=== PATIENT | male | born 1985 | race Caucasian/White ===

== ENCOUNTER 2020-05-21 13:10 | Outpatient (REF) | payer OTHER, SELFPAY ==
[2020-05-21 14:09] LABS: MANUAL DIFF FLAG NO
[2020-05-21 14:16] LABS: Basophils Absolute Auto 0.1 X10*3/uL (0.0-0.2); Eosinophils Absolute Auto 0.5 X10*3/uL (0.0-0.4); Eosinophils Percent Auto 7.3 % (0-4); Hematocrit 41.7 % (42-52); Hemoglobin 14.1 g/dl (14.0-18.0); Imm Gran Abs Auto 0.02 X10*3/uL (0.00-0.03); Imm Gran Pct Auto 0.3 % (0.0-0.4); Lymphocytes Absolute Auto 2.1 X10*3/uL (1.2-4.9); Lymphocytes Percent Auto 30.7 % (20-40); Mean Corpuscular HGB Conc 33.8 g/dl (31.0-36.0); Mean Corpuscular Hemoglobin 31.1 pg (27.0-33.0); Mean Corpuscular Volume 92.1 fL (80-98); Mean Platelet Volume 9.7 fL (9.4-12.4); Monocytes Absolute Auto 0.5 X10*3/uL (0.1-1.2); Monocytes Percent Auto 6.8 % (2-11); Neutrophils Absolute Auto 3.6 X10*3/uL (2.0-8.3); Neutrophils Percent Auto 53.9 % (45-73); Platelet Count 251 X10*3/uL (160-400); Red Blood Count 4.53 X10*6/uL (4.60-5.80); White Blood Count 6.7 X10*3/uL (4.8-10.8)
[2020-05-21 14:41] LABS: Alanine Aminotransferase 22 U/L (0-40); Albumin Level 4.5 g/dL (3.5-5.0); Alkaline Phosphatase 57 U/L (39-117); Anion Gap 13 (12-20); Aspartate Amino Transferase 19 U/L (5-37); Bilirubin Total < 0.2 mg/dL (0.0-1.0); Blood Urea Nitrogen 10 mg/dL (9-16); Calcium 9.5 mg/dL (8.4-10.2); Carbon Dioxide 29 mmol/L (22-29); Chloride 105 mmol/L (96-108); Cholesterol 180 mg/dL; Estimated Glomerular Filt Rate > 60; Glucose Random 87 mg/dL (60-115); HDL Cholesterol 53 mg/dL; LDL Cholesterol Calculated 106 mg/dl; Potassium 4.8 mmol/L (3.3-5.1); Sodium 142 mmol/L (135-145); Total Protein 7.5 g/dL (6.5-8.0); Triglycerides 108 mg/dL
[2020-05-21 15:02] LABS: Free T4 (Free Thyroxine) 0.64 ng/dL (0.71-1.85); Thyroid Stimulating Hormone 1.62 uIU/mL (0.32-4.0)
[2020-05-21 15:09] LABS: Folate 5.9 ng/mL (> or = 4.0); Vitamin B12 591 pg/mL (200-900)
== END 2020-05-21 13:11 | disposition home or self-care (01) ==
LOC: HO.LAB 13:10
PROVIDERS: PCP Internal Medicine; Visit Provider Internal Medicine
DX: E78.00 Pure hypercholesterolemia, unspecified (principal); R56.9 Unspecified convulsions
CPT/HCPCS: 36415; 80053; 80061; 82607; 82746; 84439; 84443; 85025

== ENCOUNTER 2020-06-07 13:36 | Outpatient (REF) | payer OTHER, SELFPAY ==
[2020-06-07 14:22] LABS: MANUAL DIFF FLAG NO
[2020-06-07 14:25] LABS: Basophils Absolute Auto 0.1 X10*3/uL (0.0-0.2); Basophils Percent Auto 1.4 % (0-2); Eosinophils Absolute Auto 0.7 X10*3/uL (0.0-0.4); Eosinophils Percent Auto 10.8 % (0-4); Hemoglobin 14.6 g/dl (14.0-18.0); Imm Gran Abs Auto 0.02 X10*3/uL (0.00-0.03); Imm Gran Pct Auto 0.3 % (0.0-0.4); Lymphocytes Absolute Auto 2.3 X10*3/uL (1.2-4.9); Lymphocytes Percent Auto 36.6 % (20-40); Mean Corpuscular Hemoglobin 31.1 pg (27.0-33.0); Mean Corpuscular Volume 91.5 fL (80-98); Mean Platelet Volume 9.3 fL (9.4-12.4); Monocytes Absolute Auto 0.5 X10*3/uL (0.1-1.2); Monocytes Percent Auto 7.1 % (2-11); Neutrophils Absolute Auto 2.8 X10*3/uL (2.0-8.3); Neutrophils Percent Auto 43.8 % (45-73); Platelet Count 270 X10*3/uL (160-400); Red Cell Distribution Width 11.9 % (11.0-16.0); White Blood Count 6.3 X10*3/uL (4.8-10.8)
[2020-06-07 14:51] LABS: Alanine Aminotransferase 17 U/L (0-40); Albumin Level 4.7 g/dL (3.5-5.0); Alkaline Phosphatase 54 U/L (39-117); Anion Gap 13 (12-20); Aspartate Amino Transferase 17 U/L (5-37); Bilirubin Total 0.6 mg/dL (0.0-1.0); Blood Urea Nitrogen 13 mg/dL (9-16); Calcium 9.6 mg/dL (8.4-10.2); Carbon Dioxide 27 mmol/L (22-29); Chloride 106 mmol/L (96-108); Cholesterol 191 mg/dL; Estimated Glomerular Filt Rate > 60; Glucose Fasting 92 mg/dL (60-99); HDL Cholesterol 52 mg/dL; LDL Cholesterol Calculated 122 mg/dl; Potassium 4.4 mmol/L (3.3-5.1); Sodium 142 mmol/L (135-145); Total Protein 7.6 g/dL (6.5-8.0); Triglycerides 88 mg/dL
[2020-06-07 15:02] LABS: Thyroid Stimulating Hormone 0.92 uIU/mL (0.32-4.0)
[2020-06-14 13:41] LABS: Haloperidol 4 ng/mL (5-15)
== END 2020-06-07 13:37 | disposition home or self-care (01) ==
LOC: HO.LAB 13:36
PROVIDERS: PCP Internal Medicine; Visit Provider Psychiatry & Neurology Psychiatry
DX: Z79.899 Other long term (current) drug therapy (principal)
CPT/HCPCS: 36415; 80053; 80061; 80173; 80299; 84443; 85025

== ENCOUNTER → 2020-06-08 14:33 | Outpatient (REF) | payer OTHER, SELFPAY ==
--- NOTE | 2020-06-08 14:40 | ECG_ITS ---
Test Reason : QTC PROLONGNATION Blood Pressure : / mmHG Vent. Rate : 094 BPM Atrial Rate : 094 BPM P-R Int : 128 ms QRS Dur : 094 ms QT Int : 348 ms P-R-T Axes : 051 023 035 degrees QTc Int : 435 ms Normal sinus rhythm Normal ECG When compared with ECG of 25-OCT-2018 14:42, No significant change was found Referred By: Georgia Anaya Electronically Signed By:Cheng Urrutia
== END ==
LOC: HO.CARD 14:33
PROVIDERS: PCP Internal Medicine; Visit Provider Psychiatry & Neurology Psychiatry
DX: Z79.899 Other long term (current) drug therapy (principal)
CPT/HCPCS: 93005

== ENCOUNTER 2020-06-28 10:57 | Outpatient (REF) | payer OTHER, SELFPAY ==
[2020-06-28 12:10] LABS: INTERNATIONAL NORM RATIO 1.1 (0.9-1.1)
[2020-06-28 12:22] LABS: Prothrombin Time 12.7 SEC (10.8-13.0)
[2020-06-28 12:28] LABS: Partial Thromboplastin Time 43.1 SEC (24.1-38.0)
== END 2020-06-28 10:58 | disposition home or self-care (01) ==
LOC: HO.LAB 10:57
PROVIDERS: PCP Internal Medicine; Visit Provider Internal Medicine
DX: Z01.810 Encounter for preprocedural cardiovascular examination (principal)
CPT/HCPCS: 36415; 85610; 85730

== ENCOUNTER 2020-10-08 11:48 | Outpatient (REF) | payer OTHER, SELFPAY ==
--- NOTE | 2020-10-08 11:57 | ECG_ITS ---
Test Reason : R00.0 Blood Pressure : / mmHG Vent. Rate : 105 BPM Atrial Rate : 105 BPM P-R Int : 134 ms QRS Dur : 092 ms QT Int : 346 ms P-R-T Axes : 063 053 047 degrees QTc Int : 457 ms Sinus tachycardia Otherwise normal ECG When compared with ECG of 08-JUN-2020 14:45, Heart rate has increased Referred By: Mable Conley Electronically Signed By:ANTHONY CAR
[2020-10-08 12:27] LABS: MANUAL DIFF FLAG NO
[2020-10-08 12:32] LABS: Basophils Percent Auto 0.7 % (0-2); Eosinophils Absolute Auto 0.3 X10*3/uL (0.0-0.4); Eosinophils Percent Auto 5.6 % (0-4); Hematocrit 43.3 % (42-52); Hemoglobin 14.8 g/dl (14.0-18.0); Imm Gran Abs Auto 0.01 X10*3/uL (0.00-0.03); Imm Gran Pct Auto 0.2 % (0.0-0.4); Lymphocytes Percent Auto 35.5 % (20-40); Mean Corpuscular HGB Conc 34.2 g/dl (31.0-36.0); Mean Corpuscular Volume 90.6 fL (80-98); Mean Platelet Volume 9.4 fL (9.4-12.4); Monocytes Absolute Auto 0.7 X10*3/uL (0.1-1.2); Neutrophils Absolute Auto 2.6 X10*3/uL (2.0-8.3); Platelet Count 265 X10*3/uL (160-400); Red Blood Count 4.78 X10*6/uL (4.60-5.80); Red Cell Distribution Width 11.9 % (11.0-16.0); White Blood Count 5.6 X10*3/uL (4.8-10.8)
[2020-10-08 12:48] LABS: Alanine Aminotransferase 18 U/L (0-40); Albumin Level 4.4 g/dL (3.5-5.0); Alkaline Phosphatase 73 U/L (39-117); Anion Gap 12 (12-20); Aspartate Amino Transferase 16 U/L (5-37); Bilirubin Total 0.2 mg/dL (0.0-1.0); Blood Urea Nitrogen 10 mg/dL (9-16); Carbon Dioxide 26 mmol/L (22-29); Chloride 107 mmol/L (96-108); Estimated Glomerular Filt Rate > 60; Glucose Random 97 mg/dL (60-115); Potassium 4.4 mmol/L (3.3-5.1); Sodium 141 mmol/L (135-145); Total Protein 7.6 g/dL (6.5-8.0)
[2020-10-08 13:11] LABS: Free T4 (Free Thyroxine) 0.75 ng/dL (0.71-1.85); Thyroid Stimulating Hormone 1.47 uIU/mL (0.32-4.0)
[2020-10-08 13:24] LABS: Folate 11.3 ng/mL (> or = 4.0); Vitamin B12 684 pg/mL (200-900)
== END 2020-10-08 11:49 | disposition home or self-care (01) ==
LOC: HO.LAB 11:48
PROVIDERS: PCP Internal Medicine; Visit Provider Internal Medicine
DX: R00.0 Tachycardia, unspecified (principal); E78.00 Pure hypercholesterolemia, unspecified
CPT/HCPCS: 36415; 80053; 82607; 82746; 84439; 84443; 85025; 93005

== ENCOUNTER 2021-01-12 15:32 | Emergency (ER) | payer OTHER, SELFPAY ==
--- NOTE | ~2021-01-12 | CT_ITS ---
EXAMINATION: CT ABDOMEN AND PELVIS WITHOUT CONTRAST CLINICAL INFORMATION: Urinary retention. Unable to pass Sanches. COMPARISON: CT abdomen/pelvis dated from 05/17/2016. TECHNIQUE: Multidetector volumetric imaging was performed from the superior aspect of the liver through the pubic symphysis. Sagittal and coronal reformatted images were obtained on the technologist's workstation. This CT examination was performed using dose optimization techniques as appropriate, variously including the following: *Automated exposure control *Adjustment of mA and/or kV according to patient size (this includes techniques or standardized protocols for targeted exams where dose is matched to indication/reason for exam; i.e. extremities or head) *Use of iterative reconstruction technique DLP: 769 mGy-cm FINDINGS: LUNG BASES: Small calcified granuloma in the right lung base (4:13). Mild subsegmental atelectasis. No focal consolidation or pleural effusion. LIVER, GALLBLADDER, AND BILIARY TREE: The liver is normal in size, shape and attenuation. A too small to characterize hypodensity in the left hepatic lobe (3:12) is unchanged since 2017. There is focal fatty infiltration adjacent to the falciform ligament. No new focal lesions. The gallbladder is unremarkable with no evidence of radiopaque gallstones, gallbladder wall thickening, or obvious pericholecystic inflammatory changes. PANCREAS: Unremarkable. SPLEEN: Unremarkable. ADRENAL GLANDS: Unremarkable. KIDNEYS AND URETERS: There is a 0.7 x 0.4 cm calculus in the right ureter at the level of L2-L3 leading to moderate right hydroureteronephrosis. There is periureteral fat stranding around the level of the stone. There is an additional 0.4 cm calculus in the lower pole of the right kidney at 6.8 cm from the skin of the posterior axillary line. No additional calculi. No left-sided hydronephrosis. No focal parenchymal abnormalities accounting for limitations in the absence of intravenous contrast. No significant perinephric fat stranding. BLADDER: The urinary bladder is significantly distended without wall thickening or surrounding fat stranding. There is a calcification layering posteriorly in the bladder measuring 0.4 cm on image 75 of series 3. There are 2 closely apposed calcifications more inferiorly within the posterior bladder on image 81 of series 3 measuring up to 0.5 cm. GASTROINTESTINAL TRACT: The stomach and the small bowel are nondilated. Normal appendix. No inflammatory bowel changes. No bowel obstruction. Moderate stool burden throughout the colon. ABDOMINAL WALL: No significant hernia is appreciated. LYMPH NODES: No lymphadenopathy by size criteria. VASCULAR: Unremarkable. PELVIC VISCERA: The prostate gland measures 3.7 x 2.8 cm in maximum AP and TV dimensions. OSSEOUS STRUCTURES: Sclerotic appearance of the femoral heads likely related with avascular necrosis. No compression deformities. CT/CT abdomen pelvis wo con IMPRESSION: There is a 0.7 cm obstructive calculus in the proximal right ureter causing moderate right hydroureteronephrosis. There is periureteral fat stranding which could be reactive. Correlate clinically for superimposed infection. There is an additional 0.4 cm calculus in the lower pole of the right kidney. Distended urinary bladder without wall thickening or surrounding inflammatory changes. There are dependent calculi in the urinary bladder that could be related with prior passed stones or urinary stasis. No definitely obstructive abnormalities are identified to explain symptoms of bladder outlet obstruction. The prostate gland is of normal size. Moderate stool burden suggesting constipation. Avascular necrosis of the femoral heads.
[2021-01-12 16:10] VITALS: BP 130/93; PULSE 107; RESP 18; TEMP 36.1; O2SAT 100; BMI 23.0
--- NOTE | 2021-01-12 18:07 | ED_ITS ---
HPI - Male Genitourinary General Chief complaint: Urogenital-Male Stated complaint: Urinary retention Time Seen by Provider: 01/12/21 17:11 Source: patient and family Mode of arrival: ambulatory Limitations: no limitations History of Present Illness HPI Narrative: 35 y/o male with history of glioma s/p resection 7 years ago and then again in May for recurrence with presenting urinary retention for the last 4 days. Patient is a poor historian and presents with his father and aunt. They report on Sunday he was found standing up in the bathroom with very dark brown urine down his legs. He was confused. They report he has not urinated since then. Patient reports increased lower abdominal pain. He also has been constipated with no bowel movement in a couple days either. He has urge to urinate but is not able to void. He has not had any fever or chills. No nausea or vomiting. He had his 2nd brain surgery back in May the father reports he was discharged with Sanches catheter for about a month. They report he sees Dr. Benavides here but has not seen him since 2019. Complaint: other (Urinary retention) Onset (ago): day(s) (4) Duration: constant Location: abdomen Severity: moderate Quality: aching Relieving factors: none Exacerbating factors: palpation Associated symptoms: Reports urinary retention Related Data Sexually active: No Home Medications Medication Instructions Recorded Confirmed quetiapine 400 mg tablet (Seroquel) 800 mg PO BEDTIME tab 04/05/20 01/12/21 gabapentin 100 mg capsule 100 mg PO DAILY 09/06/20 01/12/21 gabapentin 300 mg capsule 600 mg PO BEDTIME cap 09/06/20 01/12/21 haloperidol 20 mg tablet 20 mg PO BEDTIME 09/06/20 01/12/21 levetiracetam 1,000 mg tablet 1,000 mg PO BID tab 09/06/20 01/12/21 lorazepam 1 mg tablet (Ativan) 1 mg PO BID PRN tab 09/06/20 01/12/21 oxcarbazepine 300 mg tablet 1 tab PO BID 01/12/21 01/12/21 riboflavin (vitamin B2) 100 mg 100 mg PO DAILY 01/12/21 01/12/21 tablet (Vitamin B-2) sertraline 100 mg tablet 200 mg PO DAILY 01/12/21 01/12/21 sumatriptan succinate 50 mg tablet 50 mg PO Q2-4H PRN 01/12/21 01/12/21 Previous Rx's Medication Instructions Recorded pantoprazole 40 mg tablet,delayed 40 mg PO DAILY 90 Days #90 tab 08/02/20 release meloxicam 15 mg tablet 15 mg PO DAILY #90 tab 10/07/20 mupirocin 2 % topical ointment 1 appl TOPICAL TID #22 g 01/12/21 Allergies Allergy/AdvReac Type Severity Reaction Status Date / Time No Known Allergies Allergy Verified 11/15/20 10:31 [No Known Allergies*] Review of Systems Review of Systems: Constitutional: No Fever, No Chills ENT/Mouth: No sore throat, No Rhinorrhea, No Swallowing Difficulty Eyes: No Eye Pain, No Swelling, No Redness Cardiovascular: No Chest Pain, No SOB Respiratory: No Cough, No Sputum Gastrointestinal: No Nausea, No Vomiting, No Diarrhea, No abdominal Pain, No Hematochezia, No Melena, +Constipation Genitourinary: No Dysuria, No Urinary Frequency, No Hematuria, +Urinary retention Musculoskeletal: No joint pain, No Myalgias Skin: No Skin Lesions, No rash Neuro: + Weakness, No Numbness, No Dizziness, No Headache Psych: No Anxiety/Panic, No Depression Heme/Lymph: No Bruising, No Lymphadenopathy Endocrine: No Polyuria, No Polydipsia PMFSH Past Medical History Medical History (Updated 01/12/21 @ 23:03 by FARZAD Wisdom) GERD (gastroesophageal reflux disease) Hypercholesterolemia Insomnia Migraine Polysubstance abuse Psychotic disorder Seizures Thyroid nodule Vitamin D deficiency Surgical History (Updated 07/26/20 @ 18:51 by Mable Conley MD) Glioma History of surgery of head Family History Family History Father Bipolar 1 disorder Mother Bipolar 1 disorder Paternal Grandmother No problems noted. Paternal Grandfather Myocardial infarction Brother Substance abuse Social History Social History Housing: Apartment Alcohol intake: current Patient Tobacco Use Status: Former Tobacco user Tobacco use type: Cigarette Years Smoked: stopped 19 years old e-Cigarette/Vaping Use: Never Used Second Hand Smoke Exposure: No Advance Directives: No Advance Directives Information Provided: No service: No Current occupational status: disabled Physical Exam Vital Signs: Vital Signs: Last Vital Signs Temp 97.6 F 01/12/21 21:18 Pulse 84 01/12/21 21:18 Resp 16 01/12/21 21:18 BP 120/79 01/12/21 21:18 Pulse Ox 99 01/12/21 21:18 Body Mass Index 23.0 Appearance: Alert. Oriented X3. No acute distress. Slow to respond Eyes: Pupils equal, round and reactive to light. ENT: Pharynx normal. Neck: Normal inspection. Neck supple. CVS: Normal heart rate and rhythm. Pulses normal. Respiratory: No respiratory distress. Breath sounds normal. Abdomen: Soft with palpable bladder, tender. no rebound or guarding. decreased but presents +BS x4 TK: normal sphinter tone, no stool in rectal vault, firm prostate palpable, no bogginess. Normal external inspection with no tenderness, no urethral discharge. Skin: Skin warm and dry. Normal skin color. Normal skin turgor. No rashes. Extremities: No lower extremity edema. bilateral feel with foot drop. Neuro: Cognitive delay w slow speech. Oriented X 3. No motor deficit. No sensory deficit. Course Course Course Narrative: 35-year-old male with history of glioma resection x2, last in May 2020, course complicated by urinary retention requiring Sanches catheter for over 1 month now presents back to the ER with recurrent urinary retention. His family helps provide history. They state he had very dark urine on Sunday with some confusion and weakness. They report he has been unable to urinate since then. Also reports constipation. No fever or chills. No nausea or vomiting. Bladder scan showing almost 700 cc of urine. Will attempt Sanches catheter placement. Will check lab workup and urinalysis Reevaluation(s) Reevaluation #1: Sanches catheter placement unsuccessful by tech, nurse, colleague PA. Dr. Benavides the urologist was contacted and will plan to come in for evaluation and placement of a Sanches catheter. Lab workup is reassuring and not showing any significant acute kidney injury. Will obtain CT scan for further evaluation of obstruction. Reevaluation #2: CT scan is showing a 0.7 cm proximal right ureteral stone with obstruction and moderate hydroureteronephrosis. No bladder outlet obstruction is seen. Patient has no pain at this time. Reevaluation #3: Dr. Benavides came evaluated the patient the bedside. He successfully placed a Sanches catheter with very minimal bleeding afterward. 800 cc drained, urine is dark with some sediment. is not consistent with infection. Per Dr. Benavides patient is okay for discharge home with plan for urologic intervention on Sunday. OR staff will contact the family Sunday morning as he will be a add on case for the day. Patient to be discharged home with Sanches catheter in place. Family and patient agreeable with plan. Consultations Consultation #1: Urology Dr. Benavides MDM - Male Genitourinary Lab Data Result diagrams: 01/12/21 19:07 01/12/21 19:07 Labs: Lab Results 01/12/21 01/12/21 01/12/21 Range/Units 19:07 19:07 19:07 WBC 6.9 (4.8-10.8) X10*3/uL RBC 4.64 (4.60-5.80) X10*6/uL Hgb 14.1 (14.0-18.0) g/dl Hct 42.9 (42.0-52.0) % MCV 92.5 (80.0-98.0) fL MCH 30.4 (27.0-33.0) pg MCHC 32.9 (31.0-36.0) g/dl RDW 12.8 (11.0-16.0) % Plt Count 243 (160-400) X10*3/uL MPV 9.8 (9.4-12.4) fL Immature Gran % (Auto) 0.1 (0.0-0.4) % Neut % (Auto) 59.0 (45-73) % Lymph % (Auto) 23.1 (20-40) % [place] % (Auto) 10.5 (2-11) % Eos % (Auto) 6.3 H (0-4) % Baso % (Auto) 1.0 (0-2) % Lymph # (Auto) 1.6 (1.2-4.9) X10*3/uL [place] # (Auto) 0.7 (0.1-1.2) X10*3/uL Eos # (Auto) 0.4 (0.0-0.4) X10*3/uL Baso # (Auto) 0.1 (0.0-0.2) X10*3/uL Abs Immat Gran (auto) 0.01 (0.00-0.03) X10*3/uL Absolute Neuts (auto) 4.1 (2.0-8.3) x10*3/uL Absolute Nucleated RBC 0.000 (0.0-0.012) X10*3/uL Nucleated RBC % (auto) 0.0 (0.0-0.2) /100WBC Sodium 143 (135-145) mmol/L Potassium 4.5 (3.3-5.1) mmol/L Chloride 106 (96-108) mmol/L Carbon Dioxide 28 (22-29) mmol/L Anion Gap 14 (12-20) BUN 21 H D (9-16) mg/dL Creatinine 1.25 (0.5-1.4) mg/dL Estim Creat Clear Calc 88.1 Estimated GFR > 60 Random Glucose 90 (60-115) mg/dL Lactic Acid 1.1 (0.5-2.0) mmol/L Calcium 9.7 (8.4-10.2) mg/dL Magnesium 2.2 (1.6-2.6) mg/dL Total Bilirubin 0.4 (0.0-1.0) mg/dL Direct Bilirubin 0.2 (0.0-0.5) mg/dL AST 38 H D (5-37) U/L ALT 22 (0-40) U/L Alkaline Phosphatase 58 D (39-117) U/L Total Protein 7.5 (6.5-8.0) g/dL Albumin 4.3 (3.5-5.0) g/dL Urine Color Urine Appearance Urine pH (5.0-8.0) Ur Specific [place] (1.005-1.025) Urine Protein (NEG-TRACE) MG/DL Urine Glucose (UA) (NEG) MG/DL Urine Ketones (NEG) MG/DL Urine Blood (NEG) Urine Nitrite (NEG) Ur Leukocyte Esterase (NEG) Urine RBC (0) /HPF Urine WBC (0-4) /HPF Ur Squamous Epith Cells /LPF Amorphous Sediment /LPF Urine Bacteria /LPF Urine Mucus /LPF Urine Opiates Screen (Not Detect) Urine Fentanyl Screen (Not Detect) Ur Barbiturates Screen (Not Detect) Ur Phencyclidine Scrn (Not Detect) Ur Amphetamines Screen (Not Detect) U Benzodiazepines Scrn (Not Detect) Urine Cocaine Screen (Not Detect) U Marijuana (THC) Screen (Not Detect) Ethyl Alcohol mg/dL COVID-19 ([facility]) (Negative) COVID-19 Clin Com 01/12/21 01/12/21 01/12/21 Range/Units 19:07 19:07 22:45 WBC (4.8-10.8) X10*3/uL RBC (4.60-5.80) X10*6/uL Hgb (14.0-18.0) g/dl Hct (42.0-52.0) % MCV (80.0-98.0) fL MCH (27.0-33.0) pg MCHC (31.0-36.0) g/dl RDW (11.0-16.0) % Plt Count (160-400) X10*3/uL MPV (9.4-12.4) fL Immature Gran % (Auto) (0.0-0.4) % Neut % (Auto) (45-73) % Lymph % (Auto) (20-40) % [place] % (Auto) (2-11) % Eos % (Auto) (0-4) % Baso % (Auto) (0-2) % Lymph # (Auto) (1.2-4.9) X10*3/uL [place] # (Auto) (0.1-1.2) X10*3/uL Eos # (Auto) (0.0-0.4) X10*3/uL Baso # (Auto) (0.0-0.2) X10*3/uL Abs Immat Gran (auto) (0.00-0.03) X10*3/uL Absolute Neuts (auto) (2.0-8.3) x10*3/uL Absolute Nucleated RBC (0.0-0.012) X10*3/uL Nucleated RBC % (auto) (0.0-0.2) /100WBC Sodium (135-145) mmol/L Potassium (3.3-5.1) mmol/L Chloride (96-108) mmol/L Carbon Dioxide (22-29) mmol/L Anion Gap (12-20) BUN (9-16) mg/dL Creatinine (0.5-1.4) mg/dL Estim Creat Clear Calc Estimated GFR Random Glucose (60-115) mg/dL Lactic Acid (0.5-2.0) mmol/L Calcium (8.4-10.2) mg/dL Magnesium (1.6-2.6) mg/dL Total Bilirubin (0.0-1.0) mg/dL Direct Bilirubin (0.0-0.5) mg/dL AST (5-37) U/L ALT (0-40) U/L Alkaline Phosphatase (39-117) U/L Total Protein (6.5-8.0) g/dL Albumin (3.5-5.0) g/dL Urine Color DK YELLOW Urine Appearance CLEAR Urine pH 5.5 (5.0-8.0) Ur Specific [place] >= 1.030 H (1.005-1.025) Urine Protein 1+ H (NEG-TRACE) MG/DL Urine Glucose (UA) NEG (NEG) MG/DL Urine Ketones NEG (NEG) MG/DL Urine Blood 3+ H (NEG) Urine Nitrite NEG (NEG) Ur Leukocyte Esterase NEG (NEG) Urine RBC 15-29 H (0) /HPF Urine WBC 0 (0-4) /HPF Ur Squamous Epith Cells TRACE /LPF Amorphous Sediment 3+ /LPF Urine Bacteria NONE /LPF Urine Mucus 1+ /LPF Urine Opiates Screen (Not Detect) Urine Fentanyl Screen (Not Detect) Ur Barbiturates Screen (Not Detect) Ur Phencyclidine Scrn (Not Detect) Ur Amphetamines Screen (Not Detect) U Benzodiazepines Scrn (Not Detect) Urine Cocaine Screen (Not Detect) U Marijuana (THC) Screen (Not Detect) Ethyl Alcohol < 10 mg/dL COVID-19 ([facility]) Negative (Negative) COVID-19 Clin Com See Note 01/12/21 Range/Units 22:46 WBC (4.8-10.8) X10*3/uL RBC (4.60-5.80) X10*6/uL Hgb (14.0-18.0) g/dl Hct (42.0-52.0) % MCV (80.0-98.0) fL MCH (27.0-33.0) pg MCHC (31.0-36.0) g/dl RDW (11.0-16.0) % Plt Count (160-400) X10*3/uL MPV (9.4-12.4) fL Immature Gran % (Auto) (0.0-0.4) % Neut % (Auto) (45-73) % Lymph % (Auto) (20-40) % [place] % (Auto) (2-11) % Eos % (Auto) (0-4) % Baso % (Auto) (0-2) % Lymph # (Auto) (1.2-4.9) X10*3/uL [place] # (Auto) (0.1-1.2) X10*3/uL Eos # (Auto) (0.0-0.4) X10*3/uL Baso # (Auto) (0.0-0.2) X10*3/uL Abs Immat Gran (auto) (0.00-0.03) X10*3/uL Absolute Neuts (auto) (2.0-8.3) x10*3/uL Absolute Nucleated RBC (0.0-0.012) X10*3/uL Nucleated RBC % (auto) (0.0-0.2) /100WBC Sodium (135-145) mmol/L Potassium (3.3-5.1) mmol/L Chloride (96-108) mmol/L Carbon Dioxide (22-29) mmol/L Anion Gap (12-20) BUN (9-16) mg/dL Creatinine (0.5-1.4) mg/dL Estim Creat Clear Calc Estimated GFR Random Glucose (60-115) mg/dL Lactic Acid (0.5-2.0) mmol/L Calcium (8.4-10.2) mg/dL Magnesium (1.6-2.6) mg/dL Total Bilirubin (0.0-1.0) mg/dL Direct Bilirubin (0.0-0.5) mg/dL AST (5-37) U/L ALT (0-40) U/L Alkaline Phosphatase (39-117) U/L Total Protein (6.5-8.0) g/dL Albumin (3.5-5.0) g/dL Urine Color Urine Appearance Urine pH (5.0-8.0) Ur Specific [place] (1.005-1.025) Urine Protein (NEG-TRACE) MG/DL Urine Glucose (UA) (NEG) MG/DL Urine Ketones (NEG) MG/DL Urine Blood (NEG) Urine Nitrite (NEG) Ur Leukocyte Esterase (NEG) Urine RBC (0) /HPF Urine WBC (0-4) /HPF Ur Squamous Epith Cells /LPF Amorphous Sediment /LPF Urine Bacteria /LPF Urine Mucus /LPF Urine Opiates Screen Not Detected (Not Detect) Urine Fentanyl Screen Not Detected (Not Detect) Ur Barbiturates Screen Not Detected (Not Detect) Ur Phencyclidine Scrn Not Detected (Not Detect) Ur Amphetamines Screen Not Detected (Not Detect) U Benzodiazepines Scrn Not Detected (Not Detect) Urine Cocaine Screen Not Detected (Not Detect) U Marijuana (THC) Screen Not Detected (Not Detect) Ethyl Alcohol mg/dL COVID-19 ([facility]) (Negative) COVID-19 Clin Com Critical Care Time Critical Care Time Critical Care Time: No Discharge Plan Discharge Clinical Impression: Hydronephrosis with urinary obstruction due to renal calculus, Impetigo, Acute urinary retention Patient Disposition: Home, Self-Care Instructions: Urinary Retention in Men (ED), Impetigo (ED), Sanches Catheter Placement and Care (ED), Ureteral Stones (ED) Additional Instructions: CT scan today showed an obstructing kidney stone on the right side. This will need urologic intervention. Dr. Benavides recommends nothing by mouth past midnight on SundayJanuary 16. The operating room staff will be in contact with you on Sunday morning to add on your case for Sunday. Keep the Sanches in place until you are re-evaluated Drink plenty of fluids. If you have severe pain or any other concerning symptom come back to the ER for further evaluation. Prescriptions: New mupirocin 2 % ointment 1 appl topical TID Qty: 22 RF: 0 No Action pantoprazole 40 mg tablet,delayed release (DR/EC) 40 mg PO DAILY 90 Days Qty: 90 RF: 2 meloxicam 15 mg tablet 15 mg PO DAILY Qty: 90 RF: 0 sertraline 100 mg tablet 200 mg PO DAILY RF: 0 sumatriptan succinate 50 mg tablet 50 mg PO Q2-4H PRN (Reason: Headache) RF: 0 oxcarbazepine 300 mg tablet 1 tab PO BID RF: 0 riboflavin (vitamin B2) [Vitamin B-2] 100 mg tablet 100 mg PO DAILY RF: 0 quetiapine [Seroquel] 400 mg tablet 800 mg PO BEDTIME RF: 0 lorazepam [Ativan] 1 mg tablet 1 mg PO BID PRN (Reason: Anxiety) RF: 0 haloperidol 20 mg tablet 20 mg PO BEDTIME RF: 0 gabapentin 300 mg capsule 600 mg PO BEDTIME RF: 0 gabapentin 100 mg capsule 100 mg PO DAILY RF: 0 levetiracetam 1,000 mg tablet 1,000 mg PO BID RF: 0 Referrals: Travis Benavides MD [Physician] - 01/17/21 (Obstructing kidney stone on the right side with moderate hydronephrosis plan for intervention on Sunday)
--- NOTE | 2021-01-12 18:31 | PC.NURSE ---
straight cath, rodriges cath, and coude placement failed. provider aware
[2021-01-12 19:18] LABS: MANUAL DIFF FLAG NO
[2021-01-12 19:21] LABS: Basophils Absolute Auto 0.1 X10*3/uL (0.0-0.2); Eosinophils Absolute Auto 0.4 X10*3/uL (0.0-0.4); Eosinophils Percent Auto 6.3 % (0-4); Hematocrit 42.9 % (42.0-52.0); Hemoglobin 14.1 g/dl (14.0-18.0); Imm Gran Abs Auto 0.01 X10*3/uL (0.00-0.03); Imm Gran Pct Auto 0.1 % (0.0-0.4); Lymphocytes Absolute Auto 1.6 X10*3/uL (1.2-4.9); Lymphocytes Percent Auto 23.1 % (20-40); Mean Corpuscular HGB Conc 32.9 g/dl (31.0-36.0); Mean Corpuscular Hemoglobin 30.4 pg (27.0-33.0); Mean Corpuscular Volume 92.5 fL (80.0-98.0); Mean Platelet Volume 9.8 fL (9.4-12.4); Monocytes Absolute Auto 0.7 X10*3/uL (0.1-1.2); Monocytes Percent Auto 10.5 % (2-11); Neutrophils Absolute Auto 4.1 x10*3/uL (2.0-8.3); Platelet Count 243 X10*3/uL (160-400); Red Blood Count 4.64 X10*6/uL (4.60-5.80); Red Cell Distribution Width 12.8 % (11.0-16.0); White Blood Count 6.9 X10*3/uL (4.8-10.8)
[2021-01-12] MEDS: Lidocaine HCl 2 % Urojet 10 ML JEL.PF.APP TOPICAL ×2 (19:22)
[2021-01-12 19:29] LABS: Lactic Acid 1.1 mmol/L (0.5-2.0)
[2021-01-12 19:31] LABS: Ethanol < 10 mg/dL
[2021-01-12 19:35] LABS: COVID-19 Test Negative (Negative); IDNOW Serial# 9DD0AD1C
[2021-01-12 19:36] LABS: Alanine Aminotransferase 22 U/L (0-40); Albumin Level 4.3 g/dL (3.5-5.0); Alkaline Phosphatase 58 U/L (39-117); Anion Gap 14 (12-20); Aspartate Amino Transferase 38 U/L (5-37); Bilirubin Direct 0.2 mg/dL (0.0-0.5); Bilirubin Total 0.4 mg/dL (0.0-1.0); Blood Urea Nitrogen 21 mg/dL (9-16); Calcium 9.7 mg/dL (8.4-10.2); Carbon Dioxide 28 mmol/L (22-29); Chloride 106 mmol/L (96-108); Creatinine Clr Calc Pharmacy 88.1; Estimated Glomerular Filt Rate > 60; Glucose Random 90 mg/dL (60-115); Magnesium 2.2 mg/dL (1.6-2.6); Potassium 4.5 mmol/L (3.3-5.1); Sodium 143 mmol/L (135-145); Total Protein 7.5 g/dL (6.5-8.0)
[2021-01-12 21:18] VITALS: BP 120/79; PULSE 84; RESP 16; TEMP 36.4; O2SAT 99
--- NOTE | 2021-01-12 21:19 | PHA.MEDREC ---
Pharmacy Consult ? Medication Reconciliation Pharmacy has completed the medication reconciliation.
[2021-01-12] MEDS: levETIRAcetam in NaCl (iso-os) 1,000 MG/100 ML PIGGYBACK 400 MG IV (22:16)
[2021-01-12 22:58] LABS: Appearance Urine CLEAR; Color Urine DK YELLOW; Glucose Urine UA NEG (NEG); Leukocyte Esterase Urine NEG (NEG); Nitrite Urine NEG (NEG); PH 5.5 (5.0-8.0); Specific Gravity - Urine >= 1.030 (1.005-1.025); UACC Culture Trigger NO; Urine Blood 3+ (NEG); Urine Ketones NEG (NEG); Urine Protein 1+ MG/DL (NEG-TRACE)
[2021-01-12 23:12] LABS: Amphetamine Screen Urine Not Detected (Not Detect); Barbiturates, Urine Not Detected (Not Detect); Benzodiazepines Screen Urine Not Detected (Not Detect); Cannabinoid Screen Urine Not Detected (Not Detect); Cocaine Screen Urine Not Detected (Not Detect); Fentanyl, urine Not Detected (Not Detect); Opiate Screen Urine Not Detected (Not Detect); Phencyclidine Screen Urine Not Detected (Not Detect)
[2021-01-12 23:23] LABS: Amorphous Sediment Urine 3+ /LPF; Mucus Urine 1+ /LPF; Squamous Epithelial Cell Urine TRACE /LPF; WBC Urine 0 /HPF (0-4)
--- NOTE | 2021-01-17 16:58 | P.CNUR_ITS ---
History of Present Illness Consult details Consult date: 01/12/21 Narrative: consult for urinary retention 35-year-old male significant past history for neurosurgical intervention Presents to emergency room with 3 to four-day history of minimal voiding and dark urine Attempts to place Sanches catheter have been made in emergency room Eighteen Malay coude placed see procedure note On imaging found to have 7 mm proximal right ureteric stone with mild hydroureteronephrosis. Stable creatinine and WBC at time of presentation Discussed with patient's father and agreed to see next Sunday for stone intervention. Remaining in hospital might not be the best overall treatment plan for him at this time. They know to call should there be any change in overall status. Review of Systems Constitutional: Constitutional: Denies chills and Denies fever(s) Cardiovascular: Cardiovascular: Reports no additional cardiovascular co mplaints and Denies syncope Respiratory: Respiratory: Denies cough Gastrointestinal: Gastrointestinal: Denies abdominal pain and Denies heartburn Genitourinary: Genitourinary: Reports as per HPI and Denies change in libido Neurologic: Denies syncope Psychiatric: Psychiatric: Denies change in libido Endocrine: Endocrine: Denies change in libido [facility] Past Medical History Medical History (Updated 01/17/21 @ 17:01 by Travis Benavides MD) GERD (gastroesophageal reflux disease) Hypercholesterolemia Insomnia Migraine Polysubstance abuse Psychotic disorder Seizures Thyroid nodule Vitamin D deficiency Family History Family History Father Bipolar 1 disorder Mother Bipolar 1 disorder Paternal Grandmother No problems noted. Paternal Grandfather Myocardial infarction Brother Substance abuse Surgical History Surgical History Glioma History of surgery of head Social History Social History Housing: Apartment Alcohol intake: current Patient Tobacco Use Status: Former Tobacco user Quit Date: >10 yrs ago Tobacco use type: Cigarette Years Smoked: stopped 19 years old e-Cigarette/Vaping Use: Never Used Second Hand Smoke Exposure: No Use of substances other than those prescribed or required for medical reasons: Yes Substance Use Frequency: Occasionally Are you DNR?: No Advance Directives: No Advance Directives Information Provided: Yes service: No Current occupational status: disabled Meds Allergies Allergy/AdvReac Type Severity Reaction Status Date / Time No Known Allergies Allergy Verified 01/17/21 15:17 [No Known Allergies*] Home Medications Medication Instructions Recorded Confirmed Last Taken Type quetiapine 400 mg tablet (Seroquel) 800 mg PO BEDTIME tab 04/05/20 01/12/21 01/11/21 History gabapentin 100 mg capsule 100 mg PO DAILY 09/06/20 01/12/21 01/12/21 History gabapentin 300 mg capsule 600 mg PO BEDTIME cap 09/06/20 01/12/21 01/11/21 History haloperidol 20 mg tablet 20 mg PO BEDTIME 09/06/20 01/12/21 01/11/21 History lorazepam 1 mg tablet (Ativan) 1 mg PO BID PRN tab 09/06/20 01/12/21 Unknown History oxcarbazepine 300 mg tablet 1 tab PO BID 01/12/21 01/12/21 01/12/21 History riboflavin (vitamin B2) 100 mg 100 mg PO DAILY 01/12/21 01/12/21 Unknown History tablet (Vitamin B-2) sertraline 100 mg tablet 200 mg PO DAILY 01/12/21 01/12/21 01/12/21 History sumatriptan succinate 50 mg tablet 50 mg PO Q2-4H PRN 01/12/21 01/12/21 Unknown History Physical Exam Vital Signs: Vital Signs: Last Vital Signs Temp 97.6 F 01/12/21 21:18 Pulse 84 01/12/21 21:18 Resp 16 01/12/21 21:18 BP 120/79 01/12/21 21:18 Pulse Ox 99 01/12/21 21:18 Body Mass Index 23.0 Const: General: cooperative, healthy appearing, comfortable and no acute distress Orientation/consciousness: patient oriented x3 HENMT: Face and sinus: Yes normal facial exam Mouth: moist mucous membranes Neck: Neck: Yes normal visual inspection, Yes full ROM and Yes trachea midline Chest: Chest palpation & inspection: normal inspection of the chest Resp: Effort & Inspection: normal respiratory effort, able to speak in complete sentences and no respiratory distress GI: Inspection: Yes normal to inspection Back/Spine/Pelvis: Cervical Spine: normal cervical lordosis Thoracic/Lumbar Spine: thoracic and lumbar spine normal to inspection Skin: General skin exam: no rashes or lesions noted Neuro: General: patient oriented x3, gait normal, tone normal and moves all extremities Extrem: General: Yes normal to inspection and Yes capillary refill normal Results Labs Result diagrams: 01/12/21 19:07 01/12/21 19:07 Labs: Urine 01/12/21 Range/Units 22:45 Urine Color DK YELLOW Urine Appearance CLEAR Urine pH 5.5 (5.0-8.0) Ur Specific [place] >= 1.030 H (1.005-1.025) Urine Protein 1+ H (NEG-TRACE) MG/DL Urine Glucose (UA) NEG (NEG) MG/DL All other labs normal. Assessment and Plan (1) Urinary retention with incomplete bladder emptying: Status: Acute (2) Renal calculus, right: Status: Acute plan for kidney stone intervention next Sunday. Ureteroscopy We discussed the nature of the decision and reasonable alternatives for performing the above surgery. Interventions include chemical dissolution, ESWL, ureteroscopy with laser lithotripsy and stent placement, PCNL. Options such as medical therapy were discussed. The relative uncertainties and benefits related to each alternate procedure were adequately discussed. General surgical risks including, but not limited to, pain, bleeding, infection, myocardial infarction, pulmonary embolus, deep vein thrombosis and cerebrovascular accident which may result in further hos pitalization were discussed. Full disclosure of the procedure as well as all major risks, benefits and complications were discussed including but not limited to damage to the urethra, bladder and kidney infection, damage to the ureter, stent migration or malposition, scarring to the renal pelvis, remnant stone fragments, subsequent stone passage with need for secondary procedures. The overall secondary procedure rate is approximately 10-15%. The success rate of the procedure was discussed. Success of the procedure in the short-term does not necessarily guarantee that long-term success will be maintained. Suitable follow up will need to be maintained. The patient showed understanding of discussion and wishes to proceed with - cystoscopy, retrograde, ureteroscopy, possible lithotripsy/stone basketing and stent on the right side Procedures Date of Service Date of Service: 01/12/21 Catheter Insertion (Urinary) Date of insertion: 01/12/21 Replacement of catheter present on admission: No Reason for placing: Acute urinary retention Topical anesthesia used: No Catheter type/location: 2-way Urethral Size (Malay): 18 Catheter balloon amount: 10 Results: successfully catheterized-immediate flow
== END 2021-01-12 23:42 | disposition home or self-care (01) ==
PROVIDERS: Physician Assistant; Emergency Provider Emergency Medicine; PCP Internal Medicine
DX: N13.2 Hydronephrosis with renal and ureteral calculous obstruction (principal); R33.9 Retention of urine, unspecified; Z20.822 Contact with and (suspected) exposure to COVID-19
CPT/HCPCS: 36415; 51702; 51798; 74176; 80048; 80076; 80307; 81001; 82077; 83605; 83735; 85025; 87040; 87635; 96374; 99284; J1953

== ENCOUNTER 2021-01-17 14:52 | Day surgery (SDC) | payer OTHER, SELFPAY ==
[2021-01-17 15:20] VITALS: BP 143/95; PULSE 103; RESP 16; TEMP 36.5; O2SAT 98; BMI 23.6
--- NOTE | 2021-01-17 16:10 | HO.ANESPROP2 ---
Documented by User: Oleg Magallanes 01/17/21 16:23 HPI - Anesthesia Eval Consult details Narrative: 35 M for cystoscopy . last seizure years ago as per patient . resection of intracranial tumor few months ago at [facility] Active Problems Active Problems: All Active Problems (Updated 01/13/21 @ 00:01 by Background Daemon) Generalized anxiety disorder (Acute) Tachycardia (Acute) Neck pain on left side (Acute) Gait instability (Acute) Glioma (Acute) Impacted cerumen of right ear (Acute) Seizures (Acute) Hypercholesterolemia (Acute) GERD (gastroesophageal reflux disease) (Acute) Past Medical History Medical History (Updated 01/17/21 @ 17:01 by Travis Benavides MD) GERD (gastroesophageal reflux disease) Hypercholesterolemia Insomnia Migraine Polysubstance abuse Psychotic disorder Seizures Thyroid nodule Vitamin D deficiency Family History Family History Father Bipolar 1 disorder Mother Bipolar 1 disorder Paternal Grandmother No problems noted. Paternal Grandfather Myocardial infarction Brother Substance abuse Family history of problems with anesthesia: No Surgical History Surgical History Glioma History of surgery of head History of Problems with Anesthesia: No Social History Social History Housing: Apartment Alcohol intake: current Patient Tobacco Use Status: Former Tobacco user Quit Date: >10 yrs ago Tobacco use type: Cigarette Years Smoked: stopped 19 years old e-Cigarette/Vaping Use: Never Used Second Hand Smoke Exposure: No Use of substances other than those prescribed or required for medical reasons: Yes Substance Use Frequency: Occasionally Are you DNR?: No Advance Directives: No Advance Directives Information Provided: Yes service: No Current occupational status: disabled Meds Allergies Allergy/AdvReac Type Severity Reaction Status Date / Time No Known Allergies Allergy Verified 01/17/21 15:17 [No Known Allergies*] Active Medications: Current Medications Levofloxacin (Levaquin) 500 mg in 100 mls @ 100 mls/hr IV PREOP ONE Stop: 01/17/21 16:11 Home Medications Medication Instructions Recorded Confirmed Last Taken Type quetiapine 400 mg tablet (Seroquel) 800 mg PO BEDTIME tab 04/05/20 01/12/2121 History gabapentin 100 mg capsule 100 mg PO DAILY 09/06/20 01/12/21 01/12/21 History gabapentin 300 mg capsule 600 mg PO BEDTIME cap 09/06/20 01/12/21 01/11/21 History haloperidol 20 mg tablet 20 mg PO BEDTIME 09/06/20 01/12/21 01/11/21 History lorazepam 1 mg tablet (Ativan) 1 mg PO BID PRN tab 09/06/20 01/12/21 Unknown History oxcarbazepine 300 mg tablet 1 tab PO BID 01/12/21 01/12/21 01/12/21 History riboflavin (vitamin B2) 100 mg 100 mg PO DAILY 01/12/21 01/12/21 Unknown History tablet (Vitamin B-2) sertraline 100 mg tablet 200 mg PO DAILY 01/12/21 01/12/21 01/12/21 History sumatriptan succinate 50 mg tablet 50 mg PO Q2-4H PRN 01/12/21 01/12/21 Unknown History Exam Exam Date and Time: January 17, 2021 1610 Height,Weight and Vital Signs: Height 5 ft 10 in Weight 74.843 kg Last Vital Signs Temp 97.7 F 01/17/21 15:20 Pulse 103 H 01/17/21 15:20 Resp 16 01/17/21 15:20 BP 143/95 H 01/17/21 15:20 Pulse Ox 98 01/17/21 15:20 Airway Mallampati Class: II TM Dist: >3cm Neck ROM: Full Loose/Missing/Broken Teeth: No Heart: rrr Lungs: bl breath sounds Assessment and Plan Final Anesthetic Review Family History of Problems with Anesthesia: No History of Problems with Anesthesia: No NPO: Yes ASA Class: III Documented by User: Lesly Moya MD 01/17/21 18:03 [facility] Past Medical History Medical History (Updated 01/17/21 @ 17:01 by Travis Benavides MD) GERD (gastroesophageal reflux disease) Hypercholesterolemia Insomnia Migraine Polysubstance abuse Psychotic disorder Seizures Thyroid nodule Vitamin D deficiency Functional capacity: independent ambulation Family History Family History Father Bipolar 1 disorder Mother Bipolar 1 disorder Paternal Grandmother No problems noted. Paternal Grandfather Myocardial infarction Brother Substance abuse Surgical History Surgical History Glioma History of surgery of head Social History Social History Housing: Apartment Alcohol intake: current Patient Tobacco Use Status: Former Tobacco user Quit Date: >10 yrs ago Tobacco use type: Cigarette Years Smoked: stopped 19 years old e-Cigarette/Vaping Use: Never Used Second Hand Smoke Exposure: No Use of substances other than those prescribed or required for medical reasons: Yes Substance Use Frequency: Occasionally Are you DNR?: No Advance Directives: No Advance Directives Information Provided: Yes service: No Current occupational status: disabled Meds Allergies Allergy/AdvReac Type Severity Reaction Status Date / Time No Known Allergies Allergy Verified 01/17/21 15:17 [No Known Allergies*] Home Medications Medication Instructions Recorded Confirmed Last Taken Type quetiapine 400 mg tablet (Seroquel) 800 mg PO BEDTIME tab 04/05/20 01/12/21 01/11/21 History gabapentin 100 mg capsule 100 mg PO DAILY 09/06/20 01/12/21 01/12/21 History gabapentin 300 mg capsule 600 mg PO BEDTIME cap 09/06/20 01/12/21 01/11/21 History haloperidol 20 mg tablet 20 mg PO BEDTIME 09/06/20 01/12/21 01/11/21 History lorazepam 1 mg tablet (Ativan) 1 mg PO BID PRN tab 09/06/20 01/12/21 Unknown History oxcarbazepine 300 mg tablet 1 tab PO BID 01/12/21 01/12/21 01/12/21 History riboflavin (vitamin B2) 100 mg 100 mg PO DAILY 01/12/21 01/12/21 Unknown History tablet (Vitamin B-2) sertraline 100 mg tablet 200 mg PO DAILY 01/12/21 01/12/21 01/12/21 History sumatriptan succinate 50 mg tablet 50 mg PO Q2-4H PRN 01/12/21 01/12/21 Unknown History Assessment and Plan Final Anesthetic Review Patient Risk: Intermediate Procedure Risk: Low Anesthetic Plan Anesthetic Plan: GA Disposition: Standard PACU
[2021-01-17] MEDS: Lactated Ringers 1,000 ML 80 ML IVCONT (16:29)
--- NOTE | 2021-01-17 16:57 | P.HPSUR_ITS ---
Pre-Procedural Eval Section A Date of Service: 01/17/21 The patient is an INPATIENT: No Changes since office visit: No Cold of Flu in the past 2 weeks, No New Medical Problems, No Changes in Medication and No Patient answered all questions The History & Physical has been completed within 30 days and I have reviewed it.: No Section B Chief Complaint: calculus of kidney Details of Present Illness: seen in emergency room for Sanches catheter placement last Sunday. Found to have right sided renal stone. Organized for Procedure today. Relevant Family History (Specify if Yes): No Present Medications: see Short Stay Collaborative assessment Medical History: Significant History ( Multiple prior pineal gland resections) History of Previous Operations: No relevant previous surgery Allergies: Allergies Allergy/AdvReac Type Severity Reaction Status Date / Time No Known Allergies Allergy Verified 01/17/21 15:17 [No Known Allergies*] Review of Systems Sugical H&P ROS: Negative: Constitution, Cardiovascular, Respiratory, Neurological, Psychiatric, Hem-Onc, Allergic/Immunologic, Gastrointestinal, Genitourinary, Musculoskeletal, Integumentary, Endocrine and Eyes/Ears/Nose/T hroat Exam Surgical H&P Exam: Normal: HEENT, Normal: Heart, Normal: Lungs, Normal: Extremities, Normal: Abdomen, Normal: Skin and Normal: Neurological Plan Diagnosis/Plan: Unchanged ( cystoscopy, right retrograde, right ureteroscopy, laser lithotripsy, stent placement) I have reviewed the history and physical and performed a pertinent physical examination on my patient. No changes have occurred unless specified.
--- NOTE | 2021-01-17 18:19 | W.PM.OPN ---
Operative Note Operative Note Date of Service: 01/17/21 Narrative: PreOperative Diagnosis: right proximal ureteric stone Post Operative Diagnosis: bladder stones, right renal stone Procedure: - cystoscopy, right retrograde - right dilatation of ureteric orifice under fluoroscopy - right ureteroscopy, laser lithotripsy, stone basketing - right stent placement Surgeon: Dr Travis Benavides Anesthesia: General Indications for procedure: this is a 35-year-old male. Seen in the emergency room 5 days ago with urinary retention hematuria. Sanches catheter placed. Imaging showed proximal right 7 mm stone with associated mild hydro nephrosis. Recommendation for stone intervention with ureteroscopy, laser lithotripsy and stent placement. Procedure: After informed consent was verified patient was brought to the operating placed in supine position. Anesthesia was administered per protocol. Patient was placed in modified dorsal lithotomy position and prepped and draped in a sterile fashion. Safety pause time-out and side of surgery confirmed. Antibiotics confirmed. Twenty-two Egyptian cystoscope inserted per urethra. No abnormality noted the anterior posterior urethra. Small stone fragments were seen within the bladder. These may have been kidney stones that had passed or were bladder stones. These were removed and sent for analysis separately. A retrograde examination performed on the right-hand side. It appeared that the filling defect at the proximal portion of the UPJ moved back into the bladder during this maneuver. A Sensor guidewire was placed which kept the stone pushed back up into the kidney. The inner cannula of ureteric access sheath was used to dilate the ureteric orifice under fluoroscopy. The ureteric access sheath was placed. A flexible ureteral scope was then placed up the renal pelvis. The stone was encountered. Using a 272 micron holmium fiber the stone was broken into small pieces. The small pieces were then removed from the renal pelvis using a 0 tip basket. The stone pieces will be sent for pathology. Once the renal pelvis had been fully examined no more stones were seen decision was made for stent placement. Of note there were a pellet that appeared more the in and were consistent with the location of the stone. Sensor guidewire was placed. The ureteric access sheath was removed. A 6 Egyptian by 24 cm double-J stent was placed after the wire had been backloaded through the cystoscope. The cystoscope was introduced into the bladder. The stent was placed with good position seen within the renal pelvis and in the bladder. The bladder was emptied. He tolerated the procedure well. He was extubated in the operating room. He was transferred in stable condition to the recovery area. Pathology: Stones Drains: 6 Egyptian by 26 cm double-J stent
[2021-01-17 18:38] VITALS: BP 115/77; PULSE 97; RESP 16; TEMP 36.2; O2SAT 97
[2021-01-17 18:43] VITALS: BP 119/80; PULSE 96; RESP 14; O2SAT 96
[2021-01-17 18:48] VITALS: BP 117/81; PULSE 93; RESP 14; O2SAT 96
[2021-01-17 18:53] VITALS: BP 130/82; PULSE 91; RESP 16; O2SAT 96
[2021-01-17 19:08] VITALS: BP 123/78; PULSE 94; RESP 16; TEMP 36.5; O2SAT 98
[2021-01-20 22:55] LABS: Stone Source BLADDER STONES
== END 2021-01-17 19:22 | disposition home or self-care (01) ==
PROVIDERS: PCP Internal Medicine; Visit Provider Urology
PROC: (CPT 52356; principal; 2021-01-17 13:50)
DX: N20.0 Calculus of kidney (principal); N21.0 Calculus in bladder; R33.9 Retention of urine, unspecified; K21.9 Gastro-esophageal reflux disease without esophagitis; E55.9 Vitamin D deficiency, unspecified; R56.9 Unspecified convulsions; Z85.841 Personal history of malignant neoplasm of brain; F31.9 Bipolar disorder, unspecified; Z79.899 Other long term (current) drug therapy; Z87.891 Personal history of nicotine dependence
CPT/HCPCS: 52356; 52352; 82365; 88300; C1769; C2617; J1100; J1885; J1956; J2250; J3010; Q9967

== ENCOUNTER 2021-01-29 20:00 | Inpatient (IN) | payer OTHER, SELFPAY ==
--- NOTE | ~2021-01-29 | CT_ITS ---
EXAMINATION: CT ABDOMEN AND PELVIS WITHOUT CONTRAST CLINICAL INFORMATION: Right flank pain status post stent COMPARISON: 01/12/2021 TECHNIQUE: Multidetector volumetric imaging was performed from the superior aspect of the liver through the pubic symphysis. Sagittal and coronal reformatted images were obtained on the technologist's workstation. This CT examination was performed using dose optimization techniques as appropriate, variously including the following: *Automated exposure control *Adjustment of mA and/or kV according to patient size (this includes techniques or standardized protocols for targeted exams where dose is matched to indication/reason for exam; i.e. extremities or head) *Use of iterative reconstruction technique DLP: 485 mGy-cm FINDINGS: LUNG BASES: Trace pleural effusions. LIVER, GALLBLADDER, AND BILIARY TREE: The liver is normal in size, shape, and attenuation. No focal hepatic lesion or biliary ductal dilatation is present. The gallbladder is unremarkable. PANCREAS: Unremarkable. SPLEEN: Unremarkable. ADRENAL GLANDS: Unremarkable. KIDNEYS AND URETERS: A right-sided ureteral stent is present, with the upper end in the renal pelvis and the lower end in the bladder. No significant hydronephrosis. Periureteral stranding is present along much of the ureter. No appreciable calculi. Left kidney appears unremarkable without hydronephrosis. BLADDER: Partially distended. Small focus of gas is noted in the anterior bladder. GASTROINTESTINAL TRACT: No evidence of bowel obstruction or wall thickening. Large volume of stool is noted in the colon. Appendix appears nondilated. No free air is seen. ABDOMINAL WALL: No significant hernia is appreciated. LYMPH NODES: No lymphadenopathy is seen, though assessment is limited in the absence of intravenous contrast. VASCULAR: Unremarkable. PELVIC VISCERA: Unremarkable. Small amount of pelvic free fluid. OSSEOUS STRUCTURES: Heterogeneous sclerosis in the femoral heads is suspicious for sequelae of avascular necrosis. CT/CT abdomen pelvis wo con IMPRESSION: 1. Right ureteral stent in place without significant hydroureteronephrosis. Right periureteral stranding is noted. 2. Small focus of gas in the urinary bladder, which could be due to recent catheterization or potentially cystitis in the proper clinical setting. 3. Large volume of stool. 4. Small amount of nonspecific pelvic free fluid. Trace pleural effusions. Fleischner guidelines were followed.
--- NOTE | ~2021-01-29 | CT_ITS ---
EXAMINATION: CT HEAD WITHOUT CONTRAST CLINICAL INFORMATION: Difficulity walking -hx of brain sx and shunt -look at shunt. Reoperation at [facility] approximately 6 months ago. COMPARISON: CT had noncontrast 05/02/2017 TECHNIQUE: Contiguous axial imaging was performed from the skull base to vertex without intravenous administration of contrast. Additional 2-D coronal and sagittal reformatted images are generated on the CT workstation and uploaded to PACS. This CT examination was performed using dose optimization techniques as appropriate, variously including the following: *Automated exposure control *Adjustment of mA and/or kV according to patient size (this includes techniques or standardized protocols for targeted exams where dose is matched to indication/reason for exam; i.e. extremities or head) *Use of iterative reconstruction technique DLP: 791 mGy-cm FINDINGS: There are postsurgical changes with left frontal craniotomy. There is increased encephalomalacia left frontal lobe now in communication with incidental compensatory enlargement frontal horn left lateral ventricle. Small coarse calcification left parasagittal just deep to the craniotomy is stable. There is no shunt catheter tubing demonstrated on current study nor on prior CT 2018. No hydrocephalus. There is no mass effect or midline shift. The spangler-white matter differentiation is otherwise symmetric and well preserved. No acute territorial infarct or mass lesion. There is no intracranial hemorrhage or hematoma. No subarachnoid or intraventricular hemorrhage. There is no pneumocephalus. No air-fluid levels in sinuses or middle ears or mastoids. Results discussed with Dr. Shelton Christensen at [address]/CT head/brain wo con IMPRESSION: 1. Postsurgical changes. No acute intracranial abnormality. 2. No shunt catheter tubing demonstrated.
--- NOTE | ~2021-01-29 | MR_ITS ---
EXAMINATION: MR LUMBAR SPINE WITHOUT CONTRAST CLINICAL INFORMATION: Bowel and bladder incontinence. Bacteremia. COMPARISON: CT abdomen and pelvis from 01/30/2021. TECHNIQUE: MRI of the lumbar spine was obtained using routine sequences without and following the administration of 7 mL of Gadavist intravenous contrast. FINDINGS: Normal anatomic alignment. Normal, homogeneous marrow signal throughout. The vertebral body heights are maintained. Moderate degenerative disc disease at L5-S1. Otherwise, the intervertebral discs are of normal height and signal. The conus medullaris terminates at the level of L1. The distal spinal cord is normal in appearance. No abnormal contrast enhancement. Moderate subcutaneous edema from T12-L4. No additional significant abnormalities of the paraspinal musculature. Redemonstrated and partially visualized free fluid within the pelvis. Otherwise, limited evaluation of the intra-abdominal structures without significant abnormalities. The abdominal aorta is of normal contour and caliber. AXIAL SPINAL LEVELS: L1-L2: Normal annular contour. There is mild bilateral facet joint arthropathy. There is no neural foraminal stenosis. There is no spinal canal stenosis. L2-L3: Shallow diffuse disc bulge. There is mild bilateral facet joint arthropathy. There is no neural foraminal stenosis. There is no spinal canal stenosis. L3-L4: Normal annular contour. There is mild bilateral facet joint arthropathy. There is mild bilateral neural foraminal stenosis. There is narrowing of the subarticular zones with no overt spinal canal stenosis centrally. L4-L5: Normal annular contour. There is mild bilateral facet joint arthropathy. There is mild bilateral neural foraminal stenosis. There is no spinal canal stenosis. L5-S1: Mild diffuse disc bulge with superimposed small central disc protrusion. There is moderate right and mild left facet joint arthropathy. There is moderate bilateral neural foraminal stenosis. There is narrowing of the subarticular zones with no overt spinal canal stenosis centrally. MR/MR lumbar spine wo/w con IMPRESSION: Mild multilevel degenerative spondyloarthropathy of the lumbar spine as described in detail above. Most notably, there are moderate neural foraminal stenoses at L5-S1. Mild neural foraminal narrowings at L3-L4 and L4-L5. Narrowing of the subarticular zones at L3-L4 and L5-S1. No overt spinal canal stenosis centrally. Redemonstrated nonspecific free fluid within the pelvis.
[2021-01-29 20:39] VITALS: BP 110/71; PULSE 128; RESP 18; TEMP 39.3; O2SAT 98; BMI 21.5
[2021-01-29] MEDS: Acetaminophen 325 MG TABLET 650 MG PO (20:54)
[2021-01-29 21:09] LABS: MANUAL DIFF FLAG NO
[2021-01-29 21:10] LABS: Basophils Percent Auto 0.4 % (0-2); Hematocrit 26.4 % (42.0-52.0); Imm Gran Abs Auto 0.03 X10*3/uL (0.00-0.03); Imm Gran Pct Auto 0.4 % (0.0-0.4); Lymphocytes Absolute Auto 0.6 X10*3/uL (1.2-4.9); Mean Corpuscular HGB Conc 34.1 g/dl (31.0-36.0); Mean Corpuscular Hemoglobin 30.9 pg (27.0-33.0); Mean Corpuscular Volume 90.7 fL (80.0-98.0); Mean Platelet Volume 9.8 fL (9.4-12.4); Monocytes Absolute Auto 0.7 X10*3/uL (0.1-1.2); Monocytes Percent Auto 8.7 % (2-11); Neutrophils Absolute Auto 6.7 x10*3/uL (2.0-8.3); Neutrophils Percent Auto 83.5 % (45-73); Platelet Count 167 X10*3/uL (160-400); Red Blood Count 2.91 X10*6/uL (4.60-5.80); Red Cell Distribution Width 14.1 % (11.0-16.0)
--- NOTE | 2021-01-29 21:16 | ED.FEVER ---
HPI - Fever General Chief Complaint: Fever Stated Complaint: vomiting, not eating Time Seen by Provider: 01/29/21 21:16 Source: patient Mode of arrival: ambulatory Limitations: no limitations History of Present Illness HPI Narrative: Patient with history of kidney stone had a ureteric stent placed on 01/17 for a right obstructive uropathy with 7 mm stone patient been having hematuria since then not feeling good feeling weak and more pale. For last 2 days patient has been having high-grade fever with chills with nausea and vomiting on arrival patient's temperature was 102.8 degrees. . Pain in the right flank area is getting better does not feel much pain at this time. Patient denies any cough or shortness of breath Related Data Home Medications Medication Instructions Recorded Confirmed quetiapine 400 mg tablet (Seroquel) 800 mg PO BEDTIME tab 04/05/20 01/12/21 gabapentin 100 mg capsule 100 mg PO DAILY 09/06/20 01/12/21 gabapentin 300 mg capsule 600 mg PO BEDTIME cap 09/06/20 01/12/21 haloperidol 20 mg tablet 20 mg PO BEDTIME 09/06/20 01/12/21 lorazepam 1 mg tablet (Ativan) 1 mg PO BID PRN tab 09/06/20 01/12/21 oxcarbazepine 300 mg tablet 1 tab PO BID 01/12/21 01/12/21 riboflavin (vitamin B2) 100 mg 100 mg PO DAILY 01/12/21 01/12/21 tablet (Vitamin B-2) sertraline 100 mg tablet 200 mg PO DAILY 01/12/21 01/12/21 Previous Rx's Medication Instructions Recorded pantoprazole 40 mg tablet,delayed 40 mg PO DAILY 90 Days #90 tab 08/02/20 release mupirocin 2 % topical ointment 1 appl TOPICAL TID #22 g 01/12/21 levetiracetam 1,000 mg tablet 1,000 mg PO BID 90 Days #180 tab 01/16/21 meloxicam 15 mg tablet 15 mg PO DAILY #90 tab 01/16/21 phenazopyridine 100 mg tablet 100 mg PO TID PRN 4 Days #12 tab 01/17/21 (Pyridium) tamsulosin 0.4 mg capsule 0.4 mg PO BEDTIME 14 Days #14 cap 01/17/21 tramadol 50 mg tablet 50 mg PO Q6H PRN #14 tab 01/17/21 Portable wheelchair #1 ea 01/20/21 Shower chair #1 ea 01/20/21 sumatriptan succinate 50 mg tablet 50 mg PO Q2-4H PRN #10 tab 01/24/21 naproxen 500 mg tablet 500 mg PO BID PRN 4 Days #14 tab 01/28/21 Allergies Allergy/AdvReac Type Severity Reaction Status Date / Time No Known Allergies Allergy Verified 01/29/21 20:38 [No Known Allergies*] Review of Systems Review of Systems: Yes all other systems are reviewed and are negative [facility] Past Medical History Medical History GERD (gastroesophageal reflux disease) Hypercholesterolemia Insomnia Migraine Polysubstance abuse Psychotic disorder Seizures Thyroid nodule Vitamin D deficiency Surgical History Glioma History of surgery of head Family History Family History Father Bipolar 1 disorder Mother Bipolar 1 disorder Paternal Grandmother No problems noted. Paternal Grandfather Myocardial infarction Brother Substance abuse Social History Social History Housing: Apartment Alcohol intake: never Patient Tobacco Use Status: Former Tobacco user Quit Date: >10 yrs ago Tobacco use type: Cigarette Years Smoked: stopped 19 years old e-Cigarette/Vaping Use: Never Used Second Hand Smoke Exposure: No Use of substances other than those prescribed or required for medical reasons: No Advance Directives: No Advance Directives Information Provided: Yes service: No Current occupational status: disabled Physical Exam Vital Signs: Vital Signs: Last Vital Signs Temp 100.8 F H 01/29/21 22:11 Pulse 87 01/30/21 00:20 Resp 16 01/30/21 00:20 BP 93/55 L 01/30/21 00:20 Pulse Ox 97 01/30/21 00:20 BMI result Body Mass Index 21.5 Appearance: Alert. Oriented X3. No acute distress. Pale looking slow to respond Eyes: Pallor++ ENT: Pharynx normal. Oral Mucosa moist Neck: Normal inspection. Neck supple. CVS: Normal heart rate and rhythm. Pulses normal. Respiratory: No respiratory distress. Equal air entry bilateral, no wheezing/rales/rhonchi Abdomen: Soft and nontender. Bowel sounds are present, no mass palpable, no CVA tenderness Rectal: Brown stools guaiac negative Skin: Skin warm and dry. Normal skin color. Normal skin turgor. Extremities: No lower extremity edema. No calf tenderness Neuro: Oriented X 3. No motor deficit. MDM - Fever MDM Narrative Medical decision making narrative: Patient's significant anemia with drop of hemoglobin from 14.1 to 9 in last 14 days after lithotripsy with likely from the hematuria came with high fever with nausea vomiting clinically patient is septic likely the urine is the source with the stent in place. CT scan is negative for any obstructive uropathy but has slight amount of gas in the bladder will give IV Zosyn patient received IV fluid more than 30 cc/kilogram is still unable to urinate case discussed with Dr. Benavides will evaluate the patient morning Lab Data Attestation: I reviewed the patient's lab results. Result diagrams: 01/29/21 20:53 01/29/21 20:53 Labs: Lab Results 01/29/21 01/29/21 01/29/21 Range/Units 20:53 20:53 20:53 WBC 8.0 (4.8-10.8) X10*3/uL RBC 2.91 L D (4.60-5.80) X10*6/uL Hgb 9.0 L D (14.0-18.0) g/dl Hct 26.4 L D (42.0-52.0) % MCV 90.7 (80.0-98.0) fL MCH 30.9 (27.0-33.0) pg MCHC 34.1 (31.0-36.0) g/dl RDW 14.1 (11.0-16.0) % Plt Count 167 D (160-400) X10*3/uL MPV 9.8 (9.4-12.4) fL Immature Gran % (Auto) 0.4 (0.0-0.4) % Neut % (Auto) 83.5 H (45-73) % Lymph % (Auto) 7.0 L (20-40) % Beckham % (Auto) 8.7 (2-11) % Eos % (Auto) 0.0 (0-4) % Baso % (Auto) 0.4 (0-2) % Lymph # (Auto) 0.6 L (1.2-4.9) X10*3/uL Beckham # (Auto) 0.7 (0.1-1.2) X10*3/uL Eos # (Auto) 0.0 (0.0-0.4) X10*3/uL Baso # (Auto) 0.0 (0.0-0.2) X10*3/uL Abs Immat Gran (auto) 0.03 (0.00-0.03) X10*3/uL Absolute Neuts (auto) 6.7 (2.0-8.3) x10*3/uL Absolute Nucleated RBC 0.000 (0.0-0.012) X10*3/uL Nucleated RBC % (auto) 0.0 (0.0-0.2) /100WBC Sodium 136 (135-145) mmol/L Potassium 3.9 (3.3-5.1) mmol/L Chloride 99 (96-108) mmol/L Carbon Dioxide 27 (22-29) mmol/L Anion Gap 14 (12-20) BUN 20 H (9-16) mg/dL Creatinine 1.43 H (0.5-1.4) mg/dL Estim Creat Clear Calc 70.0 Estimated GFR 57 Random Glucose 117 H (60-115) mg/dL Lactic Acid (0.5-2.0) mmol/L Calcium 8.8 D (8.4-10.2) mg/dL Influenza Type A (PCR) NEGATIVE (Negative) Influenza Type B (PCR) NEGATIVE (Negative) RSV RNA Qual (PCR) NEGATIVE (Negative) SARS-CoV-2 RNA (RT-PCR) NEGATIVE (Negative) 01/29/21 Range/Units 21:49 WBC (4.8-10.8) X10*3/uL RBC (4.60-5.80) X10*6/uL Hgb (14.0-18.0) g/dl Hct (42.0-52.0) % MCV (80.0-98.0) fL MCH (27.0-33.0) pg MCHC (31.0-36.0) g/dl RDW (11.0-16.0) % Plt Count (160-400) X10*3/uL MPV (9.4-12.4) fL Immature Gran % (Auto) (0.0-0.4) % Neut % (Auto) (45-73) % Lymph % (Auto) (20-40) % Beckham % (Auto) (2-11) % Eos % (Auto) (0-4) % Baso % (Auto) (0-2) % Lymph # (Auto) (1.2-4.9) X10*3/uL Beckham # (Auto) (0.1-1.2) X10*3/uL Eos # (Auto) (0.0-0.4) X10*3/uL Baso # (Auto) (0.0-0.2) X10*3/uL Abs Immat Gran (auto) (0.00-0.03) X10*3/uL Absolute Neuts (auto) (2.0-8.3) x10*3/uL Absolute Nucleated RBC (0.0-0.012) X10*3/uL Nucleated RBC % (auto) (0.0-0.2) /100WBC Sodium (135-145) mmol/L Potassium (3.3-5.1) mmol/L Chloride (96-108) mmol/L Carbon Dioxide (22-29) mmol/L Anion Gap (12-20) BUN (9-16) mg/dL Creatinine (0.5-1.4) mg/dL Estim Creat Clear Calc Estimated GFR Random Glucose (60-115) mg/dL Lactic Acid 1.7 (0.5-2.0) mmol/L Calcium (8.4-10.2) mg/dL Influenza Type A (PCR) (Negative) Influenza Type B (PCR) (Negative) RSV RNA Qual (PCR) (Negative) SARS-CoV-2 RNA (RT-PCR) (Negative) Critical Care Time Critical Care Time Critical Care Time: Yes Total Critical Care Time: 65 Attestation: I spent 65 minutes of critical care, with interventions, assessments, speaking to patient, consultants, and family. Discharge Plan Discharge Clinical Impression: Sepsis Qualifiers: Sepsis type: sepsis due to unspecified organism Sepsis acute organ dysfunction status: without acute organ dysfunction Qualified Code(s): A41.9 - Sepsis, unspecified organism Anemia Qualifiers: Anemia type: other cause Other causes of anemia: other cause, not classified Qualified Code(s): D64.89 - Other specified anemias Patient Disposition: Admitted As Inpatient
[2021-01-29 21:28] LABS: Anion Gap 14 (12-20); Blood Urea Nitrogen 20 mg/dL (9-16); Calcium 8.8 mg/dL (8.4-10.2); Carbon Dioxide 27 mmol/L (22-29); Chloride 99 mmol/L (96-108); Estimated Glomerular Filt Rate 57; Glucose Random 117 mg/dL (60-115); Potassium 3.9 mmol/L (3.3-5.1); Sodium 136 mmol/L (135-145)
[2021-01-29 21:46] LABS: Influenza A PCR NEGATIVE (Negative); Influenza B PCR NEGATIVE (Negative); Resp Syncy Virus RNA Qual PCR NEGATIVE (Negative); SARS COV2 PCR INHOUSE NEGATIVE (Negative)
[2021-01-29 22:05] LABS: Lactic Acid 1.7 mmol/L (0.5-2.0)
[2021-01-29 22:11] VITALS: BP 94/49; PULSE 108; RESP 17; TEMP 38.2; O2SAT 95
[2021-01-29] MEDS: Piperacillin Sodium/Tazobactam 3.375 GM in 0.9 % Sodium Chloride 50 ML IV (22:26)
[2021-01-29] MEDS: 0.9 % Sodium Chloride 3,000 ML 3000 ML IV (22:27)
--- NOTE | 2021-01-29 23:31 | PC.NURSE ---
call out to dr deshpande and hiren text @ [phone]
--- NOTE | 2021-01-29 23:40 | PC.NURSE ---
I assumed care of this patient upon his arrival to bed 12. The pt presents for evaluation of decreased PO intake, vomiting, general malaise and fever. Zack is alert and oriented x 3, makes eye contact with RN and is calm and cooperative.Respirations are spontaneous and non-labored, RR 16, no cyanosis, room air O2 sat's are WNL. I repeated a temp (pt was administered PO Tylenol prior to me assuming care of him) and his repeat PO temp is 99. Skin is pale, warm and dry. IVF's infusing per MD order. Family at the bedside. Will continue to monitor.
[2021-01-30] VITALS (7 sets, daily range): BP systolic 93–130; BP diastolic 54–82; PULSE 87–131; RESP 16–28; TEMP 37.4–39.4; O2SAT 96–100
[2021-01-30] MEDS: 0.9 % Sodium Chloride 1,000 ML 999 ML IVCONT (02:10)
[2021-01-30 02:23] LABS: OBS Int Ctl Valid YES; OBS1 NEGATIVE (NEGATIVE)
--- NOTE | 2021-01-30 03:45 | PC.NURSE ---
Type and screen was refused for sikhism reasons. Pt is [employer] and he said that they do not get blood transfused.
[2021-01-30] MEDS: Acetaminophen 325 MG TABLET 650 MG PO ×3 (04:25→22:46)
--- NOTE | 2021-01-30 04:47 | PC.NURSE ---
The pt has remained alert and oriented x 3 throughout the night with his father at the bedside. There has been no resp. distress, no chest pain, mild nausea without vomiting. The pt has received, at this time, a total of 4L of NS per request ER MD Dillon. Per request MD Clay I attempted to straight cath the pt at this time (the pt has attempted to void multiple times unsuccessfully, and a bladder scan revealed approximately 150cc urine). i was unable to perform straight cath due to a large amount of resistance Hospitalist aware and requests pt be placed on maintenance IVF's At this time T is 99.7 and pt exhibiting rigors and is warm to touch. Tylenol 650mg PO given. Will continue to monitor.
--- NOTE | 2021-01-30 05:21 | P.HPHOSP_ITS ---
History of Present Illness Date of Service: 01/30/21 Chief Complaint: nausea/vomiting /abdominal pain 35-year-old male with a past medical history of hyperlipidemia, GERD, migraines, polysubstance abuse, psychotic disorder, seizure disorder, thyroid nodule, vitamin-D deficiency, history of glioma status post surgery; recent history of right kidney stones status post lithotripsy/stent placement by Dr. Benavides presented to the hospital today with a chief complaint of nausea vomiting and poor oral intake as well as abdominal discomfort. Most of the history provided by the patient and patient's father at bedside. Reportedly had a stent placed patient had at least 4-5 days of gross hematuria which gradually resolved and currently being clear urine. Over the past 3 days patient has been complaining of nausea vomiting and has decreased oral intake. Also complains of intermittent abdominal discomfort. Denies any fevers and chills. Denies any chest pain palpitations lightheadedness or dizziness. Denies any cough or sputum production. Review of all other systems is negative except mentioned above ER course: Per ER team patient CT scan showed right ureteral stent in place; no hydronephrosis; there is a right periureteral stranding. Patient unable to give the urine sample; patient are soft blood pressure which improved with IV fluids. [facility] Medical History GERD (gastroesophageal reflux disease) Hypercholesterolemia Insomnia Migraine Polysubstance abuse Psychotic disorder Seizures Thyroid nodule Vitamin D deficiency Family History Father Bipolar 1 disorder Mother Bipolar 1 disorder Paternal Grandmother No problems noted. Paternal Grandfather Myocardial infarction Brother Substance abuse Pertinent family history: as above Surgical History Glioma History of surgery of head Social History Housing: Apartment Alcohol intake: never Patient Tobacco Use Status: Former Tobacco user Quit Date: >10 yrs ago Tobacco use type: Cigarette Years Smoked: stopped 19 years old e-Cigarette/Vaping Use: Never Used Second Hand Smoke Exposure: No Use of substances other than those prescribed or required for medical reasons: No Advance Directives: No Advance Directives Information Provided: Yes service: No Current occupational status: disabled Meds Allergies Allergy/AdvReac Type Severity Reaction Status Date / Time No Known Allergies Allergy Verified 01/29/21 20:38 [No Known Allergies*] Active Medications: Current Medications Acetaminophen (Acetaminophen 325 Mg Tablet) 650 mg PO Q6H PRN PRN Reason: Pain, Mild (Pain Scale 1-3) Sodium Chloride (Ns) 1,000 mls @ 100 mls/hr IVCONT .Q10H EVITA Piperacillin Sod/Tazobactam (Sod 3.375 gm/ Sodium Chloride) 50 mls @ 100 mls/hr IV Q6H EVITA Melatonin (Melatonin 3 Mg Tablet) 6 mg PO BEDTIME PRN PRN Reason: Insomnia Senna (Sennosides 8.6 Mg Tablet) 17.2 mg PO BEDTIME PRN PRN Reason: Constipation Sodium Chloride (0.9 % Sodium Chloride Flush 3 Ml Syringe) 3 ml IVFLUSH QSHIFT PENDING SALE TO [facility] Home Medications Medication Instructions Recorded Confirmed Last Taken Type quetiapine 400 mg tablet (Seroquel) 800 mg PO BEDTIME tab 04/05/20 01/12/21 01/11/21 History gabapentin 100 mg capsule 100 mg PO DAILY 09/06/20 01/12/21 01/12/21 History gabapentin 300 mg capsule 600 mg PO BEDTIME cap 09/06/20 01/12/21 01/11/21 History haloperidol 20 mg tablet 20 mg PO BEDTIME 09/06/20 01/12/21 01/11/21 History lorazepam 1 mg tablet (Ativan) 1 mg PO BID PRN tab 09/06/20 01/12/21 Unknown History oxcarbazepine 300 mg tablet 1 tab PO BID 01/12/21 01/12/21 01/12/21 History riboflavin (vitamin B2) 100 mg 100 mg PO DAILY 01/12/21 01/12/21 Unknown History tablet (Vitamin B-2) sertraline 100 mg tablet 200 mg PO DAILY 01/12/21 01/12/21 01/12/21 History Physical Exam Vital Signs and Narrative: Vital Signs: Last Vital Signs Temp 100.8 F H 01/29/21 22:11 Pulse 98 01/30/21 02:21 Resp 18 01/30/21 02:21 BP 95/54 L 01/30/21 02:21 Pulse Ox 100 01/30/21 02:21 BMI result Body Mass Index 21.5 Gen: Appears be in no acute distress. Noted to have chills HEENT: NCAT, Moist mucosa. Pulmonary: Vesicular breath sounds, fair air entry CVS: Normal S1-S2 Abdomen: BS+, Soft, Nontender. No CVA tenderness Extremities: Warm well perfused Neuro: Alert and awake. Results Labs CBC and Chem 7: 01/29/21 20:53 01/29/21 20:53 Labs: Laboratory Results - last 24 hr 01/29/21 01/29/21 01/29/21 20:53 20:53 20:53 MCV 90.7 MCH 30.9 MCHC 34.1 RDW 14.1 Plt Count 167 D MPV 9.8 Immature Gran % (Auto) 0.4 Neut % (Auto) 83.5 H Lymph % (Auto) 7.0 L [place] % (Auto) 8.7 Eos % (Auto) 0.0 Baso % (Auto) 0.4 Lymph # (Auto) 0.6 L [place] # (Auto) 0.7 Eos # (Auto) 0.0 Baso # (Auto) 0.0 Abs Immat Gran (auto) 0.03 Absolute Neuts (auto) 6.7 Absolute Nucleated RBC 0.000 Nucleated RBC % (auto) 0.0 Anion Gap 14 Estim Creat Clear Calc 70.0 Estimated GFR 57 Random Glucose 117 H Lactic Acid Calcium 8.8 D Stool Occult Blood Influenza Type A (PCR) NEGATIVE Influenza Type B (PCR) NEGATIVE RSV RNA Qual (PCR) NEGATIVE SARS-CoV-2 RNA (RT-PCR) NEGATIVE 01/29/21 01/30/21 21:49 Unknown MCV MCH MCHC RDW Plt Count MPV Immature Gran % (Auto) Neut % (Auto) Lymph % (Auto) [place] % (Auto) Eos % (Auto) Baso % (Auto) Lymph # (Auto) [place] # (Auto) Eos # (Auto) Baso # (Auto) Abs Immat Gran (auto) Absolute Neuts (auto) Absolute Nucleated RBC Nucleated RBC % (auto) Anion Gap Estim Creat Clear Calc Estimated GFR Random Glucose Lactic Acid 1.7 Calcium Stool Occult Blood NEGATIVE Influenza Type A (PCR) Influenza Type B (PCR) RSV RNA Qual (PCR) SARS-CoV-2 RNA (RT-PCR) Imaging Radiologist's Impressions: Impressions Abdomen/Pelvis CT 01/30/21 00:18 IMPRESSION: 1. Right ureteral stent in place without significant hydroureteronephrosis. Right periureteral stranding is noted. 2. Small focus of gas in the urinary bladder, which could be due to recent catheterization or potentially cystitis in the proper clinical setting. 3. Large volume of stool. 4. Small amount of nonspecific pelvic free fluid. Trace pleural effusions. Fleischner guidelines were followed. Assessment and Plan (1) Sepsis: Qualifiers: Sepsis acute organ dysfunction status: without acute organ dysfunction Sepsis type: sepsis due to unspecified organism Qualified Code(s): A41.9 - S epsis, unspecified organism Status: Acute (2) Renal calculus, right: Status: Acute (3) Blood transfusion declined because patient is Zoroastrian: Status: Acute 35-year-old male with a past medical history of hyperlipidemia, GERD, migraines, polysubstance abuse, psychotic disorder, seizure disorder, thyroid nodule, vitamin-D deficiency, history of glioma status post surgery; recent history of right kidney stones status post lithotripsy/stent placement by Dr. Benavides presented to the hospital today with a chief complaint of nausea vomiting and poor oral intake as well as abdominal discomfort. Sepsis: Likely secondary to UTI. Urinalysis pending as patient unable to give a sample yet->Refuses Straight Cath. CT scan showed right ureteral stent in place- no hydronephrosis; also noted small amount of gas secondary to recent catheterization likely. And constipation. Continue Zosyn. Id consult Dr. Benavides from Urology aware of the patient, pending further inputs. Follow-up cultures anemia: Patient's hemoglobin dropped from 14-9. Stool guaiac was negative in the ER. Patient reportedly had at least 4-5 days of gross hematuria Post stent placement about 2 weeks ago; Patient is Jehovah Witness. Denied blood transfusions. monitor CBC for all other chronic conditions, home medications will be continued once med rec is done. DVT prophylaxis: SCD boots Code status: Full code Quality Stroke Does the patient have a stroke diagnosis?: No VTE Prior VTE?: No VTE Risk Level:: Medical - moderate - high VTE Device Contraindication: N/A - Device Ordered VTE Drug Contraindication: Treatment Not Indicated
[2021-01-30] MEDS: 0.9 % Sodium Chloride 1,000 ML 100 ML IVCONT ×2 (06:28→15:33)
[2021-01-30] MEDS: Piperacillin Sodium/Tazobactam 3.375 GM in 0.9 % Sodium Chloride 50 ML IV ×3 (06:29→20:47)
--- NOTE | 2021-01-30 09:46 | PHA.MEDREC ---
Pharmacy Consult ? Medication Reconciliation Pharmacy has completed the medication reconciliation. Spoke with patients aunt, Kerline, who was visiting in the ED. Kerline helps with medications for Zack. Went over the list with Kerline and she confirmed all medications. Kerline states patient is only getting Gabapentin 100 mg daily in the morning and does NOT take 600 mg at bedtime which is what has been filled monthly at the pharmacy in addition to 100 mg capsules.
[2021-01-30 10:38] LABS: Appearance Urine HAZY; Color Urine YELLOW; Glucose Urine UA NEG (NEG); Leukocyte Esterase Urine 2+ (NEG); Nitrite Urine POS (NEG); Specific Gravity - Urine 1.025 (1.005-1.025); UACC Culture Trigger YES; Urine Blood 2+ (NEG); Urine Ketones NEG (NEG); Urine Protein 2+ MG/DL (NEG-TRACE)
[2021-01-30 10:48] LABS: Bacteria Urine 2+ /LPF; RBC Urine 30-49 /HPF (0); Squamous Epithelial Cell Urine 1+ /LPF; WBC Urine 50-75 /HPF (0-4)
[2021-01-30 10:49] LABS: Mucus Urine 1+ /LPF
--- NOTE | 2021-01-30 11:36 | PM.EVENT ---
Event Note Date of Service: 01/30/21 Event Note: i saw and examined this patient admitted just hours earlier. He had a kidney stone back last month and had cystoscopy, and right stent placement by Dr. Benavides and presented with abdominal pain, n/v, hematuria and noted to be septic likely of urinary source and now has gram negative shon bacteremia..Hematuria has resolved. He is on Zosyn, hemodynamically stent, urlogy will see him and ultimately may need stent removal. Will get ID consult for bacterema. There is no indication for transfusion and besides he is Jehovah witness and will not take bllod.
[2021-01-31] MEDS: Piperacillin Sodium/Tazobactam 3.375 GM in 0.9 % Sodium Chloride 50 ML IV ×4 (01:53→18:45)
[2021-01-31] MEDS: 0.9 % Sodium Chloride 1,000 ML 100 ML IVCONT ×2 (01:54→11:58)
[2021-01-31 03:24] VITALS: BP 111/74; PULSE 85; RESP 16; TEMP 37; O2SAT 100
[2021-01-31 06:51] LABS: MANUAL DIFF FLAG NO
[2021-01-31 06:55] LABS: Basophils Percent Auto 0.2 % (0-2); Hematocrit 23.5 % (42.0-52.0); Hemoglobin 8.1 g/dl (14.0-18.0); Imm Gran Abs Auto 0.04 X10*3/uL (0.00-0.03); Imm Gran Pct Auto 0.5 % (0.0-0.4); Lymphocytes Absolute Auto 0.8 X10*3/uL (1.2-4.9); Lymphocytes Percent Auto 9.9 % (20-40); Mean Corpuscular HGB Conc 34.5 g/dl (31.0-36.0); Mean Platelet Volume 10.5 fL (9.4-12.4); Monocytes Percent Auto 11.3 % (2-11); Neutrophils Absolute Auto 6.6 x10*3/uL (2.0-8.3); Neutrophils Percent Auto 78.1 % (45-73); Platelet Count 159 X10*3/uL (160-400); Red Blood Count 2.61 X10*6/uL (4.60-5.80); Red Cell Distribution Width 14.4 % (11.0-16.0); White Blood Count 8.4 X10*3/uL (4.8-10.8)
[2021-01-31 07:28] LABS: Anion Gap 10 (12-20); Blood Urea Nitrogen 8 mg/dL (9-16); Calcium 8.1 mg/dL (8.4-10.2); Carbon Dioxide 24 mmol/L (22-29); Chloride 107 mmol/L (96-108); Creatinine Clr Calc Pharmacy 135.3; Estimated Glomerular Filt Rate > 60; Glucose Random 103 mg/dL (60-115); Potassium 3.5 mmol/L (3.3-5.1); Sodium 137 mmol/L (135-145)
--- NOTE | 2021-01-31 08:43 | PC.NURSE ---
PT INCONTINENT OF URINE. HE REMAINS PALE AND TREMOROUS
--- NOTE | 2021-01-31 08:53 | HO.PM.IMPN ---
Subjective Subjective Date of Service: 01/31/21 Interval History: seen in follow-up for Gram-negative shon sepsis bacteremia and possible infected indwelling stent. He persistently does not feel well. Some abdominal discom Review of Systems No fever, does not feel well, some abdominal discomfort. Physical Exam Vital Signs: Vital Signs: Last Vital Signs Temp 98.6 F 01/31/21 03:24 Pulse 85 01/31/21 03:24 Resp 16 01/31/21 03:24 BP 111/74 01/31/21 03:24 Pulse Ox 100 01/31/21 03:24 BMI result Body Mass Index 21.5 Const: Other: General: AO X 3, no acute distress Resp: CTA bilateral CVS: S1,S2,RRR GI: +BS, NT, no distention : no flank tenderness Skin: No rash Neuro: motor grossly intact Psych: appropriate affect Objective Data Active Medications Acetaminophen (Acetaminophen 325 Mg Tablet) 650 mg PO Q6H PRN PRN Reason: Pain, Mild (Pain Scale 1-3) Last Admin: 01/30/21 22:46 Dose: 650 mg Documented by: ELIZA Sodium Chloride (Ns) 1,000 mls @ 100 mls/hr IVCONT .Q10H [facility] Last Admin: 01/31/21 01:54 Dose: 100 mls/hr Documented by: LISA Piperacillin Sod/Tazobactam (Sod 3.375 gm/ Sodium Chloride) 50 mls @ 100 mls/hr IV Q6H [facility] Last Admin: 01/31/21 07:14 Dose: 100 mls/hr Documented by: ROMÁN Melatonin (Melatonin 3 Mg Tablet) 6 mg PO BEDTIME PRN PRN Reason: Insomnia Pharmacy Consult (Consult Rx Perform Med Rec) 1 each MISCELLANE ONCE PRN PRN Reason: Consult order Senna (Sennosides 8.6 Mg Tablet) 17.2 mg PO BEDTIME PRN PRN Reason: Constipation Sodium Chloride (0.9 % Sodium Chloride Flush 3 Ml Syringe) 3 ml IVFLUSH QSHIFT [facility] Last Admin: 01/31/21 01:29 Dose: Not Given Documented by: LISA Non-Admin Reason: Med Not Available Labs CBC & Chem 7: 01/31/21 06:28 01/31/21 06:28 Labs: Laboratory Results - last 24 hr 01/30/21 01/31/21 01/31/21 10:30 06:28 06:28 MCV 90.0 MCH 31.0 MCHC 34.5 RDW 14.4 Plt Count 159 L MPV 10.5 Immature Gran % (Auto) 0.5 H Neut % (Auto) 78.1 H Lymph % (Auto) 9.9 L [place] % (Auto) 11.3 H Eos % (Auto) 0.0 Baso % (Auto) 0.2 Lymph # (Auto) 0.8 L [place] # (Auto) 1.0 Eos # (Auto) 0.0 Baso # (Auto) 0.0 Abs Immat Gran (auto) 0.04 H Absolute Neuts (auto) 6.6 Absolute Nucleated RBC 0.000 Nucleated RBC % (auto) 0.0 Anion Gap 10 L Estim Creat Clear Calc 135.3 Estimated GFR > 60 Random Glucose 103 Calcium 8.1 L D Urine Color YELLOW Urine Appearance HAZY Urine pH 6.0 Ur Specific [place] 1.025 Urine Protein 2+ H Urine Glucose (UA) NEG Urine Ketones NEG Urine Blood 2+ H Urine Nitrite POS H Ur Leukocyte Esterase 2+ H Urine RBC 30-49 H Urine WBC 50-75 H Ur Squamous Epith Cells 1+ Urine Bacteria 2+ Urine Mucus 1+ Microbiology Microbiology Results: Microbiology 01/29/21 22:15 Blood Culture - Preliminary Blood - Venous Gram negative shon 01/29/21 21:49 Blood Culture - Preliminary Blood - Venous Gram negative shon Assessment and Plan (1) Sepsis: Status: Acute Assessment and Plan: ?[age]-year-old male with a past medical history of hyperlipidemia, GERD, migraines, polysubstance abuse, psychotic disorder, seizure disorder, thyroid nodule, vitamin-D deficiency, history of glioma status post surgery; recent history of right kidney stones status post lithotripsy with right stent placement by Dr. Benavides presented to the hospital today nausea vomiting and poor oral intake as well as abdominal discomfort and hematuria and found to be septic with gram negative shon bacteremia and signficant anemia. ? Sepsis, gram negative shon bacteremia with indwelling renal stent, no fever, sepsis clinically better -Continue Zosyn D2 -follow up on culture sensitivity -ID consult -Dr. Benavides will remove stent Aute blood loss anemia, from hematuria, H/H has signficatly dropped from Hgb of 14 to now 8, no acitive bleed, no indication for transfusion at this time and patient would not want transfusion d/t faith belief, he's Jehovah Witness.? Monitor blood count Quality Stroke Does the patient have a stroke diagnosis?: No VTE Prior VTE?: No VTE Risk Level:: Medical - moderate - high VTE Device Contraindication: N/A - Device Ordered VTE Drug Contraindication: Treatment Not Indicated
--- NOTE | 2021-01-31 12:02 | MHC.CM.PN ---
Attempted to meet with patient in regards to discharge planning. Patient needs to use the restroom. Will attempt to meet again. Continue to monitor for d/c needs.
--- NOTE | 2021-01-31 12:33 | MHC.CM.PN ---
Met with patient in regards to discharge planning. Patient lives with his father and aunt, ambulates with a walker and has services through [facility]. PCP verified. Copy of HCP requested. Patient received J&J vaccine in August. IMM explained and signed. Patient has been to [facility] rehab in the past. Patient does not feel he can safely return home at this time. Patient requesting referral to [facility]. Referral made via [employer]. Patient will need physical therapy and occupational therapy evals when medically stable. Continue to monitor for d/c needs.
--- NOTE | 2021-01-31 16:17 | P.CNUR_ITS ---
History of Present Illness Consult details Consult date: 01/31/21 Narrative: Zack underwent a stone procedure last week Return to hospital today with inflammatory response an elevated temperature. White count 8.4 Stent is in good position on left side Plan for removal at bedside Review of Systems Constitutional: Constitutional: Reports as per HPI and Reports no additional constitutional complaints Cardiovascular: Cardiovascular: Reports as per HPI and Reports no additional cardiovascular complaints Respiratory: Respiratory: Reports as per HPI and Reports no additional respiratory complaints Gastrointestinal: Gastrointestinal: Reports as per HPI and Reports no additional gastrointestinal complaints Genitourinary: Genitourinary: Reports as per HPI Musculoskeletal: Musculoskeletal: Reports no additional musculoskeletal complaints and Reports as per HPI Neurologic: Reports system reviewed and no additional complaints, except as documented and Reports as per HPI PMF Past Medical History Medical History GERD (gastroesophageal reflux disease) Hypercholesterolemia Insomnia Migraine Polysubstance abuse Psychotic disorder Seizures Thyroid nodule Vitamin D deficiency Family History Family History Father Bipolar 1 disorder Mother Bipolar 1 disorder Paternal Grandmother No problems noted. Paternal Grandfather Myocardial infarction Brother Substance abuse Surgical History Surgical History Glioma History of surgery of head Social History Social History Housing: Apartment Alcohol intake: never Patient Tobacco Use Status: Former Tobacco user Quit Date: >10 yrs ago Tobacco use type: Cigarette Years Smoked: stopped 19 years old e-Cigarette/Vaping Use: Never Used Second Hand Smoke Exposure: No Use of substances other than those prescribed or required for medical reasons: No Advance Directives: Yes Advance Directives on File: Yes Advance Directives Date on File: 01/31/21 service: No Current occupational status: disabled Meds Allergies Allergy/AdvReac Type Severity Reaction Status Date / Time No Known Allergies Allergy Verified 01/29/21 20:38 [No Known Allergies*] Active Medications: Current Medications Acetaminophen (Acetaminophen 325 Mg Tablet) 650 mg PO Q6H PRN PRN Reason: Pain, Mild (Pain Scale 1-3) Last Admin: 01/30/21 22:46 Dose: 650 mg Documented by: Sodium Chloride (Ns) 1,000 mls @ 100 mls/hr IVCONT .Q10H [facility] Last Admin: 01/31/21 11:58 Dose: 100 mls/hr Documented by: Piperacillin Sod/Tazobactam (Sod 3.375 gm/ Sodium Chloride) 50 mls @ 100 mls/hr IV Q6H [facility] Last Admin: 01/31/21 12:05 Dose: 100 mls/hr Documented by: Melatonin (Melatonin 3 Mg Tablet) 6 mg PO BEDTIME PRN PRN Reason: Insomnia Pharmacy Consult (Consult Rx Perform Med Rec) 1 each MISCELLANE ONCE PRN PRN Reason: Consult order Senna (Sennosides 8.6 Mg Tablet) 17.2 mg PO BEDTIME PRN PRN Reason: Constipation Sodium Chloride (0.9 % Sodium Chloride Flush 3 Ml Syringe) 3 ml IVFLUSH QSHIFT [facility] Last Admin: 01/31/21 11:56 Dose: Not Given Documented by: Home Medications Medication Instructions Recorded Confirmed Last Taken Type quetiapine 400 mg tablet (Seroquel) 800 mg PO BEDTIME tab 04/05/20 01/30/21 01/29/21 History gabapentin 100 mg capsule 100 mg PO DAILY 09/06/20 01/30/21 01/29/21 History gabapentin 300 mg capsule 600 mg PO BEDTIME cap 09/06/20 01/30/21 01/11/21 History haloperidol 20 mg tablet 20 mg PO BEDTIME 09/06/20 01/30/21 01/29/21 History lorazepam 1 mg tablet (Ativan) 1 mg PO BID PRN tab 09/06/20 01/30/21 Unknown History oxcarbazepine 300 mg tablet 1 tab PO BID 01/12/21 01/30/21 01/29/21 History riboflavin (vitamin B2) 100 mg 100 mg PO DAILY 01/12/21 01/30/21 01/29/21 H istory tablet (Vitamin B-2) sertraline 100 mg tablet 200 mg PO DAILY 01/12/21 01/30/21 01/29/21 History Physical Exam Vital Signs: Vital Signs: Last Vital Signs Temp 98.6 F 01/31/21 03:24 Pulse 85 01/31/21 03:24 Resp 16 01/31/21 03:24 BP 111/74 01/31/21 03:24 Pulse Ox 100 01/31/21 03:24 BMI result Body Mass Index 21.5 Const: General: cooperative, healthy appearing, comfortable and no acute distress Orientation/consciousness: patient oriented x3 HENMT: Face and sinus: Yes normal facial exam Mouth: moist mucous membranes Neck: Neck: Yes normal visual inspection, Yes full ROM and Yes trachea midline Chest: Chest palpation & inspection: normal inspection of the chest Resp: Effort & Inspection: normal respiratory effort, able to speak in complete sentences and no respiratory distress GI: Inspection: Yes normal to inspection Back/Spine/Pelvis: Cervical Spine: normal cervical lordosis Thoracic/Lumbar Spine: thoracic and lumbar spine normal to inspection Skin: General skin exam: no rashes or lesions noted Neuro: General: patient oriented x3, tone normal and moves all extremities Extrem: General: Yes normal to inspection and Yes capillary refill normal Results Labs Result diagrams: 01/31/21 06:28 01/31/21 06:28 Labs: Abnormal lab results 01/31/21 01/31/21 Range/Units 06:28 06:28 RBC 2.61 L (4.60-5.80) X10*6/uL Hgb 8.1 L (14.0-18.0) g/dl Hct 23.5 L (42.0-52.0) % Plt Count 159 L (160-400) X10*3/uL Immature Gran % (Auto) 0.5 H (0.0-0.4) % Neut % (Auto) 78.1 H (45-73) % Lymph % (Auto) 9.9 L (20-40) % [place] % (Auto) 11.3 H (2-11) % Lymph # (Auto) 0.8 L (1.2-4.9) X10*3/uL Abs Immat Gran (auto) 0.04 H (0.00-0.03) X10*3/uL Anion Gap 10 L (12-20) BUN 8 L D (9-16) mg/dL Calcium 8.1 L D (8.4-10.2) mg/dL Short CBC 01/31/21 Range/Units 06:28 WBC 8.4 (4.8-10.8) X10*3/uL Hgb 8.1 L (14.0-18.0) g/dl Hct 23.5 L (42.0-52.0) % Plt Count 159 L (160-400) X10*3/uL BMP 01/31/21 06:28 Sodium 137 Potassium 3.5 Chloride 107 Carbon Dioxide 24 BUN 8 L D Creatinine 0.74 Calcium 8.1 L D Urine 01/30/21 Range/Units 10:30 Urine Color YELLOW Urine Appearance HAZY Urine pH 6.0 (5.0-8.0) Ur Specific [place] 1.025 (1.005-1.025) Urine Protein 2+ H (NEG-TRACE) MG/DL Urine Glucose (UA) NEG (NEG) MG/DL All other labs normal. Assessment and Plan (1) Sepsis: Qualifiers: Sepsis acute organ dysfunction status: without acute organ dysfunction Sepsis type: sepsis due to unspecified organism Qualified Code(s): A41.9 - Sepsis, unspecified organism Status: Acute stent removed bedside Procedures Date of Service Date of Service: 01/31/21 Procedure Note Procedure Note: Cystoscopy with stent removal performed Any septic applied to penile head Betadine Lubricated flexible cystoscope inserted per urethra Stent seen emanating from left ureteric orifice Stent removed with 4 prong grasper and disposed of No abnormalities noted
[2021-01-31 16:28] VITALS: BP 135/88; PULSE 85; RESP 20; TEMP 37.1; O2SAT 100
[2021-01-31 19:05] VITALS: BP 131/72; PULSE 92; RESP 18; TEMP 37; O2SAT 100
[2021-01-31 20:00] VITALS: BP 131/72; PULSE 92; RESP 18; TEMP 37; O2SAT 100
[2021-02-01] VITALS (8 sets, daily range): BP systolic 97–140; BP diastolic 56–84; PULSE 75–111; RESP 17–19; TEMP 36.3–37; O2SAT 95–100
[2021-02-01] MEDS: Piperacillin Sodium/Tazobactam 3.375 GM in 0.9 % Sodium Chloride 50 ML IV ×3 (00:56→12:05)
[2021-02-01] MEDS: 0.9 % Sodium Chloride 1,000 ML 100 ML IVCONT (00:56)
[2021-02-01 10:44] LABS: Hematocrit 27.7 % (42.0-52.0); Hemoglobin 9.7 g/dl (14.0-18.0)
--- NOTE | 2021-02-01 12:06 | P.PNIM_ITS ---
Subjective Subjective Date of Service: 02/02/21 Interval History: stand infection, bacteremia Review of Systems denies any chest pain or he isshortness of breath or abdominal pain. No fever Physical Exam Vital Signs: Vital Signs: Last Vital Signs Temp 98.0 F 02/01/21 08:00 Pulse 81 02/01/21 08:00 Resp 17 02/01/21 08:00 BP 140/84 H 02/01/21 08:00 Pulse Ox 97 02/01/21 08:00 BMI result Body Mass Index 21.5 General: AO X 3, no acute distress Resp:? CTA bilateral CVS: S1,S2,RRR GI: +BS, NT, no distention : no flank tenderness Skin: No rash Neuro:? motor grossly intact Psych: appropriate affect Objective Data Active Medications Acetaminophen (Acetaminophen 325 Mg Tablet) 650 mg PO Q6H PRN PRN Reason: Pain, Mild (Pain Scale 1-3) Last Admin: 01/30/21 22:46 Dose: 650 mg Documented by: ELIZA Piperacillin Sod/Tazobactam (Sod 3.375 gm/ Sodium Chloride) 50 mls @ 100 mls/hr IV Q6H [facility] Last Admin: 02/01/21 12:05 Dose: 100 mls/hr Documented by: KYLE Melatonin (Melatonin 3 Mg Tablet) 6 mg PO BEDTIME PRN PRN Reason: Insomnia Pharmacy Consult (Consult Rx Perform Med Rec) 1 each MISCELLANE ONCE PRN PRN Reason: Consult order Senna (Sennosides 8.6 Mg Tablet) 17.2 mg PO BEDTIME PRN PRN Reason: Constipation Sodium Chloride (0.9 % Sodium Chloride Flush 3 Ml Syringe) 3 ml IVFLUSH QSHIFT [facility] Last Admin: 02/01/21 10:22 Dose: Not Given Documented by: KYLE Non-Admin Reason: IV Running Labs CBC & Chem 7: 02/01/21 10:35 01/31/21 06:28 Microbiology Microbiology Results: Microbiology 01/29/21 22:15 Blood Culture - Final Blood - Venous Klebsiella pneumoniae 01/29/21 21:49 Blood Culture - Final Blood - Venous Klebsiella pneumoniae 01/30/21 Unknown Urine Culture - Final Urine clean catch - Urine spangler top Assessment and Plan (1) Sepsis: Status: Acute (2) Anemia: Status: Acute Assessment and Plan: 35-year-old male with a past medical history of hyperlipidemia, GERD, migraines, polysubstance abuse, psychotic disorder, seizure disorder, thyroid nodule, vitamin-D deficiency, history of glioma status post surgery; recent history of right kidney stones status post lithotripsy with right stent placement by Dr. Benavides presented to the hospital today? nausea vomiting and poor oral intake as well as abdominal discomfort and hematuria and found to be septic with gram negative shon bacteremia and signficant anemia.? ? 1.Sepsis, gram negative shon bacteremia with indwelling renal stent, no fever, sepsis clinically better -Continue Zosyn D3 -follow up on culture sensitivity -ID consult -Dr. Benavides will remove stent 2.Acute blood loss anemia, from hematuria, H/H has signficatly dropped from Hgb of 14 to now 8, no acitive bleed, improved h/h :9.7/27.7,no indication for transfusion at this time and patient would not want transfusion d/t voodoo belief, he's? Jehovah Witness.? 3. urinary incontinence : on/off for at least few weeks as per his father : MrI L spine added as well as psych eval Quality Stroke Does the patient have a stroke diagnosis?: No VTE Prior VTE?: No VTE Risk Level:: Medical - moderate - high VTE Device Contraindication: N/A - Device Ordered VTE Drug Contraindication: Treatment Not Indicated
--- NOTE | 2021-02-01 12:13 | MHC.CM.PN ---
CM CONTACTED PT'S HCP MISSY AT 12:02PM AT NUMBER ON FILE, HCP IS A MEMBER OF PT'S EPISCOPALIAN AND WAS ABLE TO GIVE CM PT'S FATHERS NAME AND NUMBER WHICH WAS NOT LISTED IN CHART, CM CONTACTED PT'S FATHER MIRIAN AT 12:08PM [phone] AND REPORTS PT HAS BEEN HAVING DIFFICULTY WALKING AND COULD USE A VNA AND HOME PT, CM HAD MET W/PT IN ROOM THIS MORING AND PT REPORTED HE HAD A VNA HOWEVER PT LIVES W/FATHER MIRIAN WHO VERIFIED PT IS NOT ACTIVE W/A VNA AT THIS TIME. PT EVAL REQUESTED TO DETERMINE HOME SERVICES VS STR.
--- NOTE | 2021-02-01 13:07 | W.PM.IDCN ---
History of Present Illness Data of Consult Service Date: 01/31/21 Requesting physician: Magdaleno Corral Primary Care Provider: MD DARREL Krishnan Reason for consult: E coli bacteremia He presents with weakness and chills. He has some dysuria He had stent put in on 01/17 E coli sensitive to Ceftriaxone Review of Systems Review of Systems: Yes all other systems are reviewed and are negative [facility] Past Medical History Medical History GERD (gastroesophageal reflux disease) Hypercholesterolemia Insomnia Migraine Polysubstance abuse Psychotic disorder Seizures Thyroid nodule Vitamin D deficiency Family History Family History Father Bipolar 1 disorder Mother Bipolar 1 disorder Paternal Grandmother No problems noted. Paternal Grandfather Myocardial infarction Brother Substance abuse Family history: reviewed and not pertinent Surgical History Surgical History Glioma History of surgery of head Social History Social History Household Members: Family Housing: Apartment Alcohol intake: never Patient Tobacco Use Status: Former Tobacco user Quit Date: >10 yrs ago Tobacco use type: Cigarette Years Smoked: stopped 19 years old e-Cigarette/Vaping Use: Never Used Second Hand Smoke Exposure: No Advance Directives Date on File: 01/31/21 service: No Current occupational status: disabled Meds Allergies Allergy/AdvReac Type Severity Reaction Status Date / Time No Known Allergies Allergy Verified 01/29/21 20:38 [No Known Allergies*] Active Medications: Current Medications Acetaminophen (Acetaminophen 325 Mg Tablet) 650 mg PO Q6H PRN PRN Reason: Pain, Mild (Pain Scale 1-3) Last Admin: 01/30/21 22:46 Dose: 650 mg Documented by: Ceftriaxone Sodium 2 gm/ (Sodium Chloride) 50 mls @ 100 mls/hr IV Q24H [facility] Melatonin (Melatonin 3 Mg Tablet) 6 mg PO BEDTIME PRN PRN Reason: Insomnia Pharmacy Consult (Consult Rx Perform Med Rec) 1 each MISCELLANE ONCE PRN PRN Reason: Consult order Senna (Sennosides 8.6 Mg Tablet) 17.2 mg PO BEDTIME PRN PRN Reason: Constipation Sodium Chloride (0.9 % Sodium Chloride Flush 3 Ml Syringe) 3 ml IVFLUSH QSHIFT [facility] Last Admin: 02/01/21 10:22 Dose: Not Given Documented by: Home Medications Medication Instructions Recorded Confirmed Last Taken Type quetiapine 400 mg tablet (Seroquel) 800 mg PO BEDTIME tab 04/05/20 01/30/21 01/29/21 History gabapentin 100 mg capsule 100 mg PO DAILY 09/06/20 01/30/21 01/29/21 History gabapentin 300 mg capsule 600 mg PO BEDTIME cap 09/06/20 01/30/21 01/11/21 History haloperidol 20 mg tablet 20 mg PO BEDTIME 09/06/20 01/30/21 01/29/21 History lorazepam 1 mg tablet (Ativan) 1 mg PO BID PRN tab 09/06/20 01/30/21 Unknown History oxcarbazepine 300 mg tablet 1 tab PO BID 01/12/21 01/30/21 01/29/21 History riboflavin (vitamin B2) 100 mg 100 mg PO DAILY 01/12/21 01/30/21 01/29/21 History tablet (Vitamin B-2) sertraline 100 mg tablet 200 mg PO DAILY 01/12/21 01/30/21 01/29/21 History Physical Exam Vital Signs: Vital Signs: Last Vital Signs Temp 97.5 F 02/01/21 12:00 Pulse 75 02/01/21 12:00 Resp 19 02/01/21 12:00 BP 137/73 02/01/21 12:00 Pulse Ox 98 02/01/21 12:00 BMI result Body Mass Index 21.5 Const: General: cooperative Eyes: General: appearance normal, both eyes and all related structures Resp: Effort & Inspection: normal respiratory effort Cardio: Rate: regular rate Rhythm: regular rhythm GI: Palpation (GI): Soft to palpation and nontender Extrem: General: Yes normal to inspection Results Labs CBC & Chem 7: 02/01/21 10:35 01/31/21 06:28 Labs: Short CBC 02/01/21 Range/Units 10:35 Hgb 9.7 L (14.0-18.0) g/dl Hct 27.7 L (42.0-52.0) % Microbiology Microbiology Results: Microbiology 01/29/21 22:15 Blood - Venous Blood Culture - Final Klebsiella pneumoniae 01/29/21 21:49 Blood - Venous Blood Culture - Final Klebsiella pneumoniae 01/30/21 Unknown Urine clean catch - Urine spangler top Urine Culture - Final Assessment and Plan (1) Sepsis: Qualifiers: Sepsis acute organ dysfunction status: without acute organ dysfunction Sepsis type: sepsis due to unspecified organism Qualified Code(s): A41.9 - Sepsis, unspecified organism Status: Acute Blood culture E coli and sensitive to Ceftriaxone He is following with Urology (2) Renal calculus, right: Status: Acute Ceftriaxone Po Ceftin total 14 d outpatient Follow Urology stent
[2021-02-01] MEDS: cefTRIAXone sodium 2 GM in 0.9 % Sodium Chloride 50 ML IV (13:57)
--- NOTE | 2021-02-01 15:03 | P.DS_ITS ---
DS: Providers Provider Date of Service: 02/01/21 Date of admission: 01/30/21 05:17 Primary care physician: Mable Shetty MD Consults: 01/30/21 05:16 Consult to Infectious Diseases Routine Consulting Provider: Nicole Newell Reason for consultation: Sepsis Consult to Urology Routine Consulting Provider: Travis Benavides Reason for consultation: Sepsis; recent Stents; 01/30/21 11:07 Consult to Infectious Diseases Routine Consulting Provider: Nicole Newell Reason for consultation: E.coli bacteremia DS: Diagnosis Discharge Diagnosis (1) Sepsis: Status: Acute (2) Renal calculus, right: Status: Acute DS: Summary Hospital Course Hospital Course: 35-year-old male with a past medical history of hyperlipidemia, GERD, migraines, polysubstance abuse, psychotic disorder, seizure disorder, thyroid nodule, vitamin-D deficiency, history of glioma status post surgery; recent history of right kidney stones status post lithotripsy/stent placement by Dr. Benavides presented to the hospital today with a chief complaint of nausea vomiting and poor oral intake as well as abdominal discomfort.? Most of the history provided by the patient and patient's father at bedside.? Reportedly had a stent placed patient had at least 4-5 days of gross hematuria which gradually resolved and currently being clear urine.? Over the past 3 days patient has been complaining of nausea vomiting and has decreased oral intake.? Also complains of intermittent abdominal discomfort.? Denies any fevers and chills.? Denies any chest pain palpitations lightheadedness or dizziness.? Denies any cough or sputum production.? Review of all other systems is negative except mentioned above. hospital course: patient was admitted for sepsis, Gram-negative bacteremia possible related to renal stent: Subsequently started on IV antibiotic broad-spectrum and urology was consulted- renal stent was removed, with IV antibiotic patient seems to be improved, seen by infectious disease and recommended to switch to p.o. antibiotics upon discharge please complete the course of p.o. antibiotic . monitor CBC, BMP, liver panel while on antibiotic Q weekly With PCP. Anemia probably related to hematuria related to renal stent and recent procedure: H&H is in range of 9.7, patient stable. No bleeding Or hematuria now. Monitor CBC outpatient with PCP also, patient is to follow-up with urologist . Patient was seen by PT and recommended home PT. patient has brain surgery 6 months ago in [facility] neurosurgery: since then as per the family functionally declined- needs lot of reinforcement to walk as well as needed redirection for urination also to go and urinate in toilet. Does not seem to have significant incontinence. discussed with Neurology- CT scan of head is negative for any shunt, gait instability is also improving, patient needs was follow-up out patiently in [facility] neurosurgery Dr. Ceja office for further management. Above management discussed with the patient and his sister in detail length - they understand and in agreement with the above plan, time spent 50 minutes and 50% time spent on counseling. Significant findings: As above. Procedures performed: None. Treatment and response: As above. Complications: None. Time Spent with Patient Time attestation: Total time spent providing and/or coordinating discharge services: Discharge coordination time: Greater than 30 minutes Quality: Stroke Does the patient have a stroke diagnosis?: No Physical Exam Vital Signs: Vital Signs: Last Vital Signs Temp 97.5 F 02/01/21 12:00 Pulse 75 02/01/21 13:21 Resp 19 02/01/21 12:00 BP 137/73 02/01/21 13:21 Pulse Ox 98 02/01/21 13:21 BMI result Body Mass Index 21.5 General: AO X 3, no acute distress Resp:? CTA bilateral CVS: S1,S2,RRR GI: +BS, NT, no distention : no flank tenderness Skin: No rash Neuro:?aox3 , moves all extermities ,no pronator drifts ,[id number] testing was normal, walked few step with assistance. Psych: appropriate affect ? DS: Data Data Completed and Pending Labs on day of discharge: Laboratory Results - last 24 hr 02/01/21 10:35 Hgb 9.7 L Hct 27.7 L 01/31/21 06:28? Labs: Laboratory Results - last 24 hr ? 01/30/21 01/31/21 01/31/21 ? 10:30 06:28 06:28 MCV ? ?90.0 ? MCH ? ?31.0 ? MCHC ? ?34.5 ? RDW ? ?14.4 ? Plt Count ? ?159 L ? MPV ? ?10.5 ? Immature Gran % (Auto) ? ?0.5 H ? Neut % (Auto) ? ?78.1 H ? Lymph % (Auto) ? ?9.9 L ? [place] % (Auto) ? ?11.3 H ? Eos % (Auto) ? ?0.0 ? Baso % (Auto) ? ?0.2 ? Lymph # (Auto) ? ?0.8 L ? [place] # (Auto) ? ?1.0 ? Eos # (Auto) ? ?0.0 ? Baso # (Auto) ? ?0.0 ? Abs Immat Gran (auto) ? ?0.04 H ? Absolute Neuts (auto) ? ?6.6 ? Absolute Nucleated RBC ? ?0.000 ? Nucleated RBC % (auto) ? ?0.0 ? Anion Gap ? ? ?10 L Estim Creat Clear Calc ? ? ?135.3 Estimated GFR ? ? ?> 60 Random Glucose ? ? ?103 Calcium ? ? ?8.1 L D Urine Color ?YELLOW ? ? Urine Appearance ?HAZY ? ? Urine pH ?6.0 ? ? Ur Specific [place] ?1.025 ? ? Urine Protein ?2+ H ? ? Urine Glucose (UA) ?NEG ? ? Urine Ketones ?NEG ? ? Urine Blood ?2+ H ? ? Urine Nitrite ?POS H ? ? Ur Leukocyte Esterase ?2+ H ? ? Urine RBC ?30-49 H ? ? Urine WBC ?50-75 H ? ? Ur Squamous Epith Cells ?1+ ? ? Urine Bacteria ?2+ ? ? Urine Mucus ?1+ ? ? Microbiology Microbiology Results: Microbiology ?01/29/21 22:15 Blood Culture - Preliminary ?Blood - Venous ?? Gram negative shon ?01/29/21 21:49 Blood Culture - Preliminary ?Blood - Venous ?? Gram negative shon Blood Cult(1st) Procedure Result Verified Site Blood Culture (First) Final 02/01/21 Gram stain results: Gram-negative rods Note: Gram stain reviewed by a Drum Maker 2 sets positive/2 sets drawn Gram stain results from blood cultures should be interpreted with caution. A number of factors, including the presence of antibiotics in the specimen and the effect of growth in enriched liquid culturing medium, may cause organisms to react differently with the staining reagents. These factors occasionally cause a Gram-negative organism to stain Gram-positive and vice versa. Results of the initial Gram stain from the culture broth must always be correlated with growth on agar. Organism 1 Klebsiella pneumoniae Results of Blood Culture gram stain called to and read back by MIGUEL at 1008 on 01/30/21 by CAROLYN. Kleb pneum M.I.C. RX --------- --- Ampicillin >=32 R Cefazolin <=4 S Extended Spectrum Beta Lactam NEG - Gentamicin <=1 S Levofloxacin 0.25 S Trimethoprim/Sulfamethoxazole <=20 S Additional Comments Additional comments: cT ABD: IMPRESSION: 1.? Right ureteral stent in place without significant hydroureteronephrosis. Right periureteral stranding is noted. 2.? Small focus of gas in the urinary bladder, which could be due to recent catheterization or potentially cystitis in the proper clinical setting. 3.? Large volume of stool. 4.? Small amount of nonspecific pelvic free fluid. Trace pleural effusions. ? Fleischner guidelines were followed. Discharge Plan Discharge Patient Disposition: Home Health Service Discharge Diagnosis: uti ,sepsis possibly related to renal stent Referrals: [facility] [Outside] - 3-5 Days ([facility] NR[facility] AND HOME PHYSICAL THERAPY TRANSPORTATION FAMILY PCP DR SHETTY ) Travis Benavides MD [Physician] - 1 Week (fu outpatiently.) Jarvis,Mable Park MD [Primary Care Provider] - 1 Week Discharge Medications: New cefuroxime axetil 250 mg tablet 250 mg PO Q12H Qty: 20 RF: 0 docusate sodium [Colace] 100 mg capsule 100 mg PO DAILY PRN (Reason: constipation) Qty: 30 RF: 0 Continued pantoprazole 40 mg tablet,delayed release (DR/EC) 40 mg PO DAILY 90 Days Qty: 90 RF: 2 meloxicam 15 mg tablet 15 mg PO DAILY Qty: 90 RF: 0 levetiracetam 1,000 mg tablet 1,000 mg PO BID 90 Days Qty: 180 RF: 3 (DME) Portable wheelchair See Rx Instructions .Route .MEDSUPPLY Qty: 1 RF: 0 (DME) Shower chair See Rx Instructions .Route .MEDSUPPLY Qty: 1 RF: 0 sumatriptan succinate 50 mg tablet 50 mg PO Q2-4H PRN (Reason: Headache) Qty: 10 RF: 11 sertraline 100 mg tablet 200 mg PO DAILY RF: 0 oxcarbazepine 300 mg tablet 1 tab PO BID RF: 0 riboflavin (vitamin B2) [Vitamin B-2] 100 mg tablet 100 mg PO DAILY RF: 0 mupirocin 2 % ointment 1 appl topical TID Qty: 22 RF: 0 tamsulosin 0.4 mg capsule 0.4 mg PO BEDTIME 14 Days Qty: 14 RF: 0 quetiapine [Seroquel] 400 mg tablet 800 mg PO BEDTIME RF: 0 lorazepam [Ativan] 1 mg tablet 1 mg PO BID PRN (Reason: Anxiety) RF: 0 haloperidol 20 mg tablet 20 mg PO BEDTIME RF: 0 gabapentin 300 mg capsule 600 mg PO BEDTIME RF: 0 Discontinued gabapentin 100 mg capsule 100 mg PO DAILY RF: 0 Discharge Orders: Discharge Order (Routine); Ordered 02/03/21 Ordered By: Yudelka Christensen Diet: advance to usual diet Activity on Discharge: As tolerated Stand Alone Forms: Patient Portal Discharge page Other Ambulatory Orders: Basic Metabolic Panel Fasting (Routine) Timeframe: 1 Week Facility: [facility] - Location: Laboratory Ordered By: Yudelka Christensen Complete Blood Count no Diff (Routine) Timeframe: 1 Week Facility: [facility] - Location: Laboratory Ordered By: Yudelka Christensen Liver Panel (Routine) Timeframe: 1 Week Facility: [facility] - Location: Laboratory Ordered By: Yudelka Christensen Care Plan Goals: patient was admitted for sepsis, Gram-negative bacteremia possible related to renal stent: Subsequently started on IV antibiotic broad-spectrum and urology was consulted- renal stent was removed, with IV antibiotic patient seems to be improved, seen by infectious disease and recommended to switch to p.o. antibiotics upon discharge please complete the course of p.o. antibiotic . monitor CBC, BMP, liver panel while on antibiotic Q weekly With PCP. Anemia probably related to hematuria related to renal stent and recent procedure: H&H is in range of 9.7, patient stable. No bleeding Or hematuria now. Monitor CBC outpatient with PCP also, patient is to follow-up with urologist . Patient was seen by PT and recommended home PT. patient has brain surgery 6 months ago in [facility] neurosurgery: since then as per the family functionally declined- needs lot of reinforcement to walk as well as needed redirection for urination also to go and urinate in toilet. Does not seem to have significant incontinence. discussed with Neurology- CT scan of head is negative for any shunt, gait instability is also improving, patient needs was follow-up out patiently in [facility] neurosurgery Dr. Ceja office for further management. Health Concerns: As above. Plan of Treatment: As above. Assessment: As above. Discharge Date/Time: 02/03/21 16:10
--- NOTE | 2021-02-01 15:09 | P.F2F_ITS ---
Service Date Service Date: 02/01/21 Encounter Date of encounter: 02/01/21 Encounter: ESBL Bacteremia/sepsis, renal stent removal. Reasons for Services Reason for shelter: medication management, medication treatment and teach disease management Reason for physical therapy: home safety and mobility, therapeutic exercises, restore joint function, gait/transfer training, assess need for DME, ADL training, energy conservation and other MD Overseeing Care: Mable Conley Homebound: Leaving the home is medically contraindicated at this time without the asist of a device and/or another person due th the listed conditions above and below. Homebound supporting statement: Patient sepsis, anemia, bacteremia, renal stent removal, generalized weak post hospitalization need help with going to appointments and home PT. Certification: Based on the above findings, I certify that this patient is confined to the home and needs intermittent shelter care, physical therapy and/or speech therapy, or continues to need occupational therapy. The patient is under my care, and I have initiated the establishment of the plan of care. The patient will be followed by a physician who will periodically review the plan of care.
[2021-02-01] MEDS: 0.9 % Sodium Chloride Flush 3 ML SYRINGE IVFLUSH ×2 (15:10→21:18)
[2021-02-01] MEDS: Sertraline HCL 100 MG TABLET 200 MG PO (16:17)
[2021-02-01] MEDS: Gabapentin 100 MG CAPSULE PO (16:17)
[2021-02-01] MEDS: Mupirocin 2 % Oint 22 GM TUBE 1 APPL TOPICAL ×2 (16:18→21:16)
[2021-02-01] MEDS: Tamsulosin HCL 0.4 MG CAPSULE PO (21:11)
[2021-02-01] MEDS: Gabapentin 300 MG CAPSULE 600 MG PO (21:11)
[2021-02-01] MEDS: OXcarbazepine 300 MG TABLET PO (21:11)
[2021-02-01] MEDS: QUEtiapine Fumarate 400 MG TABLET 800 MG PO (21:12)
[2021-02-01] MEDS: NaPROXEN 500 MG TABLET PO (21:12)
[2021-02-01] MEDS: levETIRAcetam 1,000 MG TABLET 1000 MG PO (21:13)
[2021-02-01] MEDS: HaloperidoL 5 MG TABLET 20 MG PO (21:17)
[2021-02-02] VITALS (7 sets, daily range): BP systolic 97–120; BP diastolic 57–69; PULSE 71–91; RESP 17–20; TEMP 36.2–36.8; O2SAT 98–100
[2021-02-02] MEDS: Omeprazole 20 MG CAPSULE.DR PO (06:50)
[2021-02-02] MEDS: 0.9 % Sodium Chloride Flush 3 ML SYRINGE IVFLUSH ×3 (09:48→20:16)
[2021-02-02] MEDS: levETIRAcetam 1,000 MG TABLET 1000 MG PO ×2 (09:49→20:15)
[2021-02-02] MEDS: OXcarbazepine 300 MG TABLET PO ×2 (09:49→20:15)
[2021-02-02] MEDS: Gabapentin 100 MG CAPSULE PO (09:49)
[2021-02-02] MEDS: NaPROXEN 500 MG TABLET PO ×2 (09:49→20:15)
[2021-02-02] MEDS: Sertraline HCL 100 MG TABLET 200 MG PO (09:49)
[2021-02-02] MEDS: cefTRIAXone sodium 1 GM in 0.9 % Sodium Chloride 50 ML IV (12:08)
[2021-02-02] MEDS: Mupirocin 2 % Oint 22 GM TUBE 1 APPL TOPICAL ×3 (12:08→20:39)
--- NOTE | 2021-02-02 14:00 | HO.PM.IMPN ---
Subjective Subjective Date of Service: 02/03/21 Interval History: Bacteremia, anemia Review of Systems question if urinary incontinence issue is chronic as per patient mother- who he was living with from last 6 up months approximately after brain surgery says that he was declining since the surgery functional status juan needed lot of help with walking and was using walker and also needed some dental assistant with walking in addition to that. Was having also on and off urinary incontinence. they have not followed up with neuro in [facility] Since the surgery. Physical Exam Vital Signs: Vital Signs: Last Vital Signs Temp 97.5 F 02/02/21 12:00 Pulse 83 02/02/21 12:00 Resp 19 02/02/21 12:00 BP 105/63 02/02/21 12:00 Pulse Ox 98 02/02/21 12:00 BMI result Body Mass Index 21.5 General: AO X 3, no acute distress Resp:? CTA bilateral CVS: S1,S2,RRR GI: +BS, NT, no distention : no flank tenderness Skin: No rash Neuro:?moves all extermities , generlaly weak Psych: appropriate affect Objective Data Active Medications Acetaminophen (Acetaminophen 325 Mg Tablet) 650 mg PO Q6H PRN PRN Reason: Pain, Mild (Pain Scale 1-3) Last Admin: 01/30/21 22:46 Dose: 650 mg Documented by: ELIZA Gabapentin (Gabapentin 100 Mg Capsule) 100 mg PO DAILY [facility] Last Admin: 02/02/21 09:49 Dose: 100 mg Documented by: JOHN Gabapentin (Gabapentin 300 Mg Capsule) 600 mg PO BEDTIME [facility] Last Admin: 02/01/21 21:11 Dose: 600 mg Documented by: LUZ MARINA Haloperidol (Haloperidol 5 Mg Tablet) 20 mg PO BEDTIME [facility] Last Admin: 02/01/21 21:17 Dose: 20 mg Documented by: LUZ MARINA Ceftriaxone Sodium 1 gm/ (Sodium Chloride) 50 mls @ 100 mls/hr IV Q24H [facility] Last Infusion: 02/02/21 13:13 Dose: 0 mls/hr Documented by: JOHN Levetiracetam (Levetiracetam 1,000 Mg Tablet) 1,000 mg PO BID [facility] Last Admin: 02/02/21 09:49 Dose: 1,000 mg Documented by: JOHN Lorazepam (Lorazepam 1 Mg Tablet) 1 mg PO BID PRN PRN Reason: Anxiety Melatonin (Melatonin 3 Mg Tablet) 6 mg PO BEDTIME PRN PRN Reason: Insomnia Mupirocin (Mupirocin 2 % Oint 22 Gm Tube) 1 appl TOPICAL TID [facility]; Protocol Last Admin: 02/02/21 12:08 Dose: 1 appl Documented by: JOHN Naproxen (Naproxen 500 Mg Tablet) 500 mg PO BID [facility] Last Admin: 02/02/21 09:49 Dose: 500 mg Documented by: JOHN Omeprazole (Omeprazole 20 Mg Capsule.Dr) 20 mg PO DAILY@0630 [facility] Last Admin: 02/02/21 06:50 Dose: 20 mg Documented by: LUZ MARINA Oxcarbazepine (Oxcarbazepine 300 Mg Tablet) 300 mg PO BID [facility] Last Admin: 02/02/21 09:49 Dose: 300 mg Documented by: JOHN Pharmacy Consult (Consult Rx Perform Med Rec) 1 each MISCELLANE ONCE PRN PRN Reason: Consult order Quetiapine Fumarate (Quetiapine Fumarate 400 Mg Tablet) 800 mg PO BEDTIME [facility] Last Admin: 02/01/21 21:12 Dose: 800 mg Documented by: LUZ MARINA Senna (Sennosides 8.6 Mg Tablet) 17.2 mg PO BEDTIME PRN PRN Reason: Constipation Sertraline HCl (Sertraline Hcl 100 Mg Tablet) 200 mg PO DAILY [facility] Last Admin: 02/02/21 09:49 Dose: 200 mg Documented by: JOHN Sodium Chloride (0.9 % Sodium Chloride Flush 3 Ml Syringe) 3 ml IVFLUSH QSHIFT [facility] Last Admin: 02/02/21 09:48 Dose: 3 ml Documented by: JOHN Sumatriptan Succinate (Sumatriptan Succinate 50 Mg Tablet) 50 mg PO Q2H PRN PRN Reason: Headache Tamsulosin HCl (Tamsulosin Hcl 0.4 Mg Capsule) 0.4 mg PO BEDTIME [facility] Last Admin: 02/01/21 21:11 Dose: 0.4 mg Documented by: LUZ MARINA Labs CBC & Chem 7: 02/01/21 10:35 01/31/21 06:28 Assessment and Plan (1) Anemia: Status: Acute (2) Sepsis: Status: Acute Assessment and Plan: 35-year-old male with a past medical history of hyperlipidemia, GERD, migraines, polysubstance abuse, psychotic disorder, seizure disorder, thyroid nodule, vitamin-D deficiency, history of glioma status post surgery; recent history of right kidney stones status post lithotripsy with right stent placement by Dr. Benavides presented to the hospital today? nausea vomiting and poor oral intake as well as abdominal discomfort and hematuria and found to be septic with gram negative shon bacteremia and signficant anemia.? ? 1.Sepsis, gram negative shon bacteremia with indwelling renal stent, no fever, sepsis clinically better -Continue Zosyn D3 -follow up on culture sensitivity -ID consult -Dr. Benavides will remove stent 2.Acute blood loss anemia, from hematuria, H/H has signficatly dropped from Hgb of 14 to now 8, no acitive bleed, improved h/h :9.7/27.7,no indication for transfusion at this time and patient would not want transfusion d/t mu-ism belief, he's? Jehovah Witness.? 3. urinary incontinence : on/off for? at least few weeks as per his father : MrI L spine : seems has DJD. spoke to [facility] neuro miss carrington : recomended for neuro eval, head ct Quality Stroke Does the patient have a stroke diagnosis?: No VTE Prior VTE?: No VTE Risk Level:: Medical - moderate - high VTE Device Contraindication: N/A - Device Ordered VTE Drug Contraindication: Treatment Not Indicated
--- NOTE | 2021-02-02 14:47 | MHC.CM.PN ---
EMR REVIEWED, PER HOSPITALIST PT WILL NEED NEURO AND PSYCH CONSULTS PRIOR TO D/C, CM WILL CONT TO FOLLOW D/C NEEDS.
--- NOTE | 2021-02-02 14:51 | MHC.CM.PN ---
EMR REVIEWED, CASE DISCUSSED W/HOSPITALIST WHO REPORTS HE CONSULTED W/[facility] NEUROLOGY DEPT PT HAD HIS SURGERY THERE, [facility] RECOMMENDED PT BE SEEN BY NEURO AND THEN WILL PLAN TO D/C, ANTIC D/C 1-2 DAYS HOME VS STR, CM WILL PLACE REFERRALS PT DOES NOT QUALIFY FOR ACUTE REHAB.
--- NOTE | 2021-02-02 16:41 | P.CNNE_ITS ---
History of Present Illness Data of Consult Service Date: 02/02/21 Primary Care Provider: Mable Conley MD HPI Reason for consult: Difficulty walking 35 years old man who probably has underlying history of polysubstance abuse, depression/psychotic disorder, and treatment for for glioma few weeks ago. He had surgery done by Dr. Ceja in [facility] and a shunt was placed. He was admitted hospital for nausea and vomiting and associated symptoms. Apparently he was not ambulating and this consultation was requested. When I talked to him, his father was on bedside. He was not in any distress. He denied any pain. He said that he took 3 steps today per Review of Systems Review of Systems: Review of system was elaborated in HPI. [facility] Past Medical History Medical History GERD (gastroesophageal reflux disease) Hypercholesterolemia Insomnia Migraine Polysubstance abuse Psychotic disorder Seizures Thyroid nodule Vitamin D deficiency Family History Family History Father Bipolar 1 disorder Mother Bipolar 1 disorder Paternal Grandmother No problems noted. Paternal Grandfather Myocardial infarction Brother Substance abuse Family history: reviewed and not pertinent Surgical History Surgical History Glioma History of surgery of head Social History Social History Household Members: Family Housing: Apartment Alcohol intake: never Patient Tobacco Use Status: Former Tobacco user Quit Date: >10 yrs ago Tobacco use type: Cigarette Years Smoked: stopped 19 years old e-Cigarette/Vaping Use: Never Used Second Hand Smoke Exposure: No Advance Directives Date on File: 01/31/21 service: No Current occupational status: disabled Meds Allergies Allergy/AdvReac Type Severity Reaction Status Date / Time No Known Allergies Allergy Verified 01/29/21 20:38 [No Known Allergies*] Active Medications: Current Medications Acetaminophen (Acetaminophen 325 Mg Tablet) 650 mg PO Q6H PRN PRN Reason: Pain, Mild (Pain Scale 1-3) Last Admin: 01/30/21 22:46 Dose: 650 mg Documented by: Gabapentin (Gabapentin 100 Mg Capsule) 100 mg PO DAILY [facility] Last Admin: 02/02/21 09:49 Dose: 100 mg Documented by: Gabapentin (Gabapentin 300 Mg Capsule) 600 mg PO BEDTIME [facility] Last Admin: 02/01/21 21:11 Dose: 600 mg Documented by: Haloperidol (Haloperidol 5 Mg Tablet) 20 mg PO BEDTIME [facility] Last Admin: 02/01/21 21:17 Dose: 20 mg Documented by: Ceftriaxone Sodium 1 gm/ (Sodium Chloride) 50 mls @ 100 mls/hr IV Q24H [facility] Last Infusion: 02/02/21 13:13 Dose: Infused Documented by: Levetiracetam (Levetiracetam 1,000 Mg Tablet) 1,000 mg PO BID [facility] Last Admin: 02/02/21 09:49 Dose: 1,000 mg Documented by: Lorazepam (Lorazepam 1 Mg Tablet) 1 mg PO BID PRN PRN Reason: Anxiety Melatonin (Melatonin 3 Mg Tablet) 6 mg PO BEDTIME PRN PRN Reason: Insomnia Mupirocin (Mupirocin 2 % Oint 22 Gm Tube) 1 appl TOPICAL TID [facility]; Protocol Last Admin: 02/02/21 15:34 Dose: 1 appl Documented by: Naproxen (Naproxen 500 Mg Tablet) 500 mg PO BID [facility] Last Admin: 02/02/21 09:49 Dose: 500 mg Documented by: Omeprazole (Omeprazole 20 Mg Capsule.Dr) 20 mg PO DAILY@0630 [facility] Last Admin: 02/02/21 06:50 Dose: 20 mg Documented by: Oxcarbazepine (Oxcarbazepine 300 Mg Tablet) 300 mg PO BID [facility] Last Admin: 02/02/21 09:49 Dose: 300 mg Documented by: Pharmacy Consult (Consult Rx Perform Med Rec) 1 each MISCELLANE ONCE PRN PRN Reason: Consult order Quetiapine Fumarate (Quetiapine Fumarate 400 Mg Tablet) 800 mg PO BEDTIME [facility] Last Admin: 02/01/21 21:12 Dose: 800 mg Documented by: Senna (Sennosides 8.6 Mg Tablet) 17.2 mg PO BEDTIME PRN PRN Reason: Constipation Sertraline HCl (Sertraline Hcl 100 Mg Tablet) 200 mg PO DAILY [facility] Last Admin: 02/02/21 09:49 Dose: 200 mg Documented by: Sodium Chloride (0.9 % Sodium Chloride Flush 3 Ml Syringe) 3 ml IVFLUSH QSHIFT [facility] Last Admin: 02/02/21 15:34 Dose: 3 ml Documented by: Sumatriptan Succinate (Sumatriptan Succinate 50 Mg Tablet) 50 mg PO Q2H PRN PRN Reason: Headache Tamsulosin HCl (Tamsulosin Hcl 0.4 Mg Capsule) 0.4 mg PO BEDTIME [facility] Last Admin: 02/01/21 21:11 Dose: 0.4 mg Documented by: Home Medications Medication Instructions Recorded Confirmed Last Taken Type quetiapine 400 mg tablet (Seroquel) 800 mg PO BEDTIME tab 04/05/20 01/30/21 01/29/21 History gabapentin 100 mg capsule 100 mg PO DAILY 09/06/20 01/30/21 01/29/21 History gabapentin 300 mg capsule 600 mg PO BEDTIME cap 09/06/20 01/30/21 01/11/21 History haloperidol 20 mg tablet 20 mg PO BEDTIME 09/06/20 01/30/21 01/29/21 History lorazepam 1 mg tablet (Ativan) 1 mg PO BID PRN tab 09/06/20 01/30/21 Unknown History oxcarbazepine 300 mg tablet 1 tab PO BID 01/12/21 01/30/21 01/29/21 History riboflavin (vitamin B2) 100 mg 100 mg PO DAILY 01/12/21 01/30/21 01/29/21 History tablet (Vitamin B-2) sertraline 100 mg tablet 200 mg PO DAILY 01/12/21 01/30/21 01/29/21 History Physical Exam Vital Signs: Vital Signs: Last Vital Signs Temp 97.2 F 02/02/21 15:34 Pulse 86 02/02/21 15:34 Resp 18 02/02/21 15:34 BP 106/60 02/02/21 15:34 Pulse Ox 99 02/02/21 15:34 BMI result Body Mass Index 21.5 Neuro: Other: He was alert and awake with flat and depressed affect. He was able to answer simple questions. Spontaneity and fluency of speech were normal. He was cooperative and following commands. Face was symmetrical. Visual esparza are full. He was able to lift each leg up against gravity of to 4550 degrees. Deep tendon reflexes were 1+ with equivocal plantars. There was no pronator drift. [id number] testing was normal. When I asked him to set up and walk, he said that he could not. Results Labs CBC & Chem 7: 02/01/21 10:35 01/31/21 06:28 Microbiology Microbiology Results: Microbiology 01/29/21 22:15 Blood - Venous Blood Culture - Final Klebsiella pneumoniae 01/29/21 21:49 Blood - Venous Blood Culture - Final Klebsiella pneumoniae 01/30/21 Unknown Urine clean catch - Urine spangler top Urine Culture - Final Assessment and Plan (1) Gait instability: Status: Acute In a patient like this the 1st order of business is to see if the shunt is working appropriately. I do not see any brain imaging. I would suggest obtaining a noncontrast head CT to make sure there is no problem of that order. Otherwise he seemed a quite depressed but psychiatric illness was chronic for him. As far as lumbar spine MRI findings are concerned, there was no significant issue to explain his hesitancy to walk. Walking hesitancy might have central or psychological reason. Procedures Date of Service Date of Service: 02/02/21
--- NOTE | 2021-02-02 18:57 | PC.NURSE ---
PT OOB TO BATHROOM , PT VOIDED TO BATHROOM , POST VOID RESIDUAL BLADDER SCANNED OF 10MLS
[2021-02-02] MEDS: Gabapentin 300 MG CAPSULE 600 MG PO (20:15)
[2021-02-02] MEDS: Tamsulosin HCL 0.4 MG CAPSULE PO (20:15)
[2021-02-02] MEDS: HaloperidoL 5 MG TABLET 20 MG PO (20:15)
[2021-02-02] MEDS: QUEtiapine Fumarate 400 MG TABLET 800 MG PO (20:15)
[2021-02-03 03:45] VITALS: BP 113/69; PULSE 113; RESP 18; TEMP 36.7; O2SAT 99
[2021-02-03] MEDS: Omeprazole 20 MG CAPSULE.DR PO (05:48)
--- NOTE | 2021-02-03 06:32 | PC.NURSE ---
pt unable to void overnight, bladder scanned at 0550 for 503 ml, straight cath'd at 0600 for 650 ml.
[2021-02-03 07:10] VITALS: BP 101/52; PULSE 86; RESP 16; TEMP 36.4; O2SAT 96
[2021-02-03] MEDS: NaPROXEN 500 MG TABLET PO (07:13)
[2021-02-03] MEDS: Gabapentin 100 MG CAPSULE PO (07:13)
[2021-02-03] MEDS: levETIRAcetam 1,000 MG TABLET 1000 MG PO (07:13)
[2021-02-03] MEDS: cefTRIAXone sodium 1 GM in 0.9 % Sodium Chloride 50 ML IV (07:13)
[2021-02-03] MEDS: Sertraline HCL 100 MG TABLET 200 MG PO (07:13)
[2021-02-03] MEDS: OXcarbazepine 300 MG TABLET PO (07:14)
[2021-02-03] MEDS: 0.9 % Sodium Chloride Flush 3 ML SYRINGE IVFLUSH (07:14)
[2021-02-03] MEDS: Mupirocin 2 % Oint 22 GM TUBE 1 APPL TOPICAL (07:16)
[2021-02-03 11:27] VITALS: BP 101/52; PULSE 86; O2SAT 96
[2021-02-03 11:34] VITALS: BP 129/58; PULSE 82; RESP 16; TEMP 36.3; O2SAT 99
--- NOTE | 2021-02-03 14:23 | MHC.CM.PN ---
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 MET WITH PATIENT AND WITH HIS FATHER AFTER SPEAKING WITHT HE PHYSICAL THERAPIST SHE REPORTED PATIENT CAN BENEFIT FROM SHORT TERM REHAB BUT CAN HGO HOME WITH [facility] FOR NRUSING AND HOME PHYSICAL THERAPY , I DISCUSSED THIS WITH PATIENT AND HIS FATHER , THEY DO NOT WANT TO GO TO SHORT TERM REHAB THEY WANT HIM TO GO HOME WITH THE [facility] FOR RNSUIGN FOR DIAGNOSIS SIGHN SYMPTOM MANAGEMENT , MEDICATION RECONCILATION AND HOME PHYSICAL THERAPY. CLINICAL UPDATES SENT TO THE [facility] FOR RN/PT AND FACE TO FACE MEDICARRE IMM UPDATED WITH PATIENTS FATHER DISCHARGE PLAN HOME WITH [facility] FOR RN/HOME PT TRANSPORTATION FAMILY
--- NOTE | 2021-02-03 14:24 | W.MHC.F2F ---
Service Date Service Date: 02/03/21 Encounter Date of encounter: 02/03/21 Reasons for Services Reason for correction: medication management, medication treatment and teach disease management Reason for physical therapy: home safety and mobility, therapeutic exercises, restore joint function, gait/transfer training, assess need for DME, ADL training, energy conservation and other MD Overseeing Care: Mable Conley Homebound: Leaving the home is medically contraindicated at this time without the asist of a device and/or another person due th the listed conditions above and below. Certification: Based on the above findings, I certify that this patient is confined to the home and needs intermittent correction care, physical therapy and/or speech therapy, or continues to need occupational therapy. The patient is under my care, and I have initiated the establishment of the plan of care. The patient will be followed by a physician who will periodically review the plan of care.
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
== END 2021-02-03 16:10 | disposition home health service (06) | DRG 698 ==
LOC: HO.ED 01-30 01:57 → HO.EDOVER 01-30 05:35 → HO.S3 01-31 16:02
PROVIDERS: Emergency Medicine; Admitting Provider Hospitalist; Emergency Provider Internal Medicine; PCP Internal Medicine; Visit Provider Internal Medicine
DX: T83.593A Infection and inflammatory reaction due to other urinary stents, initial encounter (principal); A41.51 Sepsis due to Escherichia coli [E. coli]; D62 Acute posthemorrhagic anemia; E78.5 Hyperlipidemia, unspecified; R32 Unspecified urinary incontinence; R31.0 Gross hematuria; K21.9 Gastro-esophageal reflux disease without esophagitis; Z98.2 Presence of cerebrospinal fluid drainage device; G40.909 Epilepsy, unspecified, not intractable, without status epilepticus; Z20.822 Contact with and (suspected) exposure to COVID-19; Z87.442 Personal history of urinary calculi; Z87.891 Personal history of nicotine dependence; Z79.1 Long term (current) use of non-steroidal anti-inflammatories (NSAID); Z79.899 Other long term (current) drug therapy
CPT/HCPCS: 0241U; 36415; 70450; 72158; 74176; 80048; 81001; 82272; 83605; 85014; 85018; 85025; 87040; 87077; 87086; 87186; 87205; 96361; 96374; 97116; 97163; 99285; A9585; J0696; J2543

== ENCOUNTER 2021-02-08 17:31 | Outpatient (REF) | payer OTHER, SELFPAY ==
[2021-02-08 17:34] LABS: MANUAL DIFF FLAG NO
[2021-02-08 17:45] LABS: Basophils Absolute Auto 0.1 X10*3/uL (0.0-0.2); Basophils Percent Auto 0.6 % (0-2); Eosinophils Absolute Auto 0.2 X10*3/uL (0.0-0.4); Eosinophils Percent Auto 2.2 % (0-4); Hematocrit 30.3 % (42.0-52.0); Hemoglobin 9.7 g/dl (14.0-18.0); Imm Gran Abs Auto 0.06 X10*3/uL (0.00-0.03); Imm Gran Pct Auto 0.7 % (0.0-0.4); Lymphocytes Absolute Auto 1.7 X10*3/uL (1.2-4.9); Lymphocytes Percent Auto 18.5 % (20-40); Mean Corpuscular Hemoglobin 30.9 pg (27.0-33.0); Mean Corpuscular Volume 96.5 fL (80.0-98.0); Mean Platelet Volume 9.3 fL (9.4-12.4); Monocytes Absolute Auto 0.7 X10*3/uL (0.1-1.2); Monocytes Percent Auto 7.3 % (2-11); Neutrophils Absolute Auto 6.4 x10*3/uL (2.0-8.3); Neutrophils Percent Auto 70.7 % (45-73); Platelet Count 510 X10*3/uL (160-400); Red Blood Count 3.14 X10*6/uL (4.60-5.80); Red Cell Distribution Width 15.4 % (11.0-16.0); White Blood Count 9.1 X10*3/uL (4.8-10.8)
[2021-02-08 19:27] LABS: Anion Gap 11 (12-20); Blood Urea Nitrogen 6 mg/dL (9-16); Calcium 9.2 mg/dL (8.4-10.2); Carbon Dioxide 31 mmol/L (22-29); Chloride 106 mmol/L (96-108); Estimated Glomerular Filt Rate > 60; Glucose Random 59 mg/dL (60-115); Potassium 4.7 mmol/L (3.3-5.1); Sodium 143 mmol/L (135-145)
== END 2021-02-08 17:32 | disposition home or self-care (01) ==
LOC: HO.HVNA 17:31
PROVIDERS: Visit Provider Internal Medicine
DX: K91.89 Other postprocedural complications and disorders of digestive system (principal); N39.0 Urinary tract infection, site not specified
CPT/HCPCS: 36415; 80048; 85025

== ENCOUNTER 2021-02-10 16:11 | Outpatient (REF) | payer OTHER, SELFPAY ==
[2021-02-10 16:17] LABS: Hematocrit 37.1 % (42.0-52.0); Hemoglobin 11.8 g/dl (14.0-18.0); Mean Corpuscular HGB Conc 31.8 g/dl (31.0-36.0); Mean Corpuscular Hemoglobin 30.9 pg (27.0-33.0); Mean Corpuscular Volume 97.1 fL (80.0-98.0); Mean Platelet Volume 9.5 fL (9.4-12.4); Platelet Count 523 X10*3/uL (160-400); Red Blood Count 3.82 X10*6/uL (4.60-5.80); White Blood Count 9.6 X10*3/uL (4.8-10.8)
[2021-02-10 16:40] LABS: Alanine Aminotransferase 39 U/L (0-40); Albumin Level 4.2 g/dL (3.5-5.0); Alkaline Phosphatase 70 U/L (39-117); Anion Gap 13 (12-20); Aspartate Amino Transferase 31 U/L (5-37); Bilirubin Direct < 0.2 mg/dL (0.0-0.5); Bilirubin Total 0.3 mg/dL (0.0-1.0); Blood Urea Nitrogen 11 mg/dL (9-16); Calcium 10.1 mg/dL (8.4-10.2); Carbon Dioxide 31 mmol/L (22-29); Chloride 104 mmol/L (96-108); Estimated Glomerular Filt Rate > 60; Glucose Fasting 78 mg/dL (60-99); Potassium 4.5 mmol/L (3.3-5.1); Sodium 143 mmol/L (135-145); Total Protein 7.9 g/dL (6.5-8.0)
== END 2021-02-10 16:12 | disposition home or self-care (01) ==
LOC: HO.LNP 16:11
PROVIDERS: Visit Provider Internal Medicine
DX: N39.0 Urinary tract infection, site not specified (principal); A41.9 Sepsis, unspecified organism; N20.0 Calculus of kidney; D64.9 Anemia, unspecified
CPT/HCPCS: 80048; 80076; 85027

== ENCOUNTER 2021-03-13 10:02 | Outpatient (REF) | payer OTHER, SELFPAY ==
[2021-03-13 10:06] LABS: MANUAL DIFF FLAG NO
[2021-03-13 10:10] LABS: Basophils Absolute Auto 0.1 X10*3/uL (0.0-0.2); Eosinophils Absolute Auto 0.6 X10*3/uL (0.0-0.4); Hematocrit 38.5 % (42.0-52.0); Hemoglobin 13.1 g/dl (14.0-18.0); Imm Gran Abs Auto 0.03 X10*3/uL (0.00-0.03); Imm Gran Pct Auto 0.3 % (0.0-0.4); Lymphocytes Absolute Auto 2.5 X10*3/uL (1.2-4.9); Mean Corpuscular Hemoglobin 31.6 pg (27.0-33.0); Mean Corpuscular Volume 92.8 fL (80.0-98.0); Mean Platelet Volume 8.7 fL (9.4-12.4); Monocytes Absolute Auto 0.6 X10*3/uL (0.1-1.2); Monocytes Percent Auto 6.6 % (2-11); Neutrophils Absolute Auto 5.4 x10*3/uL (2.0-8.3); Neutrophils Percent Auto 59.1 % (45-73); Platelet Count 307 X10*3/uL (160-400); Red Blood Count 4.15 X10*6/uL (4.60-5.80); Red Cell Distribution Width 12.6 % (11.0-16.0); White Blood Count 9.2 X10*3/uL (4.8-10.8)
[2021-03-13 10:12] LABS: Appearance Urine HAZY; Color Urine YELLOW; Glucose Urine UA NEG (NEG); Leukocyte Esterase Urine 2+ (NEG); Nitrite Urine NEG (NEG); PH 6.5 (5.0-8.0); Specific Gravity - Urine 1.015 (1.005-1.025); UACC Culture Trigger YES; Urine Blood NEG (NEG); Urine Ketones NEG (NEG); Urine Protein NEG (NEG-TRACE)
[2021-03-13 10:22] LABS: Bacteria Urine 2+ /LPF; RBC Urine 0 /HPF (0); Squamous Epithelial Cell Urine TRACE /LPF; WBC Urine 30-49 /HPF (0-4)
[2021-03-13 10:31] LABS: Alanine Aminotransferase 9 U/L (0-40); Alkaline Phosphatase 75 U/L (39-117); Anion Gap 13 (12-20); Aspartate Amino Transferase 15 U/L (5-37); Bilirubin Total < 0.2 mg/dL (0.0-1.0); Blood Urea Nitrogen 14 mg/dL (9-16); Calcium 9.9 mg/dL (8.4-10.2); Carbon Dioxide 29 mmol/L (22-29); Chloride 105 mmol/L (96-108); Cholesterol 204 mg/dL; Estimated Glomerular Filt Rate > 60; Glucose Fasting 94 mg/dL (60-99); HDL Cholesterol 46 mg/dL; LDL Cholesterol Calculated 109 mg/dl; Potassium 4.6 mmol/L (3.3-5.1); Sodium 142 mmol/L (135-145); Total Protein 7.7 g/dL (6.5-8.0); Triglycerides 245 mg/dL
== END 2021-03-13 10:03 | disposition home or self-care (01) ==
LOC: HO.HVNA 10:02
PROVIDERS: PCP Internal Medicine; Visit Provider Internal Medicine
DX: D64.9 Anemia, unspecified (principal); N15.9 Renal tubulo-interstitial disease, unspecified
CPT/HCPCS: 36415; 80053; 80061; 81001; 85025; 87086; 87088; 87186

== ENCOUNTER → 2021-03-30 14:42 | Outpatient (BNVA) | payer OTHER, SELFPAY | PROVIDERS: PCP Internal Medicine; Visit Provider Urology | DX: N20.0 Calculus of kidney (principal) | CPT/HCPCS: 99212 ==

== ENCOUNTER 2021-04-06 12:58 | Outpatient (REF) | payer OTHER, SELFPAY ==
--- NOTE | ~2021-04-06 | XR_ITS ---
EXAMINATION: XR NASAL BONES CLINICAL INFORMATION: Nasal bone pain after injury. COMPARISON: None TECHNIQUE: 3 views of the nasal bones were obtained. FINDINGS: There are no fractures or dislocations. No bone, joint or soft tissue abnormality is demonstrated. XR/XR nasal bones min 3V IMPRESSION: Unremarkable nasal bone examination.
== END 2021-04-06 12:59 | disposition home or self-care (01) ==
LOC: HO.XRAY 12:58
PROVIDERS: PCP Internal Medicine; Visit Provider Internal Medicine
DX: J34.89 Other specified disorders of nose and nasal sinuses (principal)
CPT/HCPCS: 70160

== ENCOUNTER 2021-04-19 13:13 | Outpatient (REF) | payer OTHER, SELFPAY ==
[2021-04-19 13:54] LABS: MANUAL DIFF FLAG NO
[2021-04-19 14:42] LABS: Basophils Absolute Auto 0.1 X10*3/uL (0.0-0.2); Basophils Percent Auto 1.1 % (0-2); Eosinophils Absolute Auto 0.4 X10*3/uL (0.0-0.4); Eosinophils Percent Auto 6.9 % (0-4); Hematocrit 43.4 % (42.0-52.0); Imm Gran Abs Auto 0.01 X10*3/uL (0.00-0.03); Imm Gran Pct Auto 0.2 % (0.0-0.4); Lymphocytes Percent Auto 38.1 % (20-40); Mean Corpuscular HGB Conc 32.3 g/dl (31.0-36.0); Mean Corpuscular Hemoglobin 29.8 pg (27.0-33.0); Mean Corpuscular Volume 92.3 fL (80.0-98.0); Mean Platelet Volume 9.5 fL (9.4-12.4); Monocytes Absolute Auto 0.4 X10*3/uL (0.1-1.2); Monocytes Percent Auto 7.4 % (2-11); Neutrophils Absolute Auto 2.4 x10*3/uL (2.0-8.3); Neutrophils Percent Auto 46.3 % (45-73); Platelet Count 260 X10*3/uL (160-400); Red Cell Distribution Width 12.1 % (11.0-16.0); Retic HGB Equivalent 33.5 pg (30.0-35.0); Reticulocytes Absolute 0.048 X10*6/uL (0.026-0.095); White Blood Count 5.3 X10*3/uL (4.8-10.8)
[2021-04-19 15:21] LABS: Iron 90 mcg/dL (45-160); Percent Iron Saturation 33 % (15-50); Total Iron Binding Capacity 276 mcg/dL (228-428); Unsaturated Iron Binding 186 ug/dL
[2021-04-19 15:35] LABS: Free T4 (Free Thyroxine) 0.78 ng/dL (0.71-1.85); Thyroid Stimulating Hormone 0.67 uIU/mL (0.32-4.0)
[2021-04-19 15:39] LABS: Folate 10.7 ng/mL (> or = 4.0); Vitamin B12 751 pg/mL (200-900)
[2021-04-19 15:41] LABS: Ferritin 52 ng/mL (20-250)
== END 2021-04-19 13:14 | disposition home or self-care (01) ==
LOC: HO.LAB 13:13
PROVIDERS: PCP Internal Medicine; Visit Provider Internal Medicine
DX: D64.89 Other specified anemias (principal)
CPT/HCPCS: 36415; 82607; 82728; 82746; 83540; 84439; 84443; 85025; 85045

== ENCOUNTER 2021-05-04 09:58 | Outpatient (REF) | payer OTHER, SELFPAY ==
[2021-05-04 11:45] LABS: Basophils Absolute Auto 0.1 X10*3/uL (0.0-0.2); Basophils Percent Auto 1.1 % (0-2); Eosinophils Absolute Auto 0.4 X10*3/uL (0.0-0.4); Eosinophils Percent Auto 6.9 % (0-4); Hematocrit 45.1 % (42.0-52.0); Hemoglobin 14.7 g/dl (14.0-18.0); Imm Gran Abs Auto 0.02 X10*3/uL (0.00-0.03); Imm Gran Pct Auto 0.4 % (0.0-0.4); Lymphocytes Absolute Auto 2.6 X10*3/uL (1.2-4.9); Lymphocytes Percent Auto 48.5 % (20-40); MANUAL DIFF FLAG NO; Mean Corpuscular HGB Conc 32.6 g/dl (31.0-36.0); Mean Corpuscular Hemoglobin 29.8 pg (27.0-33.0); Mean Corpuscular Volume 91.5 fL (80.0-98.0); Mean Platelet Volume 9.6 fL (9.4-12.4); Monocytes Absolute Auto 0.5 X10*3/uL (0.1-1.2); Monocytes Percent Auto 9.1 % (2-11); Neutrophils Absolute Auto 1.8 x10*3/uL (2.0-8.3); Platelet Count 256 X10*3/uL (160-400); Red Blood Count 4.93 X10*6/uL (4.60-5.80); White Blood Count 5.4 X10*3/uL (4.8-10.8)
[2021-05-04 13:11] LABS: Alanine Aminotransferase 16 U/L (0-40); Albumin Level 4.4 g/dL (3.5-5.0); Alkaline Phosphatase 65 U/L (39-117); Anion Gap 13 (12-20); Aspartate Amino Transferase 16 U/L (5-37); Bilirubin Total 0.2 mg/dL (0.0-1.0); Blood Urea Nitrogen 17 mg/dL (9-16); Calcium 10.2 mg/dL (8.4-10.2); Carbon Dioxide 30 mmol/L (22-29); Chloride 104 mmol/L (96-108); Cholesterol 202 mg/dL; Estimated Glomerular Filt Rate > 60; Glucose Fasting 85 mg/dL (60-99); HDL Cholesterol 59 mg/dL; LDL Cholesterol Calculated 104 mg/dl; Potassium 4.4 mmol/L (3.3-5.1); Sodium 143 mmol/L (135-145); Total Protein 7.9 g/dL (6.5-8.0); Triglycerides 196 mg/dL
[2021-05-06 12:52] LABS: TS Negative Control Passed; TS Panel A 0; TS Panel B 0; TS Positive Control Passed; TSpotTB Negative (Negative)
== END 2021-05-04 09:59 | disposition home or self-care (01) ==
LOC: HO.LAB 09:58
PROVIDERS: Absent Provider Nurse Practitioner Acute Care; PCP Internal Medicine; Visit Provider Internal Medicine
DX: Z11.1 Encounter for screening for respiratory tuberculosis (principal); D64.9 Anemia, unspecified; R56.9 Unspecified convulsions
CPT/HCPCS: 36415; 80053; 80061; 85025; 86481

== ENCOUNTER 2021-05-30 15:12 | Outpatient (REF) | payer OTHER, SELFPAY ==
--- NOTE | ~2021-05-30 | US_ITS ---
EXAMINATION: US RETROPERITONEAL COMPLETE (RENAL) CLINICAL INFORMATION: Renal tubulointerstitial disease, unspecified. COMPARISON: CT abdomen and pelvis without contrast 01/30/2021. TECHNIQUE: Real-time imaging of the kidneys and bladder. FINDINGS: RIGHT KIDNEY: 9.4 x 4.3 x 5.1 cm (SAG x AP x TRV). The kidney is normal in size, contour, and echogenicity. Renal cortical thickness is normal. No calculi or focal parenchymal lesions. No hydronephrosis. There is mild pelvic renal fullness. LEFT KIDNEY: 10.4 x 6.0 x 4.9 cm (SAG x AP x TRV). The kidney is normal in size, contour, and echogenicity. Renal cortical thickness is normal. No calculi or focal parenchymal lesions. No hydronephrosis. BLADDER: Well distended and normal. Bilateral ureteral jets are demonstrated. Prevoid bladder volume is 640 mL. Postvoid bladder volume is 166 mL. PROSTATE: Normal prostate value measuring 10.8 cm. US/US retroperitoneal comp IMPRESSION: Significant postvoid residual bladder volume. No bladder wall thickening or echogenic calculi. Mild right renal pelvic fullness. Otherwise bilateral kidney ultrasound appears unremarkable.
== END 2021-05-30 15:13 | disposition home or self-care (01) ==
LOC: HO.US 15:12
PROVIDERS: PCP Internal Medicine; Visit Provider Internal Medicine
DX: N15.9 Renal tubulo-interstitial disease, unspecified (principal)
CPT/HCPCS: 76770

== ENCOUNTER 2021-06-02 12:54 | Outpatient (RCR) | payer OTHER, SELFPAY | END 2021-12-06 13:49 | disposition still patient (30) | LOC: HO.SH 12:54 | PROVIDERS: Visit Provider Internal Medicine | DX: R56.9 Unspecified convulsions (principal); Z71.9 Counseling, unspecified ==

== ENCOUNTER 2021-08-18 10:09 | Outpatient (REF) | payer OTHER, SELFPAY ==
--- NOTE | ~2021-08-18 | FL_ITS ---
PROCEDURE: XR FLUOROSCOPY UPPER GI WITH AIR CLINICAL INFORMATION: Dysphagia. COMPARISON: None TECHNIQUE: Routine upper GI exam was performed. FINDINGS: Following oral administration of thick barium and barium-coated turkey there is normal propagation of bolus from the oral cavity through the pharynx into the stomach without any evidence of obstruction, narrowing or stricture. FLUOROSCOPY TIME: 0.7 minutes. DOSE AREA PRODUCT: 4.818 uGy-m2 (microgray-meter squared) FL/FL barium swallow IMPRESSION: Unremarkable barium swallow in upright view.
== END 2021-08-18 10:10 | disposition home or self-care (01) ==
LOC: HO.XRAY 10:09
PROVIDERS: Visit Provider Internal Medicine
DX: R13.10 Dysphagia, unspecified (principal)
CPT/HCPCS: 74220; 74246

== ENCOUNTER 2021-09-27 15:10 | Outpatient (REF) | payer OTHER, SELFPAY ==
--- NOTE | ~2021-09-27 | US_ITS ---
EXAMINATION: US RETROPERITONEAL LIMITED (RENAL ONLY) CLINICAL INFORMATION: Calculus of kidney. COMPARISON: US retroperitoneal complete (renal) 05/30/2021. CT abdomen and pelvis without contrast 01/30/2021. TECHNIQUE: Real-time imaging of the kidneys. FINDINGS: RIGHT KIDNEY: 9.4 x 4.2 x 4.3 cm (SAG x AP x TRV). The kidney is normal in size, contour, and echogenicity. Renal cortical thickness is normal. No calculi or focal parenchymal lesions. No hydronephrosis. LEFT KIDNEY: 10.6 x 4.8 x 4.9 cm (SAG x AP x TRV). The kidney is normal in size, contour, and echogenicity. Renal cortical thickness is normal. No calculi or focal parenchymal lesions. No hydronephrosis. US/US renal BI IMPRESSION: Unremarkable renal ultrasound.
== END 2021-09-27 15:11 | disposition home or self-care (01) ==
LOC: HO.US 15:10
PROVIDERS: Visit Provider Urology
DX: N20.0 Calculus of kidney (principal)
CPT/HCPCS: 76775

== ENCOUNTER → 2021-09-30 13:48 | Outpatient (BNVA) | payer OTHER, SELFPAY | PROVIDERS: PCP Internal Medicine; Visit Provider Urology | DX: N20.0 Calculus of kidney (principal) | CPT/HCPCS: Q3014 ==

== ENCOUNTER 2021-11-10 13:00 | Outpatient (RCR) | payer OTHER, SELFPAY ==
--- NOTE | 2021-06-08 14:48 | MHC.SP.ADU ---
Referring provider: Mable Conley MD Reason for Referral: Speech disturbances after brain surgery Type of Treatment: 59887 Evaluation Speech Sound Production WITH Language Date of Plan of Treatment: 06/02/21 Onset of Symptoms/Illness: 08/21/13 Date Treatment Started: 09/01/14 Medical Diagnosis: GERD Seizures Hypercholesterolemia Hx glioma s/p surgery Generalized anxiety disorder Gait instability Insomnia Migraine Polysubstance abuse Psychotic disorder Seizures Thyroid nodule Vitamin D deficiency Primary Speech Language Diagnosis: R41.841 Cognitive communication disorder Secondary Speech Language Diagnosis: R47.82 Fluency History Patient is a 35 year old male who attended this evaluation accompanied by his father, Mr. Jed Mejia. Background information included in this report was provided by the patient himself and review of past medical documentation. He was referred for a speech-language evaluation by his primary care physician, Mable Conley MD of [facility] in [place], [place]. 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 He reports both procedures were done with Dr. Ceja at [facility]. After his surgery, patient reportedly participated in physical therapy for ?several weeks? for his right sided hemiplegia. Patient reports initial onset of speech difficulties after his first surgery, which he states ?developed over time.? Patient previously participated in speech therapy here at [facility] with NET UI DEVELOPER Jancie Montgomery from August 2014 to August 2016, targeting fluency. Patient reports ongoing concerns in the following areas of communication and cognition: difficulty expressing thoughts, difficulty understanding what others are saying, reading, writing, fluency. Patient reports significant difficulty with word retrieval, stating ?I have trouble coming up with a word and someone needs to say it for me.? Patient is also concerned about his stuttering. He reports that because of his word finding difficulties and stuttering, it ?takes a lot of time? for him to express himself. Patient reports he speaks both [place] and Stateless, but prefers to express himself mainly in [place]. Medical History: GERD Seizures Hypercholesterolemia Hx glioma s/p surgery Generalized anxiety disorder Gait instability Insomnia Migraine Polysubstance abuse Psychotic disorder Seizures Thyroid nodule Vitamin D deficiency Social History: Past Speech Language Therapy: Patient was previously seen for speech therapy at [facility] August 2014- August 2016. Reported Speech, Language, Cognition difficulties: Memory Cognition Speaking Assessment Speech Production: Aphasic: Nonfluent, Slow Clinical Impression: Impaired Observations: Patient?s pitch, volume, and overall vocal quality were perceptually judged to be WFL based on patient?s age and gender. Patient was observed to speak mildly slow in rate. His speech was marked by disfluencies, characterized by whole word repetitions, phrase repetitions, sound prolongations, and the frequent use of filler words (i.e. uhm, uh). Patient displayed halting speech flow due to word retrieval difficulties and disfluencies. 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 Informal Voice Assessment: Voice Loudness: Normal Voice Nasal Resonance: Normal Voice Oral Resonance: Normal Voice Phonatory-based Quality: Normal Voice Pitch: Normal Clinical Impression: Intact Tests of Speech & Lang Adults: BNT Clinical Impression: Impaired Observations: Patient was administered the Marion Naming Test (BNT). Due to time constraints of today?s evaluation and difficulty of this task for the patient, he was not able to complete this assessment in its entirety. Patient correctly named 8 out of 21 items on his own after a short time delay. When provided with a forced choice question prompt, patient selected the correct word in 7 out of 13 trials. Patient demonstrated semantic paraphasias in his speech. For example, he named camel as ?moose,? wilton as ?squirrel,? stilts as ?crutches,? and harp as ?harmonica.? Additionally, he was observed to describe items when exhibiting difficulty naming them. For example, when presented with an image depicting escalators, patient was not able to name this item, but described them as ?those things you see at the mall.? Tests of Cognition: CLQT Clinical Impression: Impaired Observations: Patient was administered the Cognitive Linguistic Quick Test (CLQT). The CLQT is a criterion-referenced assessment used to gain information about an individual?s relative strengths and weaknesses and to identify deficits in cognitive-linguistic skills in individuals aged 18-89 years old. The CLQT generates severity ratings in the following five cognitive domains: Attention, Memory, Language, Executive Functions, and Visuospatial Skills. Patient?s performance on the CLQT is displayed below: Task: Criterion Cut Score, Patient?s Score, Interpretation Personal Facts: 8, 7, Below Average Symbol Cancellation: 11, 12, Within Functional Limits Confrontational Namin, 10, Within Functional Limits Clock Drawin, 13, Within Functional Limits Story Retellin, 4, Below Average Symbol Trails: 9, 7, Below Average Generative Namin, 3, Below Average Design Memory: 5, 4, Below Average Mazes: 7, 7, Within Functional Limits Design Generation: 6, 2, Below Average Task scores were summed together based on cognitive domain. Cognitive Domain scores are as follows: Cognitive Domain: Domain Score, Severity Range, Severity Rating Attention: 175, Mild, 3 Memory: 116, Moderate, 2 Executive Functions: 19, Moderate, 2 Language: 24, Moderate, 2 Visuospatial Skills: 77, Mild, 3 Patient?s Composite Severity Rating of 2.4 is interpreted as a MODERATE COGNITIVE LINGUISTIC IMPAIRMENT according to his performance on this assessment measure. Attention skills include the ability to maintain attention over time, selectively disengage from one task to engage in a new one, and the ability to coordinate the demands of multiple tasks (Erin-Estabyazoks, 2001). Patient was able to attend to simple, short tasks but exhibited some difficulty coordinating the demands of multiple tasks at once. Patient demonstrated impaired memory skills according to his performance on the CLQT. Memory is a complex process that includes the ability to attend to, process, retain, store, and retrieve information (Helm-Estabrooks, 2001). Patient was able to accurately retrieve most information about personal facts (integrity of previously stored information) and recalled design shapes (immediate recall of new visual information). He exhibited difficulty recalling details about a story verbally presented by the clinician (immediate recall of new information presented in a paragraph). Patient demonstrated a moderate impairment in executive function skills based on his performance on the CLQT. Patient completed tasks that assessed his ability to plan, sequence, implement, and accomplish goal-directed activities in flexible manner, taking into consideration situational and environmental changes (Erin-Estabrooks, 2001). When planning a route to complete a maze, he was observed to change paths several times, but ultimately completed the task within the time constraint. It was noted that during the design generation activity, patient perseverated on his designs, copied example designs generated by the clinician, and geronimo designs with 2-3 lines rather than four. Individuals with typical neurological cognitive-linguistic skills typically generate more designs by creating a pattern in alternating positions of the designs. This reflects some inflexibility in the generation of new designs or ideas. Patient demonstrated a moderate impairment in his language skills based on his performance on the CLQT. Patient presents with strengths in his receptive language abilities, as he followed directions and correctly answered WH- and yes/no questions. He exhibited difficulty with confrontational naming and generative naming tasks, as well as the immediate recall of details in a story. Visuospatial skills include the ability to scan, discriminate, analyze, and interpret visual information (Judi, 2001). Patient was able to remember a symbol and recognizing it in a visual field that included several other symbols (symbol cancellation task); and recalled designs to choose the one he had studied in a choice of six (design memory task). He exhibited difficulty in another task targeting visuo-spatial skills, which required him to draw lines between alternating shapes of different sizes. Patient was reminded of task instructions and was provided with examples, as permitted by test administration guidelines. Based on results of this assessment, patient presents with a mild to moderate cognitive linguistic impairment, expressive aphasia as evidenced by word retrieval difficulties, and a concomitant fluency disorder. Recommend patient to participate in 12 weekly individualized speech therapy visits with goals targeting word finding, fluency strategies, and cognition. Impressions and Recommendations Summary: Impact on Daily Function/Activity Limitations: Daily Activities: Moderate Interpersonal Interactions: Moderate Education: Employment: Community: Moderate Prognosis for Improvement: Good Recommendation for Speech Therapy: Outpatient Speech Therapy Frequency/Duration: 1x weekly x 12 weeks Time to Reassess: 12 months Supervisor Mending Goals: 1.) Patient will improve his performance on an expressive naming probe to 80% accuracy and minimal assistance. 2.) Patient will utilize a variety of word-finding strategies at the conversational level with minimal assistance in >80% opportunities presented to him. 3.) Patient will improve his ability to employ mental flexibility when solving complex problems. 4.) Patient will utilize compensatory strategies to assist short-term memory. 5.) Patient will complete the Stuttering Severity Instrument (SSI) as a formal assessment of his fluency, with short-term goals to follow. Short Term Goals: Goal # : 1.1. Patient will identify a category given members in 4 out of 5 trials with minimal assistance. 1.2. Patient will identify a target word when provided with 3-4 related words or phrases in a word deduction task with 80% accuracy and minimal verbal assistance. Goal Status: New Goal Goal# : 2.1. Patient will utilize Semantic Feature cues (i.e. category, use, function, physical components, association, location) to describe items to a listener successfully in 80% of opportunities with visual support (chart). Goal Status: New Goal Goal # : 3.1. Patient will demonstrate mental flexibility by identifying 2 possible solutions to safety situations in 80% of trials with minimal assistance. Goal Status: New Goal Goal # : 4.1.Patient will listen to auditory information (i.e. voicemail, ads, instructions for medication dosage, invitations) and make note of pertinent information in 80% of opportunities with minimal verbal cues. 4.2. Patient will use compensatory strategies (visualization, verbal rehearsal, writing notes, etc) to recall 4 item grocery lists with 80% accuracy and 1-2 repetitions. Goal Status: New Goal Recommended Referrals to be Discussed with Primary Care Provider: Neurology Patient Education: Completed: Yes Patient/Caregiver Education: Described Results of Evaluation Patient expressed understanding of evaluation Family/Caregivers expressed understanding of results Radiologic Technology Teacher Clinican/Clinical Fellow: No Supervisory Statement: N/A Speech Language Pathologist: Rubina Francis M.A., CCC-NET UI DEVELOPER
== END 2021-12-13 14:38 | disposition home or self-care (01) ==
LOC: HO.SH 13:00
PROVIDERS: Visit Provider Internal Medicine
DX: R41.841 Cognitive communication deficit (principal); R47.82 Fluency disorder in conditions classified elsewhere; R56.9 Unspecified convulsions; C71.9 Malignant neoplasm of brain, unspecified
CPT/HCPCS: 92507; 92523

== ENCOUNTER → 2021-11-23 14:10 | Outpatient (BNVA) | payer OTHER, SELFPAY | PROVIDERS: PCP Internal Medicine; Visit Provider Nurse Practitioner | DX: K21.9 Gastro-esophageal reflux disease without esophagitis (principal) | CPT/HCPCS: 99202; 99212 ==

== ENCOUNTER 2022-03-22 08:52 | Outpatient (REF) | payer OTHER, SELFPAY ==
[2022-03-22 09:09] LABS: MANUAL DIFF FLAG NO
[2022-03-22 10:01] LABS: Basophils Absolute Auto 0.1 X10*3/uL (0.0-0.2); Basophils Percent Auto 1.1 % (0-2); Eosinophils Absolute Auto 0.7 X10*3/uL (0.0-0.4); Eosinophils Percent Auto 9.6 % (0-4); Hematocrit 44.4 % (42.0-52.0); Hemoglobin 15.3 g/dl (14.0-18.0); Imm Gran Abs Auto 0.03 X10*3/uL (0.00-0.03); Imm Gran Pct Auto 0.4 % (0.0-0.4); Lymphocytes Absolute Auto 2.8 X10*3/uL (1.2-4.9); Lymphocytes Percent Auto 39.4 % (20-40); Mean Corpuscular HGB Conc 34.5 g/dl (31.0-36.0); Mean Corpuscular Hemoglobin 30.8 pg (27.0-33.0); Mean Corpuscular Volume 89.5 fL (80.0-98.0); Monocytes Absolute Auto 0.6 X10*3/uL (0.1-1.2); Monocytes Percent Auto 8.5 % (2-11); Neutrophils Absolute Auto 2.9 x10*3/uL (2.0-8.3); Platelet Count 265 X10*3/uL (160-400); Red Blood Count 4.96 X10*6/uL (4.60-5.80); Red Cell Distribution Width 12.2 % (11.0-16.0); White Blood Count 7.2 X10*3/uL (4.8-10.8)
== END 2022-03-22 08:53 | disposition home or self-care (01) ==
LOC: HO.LAB 08:52
PROVIDERS: PCP Internal Medicine; Visit Provider Internal Medicine
DX: H54.7 Unspecified visual loss (principal); E78.00 Pure hypercholesterolemia, unspecified
CPT/HCPCS: 36415; 85025

== ENCOUNTER 2022-06-09 08:38 | Outpatient (REF) | payer OTHER, SELFPAY ==
[2022-06-09 09:30] LABS: Alanine Aminotransferase 16 U/L (0-40); Albumin Level 4.4 g/dL (3.5-5.0); Alkaline Phosphatase 65 U/L (39-117); Anion Gap 12 (12-20); Aspartate Amino Transferase 16 U/L (5-37); Bilirubin Total 0.3 mg/dL (0.0-1.0); Blood Urea Nitrogen 15 mg/dL (9-16); Calcium 9.7 mg/dL (8.4-10.2); Carbon Dioxide 28 mmol/L (22-29); Chloride 107 mmol/L (96-108); Cholesterol 208 mg/dL; Estimated Glomerular Filt Rate > 60; Glucose Random 90 mg/dL (60-115); HDL Cholesterol 44 mg/dL; LDL Cholesterol Calculated 133 mg/dl; Sodium 143 mmol/L (135-145); Total Protein 7.4 g/dL (6.5-8.0); Triglycerides 159 mg/dL
[2022-06-09 10:04] LABS: Thyroid Stimulating Hormone 2.58 uIU/mL (0.32-4.0); Vitamin B12 > 2000 pg/mL (200-900)
== END 2022-06-09 08:39 | disposition home or self-care (01) ==
LOC: HO.LAB 08:38
PROVIDERS: PCP Internal Medicine; Visit Provider Internal Medicine
DX: H54.7 Unspecified visual loss (principal); E78.00 Pure hypercholesterolemia, unspecified
CPT/HCPCS: 36415; 80053; 80061; 82607; 82746; 84439; 84443

== ENCOUNTER 2022-08-25 12:06 | Outpatient (REF) | payer OTHER, SELFPAY | END 2022-08-25 12:07 | disposition home or self-care (01) | LOC: HO.LAB 12:06 | PROVIDERS: Visit Provider Psychiatry & Neurology Psychiatry | DX: Z79.899 Other long term (current) drug therapy (principal) | CPT/HCPCS: 36415; 80053; 83036; 84439; 84443; 85025; 93005 ==

== ENCOUNTER 2022-10-20 14:38 | Outpatient (REF) | payer OTHER, SELFPAY ==
--- NOTE | ~2022-10-20 | US_ITS ---
EXAMINATION: US RETROPERITONEAL LIMITED (RENAL ONLY) CLINICAL INFORMATION: Calculus of kidney. COMPARISON: Renal ultrasound 09/27/2021 and 05/30/2021. CT abdomen and pelvis 01/30/2021. TECHNIQUE: Real-time imaging of the kidneys. FINDINGS: RIGHT KIDNEY: 9.3 x 3.7 x 3.8 cm (SAG x AP x TRV). The kidney is normal in size, contour, and echogenicity. Renal cortical thickness is normal. No calculi or focal parenchymal lesions. No hydronephrosis. LEFT KIDNEY: 10.4 x 5.5 x 4.8 cm (SAG x AP x TRV). The kidney is normal in size, contour, and echogenicity. Renal cortical thickness is normal. No calculi or focal parenchymal lesions. No hydronephrosis. US/US renal BI IMPRESSION: Unremarkable renal ultrasound.
== END 2022-10-20 14:39 | disposition home or self-care (01) ==
LOC: HO.US 14:38
PROVIDERS: Visit Provider Urology
DX: N20.0 Calculus of kidney (principal)
CPT/HCPCS: 76775

== ENCOUNTER 2022-12-21 11:55 | Outpatient (AMB) | payer OTHER, SELFPAY ==
[2022-12-21 12:04] VITALS: BP 110/80; PULSE 112; O2SAT 98; BMI 26.0
--- NOTE | 2022-12-21 12:04 | A.OFFPC_ITS ---
Vital Signs 12/21/22 12:04 Height 5 ft 10 in Weight 181 lb 6 oz BMI 26.0 BP 110/80 Blood Pressure Location Lt brachial Position Sitting Pulse 112 H Pulse Source Pulse Oximeter Pulse Oximetry (%) 98 Oxygen Delivery Method Room Air Intake Visit Reasons: Follow Up Falls/ Discuss Labs Power Mule Operator Required: No Accompanied by: Self / Same As Patient Allergies No Known Allergies [No Known Allergies*] Allergy (Verified 12/21/22 12:26) Medication List - Last Reconciled 12/21/22 by DIOGENES Butler [Back support As directed] haloperidol 20 mg PO BEDTIME ketoconazole 2% 1 appl topical 2XW 90 days levetiracetam 1,000 mg PO BID miscellaneous medical supply 1 ea miscellaneous DAILY pantoprazole 40 mg PO DAILY 90 days [Portable wheelchair As directed] quetiapine (Seroquel) 400 mg PO BEDTIME riboflavin (vitamin B2) (Vitamin B-2) 100 mg PO DAILY 90 days sertraline 200 mg PO DAILY [Shower chair As directed] sumatriptan succinate 50 mg PO Q2-4H PRN [Transport wheelchair As directed] [Tub seat with arm rest As directed] [walker with seat, wheels and brakes As directed] Tobacco use date assessed: 12/21/22 Dental Screening Dental Screen Date: 12/21/22 Did you have a dental visit in the last 12 months?: Yes Did you have a dental problem in the last 6 months where you did not have access to dental care?: No Was dental information given to patient?: Patient has dentist HPI HPI Comments History of Present Illness Details 37-year-old male past medical history si gnificant for GERD, hypercholesteremia, seizures patient followed by Neurosurgery at [facility], glioma with history of brain surgery followed by Dr. Ceja. Patient presents today with his aunt and caregiver. Patient's aunt reports that he fell 2 weeks ago. Patient denied any loss of consciousness, patient's daughter reports that his body was stiff, denied any convulsions, states patient was alert but he did not respond for few seconds. On was able to help him up to a chair patient denied any dizziness, unsteady gait or head strike follwoing fall. Patient reports they did go to [facility] to follow-up on this in the fall was un related to seziure hx and was advised to follow-up with PCP for blood work. Patient denies any chest pain, palpitations, shortness of breath or syncope. Patient denies any dizziness or unsteady gait feeling crack contributed to falls. Labs ordered. [facility] Medical History Annual physical exam Blood transfusion declined because patient is Buddhism Gait instability Gait instability GERD (gastroesophageal reflux disease) Hospital discharge follow-up Hypercholesterolemia Impacted cerumen of right ear Insomnia Migraine Neck pain on left side Nose pain Polysubstance abuse Psychotic disorder Renal infection Seizures Sepsis Speech abnormality Tachycardia Thyroid nodule Urinary retention with incomplete bladder emptying Vitamin D deficiency Surgical History Glioma History of surgery of head Family History Father Bipolar 1 disorder Mother Bipolar 1 disorder Myocardial infarction Paternal Grandmother No problems noted. Paternal Grandfather Myocardial infarction Brother Substance abuse Social History Household Members: Family Housing: Apartment Alcohol intake: never Patient Tobacco Use Status: Former Tobacco user Quit Date: >10 yrs ago Tobacco use type: Cigarette Years Smoked: stopped 19 years old e-Cigarette/Vaping Use: Never Used Second Hand Smoke Exposure: No Advance Directives Date on File: 01/31/21 service: No Current occupational status: disabled Cognitive needs: Yes Hearing needs: No Vision needs: No Questionnaire PHQ-9 Over the last 2 weeks, how often have you been bothered by any of the following problems? 1. Little interest or pleasure in doing things: several days 2. Feeling down, depressed, or hopeless: several days 3. Trouble falling or staying asleep, or sleeping too much: several days 4. Feeling tired or having little energy: several days 5. Poor appetite or overeating: several days 6. Feeling bad about yourself - or that you are a failure or have let yourself or your family down: several days 7. Trouble concentrating on things, such as reading the newspaper or watching television: several days 8. Moving or speaking so slowly that other people could have noticed. Or the opposite - being so fidgety or restless that you have been moving around a lot more than usual: several days 9. Thoughts that you would be better off or of hurting yourself in some way: several days Total score: 9 Depression Screening Interpretation: Positive Depression Screening Done: Yes Source: Developed by Drs. Dakota Edouard, Silvana Murray, Timur Calles and colleagues, with an educational marita from [employer]. Thrive Questionnaire Date Thrive assessed: 12/21/22 I am a: Patient What is your living situation today?: I have a steady place to live Within the past 12 months, did the food you bought not last and you didn't have the money to get more?: Never true Within the past 12 months, did you worry whether your food would run out before you got money to buy more?: Never true Do you have trouble paying for medicines?: No Do you have trouble getting transportation to medical appointments?: No Do you have trouble paying your heating and electricity bill?: No Do you have trouble taking care of your child, family member or friend?: No Do you have trouble with day-to-day activities such as bathing, preparing meals, shopping, managing finances, etc.?: No Are you currently unemployed and looking for a job?: No Are you interested in more education?: No Please select the resources that you would like help with: None Currently or been in a relationship where the following occur: no concerns reported AUDIT C Alcohol Use Questionnaire (AUDIT-C) 1. How often do you have a drink containing alcohol?: Never Total Score: 0 Score Reviewed/Action Taken: No DAYRON-7 AMB Questionnaire DAYRON-7 Date DAYRON - 7 assessed: 12/21/22 Feeling nervous, anxious, or on edge: 0 = Not at all Not being able to stop or control worryin = Not at all Worrying too much about different things: 0 = Not at all Trouble relaxin = Not at all Being so restless that it is hard to sit still: 0 = Not at all Becoming easily annoyed or irritable: 0 = Not at all Feeling afraid as if something awful might happen: 0 = Not at all Total DAYRON-7 score (0-4 normal; 5-9 mild; 10-14 moderate; 15-21 severe): 0 Source: Developed by Drs. Dakota Edouard, Silvana Murray, Timur Calles and colleagues, with an educational marita from [employer]. Review of Systems Const Denies chills, Denies fatigue, Denies fever(s) and Denies poor appetite Eyes Denies no additional complaints ENT Reports Normal hearing present Card Denies chest pain, Denies syncope, Denies rapid heart rate and Denies dyspnea Resp Denies cough and Denies dyspnea GI Denies change in stool character, Denies constipation, Denies diarrhea, Denies nausea and Denies vomiting Denies dysuria, Denies urinary frequency and Denies urinary urgency Neuro Reports Normal hearing present, Denies confusion and Denies syncope Psych Denies confusion Endo Denies fatigue Physical exam (Primary Care) Vital Signs: Last Vital Signs Pulse 112 H 12/21/22 12:04 BP 110/80 12/21/22 12:04 Pulse Ox 98 12/21/22 12:04 Oxygen Delivery Method Room Air 12/21/22 12:04 BMI result Body Mass Index 26.0 Tobacco/Smoking Status: Tobacco use Status Tobacco use date assessed 12/21/22 12/21/22 12:07 Patient Tobacco Use Status Former Tobacco user 12/21/22 12:07 Tobacco use type Cigarette 12/21/22 12:07 e-Cigarette/Vaping Use Never Used 12/21/22 12:07 PHQ-9: PHQ-9 Score PHQ-9: Total score 9 12/21/22 12:30 Depression Screening Interpretation: Positive Thrive Assessment: Date of Thrive Assessment Date Thrive assessed 12/21/22 12/21/22 12:07 Currently or been in a relationship where the following occur: no concerns reported Const General: No confusion Orientation/consciousness: No confusion HENMT Head: Yes normocephalic and Yes atraumatic Eyes Conjunctivae: conjunctivae normal Chest Chest palpation & inspection: normal inspection of the chest Resp Effort & Inspection: normal respiratory effort Auscultation: clear to auscultation bilaterally, no crackles, no rhonchi and no wheezes Cardio Rate: regular rate Rhythm: regular rhythm Heart sounds: S1 normal heart sound present and S2 normal heart sound present GI Inspection: Yes normal to inspection Neuro General: No confusion Cranial nerves: Yes Normal hearing present Extrem General: No edema Assessment and Plan Assessment & Plan (1) Fall: Code(s): W19.XXXA - Unspecified fall, initial encounter Plan: complete blood work ordered. If labs unremarkable discussed with on she consider referral to a physical therapy for gait instability. (2) Seizures: Code(s): R56.9 - Unspecified convulsions Plan: Continue to follow-up [facility]. Continue on Levetiracetam (3) 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 Carey 07/2020 Code(s): C71.9 - Malignant neoplasm of brain, unspecified (4) Eczematous dermatitis: Code(s): L30.9 - Dermatitis, unspecified Plan: Continue on ketoconazole shampoo. Patient advised to use unscented Cetaphil face wash and lotion daily if no improvement of dry flaky skin of face patient advised to follow-up with his visitor services associate. Orders: Orders Complete Blood Count no Diff Today Z13.0 - Encounter for screening for diseases of the blood and blood-forming organs and certain disorders involving the immune mechanism Levetiracetam Keppra Today R56.9 - Unspecified convulsions TSH reflex Free T4 Today Z13.29 - Encounter for screening for other suspected endocrine disorder Comprehensive Met. Panel Today W19.XXXA - Unspecified fall, initial encounter Coding Level of Care Code Est Pt Level 3 (35191) Diagnoses Fall W19.XXXA Seizures R56.9 Glioma C71.9 Eczematous dermatitis L30.9
== END 2022-12-21 12:38 | disposition home or self-care (01) ==
PROVIDERS: Visit Provider Nurse Practitioner Family
DX: R56.9 Unspecified convulsions (principal); C71.9 Malignant neoplasm of brain, unspecified; L30.9 Dermatitis, unspecified; W19.XXXA Unspecified fall, initial encounter
CPT/HCPCS: 99213

== ENCOUNTER 2022-12-27 15:26 | Outpatient (REF) | payer OTHER, SELFPAY ==
[2022-12-27 16:01] LABS: Hematocrit 44.9 % (42.0-52.0); Hemoglobin 15.1 g/dl (14.0-18.0); Mean Corpuscular HGB Conc 33.6 g/dl (31.0-36.0); Mean Corpuscular Hemoglobin 30.3 pg (27.0-33.0); Mean Corpuscular Volume 90.2 fL (80.0-98.0); Platelet Count 280 X10*3/uL (160-400); Red Blood Count 4.98 X10*6/uL (4.60-5.80); White Blood Count 7.2 X10*3/uL (4.8-10.8)
[2022-12-27 16:57] LABS: Alanine Aminotransferase 11 U/L (0-40); Albumin Level 4.8 g/dL (3.5-5.0); Alkaline Phosphatase 60 U/L (39-117); Anion Gap 11 (12-20); Aspartate Amino Transferase 16 U/L (5-37); Bilirubin Total 0.4 mg/dL (0.0-1.0); Blood Urea Nitrogen 14 mg/dL (9-16); Calcium 10.1 mg/dL (8.4-10.2); Carbon Dioxide 28 mmol/L (22-29); Chloride 108 mmol/L (96-108); Estimated Glomerular Filt Rate > 60; Glucose Random 90 mg/dL (60-115); Sodium 143 mmol/L (135-145); Total Protein 8.6 g/dL (6.5-8.0)
[2022-12-27 17:11] LABS: TSH reflex Free T4 1.59 uIU/mL (0.32-4.0)
[2022-12-30 13:18] LABS: Levetiracetam Keppra 10.9 mcg/mL (6.0-46.0)
== END 2022-12-27 15:27 | disposition home or self-care (01) ==
LOC: HO.LAB 15:26
PROVIDERS: PCP Internal Medicine; Visit Provider Nurse Practitioner Family
DX: R56.9 Unspecified convulsions (principal); Z13.29 Encounter for screening for other suspected endocrine disorder; Z13.0 Encounter for screening for diseases of the blood and blood-forming organs and certain disorders involving the immune mechanism; Z91.81 History of falling; Z79.899 Other long term (current) drug therapy
CPT/HCPCS: 36415; 80053; 80177; 84443; 85027

== ENCOUNTER 2023-02-27 10:55 | Outpatient (AMB) | payer OTHER, SELFPAY ==
[2023-02-27 10:57] VITALS: BP 118/82; PULSE 86; O2SAT 100; BMI 25.7
--- NOTE | 2023-02-27 10:57 | A.OFFPC_ITS ---
Vital Signs 02/27/23 10:57 Height 5 ft 10 in Weight 179 lb 0.6 oz BMI 25.7 BP 118/82 Blood Pressure Location Lt brachial Position Sitting Pulse 86 Pulse Source Pulse Oximeter Pulse Oximetry (%) 100 Oxygen Delivery Method Room Air Intake Visit Reasons: GERD, seizures Allergies No Known Allergies [No Known Allergies*] Allergy (Verified 12/21/22 12:26) Medication List - Last Reconciled 02/27/23 by Mable Conley MD [Back support As directed] haloperidol 20 mg PO BEDTIME ketoconazole 2% 1 appl topical 2XW 90 days levetiracetam 1,000 mg PO BID miscellaneous medical supply 1 ea miscellaneous DAILY pantoprazole 40 mg PO DAILY 90 days [Portable wheelchair As directed] quetiapine (Seroquel) 400 mg PO BEDTIME riboflavin (vitamin B2) (Vitamin B-2) 100 mg PO DAILY 90 days sertraline 200 mg PO DAILY [Shower chair As directed] sumatriptan succinate 50 mg PO Q2-4H PRN [Transport wheelchair As directed] [Tub seat with arm rest As directed] [walker with seat, wheels and brakes As directed] Tobacco use date assessed: 02/27/23 Dental Screening Dental Screen Date: 02/27/23 Was dental information given to patient?: Patient has dentist HPI GERD, seizures HPI Details 37-year-old male with a history of seizu res glioma dermatitis coming in for follow-up. Last seen in December 2022. Neuro ff up MRI pendinig [facility]. asking for sleep srudy - takes a nap during day does not sleep on watching no sleep in the car, , no sleeping on taking to somebody, no sleepy after . family insist on sleep study despited low epworth scale. - states does a lot of snoring. PFSH Medical History Annual physical exam Blood transfusion declined because patient is Mu-ism Gait instability Gait instability GERD (gastroesophageal reflux disease) Hospital discharge follow-up Hypercholesterolemia Impacted cerumen of right ear Insomnia Migraine Neck pain on left side Nose pain Polysubstance abuse Psychotic disorder Renal infection Seizures Sepsis Speech abnormality Tachycardia Thyroid nodule Urinary retention with incomplete bladder emptying Vitamin D deficiency Surgical History Glioma History of surgery of head Family History Father Bipolar 1 disorder Mother Bipolar 1 disorder Myocardial infarction Paternal Grandmother No problems noted. Paternal Grandfather Myocardial infarction Brother Substance abuse Social History Household Members: Family Housing: Apartment Alcohol intake: never Patient Tobacco Use Status: Former Tobacco user Quit Date: >10 yrs ago Tobacco use type: Cigarette Years Smoked: stopped 19 years old e-Cigarette/Vaping Use: Never Used Second Hand Smoke Exposure: No Advance Directives Date on File: 01/31/21 service: No Current occupational status: disabled Cognitive needs: Yes Hearing needs: No Vision needs: No Questionnaire Thrive Questionnaire Date Thrive assessed: 12/21/22 AUDIT C Alcohol Use Questionnaire (AUDIT-C) 1. How often do you have a drink containing alcohol?: Never Total Score: 0 Score Reviewed/Action Taken: No DAYRON-7 AMB Questionnaire DAYRON-7 Date DAYRON - 7 assessed: 12/21/22 Source: Developed by Drs. Dakota Edouard, Silvana Murray, Timur Calles and colleagues, with an educational marita from [employer]. Physical exam (Primary Care) Vital Signs: Last Vital Signs Pulse 86 02/27/23 10:57 BP 118/82 02/27/23 10:57 Pulse Ox 100 02/27/23 10:57 Oxygen Delivery Method Room Air 02/27/23 10:57 BMI result Body Mass Index 25.7 Tobacco/Smoking Status: Tobacco use Status Tobacco use date assessed 02/27/23 02/27/23 11:01 Patient Tobacco Use Status Former Tobacco user 02/27/23 11:01 Tobacco use type Cigarette 02/27/23 11:01 e-Cigarette/Vaping Use Never Used 02/27/23 11:01 Thrive Assessment: Date of Thrive Assessment Date Thrive assessed 12/21/22 02/27/23 11:01 Const General: alert; No acute distress Eyes Conjunctivae: conjunctivae normal Resp Auscultation: clear to auscultation bilaterally Cardio Rate: regular rate Rhythm: regular rhythm GI Inspection: Yes normal to inspection Extrem General: Yes normal to inspection and No edema Assessment and Plan Assessment & Plan (1) GERD (gastroesophageal reflux disease): Code(s): K21.9 - Gastro-esophageal reflux disease without esophagitis Qualifiers: Esophagitis presence: without esophagitis Qualified Code(s): K21.9 - Gastro-esophageal reflux disease without esophagitis Plan: Avoid the foods that causes that usually spicy foods, tomato products, juices, coffee, soda and foods that your sensitive to. After eating do not lie down, allow 3-4 hours before in lie down. And keep the head of bed above 30 degrees to avoid the acid from going up. On pantoprazole (2) Hypercholesterolemia: Code(s): E78.00 - Pure hypercholesterolemia, unspecified Plan: Avoid fried foods, chicken skin, eggs, butter margarine, pastries and meat. Be it pork or beef they have a lot of cholesterol LDL goal of less than 130 and triglyceride of less than 150 May 2022 last blood work (3) Seizures: Code(s): R56.9 - Unspecified convulsions Plan: Continue with present medication and continue to follow-up with Neurology (4) Generalized anxiety disorder: Comment: seeing Therapist [facility] Code(s): F41.1 - Generalized anxiety disorder Plan: Continue with counseling and therapy (5) Snoring: Code(s): R06.83 - Snoring (6) Visual changes: Code(s): H53.9 - Unspecified visual disturbance Orders: Orders Complete Blood Count Auto Diff Today E78.00 - Pure hypercholesterolemia, unspecified Free T4 (Free Thyroxine) Today E78.00 - Pure hypercholesterolemia, unspecified Thyroid Stimulating Hormone Today E78.00 - Pure hypercholesterolemia, unspe cified Vitamin B12 and Folate Today E78.00 - Pure hypercholesterolemia, unspecified Lipid Panel Today E78.00 - Pure hypercholesterolemia, unspecified RT home sleep study Today R06.83 - Snoring Comprehensive Met. Panel Today E78.00 - Pure hypercholesterolemia, unspecified Referrals Ophthalmology Referral H53.9 - Unspecified visual disturbance Medications: Refilled sumatriptan succinate 50 mg PO Q2-4H PRN 10 tabs 11RF Headache R13.10 - Dysphagia, unspecified pantoprazole 40 mg PO DAILY 90 tabs 2RF 90 days K21.9 - Gastro-esophageal reflux disease without esophagitis ketoconazole 2% 1 appl topical 2XW 120 mL 1RF 90 days Coding Level of Care Code Est Pt Level 4 (15563) Diagnoses Gastroesophageal reflux disease without esophagitis K21.9 Esophagitis presence: without esophagitis Hypercholesterolemia E78.00 Seizures R56.9 Generalized anxiety disorder F41.1 Snoring R06.83 Visual changes H53.9
== END 2023-02-27 11:54 | disposition home or self-care (01) ==
PROVIDERS: PCP Internal Medicine; Visit Provider Internal Medicine
DX: K21.9 Gastro-esophageal reflux disease without esophagitis (principal); E78.00 Pure hypercholesterolemia, unspecified; R56.9 Unspecified convulsions; F41.1 Generalized anxiety disorder; R06.83 Snoring; H53.9 Unspecified visual disturbance
CPT/HCPCS: 99214

== ENCOUNTER 2023-03-20 15:55 | Outpatient (AMB) | payer OTHER, SELFPAY ==
--- NOTE | 2023-03-20 15:54 | A.OFFVIS_ITS ---
Intake Intake Visit Reasons: US follow up Intake Note: Patient is present for ultrasound follow up Reports no medication changes Clinical Operations Specialist Required: No Accompanied by: Self / Same As Patient Allergies No Known Allergies [No Known Allergies*] Allergy (Verified 03/20/23 15:55) Medication List - Last Reconciled 03/20/23 by Travis Benavides MD [Back support As directed] haloperidol 20 mg PO BEDTIME ketoconazole 2% 1 appl topical 2XW 90 days levetiracetam 1,000 mg PO BID miscellaneous medical supply 1 ea miscellaneous DAILY pantoprazole 40 mg PO DAILY 90 days [Portable wheelchair As directed] quetiapine (Seroquel) 400 mg PO BEDTIME riboflavin (vitamin B2) (Vitamin B-2) 100 mg PO DAILY 90 days sertraline 200 mg PO DAILY [Shower chair As directed] sumatriptan succinate 50 mg PO Q2-4H PRN [Transport wheelchair As directed] [Tub seat with arm rest As directed] [walker with seat, wheels and brakes As directed] HPI HPI Comments History of Present Illness Details Zack is a pleasant male. He is a patient of Dr. Conley. He is seen for the following urologic conditions - nephrolithiasis Yearly follow-up No stones seen on imaging Encourage fluid intake Continue yearly surveillance Nephrolithiasis Underwent stone procedure January 2021 Currently is maintaining good fluid intake Prior brain surgery for glioma Lives with his father Imaging - 10/10 NAD Encourage fluid intake and surveillance imaging [facility] Medical History Gait instability Nose pain Annual physical exam Renal infection Hospital discharge follow-up Speech abnormality Blood transfusion declined because patient is Uatsdin Sepsis Urinary retention with incomplete bladder emptying Tachycardia Neck pain on left side Gait instability Impacted cerumen of right ear Polysubstance abuse Migraine Hypercholesterolemia Thyroid nodule Seizures Psychotic disorder Insomnia Vitamin D deficiency GERD (gastroesophageal reflux disease) Surgical History Glioma History of surgery of head Family History Father Bipolar 1 disorder Mother Bipolar 1 disorder Myocardial infarction Paternal Grandmother No problems noted. Paternal Grandfather Myocardial infarction Brother Substance abuse Social History Household Members: Family Housing: Apartment Alcohol intake: never Patient Tobacco Use Status: Former Tobacco user Quit Date: >10 yrs ago Tobacco use type: Cigarette Years Smoked: stopped 19 years old e-Cigarette/Vaping Use: Never Used Second Hand Smoke Exposure: No Advance Directives Date on File: 01/31/21 service: No Current occupational status: disabled Cognitive needs: Yes Hearing needs: No Vision needs: No Review of Systems Const Denies chills and Denies fever(s) Card Reports no additional complaints and Denies syncope Resp Denies cough GI Denies abdominal pain and Denies heartburn Reports as per HPI and Denies change in libido Neuro Denies syncope Psych Denies change in libido Endo Denies change in libido Physical Exam Const General: cooperative, healthy appearing, comfortable and no acute distress Orientation/consciousness: patient oriented x3 HEENT Face and sinus: Yes normal facial exam Mouth: moist mucous membranes Neck Neck: Yes normal visual inspection, Yes full ROM and Yes trachea midline Chest Chest palpation & inspection: normal inspection of the chest Resp Effort & Inspection: normal respiratory effort, able to speak in complete sentences and no respiratory distress GI Inspection: Yes normal to inspection Back/Spine/Pelvis Cervical Spine: normal cervical lordosis Thoracic/Lumbar Spine: thoracic and lumbar spine normal to inspection Skin General skin exam: no rashes or lesions noted Neuro General: patient oriented x3, gait normal, tone normal and moves all extremities Extrem General: Yes normal to inspection and Yes capillary refill normal Assessment & Plan Assessment & Plan (1) Renal calculus, right: Comment: Laser lithotripsy Dr. Benavides December 2020 stent placement and removal 01/2021 Code(s): N20.0 - Calculus of kidney Plan Twelve month follow-up renal ultrasound office Orders: Orders US renal BI 364 Days N20.0 - Calculus of kidney Patient Instructions: Imaging studies, laboratory and physical exam results were discussed and reviewed in detail. No major barriers to patient understanding were identified. An opportunity to ask questions regarding the treatment plan was provided. All questions were answered. The patient expressed understanding and agreement with the above treatment plan. The patient is aware they should contact our office by phone for worsening of their current condition or the appearance of new urologic symptoms. Compliance is encouraged with any medications and followup testing that is ordered. It is a privilege to participate in the urologic care of your patient. If you have any questions or concerns regarding treatment for the above conditions, or other urologic issues, please do not hesitate to contact me. The office telephone contact is [phone]. This note is constructed using voice recognition software. While every effort has been made to ensure accuracy press supervisor errors may have been included. Yours sincerely, Dr Travis Benavides MD, [facility] - Urology Providers of Expert, Compassionate Care for the Genitourinary System Coding Level of Care Code Est Pt Level 4 (32933) Diagnoses Renal calculus, right N20.0
== END 2023-03-20 16:07 | disposition home or self-care (01) ==
LOC: HO.HUSH 15:55
PROVIDERS: PCP Internal Medicine; Visit Provider Urology
DX: N20.0 Calculus of kidney (principal)
CPT/HCPCS: 99213

== ENCOUNTER → 2023-03-20 15:55 | Outpatient (BNVA) | payer OTHER, SELFPAY | PROVIDERS: PCP Internal Medicine; Visit Provider Urology | DX: N20.0 Calculus of kidney (principal) | CPT/HCPCS: 99212 ==

== ENCOUNTER → 2023-04-16 15:01 | Outpatient (REF) | payer OTHER, SELFPAY | LOC: HO.SL 15:01 | PROVIDERS: PCP Internal Medicine; Visit Provider Internal Medicine | DX: G47.33 Obstructive sleep apnea (adult) (pediatric) (principal); R06.83 Snoring; G47.10 Hypersomnia, unspecified | CPT/HCPCS: 95806 ==

== ENCOUNTER → 2023-04-16 15:09 | Outpatient (BNV) | payer OTHER, SELFPAY | PROVIDERS: PCP Internal Medicine; Visit Provider Internal Medicine | DX: G47.33 Obstructive sleep apnea (adult) (pediatric) (principal) | CPT/HCPCS: 95806 ==

== ENCOUNTER 2024-03-10 16:02 | Outpatient (AMB) | payer OTHER, SELFPAY ==
--- NOTE | 2024-03-10 16:16 | MHC.PC.OV ---
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 Required: No Accompanied by: Self / Same As Patient Allergies No Known Allergies [No Known Allergies*] Allergy (Verified 03/10/24 16:23) Medication List - Last Reconciled 03/10/24 by COOPER Thompson [Back support As directed] haloperidol 20 mg PO BEDTIME ketoconazole 2% 1 appl topical 2XW 90 days levetiracetam 1,000 mg PO BID miscellaneous medical supply 1 ea miscellaneous DAILY pantoprazole 40 mg PO DAILY 90 days [Portable wheelchair As directed] quetiapine (Seroquel) 400 mg PO BEDTIME riboflavin (vitamin B2) (Vitamin B-2) 100 mg PO DAILY 90 days sertraline 200 mg PO DAILY [Shower chair As directed] sumatriptan succinate 50 mg PO Q2-4H PRN [Transport wheelchair As directed] [Tub seat with arm rest As directed] [walker with seat, wheels and brakes As directed] Tobacco use date assessed: 03/10/24 Dental Screening Dental Screen Date: 03/10/24 Did you have a dental visit in the last 12 months?: Yes Did you have a dental problem in the last 6 months where you did not have access to dental care?: No Was dental information given to patient?: Patient has dentist HPI annual exam HPI Details Dentist: few months ago Eye: update Snellen: Right: Left: Corrected vision: glasses STI screening: n/a Colonoscopy: n/a PHQ-9: Flu: given in office today in right deltoid COVID: only had one so far. unsure if he wants to take any booster shot Tdap: reports getting it couple years ago, but cannot remember when exactly Diet: regular Exercise: no coffee-1 cup a day The patient is a 38-year-old male presenting for an annual exam He is a patient of Dr. Conley, last seen in office 02/27/2023 He has past medical history seborrheic dermatitis, constipation, anemia, renal calculus right, general anxiety disorder, glioma, seizures, hypercholesterolemia, GERD, The patient is Jehovah Witness Patient reports that he was living in [place] recently Reports that he is almost out of all of his meds and would like them to be refilled Reports that he would need a new referral for Psychiatry The patient denies chest pain, shortness of breath, dizziness, heart palpitation He denies any change in his bowels habits, patient has a history of constipation but reports that he has been over in his bowels okay He denies any incontinence right ear is blocked with cerumen, debrox ordered; the patient does not want to get his ear flushed [facility] Medical History (Updated 03/10/24 @ 23:03 by COOPER Thompson) Impacted cerumen of right ear Gait instability Nose pain Annual physical exam Renal infection Hospital discharge follow-up Speech abnormality Blood transfusion declined because patient is Bahai Sepsis Urinary retention with incomplete bladder emptying Tachycardia Neck pain on left side Gait instability Polysubstance abuse Migraine Hypercholesterolemia Thyroid nodule Seizures Psychotic disorder Insomnia Vitamin D deficiency GERD (gastroesophageal reflux disease) Surgical History Glioma History of surgery of head Family History Father Bipolar 1 disorder Mother Bipolar 1 disorder Myocardial infarction Paternal Grandmother No problems noted. Paternal Grandfather Myocardial infarction Brother Substance abuse Social History Household Members: Family Housing: Apartment Alcohol intake: never Patient Tobacco Use Status: Former Tobacco user Tobacco use type: Cigarette Years Smoked: stopped 19 years old e-Cigarette/Vaping Use: Never Used Second Hand Smoke Exposure: No Advance Directives Date on File: 01/31/21 service: No Current occupational status: disabled Cognitive needs: Yes Hearing needs: No Vision needs: No Questionnaire PHQ-9 Over the last 2 weeks, how often have you been bothered by any of the following problems? 1. Little interest or pleasure in doing things: not at all 2. Feeling down, depressed, or hopeless: not at all 3. Trouble falling or staying asleep, or sleeping too much: not at all 4. Feeling tired or having little energy: nearly every day 5. Poor appetite or overeating: not at all 6. Feeling bad about yourself - or that you are a failure or have let yourself or your family down: not at all 7. Trouble concentrating on things, such as reading the newspaper or watching television: not at all 8. Moving or speaking so slowly that other people could have noticed. Or the opposite - being so fidgety or restless that you have been moving around a lot more than usual: not at all 9. Thoughts that you would be better off or of hurting yourself in some way: not at all Total score: 3 Depression Screening Interpretation: Negative Depression Screening Done: Yes 88498 - PHQ-9 Billing: Yes Source: Developed by Drs. Dakota Edouard, Silvana Murray, Timur Calles and colleagues, with an educational marita from [employer]. Thrive Questionnaire Date Thrive assessed: 03/10/24 I am a: Patient What is your living situation today?: I have a steady place to live Within the past 12 months, did the food you bought not last and you didn't have the money to get more?: Never true Within the past 12 months, did you worry whether your food would run out before you got money to buy more?: Never true Do you have trouble paying for medicines?: No Do you have trouble getting transportation to medical appointments?: No Do you have trouble paying your heating and electricity bill?: No Do you have trouble taking care of your child, family member or friend?: No Do you have trouble with day-to-day activities such as bathing, preparing meals, shopping, managing finances, etc.?: No Are you currently unemployed and looking for a job?: No Are you interested in more education?: No Please select the resources that you would like help with: None Currently or been in a relationship where the following occur: No concerns reported THRIVE Score: 0 AUDIT C Alcohol Use Questionnaire (AUDIT-C) 1. How often do you have a drink containing alcohol?: Never 3. How often do you have six or more drinks on one occasion?: Never Total Score: 0 Score Reviewed/Action Taken: Yes DAYRON-7 AMB Questionnaire DAYRON-7 Date DAYRON - 7 assessed: 03/10/24 Feeling nervous, anxious, or on edge: 3 = Nearly every day Not being able to stop or control worryin = Not at all Worrying too much about different things: 0 = Not at all Trouble relaxin = Nearly every day Being so restless that it is hard to sit still: 3 = Nearly every day Becoming easily annoyed or irritable: 0 = Not at all Feeling afraid as if something awful might happen: 0 = Not at all Total DAYRON-7 score (0-4 normal; 5-9 mild; 10-14 moderate; 15-21 severe): 9 Source: Developed by Drs. Dakota Edouard, Silvana Murray, Timur Calles and colleagues, with an educational marita from [employer]. DAYRON-7 Assessment Billing DAYRON-7 Assessment Tool: DAYRON-7 Assessment 40625 Review of Systems Const Details: Denies chills, Denies fatigue, Denies fever(s), Denies headache(s) and Denies weakness HEENT Denies change in vision, Denies dizziness, Denies headache(s), Denies hearing loss, Denies nasal congestion, Denies sinus pain, Denies sinus pressure and Denies sore throat Card Denies chest pain, Denies lightheadedness, Denies dyspnea and Denies other (palpitations) Resp Denies cough, Denies dyspnea and Denies wheezing GI Denies abdominal pain, Denies melena, Denies hematochezia, Denies change in bowel habits, Denies dyspepsia and Denies nausea Denies hematuria and Denies dysuria Musc Denies abnormal gait, Denies myalgias, Denies arthralgias, Denies numbness and Denies tingling Skin/Breast Denies rash, Denies unusual bruising and Denies wounds Neuro Denies abnormal gait, Denies dizziness, Denies headache(s), Denies memory loss, Denies numbness, Denies Sensory deficit (Neuro), Denies tingling and Denies weakness Psych Denies anxiety, Denies depression and Denies memory loss Endo Denies cold intolerance, Denies fatigue, Denies heat intolerance, Denies polydipsia and Denies polyuria Esa/Lymph Denies easy bleeding and Denies easy bruising Aller/Immun Denies wheezing Physical exam (Primary Care) Vital Signs: Last Vital Signs Temp 97.1 F 03/10/24 16:17 Pulse 92 03/10/24 16:17 BP 100/70 03/10/24 16:17 Pulse Ox 99 03/10/24 16:17 Oxygen Delivery Method Room Air 03/10/24 16:17 BMI result Body Mass Index 26.0 Tobacco/Smoking Status: Tobacco use Status Tobacco use date assessed 03/10/24 03/10/24 16:21 Patient Tobacco Use Status Former Tobacco user 03/10/24 16:21 Tobacco use type Cigarette 03/10/24 16:21 e-Cigarette/Vaping Use Never Used 03/10/24 16:21 PHQ-9: PHQ-9 Score PHQ-9: Total score 3 03/10/24 16:40 Depression Screening Interpretation: Negative Thrive Assessment: Date of Thrive Assessment Date Thrive assessed 03/10/24 03/10/24 16:21 Currently or been in a relationship where the following occur: No concerns reported Const Other: General: no acute distress, well developed, alert and awake Nutritional Appearance: well nourished Orientation/consciousness: patient oriented x3 HENMT Head: Yes normocephalic and Yes atraumatic Ears: hearing grossly normal bilaterally and TM's normal left ear right ear TM completely blocked by cerumen General nose exam: Normal external nose present and Normal nares present Mouth: Normal oral and palatal mucosa present and moist mucous membranes Teeth and gingiva: dentition normal Throat: Yes oropharynx normal Eyes Pupils: Equal, round and reactive pupils present and Pupil accommodation reflex normal EOM: EOMs intact bilaterally Neck Neck: Yes normal visual inspection, Yes no lymphadenopathy and Yes trachea midline Thyroid: Thyroid normal Carotids: no bruits Lymphatic: no lymphadenopathy noted Chest Chest palpation & inspection: normal inspection of the chest Resp Effort & Inspection: normal respiratory effort Auscultation: clear to auscultation bilaterally Cardio Rate: regular rate Rhythm: regular rhythm Heart sounds: S1 normal heart sound present, S2 normal heart sound present, no gallops, no murmurs and no rubs Bruits: no abdominal aortic bruits and no carotid bruits GI Palpation (GI): No Abdominal aortic bruit present, Soft to palpation, nontender, No hepatosplenomegaly present and No Rebound tenderness present Auscultation: normal bowel sounds General: Yes no CVA tenderness Back/Spine/Pelvis Back: no CVA tenderness Cervical Spine: cervical ROM normal and No Cervical spine tenderness Thoracic/Lumbar Spine: thoraco-lumbar ROM normal, No pain with thoraco-lumbar ROM, No thoracic spinal tenderness and No lumbar spinal tenderness Skin General: warm and dry. Normal skin color. Normal skin turgor Lesions: no lesions Rashes: no rashes Trauma: no lacerations or abrasions Wounds: no wounds Nails: normal Neuro General: patient oriented x3, gait normal and CN's II-XI intact bilaterally Cranial nerves: Yes Equal, round and reactive pupils present Cognition (Neuro): normal cognition Gait exam (Neuro): Normal gait present Motor exam (neuro): 5/5 motor strength present throughout Sensory Exam: No Sensory deficit (Neuro) Deep tendon reflexes (DTR's): Right patellar reflex intensity grade: 2+ and Left patellar reflex intensity grade: 2+ Extrem General: Yes normal to inspection, No edema and No calf tenderness Psych Appearance: grossly normal Affect: normal affect Attitude: cooperative Thought process: Normal thought process present Office Procedures Flu Questionnaire Does the patient have a severe egg allergy?: No Does the patient have severe life threatening allergies?: No Does the patient have a fever or illness today?: No Has the patient ever had Guillain-Emerson Syndrome?: No Has the patient ever had any past reaction to a flu shot?: No Immunizations Fluarix Triv 5378-2992 (PF) 45 mcg (15 mcg x 3)/0.5 mL IM syringe Performing Provider: COOPER Thompson [place] [facility] [facility] [place] [facility] Administered by: PRATIK Flaherty on 03/10/24 16:38 Dose Route Admin Location Dispensed Lot Number Expiration Date [facility] General [employer] Super[employer] 0.5 mL IM Right Deltoid 0.5 mL [id number] 08/18/24 40834-993-15 [employer] VIS Given Date VIS Provided VIS Publication Date 03/10/24 Single Vaccine 20 Eligibility Eligibility Date Funding Source Not [facility] Eligible 03/10/24 Private Coding Level of Care Code Est Pt Prev Care 18-39y(36189) Diagnoses Snoring R06.83 Hypersomnia G47.10 Seborrheic dermatitis L21.9 Incontinence of feces, unspecified fecal incontinence type R15.9 Fecal incontinence type: unspecified Vision problem H54.7 Constipation, unspecified constipation type K59.00 Constipation type: unspecified constipation type Generalized anxiety disorder F41.1 Glioma C71.9 Seizures R56.9 Hypercholesterolemia E78.00 Gastroesophageal reflux disease without esophagitis K21.9 Esophagitis presence: without esophagitis Adult general medical exam Z00.00 Impacted cerumen of right ear H61.21 Additional Codes DAYRON-7 Assessment Billing - DAYRON-7 Assessment Tool: DAYRON-7 Assessment 39742 ([id number]) PHQ-9 - 14528 - PHQ-9 Billing: Yes ([id number]) Time Spent (min) 29 Assessment & Plan Assessment & Plan (1) Snoring: Code(s): R06.83 - Snoring Category: Medical Plan: Stable He is not sure about the frequency reports that has been feeling more rested (2) Hypersomnia: Code(s): G47.10 - Hypersomnia, unspecified Category: Medical Plan: reports he has been feeling more rested (3) Seborrheic dermatitis: Code(s): L21.9 - Seborrheic dermatitis, unspecified Category: Medical Plan: ketoconazole 2% reordered (4) Rectal incontinence: Code(s): R15.9 - Full incontinence of feces Category: Medical Qualifiers: Fecal incontinence type: unspecified Qualified Code(s): R15.9 - Full incontinence of feces Plan: Patient denies incontinence (5) Vision problem: Code(s): H54.7 - Unspecified visual loss Category: Medical Plan: Reports that he was prescribed new glasses lately but left them in [place] but they will be delivered to him soon (6) Constipation: Code(s): K59.00 - Constipation, unspecified Category: Medical Qualifiers: Constipation type: unspecified constipation type Qualified Code(s): K59.00 - Constipation, unspecified Plan: Encouraged fluids and fiber in diet Reports that this has improved some (7) Generalized anxiety disorder: Comment: seeing Therap[place] [facility] [place] Code(s): F41.1 - Generalized anxiety disorder Category: Medical Plan: continues sertraline 200mg daily denies si/hi requested to be referred back to psychiatry (8) 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 Carey 07/2020 Code(s): C71.9 - Malignant neoplasm of brain, unspecified Category: Surgical Plan: stable (9) Seizures: Code(s): R56.9 - Unspecified convulsions Category: Medical Plan: continue levetiracetam 1000mg bid reports he has not have a seizure in a long time (10) Hypercholesterolemia: Code(s): E78.00 - Pure hypercholesterolemia, unspecified Category: Medical Plan: labs ordered-will advise when resulted reinforced a low cholesterol diet/activity as tolerated (11) GERD (gastroesophageal reflux disease): Code(s): K21.9 - Gastro-esophageal reflux disease without esophagitis Category: Medical Qualifiers: Esophagitis presence: without esophagitis Qualified Code(s): K21.9 - Gastro-esophageal reflux disease without esophagitis Plan: reinforced dietary restriction continue pantoprazole 40 mg daily (12) Adult general medical exam: Code(s): Z00.00 - Encounter for general adult medical examination without abnormal findings Category: Medical Plan: Flu vaccine given today in office. He declines covid-19 booster labs ordered for patient to complete elizabeth. No outstanding screenings (13) Impacted cerumen of right ear: Code(s): H61.21 - Impacted cerumen, right ear Category: Medical Plan: debrox ear gtts ordered. Discussed with patient about not being sure if insurance is going cover the medication or if he might have to get it otc encouraged the patient to return to get his ear flushed-he declines. Orders: Orders Influenza [id number] Immunization Today Z23 - Encounter for immunization Complete Blood Count Auto Diff Today E78.00 - Pure hypercholesterolemia, unspecified, F41.1 - Generalized anxiety disorder, G47.10 - Hypersomnia, unspecified, K21.9 - Gastro-esophageal reflux disease without esophagitis, K59.00 - Constipation, unspecified, R56.9 - Unspecified convulsions Vitamin D 25-OH Total Today E78.00 - Pure hypercholesterolemia, unspecified, F41.1 - Generalized anxiety disorder, G47.10 - Hypersomnia, unspecified, K21.9 - Gastro-esophageal reflux disease without esophagitis, K59.00 - Constipation, unspecified, R56.9 - Unspecified convulsions Lipid Panel Today E78.00 - Pure hypercholesterolemia, unspecified, F41.1 - Generalized anxiety disorder, G47.10 - Hypersomnia, unspecified, K21.9 - Gastro-esophageal reflux disease without esophagitis, K59.00 - Constipation, unspecified, R56.9 - Unspecified convulsions Comprehensive [place]. Panel Fast Today E78.00 - Pure hypercholesterolemia, unspecified, F41.1 - Generalized anxiety disorder, G47.10 - Hypersomnia, unspecified, K21.9 - Gastro-esophageal reflux disease without esophagitis, K59.00 - Constipation, unspecified, R56.9 - Unspecified convulsions TSH reflex Free T4 Today E78.00 - Pure hypercholesterolemia, unspecified, F41.1 - Generalized anxiety disorder, G47.10 - Hypersomnia, unspecified, K21.9 - Gastro-esophageal reflux disease without esophagitis, K59.00 - Constipation, unspecified, R56.9 - Unspecified convulsions UA CC w/rflx Micro + Cult Today E78.00 - Pure hypercholesterolemia, unspecified, F41.1 - Generalized anxiety disorder, G47.10 - Hypersomnia, unspecified, K21.9 - Gastro-esophageal reflux disease without esophagitis, K59.00 - Constipation, unspecified, R56.9 - Unspecified convulsions Glucose Fasting Today E78.00 - Pure hypercholesterolemia, unspecified, F41.1 - Generalized anxiety disorder, G47.10 - Hypersomnia, unspecified, K21.9 - Gastro-esophageal reflux disease without esophagitis, K59.00 - Constipation, unspecified, R56.9 - Unspecified convulsions Medications: New sertraline 200 mg (2 x 100 mg) PO DAILY 60 tabs 3RF haloperidol 20 mg PO BEDTIME 30 tabs 3RF carbamide peroxide 6.5% (Debrox) 5 drps otic (ear) right DAILY 4 days 15 mL 0RF Refilled levetiracetam 1,000 mg PO BID 180 tabs 1RF R56.9 - Unspecified convulsions pantoprazole 40 mg PO DAILY 90 days 90 tabs 2RF K21.9 - Gastro-esophageal reflux disease without esophagitis riboflavin (vitamin B2) (Vitamin B-2) 100 mg PO DAILY 90 days 90 tabs 3RF ketoconazole 2% 1 appl topical 2XW 90 days 120 mL 1RF quetiapine (Seroquel) Psychiatrist 400 mg PO BEDTIME 30 tabs 0RF sumatriptan succinate 50 mg PO Q2-4H PRN 10 tabs 11RF Headache R13.10 - Dysphagia, unspecified ketoconazole 2% 1 appl topical 2XW 90 days 120 mL 1RF pantoprazole 40 mg PO DAILY 90 days 90 tabs 2RF K21.9 - Gastro-esophageal reflux disease without esophagitis
[2024-03-10 16:17] VITALS: BP 100/70; PULSE 92; TEMP 36.2; O2SAT 99; BMI 26.0
== END 2024-03-10 17:02 | disposition home or self-care (01) ==
PROVIDERS: PCP Internal Medicine
DX: Z23 Encounter for immunization (principal)

== ENCOUNTER → 2024-03-10 16:02 | Outpatient (BNVA) | payer OTHER, SELFPAY | PROVIDERS: PCP Internal Medicine | DX: Z00.00 Encounter for general adult medical examination without abnormal findings (principal); Z23 Encounter for immunization; R06.83 Snoring; G47.10 Hypersomnia, unspecified; L21.9 Seborrheic dermatitis, unspecified; R15.9 Full incontinence of feces; H54.7 Unspecified visual loss; K59.00 Constipation, unspecified; F41.1 Generalized anxiety disorder; C71.9 Malignant neoplasm of brain, unspecified; R56.9 Unspecified convulsions; E78.00 Pure hypercholesterolemia, unspecified; K21.9 Gastro-esophageal reflux disease without esophagitis; H61.21 Impacted cerumen, right ear; Z79.899 Other long term (current) drug therapy | CPT/HCPCS: 90471; 90656; 96127 ==

== ENCOUNTER 2024-06-11 20:58 | Inpatient (IN) | payer MEDICARE, SELFPAY ==
--- NOTE | 2024-06-11 | ECG_ITS ---
Test Reason : SOB Blood Pressure : */* mmHG Vent. Rate : 86 BPM Atrial Rate : 86 BPM P-R Int : 142 ms QRS Dur : 94 ms QT Int : 354 ms P-R-T Axes : 50 60 41 degrees QTcB Int : 423 ms Normal sinus rhythm Incomplete right bundle branch block Borderline ECG When compared with ECG of 25-Aug-2022 12:26, No significant change was found Referred By: Generic ED Physician Electronically Signed By: JUAN CARLOS PUTNAM
--- NOTE | ~2024-06-11 | MR_ITS ---
EXAMINATION: MR BRAIN WITHOUT CONTRAST CLINICAL INFORMATION: Dizziness. COMPARISON: May 05, 2014. Correlated to CT dated June 12, 2024. TECHNIQUE: MRI of the brain was obtained using routine sequences without contrast. FINDINGS: No restricted diffusion. There is a large, 9 x 3 x 4 cm macrocystic encephalomalacia centered in the superior left frontal gyrus and cingulate gyrus resulting in ex vacuo dilatation left frontal horn lateral ventricle. There is associated susceptibility signal along the margins with the a hyperintense T2 FLAIR signal along the margins extending/crosstable corpus callosum the body corpus callosum/deep periventricular white matter of the centrum semiovale and murphy radiata involving the right cingulate gyrus and the distal left superior frontal gyrus with susceptibility signal more pronounced in the general of the corpus callosum. No acute intracranial hemorrhage, mass effect, midline shift, hydrocephalus or herniation. Augustine-white matter differentiation is normal. Flow-void signal within the main cerebral vessels is normal. Sellar/suprasellar region demonstrated no signal abnormality or gross masses. Craniocervical intact and normal. There is polypoid mucosal thickening, paranasal sinuses with the restriction involving the left maxillary sinus MR/MR head/brain wo con IMPRESSION: Acute on chronic paranasal sinus disease with the focal restricted diffusion in the left maxillary sinus suggesting fungal infection among other etiologies. No acute brain abnormality. Status post tumor resection with the residual moderate to large volume of blood products, gliosis and volume loss/encephalomalacia/ex vacuo dilatation Electronically signed by: Dung Flores MD 06/12/2024 01:42 PM EDT
--- NOTE | ~2024-06-11 | CT_ITS ---
CLINICAL HISTORY: syncope CT head without contrast Comparison: None Findings: Left frontal convexity craniotomy site with underlying encephalomalacia. No midline shift, hydrocephalus, or acute hemorrhage. Moderate mucosal thickening in the sinuses. Mastoids clear. Orbits unremarkable. No acute fracture. Impression: 1. Postoperative changes left frontal lobe. No acute intracranial findings. This document has been electronically signed by: Marley Aggarwal MD on 06/12/2024 01:56:40
--- NOTE | ~2024-06-11 | XR_ITS ---
CLINICAL HISTORY: cough 1 view chest x-ray Comparison: None Findings: The lungs are clear. Heart size is normal. No acute fracture. IMPRESSION: 1. No acute findings. This document has been electronically signed by: Jose Watt MD on 06/11/2024 22:09:05
[2024-06-11 21:12] VITALS: BP 113/73; PULSE 86; O2SAT 98
[2024-06-11 21:15] VITALS: BP 106/69; PULSE 78; RESP 18; TEMP 36.6; O2SAT 98; BMI 25.0
[2024-06-11 21:34] LABS: MANUAL DIFF FLAG NO
[2024-06-11 21:36] LABS: Basophils Absolute Auto 0.1 X10*3/uL (0.0-0.2); Basophils Percent Auto 0.5 % (0-2); Eosinophils Absolute Auto 0.3 X10*3/uL (0.0-0.4); Eosinophils Percent Auto 2.6 % (0-4); Hematocrit 42.1 % (42.0-52.0); Hemoglobin 14.9 g/dl (14.0-18.0); Imm Gran Abs Auto 0.03 X10*3/uL (0.00-0.03); Imm Gran Pct Auto 0.3 % (0.0-0.4); Lymphocytes Absolute Auto 1.9 X10*3/uL (1.2-4.9); Lymphocytes Percent Auto 19.5 % (20-40); Mean Corpuscular HGB Conc 35.4 g/dl (31.0-36.0); Mean Corpuscular Hemoglobin 31.1 pg (27.0-33.0); Mean Corpuscular Volume 87.9 fL (80.0-98.0); Monocytes Absolute Auto 0.6 X10*3/uL (0.1-1.2); Monocytes Percent Auto 6.4 % (2-11); Neutrophils Absolute Auto 6.7 x10*3/uL (2.0-8.3); Neutrophils Percent Auto 70.7 % (45-73); Platelet Count 237 X10*3/uL (160-400); Red Blood Count 4.79 X10*6/uL (4.60-5.80); Red Cell Distribution Width 11.9 % (11.0-16.0); White Blood Count 9.5 X10*3/uL (4.8-10.8)
[2024-06-11 21:44] LABS: IDNOW Serial# 6674DD1D; Strep A Nucleic Acid Negative (Negative)
[2024-06-11 21:50] LABS: Alanine Aminotransferase 21 U/L (0-40); Alkaline Phosphatase 59 U/L (39-117); Anion Gap 16 (12-20); Aspartate Amino Transferase 25 U/L (5-37); Bilirubin Total 0.3 mg/dL (0.0-1.0); Blood Urea Nitrogen 19 mg/dL (9-16); Calcium 9.5 mg/dL (8.4-10.2); Carbon Dioxide 21 mmol/L (22-29); Chloride 108 mmol/L (96-108); Creatinine Clr Calc Pharmacy 84.7; Estimated Glomerular Filt Rate > 60; Glucose Random 134 mg/dL (60-115); Potassium 3.6 mmol/L (3.3-5.1); Sodium 141 mmol/L (135-145); Total Protein 7.4 g/dL (6.5-8.0)
[2024-06-11 21:58] LABS: Troponin-I High Sensitivity < 2.7 ng/L (<3.5-35.0)
[2024-06-11 22:13] LABS: Influenza A PCR NEGATIVE (Negative); Influenza B PCR NEGATIVE (Negative); Resp Syncy Virus RNA Qual PCR NEGATIVE (Negative); SARS COV2 PCR INHOUSE NEGATIVE (Negative)
--- NOTE | 2024-06-11 22:19 | PC.NURSE ---
pt biba from home, a&ox4, respirations even and unlabored. pt reports x3 falls today, reports he has been feeling weak, short of breath and has a cough. pt denies sick contacts. ems placed 20g iv in left ac and pt received approx. 25ml of normal saline. on arrival, pt labs obtained and ekg. family member at bedside.
[2024-06-12] VITALS (9 sets, daily range): BP systolic 98–137; BP diastolic 41–82; PULSE 67–100; RESP 16–18; TEMP 36.4–36.9; O2SAT 95–99; BMI 25.1
--- NOTE | 2024-06-12 | EEG_ITS ---
SUMMARY: This is a 16-channel EEG with an EKG lead. The patient is reported awake during the tracing. Background EEG rhythm is low amplitude fast with no obvious asymmetry or paroxysmal tendency. Photic stimulation does not produce any significant abnormality. Hyperventilation is not performed. Cardiac lead does not reveal any significant abnormality. IMPRESSION: No significant abnormality noted on this EEG. MD VERONICA Grigsby/CARMEN / [id number]
--- NOTE | 2024-06-12 00:13 | PC.NURSE ---
pt ambulatory to bathroom with steady gait, pt offers no complaints. urine sample obtained.
[2024-06-12 00:24] LABS: Appearance Urine Clear; Color Urine Dark Yellow; Glucose Urine UA Negative (Negative); Leukocyte Esterase Urine Negative (Negative); Nitrite Urine Negative (Negative); Specific Gravity - Urine >= 1.030 (1.005-1.025); Urine Blood Negative (Negative); Urine Ketones Trace mg/dL (Negative); Urine Protein Trace mg/dL (Neg-Trace)
--- NOTE | 2024-06-12 00:52 | ED_ITS ---
HPI - General Adult General Chief complaint: Fall Stated complaint: 3 falls today, feeling sick Time Seen by Provider: 06/12/24 00:43 Source: patient, family ( Mother) and EMS Mode of arrival: EMS Limitations: no limitations History of Present Illness ED Provider: DR. Myers HPI narrative: 39-year-old male with past medical history significant for HLD, GERD, migraines, polysubstance abuse, psychotic disorder, seizure disorder, thyroid nodule, cranial glioma with surgical resection x2, kidney stones, patient had 3 syncopal episodes throughout the day today, patient overall does not feel well, no nausea, no vomiting, no headache, patient stated that he did not hit his head, each LOC lasted for about 3 seconds, no chest pain, no palpitation, no shortness of breath. Related Data Previous Rx's ?Medication ?Instructions ?Recorded Portable wheelchair #1 01/20/21 Shower chair #1 ea 01/20/21 Transport wheelchair #1 02/10/21 Back support #1 02/17/21 Tub seat with arm rest #1 02/24/21 miscellaneous medical supply 1 ea miscellaneous DAILY #1 ea 02/24/21 walker with seat, wheels and brakes #1 ea 04/18/21 carbamide peroxide 6.5 % ear drops 5 drp otic (ear) right DAILY 4 03/10/24 (Debrox) days #15 mL haloperidol 20 mg tablet 20 mg PO BEDTIME #30 tabs 03/10/24 ketoconazole 2 % shampoo 1 appl topical 2XW 90 days #120 mL 03/10/24 levetiracetam 1,000 mg tablet 1,000 mg PO BID #180 tabs 03/10/24 pantoprazole 40 mg tablet,delayed 40 mg PO DAILY 90 days #90 tabs 03/10/24 release riboflavin (vitamin B2) 100 mg 100 mg PO DAILY 90 days #90 tabs 03/10/24 tablet (Vitamin B-2) sumatriptan succinate 50 mg tablet 50 mg PO Q2-4H PRN Headache #10 03/10/24 tabs sertraline 100 mg tablet 200 mg (2 x 100 mg) PO DAILY #180 03/13/24 tabs quetiapine 400 mg tablet 400 mg PO BEDTIME #90 tabs 04/04/24 Allergies Allergy/AdvReac Type Severity Reaction Status Date / Time No Known Allergies Allergy Verified 06/11/24 21:16 [No Known Allergies*] Review of Systems 2 Review of Systems: All other systems are reviewed and are negative Constitutional: Reports as per HPI and Reports no additional constitutional complaints Eyes: Reports as per HPI and Reports no additional eye complaints Reports system reviewed and no additional complaints, except as documented Cardiovascular: Reports as per HPI and Reports no additional cardiovascular complaints Respiratory: Reports as per HPI and Reports no additional respiratory complaints Gastrointestinal: Reports as per HPI and Reports no additional gastrointestinal complaints Genitourinary: Reports no additional female genitourinary complaints Musculoskeletal: Reports no additional musculoskeletal complaints Skin/Breast: Reports system reviewed and no additional complaints, except as docu Psychiatric: Reports no additional psychiatric complaints Endocrine: Reports no additional endocrine complaints Hematologic/Lymphatic: Reports no additional hematologic/lymphatic complaints Allergic/Immunologic: Reports no additional allergic/immunologic complaints Reports system reviewed and no additional complaints, except as documented and Reports Abnormal speech present PMFSH Past Medical History Medical History Impacted cerumen of right ear Gait instability Nose pain Annual physical exam Renal infection Hospital discharge follow-up Speech abnormality Blood transfusion declined because patient is Taoism Sepsis Urinary retention with incomplete bladder emptying Tachycardia Neck pain on left side Gait instability Polysubstance abuse Migraine Hypercholesterolemia Thyroid nodule Seizures Psychotic disorder Insomnia Vitamin D deficiency GERD (gastroesophageal reflux disease) Surgical History Glioma History of surgery of head Family History Family History Father Bipolar 1 disorder Mother Bipolar 1 disorder Myocardial infarction Paternal Grandmother No problems noted. Paternal Grandfather Myocardial infarction Brother Substance abuse Social History Social History Household Members: Family Housing: Apartment Alcohol intake: never Patient Tobacco Use Status: Former Tobacco user Tobacco use type: Cigarette Years Smoked: stopped 19 years old Smoked in Last 30 Days: No e-Cigarette/Vaping Use: Never Used Second Hand Smoke Exposure: No Use of substances other than those prescribed or required for medical reasons: No Advance Directives: Yes Advance Directives on File: Yes Advance Directives Date on File: 01/31/21 Do you have a plan to hurt others: No Plan service: No Current occupational status: disabled Cognitive needs: Yes Hearing needs: No Vision needs: No Physical Exam ED Vital Signs: Vital Signs - 24 hr 06/11/24 21:15 Temperature 97.8 F Pulse Rate 78 Respiratory Rate 18 Blood Pressure 106/69 Pulse Oximetry 98 Oxygen Delivery Method Room Air BMI result Body Mass Index 25.0 Vital signs have been reviewed and appear to be correct. Blood pressure elevated. Heart rate normal. Respiratory rate normal. Temperature normal. Oxygen saturation normal. Appearance: Alert. Oriented X3. No acute distress. Head: Normal external exam. Normocephalic. Atraumatic. No Morton signs noted. No raccoon eyes noted Eyes: PERRLA. EOMI. Conjunctiva and sclera normal. Eyelids normal. ENT: TM's Normal. Pharynx normal. Uvula midline. Moist mucous membranes. No trismus noted. No drooling noted. No muffled voice noted. Neck: Normal inspection. Neck supple. FROM. No adenopathy. Thyroid Normal. No meningeal signs. No neck mass noted. CVS: Normal heart rate and rhythm. Heart sound normal. No murmurs noted. Pulses normal throughout. Respiratory: No respiratory distress. Painless inspiration. Breath sounds normal. No wheezes/rales/rhonchi noted. Chest nontender. No accessory muscle usage noted or decreased air movement noted. Abdomen: Soft and nontender. Bowel sounds normal in all 4 quadrants. No distention noted. No organomegaly noted. No visible injury noted. Back: No CVA tenderness. Full range of motion noted. Skin: Skin warm and dry. Normal skin color. Normal skin turgor. No rashes/lesions/lacerations noted. Extremities: No lower extremity edema. Extremities exhibit normal range of motion. Extremities nontender. Neuro: Mental status: Normal attention, orientation, memory, and affect. Cranial nerves: Pupils are equal, round and reactive to light, EOMI, visual esparza are fall, face is symmetric, facial sensations are normal. Motor examination normal muscle tone, strength to 4 extremities. DTR are +2, planter's are flexor. Sensory exam; normal coordination, no ataxia, gait stable. Cerebellar exam: Owesiv-ge-auei and ydja-[id number] is normal. Extrapyramidal system: No tremors, no rigidity with normal facial expressions. Pronator drift not present Course Reevaluation(s) Reevaluation #1: 3 episodes of syncopal episode, normal neuro exam, head CT is unremarkable for acute pathology, EKG is unchanged from previous, negative cardiac workup and orthostatic vital signs will admit for observation. Time: 02:00 Medical Decision Making Differential Diagnosis Differential Diagnoses: The differential diagnosis associated with the presentation includes ( ACS, cardiac events, dehydration,Intracranial pathology, electrolyte derangement, severe anemia, dysrhythmia.) Admission/Observation Consideration of admission/observation: Escalation of care including admission/observation considered Consult Healthcare Provider Management of the patient was discussed with: Hospitalist ( Dr. Sarah) Lab Data MDM Lab Attestation statement: I reviewed the patient's lab results. 06/11/24 21:27 06/11/24 21:27 Labs: Lab Results 06/11/24 06/12/24 Range/Units 21:27 00:17 WBC 9.5 (4.8-10.8) X10*3/uL RBC 4.79 (4.60-5.80) X10*6/uL Hgb 14.9 (14.0-18.0) g/dl Hct 42.1 (42.0-52.0) % MCV 87.9 (80.0-98.0) fL MCH 31.1 (27.0-33.0) pg MCHC 35.4 (31.0-36.0) g/dl RDW 11.9 (11.0-16.0) % Plt Count 237 (160-400) X10*3/uL MPV 9.0 L (9.4-12.4) fL Immature Gran % (Auto) 0.3 (0.0-0.4) % Neut % (Auto) 70.7 (45-73) % Lymph % (Auto) 19.5 L (20-40) % Dickenson % (Auto) 6.4 (2-11) % Eos % (Auto) 2.6 (0-4) % Baso % (Auto) 0.5 (0-2) % Lymph # (Auto) 1.9 (1.2-4.9) X10*3/uL Dickenson # (Auto) 0.6 (0.1-1.2) X10*3/uL Eos # (Auto) 0.3 (0.0-0.4) X10*3/uL Baso # (Auto) 0.1 (0.0-0.2) X10*3/uL Abs Immat Gran (auto) 0.03 (0.00-0.03) X10*3/uL Absolute Neuts (auto) 6.7 (2.0-8.3) x10*3/uL Absolute Nucleated RBC 0.000 (0.0-0.012) X10*3/uL Nucleated RBC % (auto) 0.0 (0.0-0.2) /100WBC Sodium 141 (135-145) mmol/L Potassium 3.6 (3.3-5.1) mmol/L Chloride 108 (96-108) mmol/L Carbon Dioxide 21 L (22-29) mmol/L Anion Gap 16 (12-20) BUN 19 H (9-16) mg/dL Creatinine 1.22 (0.5-1.4) mg/dL Estim Creat Clear Calc 84.7 Estimated GFR > 60 Random Glucose 134 H (60-115) mg/dL Calcium 9.5 (8.4-10.2) mg/dL Total Bilirubin 0.3 (0.0-1.0) mg/dL AST 25 (5-37) U/L ALT 21 (0-40) U/L Alkaline Phosphatase 59 (39-117) U/L Troponin I High Sens < 2.7 (<3.5-35.0) ng/L Total Protein 7.4 (6.5-8.0) g/dL Albumin 4.0 (3.5-5.0) g/dL Urine Color Dark Yellow Urine Appearance Clear Urine pH 7.0 (5.0-9.0) Ur Specific Rosenhayn >= 1.030 H (1.005-1.025) Urine Protein Trace (Neg-Trace) mg/dL Urine Glucose (UA) Negative (Negative) mg/dL Urine Ketones Trace (Negative) mg/dL Urine Blood Negative (Negative) Urine Nitrite Negative (Negative) Ur Leukocyte Esterase Negative (Negative) Influenza Type A (PCR) NEGATIVE (Negative) Influenza Type B (PCR) NEGATIVE (Negative) RSV RNA Qual (PCR) NEGATIVE (Negative) SARS-CoV-2 RNA (RT-PCR) NEGATIVE (Negative) S. pyogenes GrpA KARLENE Negative (Negative) Independent Interpretation I performed an independent interpretation of an: CT Scan ( head: No acute intracranial pathology.) Radiology Impression Discussion of test interpretation with radiology: I have reviewed the radiologist's reading. Discharge Plan Discharge Clinical Impression: Syncope and collapse Patient Disposition: Admitted As Inpatient Prescriptions: No Action (DME) Portable wheelchair See Rx Instructions .Route .MEDSUPPLY Qty: 1 0RF Rx Instructions: As directed (DME) Shower chair See Rx Instructions .Route .MEDSUPPLY Qty: 1 0RF Rx Instructions: As directed (DME) Transport wheelchair See Rx Instructions .Route .MEDSUPPLY Qty: 1 0RF Rx Instructions: As directed (DME) Back support See Rx Instructions .Route .MEDSUPPLY Qty: 1 0RF Rx Instructions: As directed (DME) Tub seat with arm rest See Rx Instructions .Route .MEDSUPPLY Qty: 1 0RF Rx Instructions: As directed miscellaneous medical supply Misc 1 ea miscellaneous DAILY Qty: 1 0RF Rx Instructions: Hand held shower (DME) walker with seat, wheels and brakes See Rx Instructions .Route .MEDSUPPLY Qty: 1 0RF Rx Instructions: As directed sertraline 100 mg tablet 200 mg PO DAILY Qty: 180 1RF quetiapine 400 mg tablet 400 mg PO BEDTIME Qty: 90 1RF levetiracetam 1,000 mg tablet 1,000 mg PO BID Qty: 180 1RF riboflavin (vitamin B2) [Vitamin B-2] 100 mg tablet 100 mg PO DAILY 90 Days Qty: 90 3RF sumatriptan succinate 50 mg tablet 50 mg PO Q2-4H PRN (Reason: Headache) Qty: 10 11RF haloperidol 20 mg tablet 20 mg PO BEDTIME Qty: 30 3RF ketoconazole 2 % shampoo 1 appl topical 2XW 90 Days Qty: 120 1RF Debrox 6.5 % drops 5 drp otic (ear) right DAILY 4 Days Qty: 15 0RF pantoprazole 40 mg tablet,delayed release (DR/EC) 40 mg PO DAILY 90 Days Qty: 90 2RF Print Language: Romanian
[2024-06-12 00:58] LABS: Bacteria Urine None Seen (None Seen); RBC Urine 0-2 /HPF (0-2); Squamous Epithelial Cell Urine 0-2 /HPF (0-2); WBC Urine 0-5 /HPF (0-5)
[2024-06-12] MEDS: Lactated Ringers 1,000 ML 999 ML IV (01:29)
--- NOTE | 2024-06-12 02:26 | P.HPHOSP_ITS ---
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 Patient reported that he intermittently has episodes of dizziness. But today after he woke up went to the shower and he felt dizzy, followed by had a fall; after he got out of the shower he felt dizzy twice and had 2 falls again. Denies any head strike or loss of consciousness. Mentioned that he takes 2 medications at nighttime for sleep. Also takes medications for his schizophrenia and seizure disorder. Denies any noncompliance. Denies any seizure-like episodes. Patient denies any chest pain or palpitations. Denies any headaches or blurry visions Denies any numbness tingling or focal weakness. Spoke to the patient's mother at bedside. Review of all other systems is negative except mentioned above ER course: Per ER team, patient's exam was nonfocal; EKG nonischemic; troponins negative; orthostatic vitals negative. [facility] Medical History Impacted cerumen of right ear Gait instability Nose pain Annual physical exam Renal infection Hospital discharge follow-up Speech abnormality Blood transfusion declined because patient is Muslim Sepsis Urinary retention with incomplete bladder emptying Tachycardia Neck pain on left side Gait instability Polysubstance abuse Migraine Hypercholesterolemia Thyroid nodule Seizures Psychotic disorder Insomnia Vitamin D deficiency GERD (gastroesophageal reflux disease) Family History Father Bipolar 1 disorder Mother Bipolar 1 disorder Myocardial infarction Paternal Grandmother No problems noted. Paternal Grandfather Myocardial infarction Brother Substance abuse Surgical History Glioma History of surgery of head Social History Household Members: Family Housing: Apartment Alcohol intake: never Patient Tobacco Use Status: Former Tobacco user Tobacco use type: Cigarette Years Smoked: stopped 19 years old Smoked in Last 30 Days: No e-Cigarette/Vaping Use: Never Used Second Hand Smoke Exposure: No Use of substances other than those prescribed or required for medical reasons: No Advance Directives: Yes Advance Directives on File: Yes Advance Directives Date on File: 01/31/21 Do you have a plan to hurt others: No Plan service: No Current occupational status: disabled Cognitive needs: Yes Hearing needs: No Vision needs: No Meds Allergies Allergy/AdvReac Type Severity Reaction Status Date / Time No Known Allergies Allergy Verified 06/11/24 21:16 [No Known Allergies*] Active Medications: Current Medications Lactated Ringer's (Lr) 1,000 mls @ 80 mls/hr IVCONT [id number] Physical Exam 2 Vital Signs and Narrative: Vital Signs: Last Vital Signs Temp 97.8 F 06/11/24 21:15 Pulse 100 06/12/24 01:47 Resp 18 06/11/24 21:15 BP 105/55 L 06/12/24 01:47 Pulse Ox 98 06/11/24 21:15 O2 Del Method Room Air 06/11/24 21:15 BMI result Body Mass Index 25.0 Gen: Appears be in no acute distress HEENT: NCAT, Moist mucosa. Pulmonary: Vesicular breath sounds, fair air entry CVS: Normal S1-S2 Abdomen: BS+, Soft, Nontender Extremities: Warm well perfused Neuro: Alert and awake. Results Labs 06/11/24 21:27 06/11/24 21:27 Labs: Laboratory Results - last 24 hr 06/11/24 06/12/24 21:27 00:17 MCV 87.9 MCH 31.1 MCHC 35.4 RDW 11.9 Plt Count 237 MPV 9.0 L Immature Gran % (Auto) 0.3 Neut % (Auto) 70.7 Lymph % (Auto) 19.5 L Gosper % (Auto) 6.4 Eos % (Auto) 2.6 Baso % (Auto) 0.5 Lymph # (Auto) 1.9 Gosper # (Auto) 0.6 Eos # (Auto) 0.3 Baso # (Auto) 0.1 Abs Immat Gran (auto) 0.03 Absolute Neuts (auto) 6.7 Absolute Nucleated RBC 0.000 Nucleated RBC % (auto) 0.0 Anion Gap 16 Estim Creat Clear Calc 84.7 Estimated GFR > 60 Random Glucose 134 H Calcium 9.5 Total Bilirubin 0.3 AST 25 ALT 21 Alkaline Phosphatase 59 Total Protein 7.4 Albumin 4.0 Urine Color Dark Yellow Urine Appearance Clear Urine pH 7.0 Ur Specific Springer >= 1.030 H Urine Protein Trace Urine Glucose (UA) Negative Urine Ketones Trace Urine Blood Negative Urine Nitrite Negative Ur Leukocyte Esterase Negative Urine RBC 0-2 Urine WBC 0-5 Ur Squamous Epith Cells 0-2 Urine Bacteria None Seen Hyaline Casts 6-10 Influenza Type A (PCR) NEGATIVE Influenza Type B (PCR) NEGATIVE RSV RNA Qual (PCR) NEGATIVE SARS-CoV-2 RNA (RT-PCR) NEGATIVE S. 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 Denies any loss of continence Patient reports having intermittent dizziness episodes. Orthostatic vitals negative Exam nonfocal EKG nonischemic. Troponin negative Concern for polypharmacy-reduced home dose of Haldol to 10 mg and Seroquel 25 mg at bedtime. Recommended to follow up with the psychiatrist and further adjust started to medications. Will obtain MRI brain Fall precautions PT/OT when ready for discharge Telemetry HX seizure: Continue home Keppra. HX dysphagia: Swallow eval DVT prophylaxis: Lovenox Code status: Full code Quality Stroke Does the patient have a stroke diagnosis?: No VTE Prior VTE?: No VTE Risk Level:: Medical - moderate - high VTE Device Contraindication: Treatment Not Indicated VTE Drug Contraindication: N/A - Med Ordered
[2024-06-12] MEDS: Lactated Ringers 1,000 ML 80 ML IVCONT ×2 (03:24→17:33)
[2024-06-12 05:15] LABS: MANUAL DIFF FLAG NO
[2024-06-12 05:17] LABS: Basophils Percent Auto 0.4 % (0-2); Eosinophils Absolute Auto 0.1 X10*3/uL (0.0-0.4); Eosinophils Percent Auto 1.4 % (0-4); Hematocrit 38.1 % (42.0-52.0); Hemoglobin 13.1 g/dl (14.0-18.0); Imm Gran Abs Auto 0.02 X10*3/uL (0.00-0.03); Imm Gran Pct Auto 0.2 % (0.0-0.4); Lymphocytes Absolute Auto 2.9 X10*3/uL (1.2-4.9); Lymphocytes Percent Auto 31.8 % (20-40); Mean Corpuscular HGB Conc 34.4 g/dl (31.0-36.0); Mean Corpuscular Hemoglobin 30.3 pg (27.0-33.0); Mean Platelet Volume 9.3 fL (9.4-12.4); Monocytes Absolute Auto 0.9 X10*3/uL (0.1-1.2); Monocytes Percent Auto 10.3 % (2-11); Neutrophils Absolute Auto 5.1 x10*3/uL (2.0-8.3); Neutrophils Percent Auto 55.9 % (45-73); Platelet Count 236 X10*3/uL (160-400); Red Blood Count 4.33 X10*6/uL (4.60-5.80); Red Cell Distribution Width 11.8 % (11.0-16.0); White Blood Count 9.1 X10*3/uL (4.8-10.8)
[2024-06-12 05:32] LABS: Alanine Aminotransferase 17 U/L (0-40); Albumin Level 3.6 g/dL (3.5-5.0); Alkaline Phosphatase 53 U/L (39-117); Anion Gap 12 (12-20); Aspartate Amino Transferase 23 U/L (5-37); Bilirubin Total 0.2 mg/dL (0.0-1.0); Blood Urea Nitrogen 17 mg/dL (9-16); Calcium 8.9 mg/dL (8.4-10.2); Carbon Dioxide 24 mmol/L (22-29); Chloride 110 mmol/L (96-108); Creatinine Clr Calc Pharmacy 118.8; Estimated Glomerular Filt Rate > 60; Glucose Random 86 mg/dL (60-115); Potassium 3.6 mmol/L (3.3-5.1); Sodium 142 mmol/L (135-145); Total Protein 6.4 g/dL (6.5-8.0)
--- NOTE | 2024-06-12 06:15 | PC.NURSE ---
mri screening form completed by this rn at this time, faxed to mri.
--- NOTE | 2024-06-12 07:15 | PC.NURSE ---
Patient up and out of bed withwout difficulty, denies dizziness. ambulating with steady gait
--- NOTE | 2024-06-12 09:16 | PHA.MEDREC ---
Addendum entered by Mango Mcfadden 06/12/24 09:39: Reviewed Original Note: Pharmacy Consult ? Medication Reconciliation Pharmacy has completed the medication reconciliation. Spoke with patient and he was able to confirm his medications. Patient confirmed he was taking the Haloperidol and Quetiapine tablets at bedtime, up until about 3-4 weeks ago and states he lost them but should be taking them. Patient also stated he takes the Ketoconazole shampoo daily now instead of twice a week.
[2024-06-12] MEDS: levETIRAcetam 1,000 MG TABLET 1000 MG PO ×2 (09:44→20:32)
[2024-06-12] MEDS: Enoxaparin Sodium 40 MG/0.4 ML SYRINGE SUBCUT (09:44)
[2024-06-12] MEDS: Sertraline HCL 100 MG TABLET 200 MG PO (09:46)
[2024-06-12] MEDS: Acetaminophen 325 MG TABLET 650 MG PO (09:46)
--- NOTE | 2024-06-12 09:47 | PC.NURSE ---
Patient requesting tylenol for ehadache pain of 10/10
--- NOTE | 2024-06-12 11:02 | MHC.CM.PN ---
CM met with Patient and his Mother at bedside and addressed IYER with them (original was given to Patient and a copy will be placed on the chart). Patient lives in an apartment with his Mother and Step Father and he required no DME PRODUCT ARCHITECT. Patient and Mother state that Patient had a home RN & PT but per PCP/Dr. Conley's office, no VNA services have been ordered through their office. CM has initiated and will follow fir dc planning. A family member will transport to home at time of dc and Brother/Capo is the HCP.
--- NOTE | 2024-06-12 11:08 | PC.NURSE ---
Report received, taken on care at this time.
--- NOTE | 2024-06-12 12:18 | MHC.SL.SWA ---
Speech Pathologist Impression: Risk of Aspiration Due to: Neurological Condition Dysphasia Diet Status: The next session is scheduled for 11/17 at 1 PM and was provided with an appointment reminder card. Liquid Consistency and Strategies for Safe Swallow: Liquid Intake Recommendation: Thin Liquid Intake Strategies: Small Sips Solid Food Consistency: Dietary Recommendations: Regular Additional Modifications to Solid Foods: Straws o.k. Oral Medication Intake: Whole with Liquid Please contact the pharmacy regarding appropriate crushable or liquid drug formulations that are available whenever modified delivery is recommended. Compensatory Strategies and Precautions to be Taken for Safe Swallow: Sitting Upright (90 deg) Liquids from Cup Liquids from Straw Small Bites and Sips Alternate Liquids/Solids Supervision While Eating and Drinking for Safe Swallow: None Needed Foods to Avoid: Swallowing Recommended Treatments: Compens. Strategy Educat. Recommendation for Speech: Inpatient Speech Therapy Comment: Patient presents with frequent, involuntary movements of tongue, ? TD, otherwise all aspects of oral motor function and swallow appeared WFL. Patient with c/o occasional coughing/choking on liquids, not observed today. Recommend continue on current diet of Regular with thin liquids, pills whole with liquid. Recommend 1 f/u by BENCH SCIENTIST to assure patient is tolerating diet without difficulty. MD/RD notified of recommendation by secure text, RN in person. Frequency/Duration: Date Range for Service Req: Timeline to reassess: Employment Evaluator/Case Manager Clinican/Clinical Fellow: No Supervisory Statement: I have reviewed and agree with the student/clinical fellow's documentation: N/A Speech Language Pathologist: Erica Ralph M.A., [facility]EN[facility] SCIENTIST
--- NOTE | 2024-06-12 12:34 | P.CNNE_ITS ---
History of Present Illness Data of Consult Service Date: 06/12/24 Primary Care Provider: Mable Conley MD HPI Reason for consult: Dizziness 39 years old man with left frontal cerebral surgery apparently because of brain tumor and diagnosis of psychotic disorder treated with multiple antipsychotics. He also has been taking levetiracetam for seizure control. He came to hospital after a fall. He reported that he was having episodes of dizziness but also having difficulty explaining to me what exactly was the symptom when he was having episode. His mother said that it was spinning sensation. There was no obvious trigger. Each episode lasted for few sec. he had fallen couple of times for no obvious reason. Review of Systems 2 Review of Systems: No recent change in medicine or cold or flu-like illness PMFSH Past Medical History Medical History Impacted cerumen of right ear Gait instability Nose pain Annual physical exam Renal infection Hospital discharge follow-up Speech abnormality Blood transfusion declined because patient is Latter day Sepsis Urinary retention with incomplete bladder emptying Tachycardia Neck pain on left side Gait instability Polysubstance abuse Migraine Hypercholesterolemia Thyroid nodule Seizures Psychotic disorder Insomnia Vitamin D deficiency GERD (gastroesophageal reflux disease) Family History Family History Father Bipolar 1 disorder Mother Bipolar 1 disorder Myocardial infarction Paternal Grandmother No problems noted. Paternal Grandfather Myocardial infarction Brother Substance abuse Surgical History Surgical History Glioma History of surgery of head Social History Social History Household Members: Family Housing: Apartment Alcohol intake: never Patient Tobacco Use Status: Former Tobacco user Tobacco use type: Cigarette Years Smoked: stopped 19 years old Smoked in Last 30 Days: No e-Cigarette/Vaping Use: Never Used Second Hand Smoke Exposure: No Use of substances other than those prescribed or required for medical reasons: No Advance Directives: Yes Advance Directives on File: Yes Advance Directives Date on File: 01/31/21 Do you have a plan to hurt others: No Plan Nutrition Risks: No Nutritional Risk service: No Current occupational status: disabled Cognitive needs: Yes Hearing needs: No Vision needs: No Meds Allergies Allergy/AdvReac Type Severity Reaction Status Date / Time No Known Allergies Allergy Verified 06/11/24 21:16 [No Known Allergies*] Active Medications: Current Medications Acetaminophen (Acetaminophen 325 Mg Tablet) 650 mg PO Q6H PRN PRN Reason: Pain, Mild 1-3,fever,headache Last Admin: 06/12/24 09:46 Dose: 650 mg Calcium Carbonate (Calcium Carbonate 750 Mg Tab.Chew) 750 mg PO Q4H PRN PRN Reason: Heartburn Enoxaparin Sodium (Enoxaparin Sodium 40 Mg/0.4 Ml Syringe) 40 mg SUBCUT Q24H [facility] Last Admin: 06/12/24 09:44 Dose: 40 mg Haloperidol (Haloperidol 5 Mg Tablet) 10 mg PO BEDTIME [facility] Lactated Ringer's (Lr) 1,000 mls @ 80 mls/hr IVCONT .[id number] [facility] Last Admin: 06/12/24 03:24 Dose: 80 mls/hr Ketoconazole (Ketoconazole 2 % Shampoo 120 Ml Btl) 1 appl TOPICAL DAILY [facility]; Protocol Levetiracetam (Levetiracetam 1,000 Mg Tablet) 1,000 mg PO BID [facility] Last Admin: 06/12/24 09:44 Dose: 1,000 mg Magnesium Hydroxide (Milk Of Magnesia 30 Ml Oral.Susp) 30 ml PO DAILY PRN PRN Reason: Constipation Melatonin (Melatonin 3 Mg Tablet) 6 mg PO BEDTIME PRN PRN Reason: Insomnia Melatonin (Melatonin 3 Mg Tablet) 3 mg PO BEDTIME [facility] Multivitamins/Vitamin C (Multivitamin Tablet) 1 tab PO DAILY [facility] Omeprazole (Omeprazole 20 Mg Capsule.Dr) 20 mg PO DAILY@0630 [facility] Quetiapine Fumarate (Quetiapine Fumarate 25 Mg Tablet) 25 mg PO BEDTIME [facility] Sertraline HCl (Sertraline Hcl 100 Mg Tablet) 200 mg PO DAILY [facility] Sodium Chloride (0.9 % Sodium Chloride Flush 3 Ml Syringe) 3 ml IVFLUSH QSHIFT [facility] Last Admin: 06/12/24 07:39 Dose: Not Given Sumatriptan Succinate (Sumatriptan Succinate 50 Mg Tablet) 50 mg PO Q2H PRN PRN Reason: Headache Home Medications ?Medication ?Instructions ?Recorded ?Confirmed ?Last Taken ?Type ketoconazole 2 % shampoo 1 appl topical DAILY 06/12/24 06/12/2406/11/25 History melatonin 1 mg tablet 2 mg PO BEDTIME 06/12/24 06/12/24 Unknown History multivit,Ca,min-iron 8 mg-folic 1 tab PO DAILY 06/12/24 06/12/24 06/11/24 History acid 200 mcg-lycopene 600 mcg tablet (Centrum Men) Physical Exam 2 Vital Signs: Vital Signs: Last Vital Signs Temp 97.5 F 06/12/24 09:08 Pulse 79 06/12/24 09:08 Resp 18 06/12/24 09:08 BP 113/69 06/12/24 09:08 Pulse Ox 98 06/12/24 09:08 O2 Del Method Room Air 06/12/24 09:08 BMI result Body Mass Index 25.0 Neuro: Other: He is alert and awake with somewhat decreased spontaneity and fluency of speech. He has continuous moderate lingual dyskinesias. Face is symmetrical. Visual esparza are full. There was no obvious focal arm or leg weakness. Plantars are flexor. Results Labs 06/12/24 04:32 06/12/24 04:32 Labs: Short CBC 06/11/24 06/12/24 Range/Units 21:27 04:32 WBC 9.5 9.1 (4.8-10.8) X10*3/uL Hgb 14.9 13.1 L (14.0-18.0) g/dl Hct 42.1 38.1 L (42.0-52.0) % Plt Count 237 236 (160-400) X10*3/uL BMP 06/11/24 06/12/24 21:27 04:32 Sodium 141 142 Potassium 3.6 3.6 Chloride 108 110 H Carbon Dioxide 21 L 24 BUN 19 H 17 H Creatinine 1.22 0.87 Calcium 9.5 8.9 D Liver Function 06/11/24 06/12/24 Range/Units 21:27 04:32 Total Bilirubin 0.3 0.2 (0.0-1.0) mg/dL AST 25 23 (5-37) U/L ALT 21 17 (0-40) U/L Alkaline Phosphatase 59 53 (39-117) U/L Albumin 4.0 3.6 (3.5-5.0) g/dL Urine 06/12/24 Range/Units 00:17 Urine Color Dark Yellow Urine Appearance Clear Urine pH 7.0 (5.0-9.0) Ur Specific Alliance >= 1.030 H (1.005-1.025) Urine Protein Trace (Neg-Trace) mg/dL Urine Glucose (UA) Negative (Negative) mg/dL Head CT revealed left frontal midline encephalomalacia from previous surgery. Assessment and Plan (1) Syncope and collapse: Status: Acute 39 years old man with previous history of craniotomy and brain surgery probably related to brain tumor resulting in left mid frontal encephalomalacia. He was on good dose of levetiracetam for seizure prevention. He came to hospital with nonspecific symptoms of dizziness of vertigo type and couple of falls. These symptoms could be due to seizure disorder but seems less likely. The might also be due to medicines or iatrogenic. I would suggest reviewing his psychiatric medicines and using smallest effective dose. In this regard, I also note that he has significant tardive dyskinesia. Letha medication or ideal antipsychotic for him his clozapine. There some medicines available to treat tardive dyskinesia which could be considered as an outpatient. If possible, obtain an EEG to rule out any possibility of seizure disorder resulting in dizziness and falls. Procedures Date of Service Date of Service: 06/12/24
--- NOTE | 2024-06-12 12:38 | P.EN_ITS ---
Event Note Date of Service: 06/12/24 Event Note: Day hospitalist update S: dizziness resolved; orthostatics negative last seizure at time of diagnosis of seizure disorder, none since O: Temp Pulse Resp BP Pulse Ox O2 Del Method 97.5 F 79 18 113/69 98 Room Air 06/12/24 09:08 06/12/24 09:08 06/12/24 09:08 06/12/24 09:08 06/12/24 09:08 06/12/24 09:08 Gen: in no acute distress HEENT: sclera anicteric, moist mucus membranes Neck: supple Lungs: clear to auscultation bilaterally Heart: regular rate and rhythm, no murmurs Abd: soft, non-tender, non-distended Ext: no edema Skin: warm/well-perfused Neuro: alert and oriented x3, no focal findings Psych: appropriate affect Labs: SCr 0.87 A/P: d1 for 39yo M with 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, schizophrenia, seizure disorder, anxiety presenting with dizziness leading to 3 falls dizziness/falls - MRI brain + Neurology consultations pending - concern for medication effect; reduced home dose of haloperidol from 20 to 10 mg qhs and quetiapine from 400 to 25 mg qhs - PT consulted, no acute rehab indicated schizophrenia - continue sertraline + quetiapine + haloperidol with dose changes as above seizure disorder - continue levetiracetam VTE ppx - enoxaparin dispo - TBD In my clinical judgment, the patient requires continued hospitalization for the following reasons: neuroimaging, neurology consultation Time Spent With Patient Time: Total time managing care of this patient today ____ minutes.
--- NOTE | 2024-06-12 13:07 | PC.NURSE ---
Pt. in MRI. Mother at bedside.
[2024-06-12] MEDS: QUEtiapine Fumarate 25 MG TABLET PO (20:33)
[2024-06-12] MEDS: HaloperidoL 5 MG TABLET 10 MG PO (20:33)
[2024-06-12] MEDS: Melatonin 3 MG TABLET PO (20:33)
[2024-06-12] MEDS: 0.9 % Sodium Chloride Flush 3 ML SYRINGE IVFLUSH (20:35)
[2024-06-13 03:19] VITALS: BP 119/73; PULSE 93; RESP 18; TEMP 36.5; O2SAT 96
[2024-06-13] MEDS: Omeprazole 20 MG CAPSULE.DR PO (05:18)
[2024-06-13] MEDS: Lactated Ringers 1,000 ML 80 ML IVCONT ×2 (05:19→15:39)
[2024-06-13 07:04] VITALS: BP 108/64; PULSE 67; RESP 18; TEMP 36.2; O2SAT 97
[2024-06-13] MEDS: 0.9 % Sodium Chloride Flush 3 ML SYRINGE IVFLUSH (07:34)
[2024-06-13] MEDS: Multivitamin TABLET 1 TAB PO (07:34)
[2024-06-13] MEDS: Sertraline HCL 100 MG TABLET 200 MG PO (07:34)
[2024-06-13] MEDS: Enoxaparin Sodium 40 MG/0.4 ML SYRINGE SUBCUT (07:35)
[2024-06-13] MEDS: levETIRAcetam 1,000 MG TABLET 1000 MG PO ×2 (07:35→20:09)
[2024-06-13 11:03] VITALS: BP 136/82; PULSE 95; RESP 18; TEMP 36.6; O2SAT 98
--- NOTE | 2024-06-13 11:23 | HO.PM.IMPN ---
Subjective Subjective Date of Service: 06/13/24 Interval History: No acute issues overnight. Patient states back to baseline Review of Systems Denies chest pain Denies shortness of breath Denies nausea vomiting diarrhea Denies fever chills Physical Exam Vital Signs: Vital Signs: Last Vital Signs Temp 97.9 F 06/13/24 11:03 Pulse 95 06/13/24 11:03 Resp 18 06/13/24 11:03 BP 136/82 06/13/24 11:03 Pulse Ox 98 06/13/24 11:03 O2 Del Method Room Air 06/13/24 11:03 BMI result Body Mass Index 25.1 Const: Other: Awake alert oriented x3 in no acute distress Resp: Other: Clear to auscultation no rales rhonchi or wheezes Cardio: Other: No S4; positive S1-S2; no S3 murmurs rubs or gallops GI: Other: Soft nontender nondistended normoactive bowel sounds Extrem: Other: No edema bilaterally Objective Data Active Medications Acetaminophen (Acetaminophen 325 Mg Tablet) 650 mg PO Q6H PRN PRN Reason: Pain, Mild 1-3,fever,headache Last Admin: 06/12/24 09:46 Dose: 650 mg Documented By: PEGGYVIAayush Calcium Carbonate (Calcium Carbonate 750 Mg Tab.Chew) 750 mg PO Q4H PRN PRN Reason: Heartburn Enoxaparin Sodium (Enoxaparin Sodium 40 Mg/0.4 Ml Syringe) 40 mg SUBCUT Q24H [facility] Last Admin: 06/13/24 07:35 Dose: 40 mg Documented By: MAURISIO Haloperidol (Haloperidol 5 Mg Tablet) 10 mg PO BEDTIME [facility] Last Admin: 06/12/24 20:33 Dose: 10 mg Documented By: AQUILINO Lactated Ringer's (Lr) 1,000 mls @ 80 mls/hr IVCONT .[id number] [facility] Last Admin: 06/13/24 05:19 Dose: 80 mls/hr Documented By: AQUILINO Ketoconazole (Ketoconazole 2 % Shampoo 120 Ml Btl) 1 appl TOPICAL DAILY [facility]; Protocol Levetiracetam (Levetiracetam 1,000 Mg Tablet) 1,000 mg PO BID [facility] Last Admin: 06/13/24 07:35 Dose: 1,000 mg Documented By: MAURISIO Magnesium Hydroxide (Milk Of Magnesia 30 Ml Oral.Susp) 30 ml PO DAILY PRN PRN Reason: Constipation Melatonin (Melatonin 3 Mg Tablet) 6 mg PO BEDTIME PRN PRN Reason: Insomnia Melatonin (Melatonin 3 Mg Tablet) 3 mg PO BEDTIME [facility] Last Admin: 06/12/24 20:33 Dose: 3 mg Documented By: AQUILINO Multivitamins/Vitamin C (Multivitamin Tablet) 1 tab PO DAILY [facility] Last Admin: 06/13/24 07:34 Dose: 1 tab Documented By: MAURISIO Omeprazole (Omeprazole 20 Mg Capsule.Dr) 20 mg PO DAILY@0630 [facility] Last Admin: 06/13/24 05:18 Dose: 20 mg Documented By: AQUILINO Quetiapine Fumarate (Quetiapine Fumarate 25 Mg Tablet) 25 mg PO BEDTIME [facility] Last Admin: 06/12/24 20:33 Dose: 25 mg Documented By: AQUILINO Sertraline HCl (Sertraline Hcl 100 Mg Tablet) 200 mg PO DAILY [facility] Last Admin: 06/13/24 07:34 Dose: 200 mg Documented By: MAURISIO Sodium Chloride (0.9 % Sodium Chloride Flush 3 Ml Syringe) 3 ml IVFLUSH QSHIFT [facility] Last Admin: 06/13/24 07:34 Dose: 3 ml Documented By: MAURISIO Sumatriptan Succinate (Sumatriptan Succinate 50 Mg Tablet) 50 mg PO Q2H PRN PRN Reason: Headache Labs 06/12/24 04:32 06/12/24 04:32 Assessment and Plan (1) Dizziness: Status: Acute (2) Syncope and collapse: Status: Acute Plan 39-year-old male with a 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 States has had this frequently in past) -Concern for polypharmacy-reduced home dose of Haldol to 10 mg and Seroquel 25 mg at bedtime. Recommended to follow up with the psychiatrist and further adjust started to medications. -MRI brain unremarkable -await EEG -PT consult 2.HX seizure -none since arrival -continue outpatient therapies -await EEG Lovenox Full code Quality Stroke Does the patient have a stroke diagnosis?: No VTE Prior VTE?: No VTE Risk Level:: Medical - moderate - high VTE Device Contraindication: Treatment Not Indicated VTE Drug Contraindication: N/A - Med Ordered
--- NOTE | 2024-06-13 11:35 | MHC.SL.SWA ---
Speech Pathologist Impression: WFL Risk of Aspiration Due to: Neurological Condition Dysphasia Diet Status: No Change Liquid Consistency and Strategies for Safe Swallow: Liquid Intake Recommendation: Thin Liquid Intake Strategies: Small Sips Solid Food Consistency: Dietary Recommendations: Regular Additional Modifications to Solid Foods: Patient is tolerating unmodified diet, denies having any trouble swallowing. Recommend continue on REGULAR solids/THIN liquids. Please re-refer with any changes or if PAINTER MIRROR can be of further assistance. Oral Medication Intake: Whole with Liquid Please contact the pharmacy regarding appropriate crushable or liquid drug formulations that are available whenever modified delivery is recommended. Compensatory Strategies and Precautions to be Taken for Safe Swallow: Sitting Upright (90 deg) Small Bites and Sips Rate of Ingestion Change Supervision While Eating and Drinking for Safe Swallow: None Needed Recommendation for Speech: D/C Resident Service Coordinator Clinican/Clinical Fellow: No Supervisory Statement: I have reviewed and agree with the student/clinical fellow's documentation: N/A Speech Language Pathologist: Erica Ralph M.A., CCC-PAINTER MIRROR
[2024-06-13] MEDS: Ketoconazole 2 % Shampoo 120 ML BTL 1 APPL TOPICAL (12:30)
--- NOTE | 2024-06-13 15:05 | MHC.CM.PN ---
Pt dizzyness resolved, awaiting EEG, DCP, home, self care.
[2024-06-13 15:49] VITALS: BP 123/79; PULSE 97; RESP 18; TEMP 36.3; O2SAT 91
[2024-06-13 19:17] VITALS: BP 130/82; PULSE 82; RESP 18; TEMP 36.9; O2SAT 96
[2024-06-13] MEDS: HaloperidoL 5 MG TABLET 10 MG PO (20:09)
[2024-06-13] MEDS: Melatonin 3 MG TABLET PO (20:09)
[2024-06-13] MEDS: QUEtiapine Fumarate 25 MG TABLET PO (20:09)
[2024-06-13] MEDS: SUMAtriptan succinate 50 MG TABLET PO (21:45)
[2024-06-13 23:02] VITALS: BP 105/58; PULSE 65; RESP 18; TEMP 36.6; O2SAT 95
[2024-06-14] VITALS (7 sets, daily range): BP systolic 104–136; BP diastolic 62–83; PULSE 69–133; RESP 18–20; TEMP 36.6–37.2; O2SAT 93–95
[2024-06-14] MEDS: Zolpidem Tartrate 5 MG TABLET PO ×2 (04:04→21:15)
[2024-06-14] MEDS: Omeprazole 20 MG CAPSULE.DR PO (05:57)
[2024-06-14] MEDS: Sertraline HCL 100 MG TABLET 200 MG PO (07:38)
[2024-06-14] MEDS: levETIRAcetam 1,000 MG TABLET 1000 MG PO ×2 (07:38→21:15)
[2024-06-14] MEDS: Multivitamin TABLET 1 TAB PO (07:38)
[2024-06-14] MEDS: Enoxaparin Sodium 40 MG/0.4 ML SYRINGE SUBCUT (07:38)
[2024-06-14] MEDS: 0.9 % Sodium Chloride Flush 3 ML SYRINGE IVFLUSH (07:39)
[2024-06-14] MEDS: Ketoconazole 2 % Shampoo 120 ML BTL 1 APPL TOPICAL (07:40)
--- NOTE | 2024-06-14 08:25 | P.PNIM_ITS ---
Subjective Subjective Date of Service: 06/14/24 Interval History: Seen in follow-up for lightheadedness Interval history: Reports insomnia despite melatonin, Haldol, Ambien. New tachycardia ranging 130-170. Denies any shortness of breath, palpitations, lightheadedness, or chest pain. No cough, sore throat, congestion, dysuria, hematuria, increased urinary frequency, abdominal pain, nausea, vomiting, diarrhea. Review of Systems Review of Systems: Yes all other systems are reviewed and are negative Physical Exam 2 Vital Signs: Vital Signs: Last Vital Signs Temp 98.2 F 06/14/24 07:28 Pulse 84 06/14/24 07:28 Resp 18 06/14/24 07:28 BP 116/77 06/14/24 07:28 Pulse Ox 95 06/14/24 07:28 O2 Del Method Room Air 06/14/24 07:28 BMI result Body Mass Index 25.1 Constitutional - Awake and Alert, No apparent distress Eyes - PERRLA, EOMI Cardiovascular - S1S2, RRR, No edema Respiratory - Normal lung expansion, Normal respiratory effort, No respiratory distress, CTA bilaterally Gastrointestinal - NT / ND; +BS; No rebound or guarding Extremities - no calf tenderness bilaterally, no swelling Skin - Warm/Dry Neurological - Alert & oriented x3, CN II-XII in tact, 5/5 strength BUE and BLE, 4+ patellar reflexes, 2+ brachialis/triceps/Achilles, downgoing babinski, slow fluency of speech with moderate lingual dyskinesia, tremulous Psychological - Appropriate affect Objective Data Active Medications Acetaminophen (Acetaminophen 325 Mg Tablet) 650 mg PO Q6H PRN PRN Reason: Pain, Mild 1-3,fever,headache Last Admin: 06/12/24 09:46 Dose: 650 mg Documented By: PEGGYVIAayush Calcium Carbonate (Calcium Carbonate 750 Mg Tab.Chew) 750 mg PO Q4H PRN PRN Reason: Heartburn Enoxaparin Sodium (Enoxaparin Sodium 40 Mg/0.4 Ml Syringe) 40 mg SUBCUT Q24H [facility] Last Admin: 06/14/24 07:38 Dose: 40 mg Documented By: TORIN Haloperidol (Haloperidol 5 Mg Tablet) 10 mg PO BEDTIME [facility] Last Admin: 06/13/24 20:09 Dose: 10 mg Documented By: ANTHELIO Ketoconazole (Ketoconazole 2 % Shampoo 120 Ml Btl) 1 appl TOPICAL DAILY [facility]; Protocol Last Admin: 06/14/24 07:40 Dose: 1 appl Documented By: TORIN Levetiracetam (Levetiracetam 1,000 Mg Tablet) 1,000 mg PO BID [facility] Last Admin: 06/14/24 07:38 Dose: 1,000 mg Documented By: TORIN Magnesium Hydroxide (Milk Of Magnesia 30 Ml Oral.Susp) 30 ml PO DAILY PRN PRN Reason: Constipation Melatonin (Melatonin 3 Mg Tablet) 6 mg PO BEDTIME PRN PRN Reason: Insomnia Melatonin (Melatonin 3 Mg Tablet) 3 mg PO BEDTIME [facility] Last Admin: 06/13/24 20:09 Dose: 3 mg Documented By: JEREMY Multivitamins/Vitamin C (Multivitamin Tablet) 1 tab PO DAILY [facility] Last Admin: 06/14/24 07:38 Dose: 1 tab Documented By: TORIN Omeprazole (Omeprazole 20 Mg Capsule.Dr) 20 mg PO DAILY@0630 [facility] Last Admin: 06/14/24 05:57 Dose: 20 mg Documented By: JEREMY Quetiapine Fumarate (Quetiapine Fumarate 25 Mg Tablet) 25 mg PO BEDTIME [facility] Last Admin: 06/13/24 20:09 Dose: 25 mg Documented By: JEREMY Sertraline HCl (Sertraline Hcl 100 Mg Tablet) 200 mg PO DAILY [facility] Last Admin: 06/14/24 07:38 Dose: 200 mg Documented By: TORIN Sodium Chloride (0.9 % Sodium Chloride Flush 3 Ml Syringe) 3 ml IVFLUSH QSHIFT [facility] Last Admin: 06/14/24 07:39 Dose: 3 ml Documented By: TORIN Sumatriptan Succinate (Sumatriptan Succinate 50 Mg Tablet) 50 mg PO Q2H PRN PRN Reason: Headache Last Admin: 06/13/24 21:45 Dose: 50 mg Documented By: RAMAKRISHNA Zolpidem Tartrate (Zolpidem Tartrate 5 Mg Tablet) 5 mg PO BEDTIME PRN PRN Reason: Insomnia Last Admin: 06/14/24 04:04 Dose: 5 mg Documented By: JEREMY Labs 06/14/24 11:16 06/14/24 11:16 Assessment and Plan (1) Dizziness: Status: Acute (2) Syncope and collapse: Status: Acute Plan 39-year-old male with a 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 States has had this frequently in past)/moderate lingual dyskinesia/slow fluency of speech Per neurology, concern for tardive dyskinesia Discussed with Psychiatry. Hold Haldol for now. Continue Seroquel Psychiatry to determine if Cogentin should be initiated MRI brain unremarkable EEG results pending Neurology and psychiatry input appreciated PT eval Sudden onset sinus tachycardia Marked with heart rate 130s-170s Also noted hyperreflexia ? Question serotonin syndrome. Discussed with Psychiatry, seems less likely. Will hold sertraline x1 day EKG ordered Electrolytes normal, TSH normal Cardiology consult Monitor on telemetry HX seizure none since arrival continue outpatient therapies await EEG Lovenox Full code Quality Stroke Does the patient have a stroke diagnosis?: No VTE Prior VTE?: No VTE Risk Level:: Medical - moderate - high VTE Device Contraindication: Treatment Not Indicated VTE Drug Contraindication: N/A - Med Ordered
[2024-06-14] MEDS: diazePAM 10 MG/2 ML CARTRIDGE 5 MG IVPUSH (10:59)
[2024-06-14 11:50] LABS: MANUAL DIFF FLAG NO
[2024-06-14 11:55] LABS: Basophils Absolute Auto 0.1 X10*3/uL (0.0-0.2); Basophils Percent Auto 0.8 % (0-2); Eosinophils Absolute Auto 0.1 X10*3/uL (0.0-0.4); Eosinophils Percent Auto 1.4 % (0-4); Hematocrit 42.9 % (42.0-52.0); Hemoglobin 15.1 g/dl (14.0-18.0); Imm Gran Abs Auto 0.02 X10*3/uL (0.00-0.03); Imm Gran Pct Auto 0.3 % (0.0-0.4); Lymphocytes Percent Auto 25.7 % (20-40); Mean Corpuscular HGB Conc 35.2 g/dl (31.0-36.0); Mean Corpuscular Hemoglobin 30.6 pg (27.0-33.0); Monocytes Absolute Auto 0.7 X10*3/uL (0.1-1.2); Monocytes Percent Auto 8.7 % (2-11); Neutrophils Absolute Auto 4.8 x10*3/uL (2.0-8.3); Neutrophils Percent Auto 63.1 % (45-73); Platelet Count 258 X10*3/uL (160-400); Red Blood Count 4.93 X10*6/uL (4.60-5.80); Red Cell Distribution Width 11.9 % (11.0-16.0); White Blood Count 7.6 X10*3/uL (4.8-10.8)
[2024-06-14 12:16] LABS: Alanine Aminotransferase 25 U/L (0-40); Albumin Level 4.3 g/dL (3.5-5.0); Alkaline Phosphatase 57 U/L (39-117); Anion Gap 11 (12-20); Aspartate Amino Transferase 27 U/L (5-37); Bilirubin Total 0.3 mg/dL (0.0-1.0); Blood Urea Nitrogen 9 mg/dL (9-16); Carbon Dioxide 26 mmol/L (22-29); Chloride 108 mmol/L (96-108); Creatinine Clr Calc Pharmacy 106.6; Estimated Glomerular Filt Rate > 60; Glucose Random 78 mg/dL (60-115); Lactate Dehydrogenase 192 U/L (118-273); Potassium 3.9 mmol/L (3.3-5.1); Sodium 141 mmol/L (135-145); Total Protein 7.8 g/dL (6.5-8.0)
[2024-06-14 12:23] LABS: Magnesium 2.1 mg/dL (1.6-2.6)
[2024-06-14 12:29] LABS: TSH reflex Free T4 1.54 uIU/mL (0.32-4.0)
--- NOTE | 2024-06-14 13:40 | PM.PSYCN ---
History of Present Illness Date of Service: 06/14/24 Chief Complaint: Dizziness Requesting physician: Helen Aguiar Sources of Information: patient interviewed, chart reviewed and crisis/core team assessment reviewed HPI Narrative: Patient is a 39-year-old year old male with a hx [employer] glioma status post surgery (2013) schizophrenia, seizures, anxiety, renal calculi, dysphagia who is being treated on the medical floors for dizziness. Psychiatry consulted to help assess whether not patient is having serotonin syndrome. Today patient is heart rate suddenly when up to 130-170 today (reportedly without any obvious etiology); patient told typewriter mechanic he was feeling fine and did notice it at all. Hospitalist PA found reports: 4+ patellar reflexes, very tremulous slight myoclonus mostly in the R foot. Patient's tachycardia trended back towards mild On approach, Patient sitting comfortably in his bed watching television No AMS/confusion (reported or observed) Patient afebrile Patient reports he has been on Zoloft 200 mg consistently for quite awhile Patient denies diarrhea, no excess salivation or diaphoresis. Curriculum Development Specialist observed hyperreflexia of bilateral biceps and patella; no rigidity. Patient had very mild b/l hand tremor bilateral but says that this is chronic and daily. Not sure why decision was made to reduced home dose of Haldol to 10 mg and Seroquel 25 mg at bedtime. Past Psychiatric History: -Pt has a hx of multiple ED visits for delusional, paranoid, and psychotic behaviors. Recent IPLOC at [facility] s/p removal of tumor in 06/2020 for further stabilization. [facility] Medical History (Updated 06/14/24 @ 17:47 by Travon Herrera MD) Impacted cerumen of right ear Gait instability Nose pain Annual physical exam Renal infection Hospital discharge follow-up Speech abnormality Blood transfusion declined because patient is Mandaen Sepsis Urinary retention with incomplete bladder emptying Tachycardia Neck pain on left side Gait instability Polysubstance abuse Migraine Hypercholesterolemia Thyroid nodule Seizures Psychotic disorder Insomnia Vitamin D deficiency GERD (gastroesophageal reflux disease) Surgical History Glioma History of surgery of head Diagnostics Vital Signs (24Hr): Vital Signs - 24 hr 06/13/24 15:49 06/13/24 19:17 06/13/24 23:02 Temperature 97.3 F 98.4 F 97.8 F Pulse Rate 97 82 65 Respiratory Rate 18 18 18 Blood Pressure 123/79 130/82 105/58 L Pulse Oximetry 91 L 96 95 Oxygen Delivery Method Room Air Room Air Room Air 06/14/24 03:24 06/14/24 07:28 06/14/24 10:34 Temperature 97.8 F 98.2 F Pulse Rate 69 84 133 H Respiratory Rate 18 18 Blood Pressure 112/62 116/77 104/83 Pulse Oximetry 94 95 95 Oxygen Delivery Method Room Air Room Air Room Air 06/14/24 11:28 Temperature 98.8 F Pulse Rate 106 H Respiratory Rate 20 Blood Pressure 130/79 Pulse Oximetry 95 Oxygen Delivery Method Room Air BMI result Body Mass Index 25.1 Labs 06/14/24 11:16 06/14/24 11:16 Labs: Laboratory Results - last 48 hr 06/14/24 11:16 WBC 7.6 RBC 4.93 Hgb 15.1 Hct 42.9 MCV 87.0 MCH 30.6 MCHC 35.2 RDW 11.9 Plt Count 258 MPV 9.0 L Immature Gran % (Auto) 0.3 Neut % (Auto) 63.1 Lymph % (Auto) 25.7 [place] % (Auto) 8.7 Eos % (Auto) 1.4 Baso % (Auto) 0.8 Lymph # (Auto) 2.0 [place] # (Auto) 0.7 Eos # (Auto) 0.1 Baso # (Auto) 0.1 Abs Immat Gran (auto) 0.02 Absolute Neuts (auto) 4.8 Absolute Nucleated RBC 0.000 Nucleated RBC % (auto) 0.0 Sodium 141 Potassium 3.9 Chloride 108 Carbon Dioxide 26 Anion Gap 11 L BUN 9 Creatinine 0.97 Estim Creat Clear Calc 106.6 Estimated GFR > 60 Random Glucose 78 Calcium 10.0 D Magnesium 2.1 Total Bilirubin 0.3 AST 27 ALT 25 Alkaline Phosphatase 57 Lactate Dehydrogenase 192 Total Creatine Kinase 100 Total Protein 7.8 Albumin 4.3 TSH 1.54 Imaging Radiology Impressions: ITS Impressions Brain MRI 06/12/24 12:54 IMPRESSION: Acute on chronic paranasal sinus disease with the focal restricted diffusion in the left maxillary sinus suggesting fungal infection among other etiologies. No acute brain abnormality. Status post tumor resection with the residual moderate to large volume of blood products, gliosis and volume loss/encephalomalacia/ex vacuo dilatation Electronically signed by: Dung Flores MD 06/12/2024 01:42 PM EDT RP Mental Status Exam Mental Status Exam Narrative: Pt is alert and oriented; behavior is cooperative, friendly and calm; patient is not in distress; dressed in hospital attire with unkempt hair but adequate hygiene; mood is described as good and affect congruent; eye contact appropriate; Speech is normal rate, volume and prosody and not pressured; no psychomotor agitation/retardation present; patient has very mild bilateral hand tremor; some pill rolling tremor and perhaps some TD; thought process is organized and goal directed; Thought content is on tx; otherwise pertinent to relevant topics and without any delusional content, paranoid ideations or grandiosity; no evidence of perceptual disturbance. Patients insight and judgment appear intact. Medications Medications Current Medications Acetaminophen (Acetaminophen 325 Mg Tablet) 650 mg PO Q6H PRN PRN Reason: Pain, Mild 1-3,fever,headache Last Admin: 06/12/24 09:46 Dose: 650 mg Calcium Carbonate (Calcium Carbonate 750 Mg Tab.Chew) 750 mg PO Q4H PRN PRN Reason: Heartburn Enoxaparin Sodium (Enoxaparin Sodium 40 Mg/0.4 Ml Syringe) 40 mg SUBCUT Q24H EVITA Last Admin: 06/14/24 07:38 Dose: 40 mg Haloperidol (Haloperidol 5 Mg Tablet) 10 mg PO BEDTIME EVITA Last Admin: 06/13/24 20:09 Dose: 10 mg Ketoconazole (Ketoconazole 2 % Shampoo 120 Ml Btl) 1 appl TOPICAL DAILY EVITA; Protocol Last Admin: 06/14/24 07:40 Dose: 1 appl Levetiracetam (Levetiracetam 1,000 Mg Tablet) 1,000 mg PO BID EVITA Last Admin: 06/14/24 07:38 Dose: 1,000 mg Magnesium Hydroxide (Milk Of Magnesia 30 Ml Oral.Susp) 30 ml PO DAILY PRN PRN Reason: Constipation Melatonin (Melatonin 3 Mg Tablet) 6 mg PO BEDTIME PRN PRN Reason: Insomnia Melatonin (Melatonin 3 Mg Tablet) 3 mg PO BEDTIME EVITA Last Admin: 06/13/24 20:09 Dose: 3 mg Multivitamins/Vitamin C (Multivitamin Tablet) 1 tab PO DAILY [facility] Last Admin: 06/14/24 07:38 Dose: 1 tab Omeprazole (Omeprazole 20 Mg Capsule.Dr) 20 mg PO DAILY@0630 [facility] Last Admin: 06/14/24 05:57 Dose: 20 mg Quetiapine Fumarate (Quetiapine Fumarate 25 Mg Tablet) 25 mg PO BEDTIME [facility] Last Admin: 06/13/24 20:09 Dose: 25 mg Sertraline HCl (Sertraline Hcl 100 Mg Tablet) 200 mg PO DAILY [facility] Last Admin: 06/14/24 07:38 Dose: 200 mg Sodium Chloride (0.9 % Sodium Chloride Flush 3 Ml Syringe) 3 ml IVFLUSH QSHIFT [facility] Last Admin: 06/14/24 07:39 Dose: 3 ml Sumatriptan Succinate (Sumatriptan Succinate 50 Mg Tablet) 50 mg PO Q2H PRN PRN Reason: Headache Last Admin: 06/13/24 21:45 Dose: 50 mg Zolpidem Tartrate (Zolpidem Tartrate 5 Mg Tablet) 5 mg PO BEDTIME PRN PRN Reason: Insomnia Last Admin: 06/14/24 04:04 Dose: 5 mg Allergies Allergies Allergy/AdvReac Type Severity Reaction Status Date / Time No Known Allergies Allergy Verified 06/11/24 21:16 [No Known Allergies*] Assessment & Plan Assessment & Plan (1) Psychotic disorder: Status: Acute Code(s): F29 - Unspecified psychosis not due to a substance or known physiological condition Plan Patient is a 39-year-old year old male with a hx [employer] glioma status post surgery (2013) schizophrenia, seizures, anxiety, renal calculi, dysphagia who is being treated on the medical floors for dizziness. Psychiatry consulted to help assess whether not patient is having serotonin syndrome. Today patient is heart rate suddenly when up to 130-170 today (reportedly without any obvious etiology); patient told typewriter mechanic he was feeling fine and did notice it at all. Hospitalist PA found reports: 4+ patellar reflexes, very tremulous slight myoclonus mostly in the R foot. Patient's tachycardia trended back towards mild On approach, Patient sitting comfortably in his bed watching television No AMS/confusion (reported or observed) Patient afebrile Patient reports he has been on Zoloft 200 mg consistently for quite awhile Patient denies diarrhea, no excess salivation or diaphoresis. Curriculum Development Specialist observed hyperreflexia of bilateral biceps and patella; no rigidity. No myoclonus observed. Patient had very mild b/l hand tremor bilateral but says that this is chronic and daily. Impression: 1. Seems very unlikely to be serotonin syndrome (or NMS). Patient definitely has hyperreflexia however this may be chronic; tachycardia resolved as did myoclonus and he is without other signs of autonomic instability; no mental status change. Also it would be very unusual for a person, chronically on a consistent SSRI dose to all of sudden have it cause serotonin syndrome (especially in the face of having his Haldol reduced to 10 mg, down from 20 mg). -he is currently getting fluids and IV benzos; this is first-line treatment for serotonin syndrome -recommend to continue monitoring patient for signs/symptoms of serotonin syndrome however if he remains overall stable would continue with home regimen 2. Patient appears to have TD; also with some pill rolling tremor and gestures indicated EPS. Review of patient's home medications says that he is normally on Cogentin 0.5 mg b.i.d. so would restart this 3. Patient carries a diagnosis of schizophrenia (per chart). Review of home medications show that patient is normally prescribed Haldol 20 mg daily. Patient's Haldol dose was lowered to 10 mg out of concern for polypharmacy, however given that he has a psychotic illness and his outpatient psychiatric provider prescribes Haldol 20 mg, typewriter mechanic recommends that patient continue on his home regimen and have him follow up with outpatient provider 4. Patient needs help procuring psychiatric prescriber Total time managing care of this patient today ____ minutes. Patient educated on: diagnosis, medication risk/benefits and medical condition Informed Consent: understands
--- NOTE | 2024-06-14 16:15 | ECG_ITS ---
Test Reason : tachycardia Blood Pressure : */* mmHG Vent. Rate : 101 BPM Atrial Rate : 101 BPM P-R Int : 126 ms QRS Dur : 90 ms QT Int : 346 ms P-R-T Axes : 53 25 43 degrees QTcB Int : 448 ms Sinus tachycardia Otherwise normal ECG When compared with ECG of 11-Jun-2024 21:39, No significant change was found Referred By: Helen Aguiar Electronically Signed By: JUAN CARLOS PUTNAM
[2024-06-14] MEDS: Melatonin 3 MG TABLET PO (21:15)
[2024-06-14] MEDS: QUEtiapine Fumarate 25 MG TABLET PO (21:16)
[2024-06-15 03:22] VITALS: BP 124/82; PULSE 87; RESP 18; TEMP 36.3; O2SAT 95
[2024-06-15] MEDS: Omeprazole 20 MG CAPSULE.DR PO (05:51)
[2024-06-15] MEDS: Milk of Magnesia 30 ML ORAL.SUSP PO (07:49)
[2024-06-15] MEDS: levETIRAcetam 1,000 MG TABLET 1000 MG PO ×2 (07:49→20:07)
[2024-06-15] MEDS: Multivitamin TABLET 1 TAB PO (07:49)
[2024-06-15] MEDS: Enoxaparin Sodium 40 MG/0.4 ML SYRINGE SUBCUT (07:49)
[2024-06-15] MEDS: 0.9 % Sodium Chloride Flush 3 ML SYRINGE IVFLUSH ×2 (07:49→20:11)
[2024-06-15 07:54] VITALS: BP 118/73; PULSE 89; RESP 16; TEMP 36.4; O2SAT 95
[2024-06-15 11:45] VITALS: BP 123/76; PULSE 118; RESP 18; TEMP 36.2; O2SAT 95
--- NOTE | 2024-06-15 12:14 | P.PNIM_ITS ---
Subjective Subjective Date of Service: 06/15/24 Interval History: Seen in follow-up for lightheadedness Interval history: patient is doing much better, asking when he's going home, HR goes to 160 upon getting up Review of Systems Review of Systems: Yes all other systems are reviewed and are negative Physical Exam 2 Vital Signs: Vital Signs: Last Vital Signs Temp 97.1 F 06/15/24 11:45 Pulse 118 H 06/15/24 11:45 Resp 18 06/15/24 11:45 BP 123/76 06/15/24 11:45 Pulse Ox 95 06/15/24 11:45 O2 Del Method Room Air 06/15/24 11:45 BMI result Body Mass Index 25.1 Constitutional - Awake and Alert, No apparent distress Eyes - PERRLA, EOMI Cardiovascular - S1S2, RRR, No edema Respiratory - Normal lung expansion, Normal respiratory effort, No respiratory distress, CTA bilaterally Gastrointestinal - NT / ND; +BS; No rebound or guarding Extremities - no calf tenderness bilaterally, no swelling Skin - Warm/Dry Neurological - Alert & oriented x3, CN II-XII in tact, 5/5 strength BUE and BLE, 4+ patellar reflexes, 2+ brachialis/triceps/Achilles, downgoing babinski, slow fluency of speech with moderate lingual dyskinesia, tremulous Psychological - Appropriate affect Objective Data Active Medications Acetaminophen (Acetaminophen 325 Mg Tablet) 650 mg PO Q6H PRN PRN Reason: Pain, Mild 1-3,fever,headache Last Admin: 06/12/24 09:46 Dose: 650 mg Documented By: KENTRELL Calcium Carbonate (Calcium Carbonate 750 Mg Tab.Chew) 750 mg PO Q4H PRN PRN Reason: Heartburn Enoxaparin Sodium (Enoxaparin Sodium 40 Mg/0.4 Ml Syringe) 40 mg SUBCUT Q24H EVITA Last Admin: 06/15/24 07:49 Dose: 40 mg Documented By: TORIN Haloperidol (Haloperidol 5 Mg Tablet) 20 mg PO BEDTIME EVITA Ketoconazole (Ketoconazole 2 % Shampoo 120 Ml Btl) 1 appl TOPICAL DAILY [facility]ITA; Protocol Last Admin: 06/15/24 07:50 Dose: Not Given Documented By: TORIN Non-Admin Reason: Patient Refused Levetiracetam (Levetiracetam 1,000 Mg Tablet) 1,000 mg PO BID [facility] Last Admin: 06/15/24 07:49 Dose: 1,000 mg Documented By: TORIN Magnesium Hydroxide (Milk Of Magnesia 30 Ml Oral.Susp) 30 ml PO DAILY PRN PRN Reason: Constipation Last Admin: 06/15/24 07:49 Dose: 30 ml Documented By: TORIN Melatonin (Melatonin 3 Mg Tablet) 6 mg PO BEDTIME PRN PRN Reason: Insomnia Melatonin (Melatonin 3 Mg Tablet) 3 mg PO BEDTIME [facility] Last Admin: 06/14/24 21:15 Dose: 3 mg Documented By: JANES Multivitamins/Vitamin C (Multivitamin Tablet) 1 tab PO DAILY [facility] Last Admin: 06/15/24 07:49 Dose: 1 tab Documented By: TORIN Omeprazole (Omeprazole 20 Mg Capsule.Dr) 20 mg PO DAILY@0630 [facility] Last Admin: 06/15/24 05:51 Dose: 20 mg Documented By: JANES Quetiapine Fumarate (Quetiapine Fumarate 25 Mg Tablet) 25 mg PO BEDTIME [facility] Last Admin: 06/14/24 21:16 Dose: 25 mg Documented By: JANES Sertraline HCl (Sertraline Hcl 100 Mg Tablet) 200 mg PO DAILY [facility] Last Admin: 06/14/24 07:38 Dose: 200 mg Documented By: TORIN Sodium Chloride (0.9 % Sodium Chloride Flush 3 Ml Syringe) 3 ml IVFLUSH QSHIFT [facility] Last Admin: 06/15/24 07:49 Dose: 3 ml Documented By: TORIN Sumatriptan Succinate (Sumatriptan Succinate 50 Mg Tablet) 50 mg PO Q2H PRN PRN Reason: Headache Last Admin: 06/13/24 21:45 Dose: 50 mg Documented By: RAMAKRISHNA Zolpidem Tartrate (Zolpidem Tartrate 5 Mg Tablet) 5 mg PO BEDTIME PRN PRN Reason: Insomnia Last Admin: 06/14/24 21:15 Dose: 5 mg Documented By: JANES Labs 06/14/24 11:16 06/14/24 11:16 Labs: Laboratory Results - last 24 hr 06/14/24 11:16 Anion Gap 11 L Estim Creat Clear Calc 106.6 Estimated GFR > 60 Random Glucose 78 Calcium 10.0 D Magnesium 2.1 Total Bilirubin 0.3 AST 27 ALT 25 Alkaline Phosphatase 57 Lactate Dehydrogenase 192 Total Creatine Kinase 100 Total Protein 7.8 Albumin 4.3 TSH 1.54 Assessment and Plan (1) Dizziness: Status: Acute (2) Syncope and collapse: Status: Acute Plan 39-year-old male with a past medical history of MOUNTER HAND glioma status post surgery, schizophrenia, seizures, anxiety, renal calculi, dysphagia; presented to the hospital today with a chief complaint of dizziness/fall 1.Dizzines(resolved. States has had this frequently in past)/moderate lingual dyskinesia/slow fluency of speech Per neurology, concern for tardive dyskinesia Discussed with Psychiatry. Hold Haldol for now. Continue Seroquel Psychiatry to determine if Cogentin should be initiated MRI brain unremarkable EEG results pending Neurology and psychiatry input appreciated PT eval Sudden onset sinus tachycardia Marked with heart rate 130s-170s Also noted hyperreflexia ? Question serotonin syndrome. Discussed with Psychiatry, seems less likely. Will hold sertraline x1 day EKG ordered Electrolytes normal, TSH normal Cardiology consult Monitor on telemetry the tachycardia maybe causing dizziness, hydrate and if persists cardiology consult HX seizure none since arrival continue outpatient therapies await EEG Lovenox Full code Quality Stroke Does the patient have a stroke diagnosis?: No VTE Prior VTE?: No VTE Risk Level:: Medical - moderate - high VTE Device Contraindication: Treatment Not Indicated VTE Drug Contraindication: N/A - Med Ordered
--- NOTE | 2024-06-15 14:31 | PM.CNCAR ---
History of Present Illness History of Present Illness Date of Service: 06/15/24 Chief complaint: Dizziness Narrative: This is a cardiology consultation regarding tachycardia. Patient has many comorbidities that include seen as a glioma, status post surgery, schizophrenia, seizures, anxiety, among others. Apparently came for complaints of fall. He has had intermittent dizziness. He went to shower and in that context, felt dizzy and fell. It seems he again felt dizzy 2 more times and fell. No loss of consciousness. No other complaints like angina or shortness of breath. No previous cardiovascular issues. After he got admitted, he has been evaluated by both Neurology as well as psychiatry. From the cardiac standpoint, there is concern for tachycardia that is seen on telemetry and hence we are asked to assess him. Patient however denies any complaints like palpitations or in fact anything cardiac sounding. According to RN, he gets abrupt heart rates spikes that last only for about a minute and then go back to mild tachycardia. Review of Systems Review of Systems: Yes all other systems are reviewed and are negative Constitutional: Constitutional: Reports as per HPI and Reports no additional constitutional complaints Eyes: Eyes: Reports as per HPI and Denies no additional eye complaints ENT: Denies system reviewed and no additional complaints, except as documented and Reports as per HPI Cardiovascular: Cardiovascular: Reports as per HPI, Reports no additional cardiovascular complaints, Denies acrocyanosis, Denies cool extremities, Denies chest pain, Denies leg edema, Reports lightheadedness, Denies palpitations and Denies dyspnea Respiratory: Respiratory: Reports as per HPI, Denies no additional respiratory complaints and Denies dyspnea Gastrointestinal: Gastrointestinal: Reports as per HPI and Denies no additional gastrointestinal complaints Genitourinary: Genitourinary: Reports no additional male genitourinary complaints and Reports as per HPI Musculoskeletal: Musculoskeletal: Reports no additional musculoskeletal complaints and Reports as per HPI Integumentary/Breasts: Skin/Breast: Reports system reviewed and no additional complaints, except as docu Neurologic: Reports system reviewed and no additional complaints, except as documented and Reports as per HPI Psychiatric: Psychiatric: Reports no additional psychiatric complaints and Reports as per HPI Endocrine: Endocrine: Reports no additional endocrine complaints, Reports as per HPI and Denies palpitations Hematologic/Lymphatic: Hematologic/Lymphatic: Reports no additional hematologic/lymphatic complaints and Reports as per HPI Allergic/Immunologic: Allergic/Immunologic: Reports no additional allergic/immunologic complaints and Reports as per HPI PMFSH Past Medical History Medical History (Updated 06/15/24 @ 14:35 by Mohan Roland MD) Tachycardia Impacted cerumen of right ear Gait instability Nose pain Annual physical exam Renal infection Hospital discharge follow-up Speech abnormality Blood transfusion declined because patient is Uatsdin Sepsis Urinary retention with incomplete bladder emptying Neck pain on left side Gait instability Polysubstance abuse Migraine Hypercholesterolemia Thyroid nodule Seizures Psychotic disorder Insomnia Vitamin D deficiency GERD (gastroesophageal reflux disease) Family History Family History Father Bipolar 1 disorder Mother Bipolar 1 disorder Myocardial infarction Paternal Grandmother No problems noted. Paternal Grandfather Myocardial infarction Brother Substance abuse Surgical History Surgical History Glioma History of surgery of head Social History Social History Household Members: Family Housing: Apartment Do you presently have visiting nurse or other home services: No Alcohol intake: never Patient Tobacco Use Status: Former Tobacco user Tobacco use type: Cigarette Years Smoked: stopped 19 years old e-Cigarette/Vaping Use: Never Used Second Hand Smoke Exposure: No Advance Directives Date on File: 01/31/21 service: No Current occupational status: disabled Cognitive needs: Yes Hearing needs: No Vision needs: No Meds Allergies Allergy/AdvReac Type Severity Reaction Status Date / Time No Known Allergies Allergy Verified 06/11/24 21:16 [No Known Allergies*] Active Medications: Current Medications Acetaminophen (Acetaminophen 325 Mg Tablet) 650 mg PO Q6H PRN PRN Reason: Pain, Mild 1-3,fever,headache Last Admin: 06/12/24 09:46 Dose: 650 mg Calcium Carbonate (Calcium Carbonate 750 Mg Tab.Chew) 750 mg PO Q4H PRN PRN Reason: Heartburn Enoxaparin Sodium (Enoxaparin Sodium 40 Mg/0.4 Ml Syringe) 40 mg SUBCUT Q24H EVITA Last Admin: 06/15/24 07:49 Dose: 40 mg Haloperidol (Haloperidol 5 Mg Tablet) 20 mg PO BEDTIME EVITA Ketoconazole (Ketoconazole 2 % Shampoo 120 Ml Btl) 1 appl TOPICAL DAILY EVITA; Protocol Last Admin: 06/15/24 07:50 Dose: Not Given Levetiracetam (Levetiracetam 1,000 Mg Tablet) 1,000 mg PO BID [facility] Last Admin: 06/15/24 07:49 Dose: 1,000 mg Magnesium Hydroxide (Milk Of Magnesia 30 Ml Oral.Susp) 30 ml PO DAILY PRN PRN Reason: Constipation Last Admin: 06/15/24 07:49 Dose: 30 ml Melatonin (Melatonin 3 Mg Tablet) 6 mg PO BEDTIME PRN PRN Reason: Insomnia Melatonin (Melatonin 3 Mg Tablet) 3 mg PO BEDTIME [facility] Last Admin: 06/14/24 21:15 Dose: 3 mg Multivitamins/Vitamin C (Multivitamin Tablet) 1 tab PO DAILY [facility] Last Admin: 06/15/24 07:49 Dose: 1 tab Omeprazole (Omeprazole 20 Mg Capsule.Dr) 20 mg PO DAILY@0630 [facility] Last Admin: 06/15/24 05:51 Dose: 20 mg Quetiapine Fumarate (Quetiapine Fumarate 25 Mg Tablet) 25 mg PO BEDTIME [facility] Last Admin: 06/14/24 21:16 Dose: 25 mg Sertraline HCl (Sertraline Hcl 100 Mg Tablet) 200 mg PO DAILY [facility] Last Admin: 06/14/24 07:38 Dose: 200 mg Sodium Chloride (0.9 % Sodium Chloride Flush 3 Ml Syringe) 3 ml IVFLUSH QSHIFT [facility] Last Admin: 06/15/24 07:49 Dose: 3 ml Sumatriptan Succinate (Sumatriptan Succinate 50 Mg Tablet) 50 mg PO Q2H PRN PRN Reason: Headache Last Admin: 06/13/24 21:45 Dose: 50 mg Zolpidem Tartrate (Zolpidem Tartrate 5 Mg Tablet) 5 mg PO BEDTIME PRN PRN Reason: Insomnia Last Admin: 06/14/24 21:15 Dose: 5 mg Home Medications ?Medication ?Instructions ?Recorded ?Confirmed ?Last Taken ?Type ketoconazole 2 % shampoo 1 appl topical DAILY 06/12/24 06/12/24 06/11/24 History melatonin 1 mg tablet 2 mg PO BEDTIME 06/12/24 06/12/24 Unknown History multivit,Ca,min-iron 8 mg-folic 1 tab PO DAILY 06/12/24 06/12/24 06/11/24 History acid 200 mcg-lycopene 600 mcg tablet (Centrum Men) Physical Exam Vital Signs: Vital Signs: Last Vital Signs Temp 97.1 F 06/15/24 11:45 Pulse 118 H 06/15/24 11:45 Resp 18 06/15/24 11:45 BP 123/76 06/15/24 11:45 Pulse Ox 95 06/15/24 11:45 O2 Del Method Room Air 06/15/24 11:45 BMI result Body Mass Index 25.1 Const: General: comfortable and no acute distress Orientation/consciousness: patient oriented x3 HEENT: Other: Unremarkable Head: Yes normal to inspection Neck: Neck: Yes normal visual inspection Chest: Chest palpation & inspection: normal inspection of the chest Resp: Auscultation: clear to auscultation bilaterally Cardio: Palpation: normal PMI Heart sounds: S1 normal heart sound present, S2 normal heart sound present, no gallops, no murmurs and no rubs GI: Palpation (GI): Soft to palpation Back/Spine/Pelvis: Other: unremarkable Skin: General skin exam: no rashes or lesions noted Neuro: General: patient oriented x3 Extrem: General: Yes normal to inspection Psych: Mental Status: mental status grossly normal Objective Labs and Meds 06/14/24 11:16 06/14/24 11:16 ECG Interpretation: EKG with sinus tachycardia at 101/Min. No significant ischemic findings or other concerning abnormalities. Normal MD/corrected QT. EKG prior to that shows sinus rhythm at 86/Min. Assessment and Plan (1) Tachycardia: Status: Acute (2) Dizziness: Status: Acute (3) Syncope and collapse: Status: Acute Plan Baseline EKGs unremarkable. With regard to the tachycardia episodes, reviewed them on telemetry. He does have sharp spikes where the heart rate goes up. Difficult to say if it is sinus tachycardia versus atrial tachycardia. However, these are brief episodes lasting about just a minute or 2 and then goes to mild sinus tachycardia around 100/Min. Based on the prior EKGs, he may have a tendency for mild tachycardia. High sensitivity troponin within normal limits. Unclear if any other psychiatric versus systemic cause that making him more tachycardic now. IV hydration. Try low-dose beta-blockers if no psychiatric contraindication. Echocardiogram tomorrow. Discussed with mother and also discussed with Dr. Corral. Procedures Date of Service Date of Service: 06/15/24
[2024-06-15 15:37] VITALS: BP 120/87; PULSE 104; RESP 18; TEMP 36.7; O2SAT 95
[2024-06-15 20:00] VITALS: BP 130/80; PULSE 98; RESP 18; TEMP 36.7; O2SAT 95
[2024-06-15] MEDS: QUEtiapine Fumarate 25 MG TABLET PO (20:07)
[2024-06-15] MEDS: Zolpidem Tartrate 5 MG TABLET PO (20:07)
[2024-06-15] MEDS: Melatonin 3 MG TABLET PO (20:07)
[2024-06-15] MEDS: Acetaminophen 325 MG TABLET 650 MG PO (20:11)
[2024-06-16] VITALS (9 sets, daily range): BP systolic 108–131; BP diastolic 68–83; PULSE 75–102; RESP 16–20; TEMP 36.2–37; O2SAT 92–97
[2024-06-16] MEDS: Omeprazole 20 MG CAPSULE.DR PO (05:34)
--- NOTE | 2024-06-16 07:00 | CA_ITS ---
Transthoracic Echocardiogram Patient (Last, First, Middle): Zack Mejia A Gender: Male Date of : 1985 Age: 39 Procedure Date: 06/16/2024 Procedure Type: Transthoracic [place] [facility] [place]: 177.8 cm Weight: 79.38 kg BSA: 1.97 m2 Heart Rate: 87 bpm BP: 116 / 74 mmHg [employer] Integrator: Referring MD: Mohan Roland MD Symptoms: Tachycardia Study Quality: Adequate ECG Rhythm: Sinus Conclusions: - Normal left ventricular size, thickness, systolic function, and wall motion. The visually estimated ejection fraction is between 55-60%. Diastolic function is normal for age. - Normal right ventricular cavity size and systolic function. - The inferior vena cava is collapsed, consistent with reduced intravascular volume. Findings Left Ventricle Normal left ventricular size, thickness, systolic function, and wall motion. The visually estimated ejection fraction is between 55-60%. Diastolic function is normal for age. Right Ventricle Normal right ventricular cavity size and systolic function. Atria The left atrium is normal in size. Aortic Valve Normal aortic valve structure and function. There is no aortic valve stenosis. There is no aortic valve regurgitation. Mitral Valve Normal mitral valve structure and function. There is no mitral valve regurgitation. There is no mitral valve stenosis. Pulmonic Valve The pulmonic valve is normal. There is no pulmonic valve regurgitation. Tricuspid Valve Normal tricuspid valve structure. There is no tricuspid valve regurgitation. Normal right atrial pressure. There is no evidence of pulmonary hypertension. Great Vessels All visible segments of the aorta are normal in size. The visualized portions of the pulmonary artery and branches are normal. Venous The inferior vena cava is collapsed, consistent with reduced intravascular volume. Pericardium/Pleural There is no evidence of pericardial effusion. Prior Study Comparison No prior study available for comparison. Measurements 2D Linear Measurements IVSd: 1.00 0.6-0.9/0.6-1.0 cm LVIDd: 3.65 3.9-5.3/4.2-5.9 cm LVIDd Index: 1.85 2.4-3.2/2.2-3.1 cm/m2 LVIDs: 2.43 2.0-3.6 cm LVPWd: 1.03 0.7-1.1 cm LA Diam: 2.40 2.7-3.8/3.0-4.0 cm LAIDs Index: 1.22 1.5-2.3 cm/m2 LV Mass: 139.71 67-162/88-224 g LV Mass Index: 70.92 43-95/49-115 g/m2 LVOT Diam: 2.20 3.0+(-)1.3 cm 2D Systolic Function EF 4C: 47.40 >55% EF 2C: 51.50 >55% EF BiP: 46.40 >55% Mitral Valve MV Pk E: 0.43 MV PK A: 0.66 MV Decel Time: 77.00 E/A: 0.70 E'Lateral: 12.00 E'Medial: 7.94 E/E' Med: 5.40 E/E' Lat: 3.60 PHT: 22.00 MVA PHT: 10.00 Decel [place]: 5.59 Aortic Valve AoV Pk [place]: 0.95 AoV Pk Grad: 4.00 TATY: 3.40 LVOT LVOT Pk [place]: 0.85 LVOT Mn [place]: 0.56 LVOT VTI: 0.15 LVOT Pk Grad: 3.00 LVOT Mn Grad: 2.00 LVOT Diam: 2.20 LVOT Area: 3.80 Diastolic Function MV Pk E: 0.43 MV Pk A: 0.66 E/A: 0.70 E'Medial: 7.94 E/E' Med: 5.40 E' Laterial: 12.00 E/E' Lat: 3.60 Right Ventricle TAPSE (mm): 26.90 TVS' Manuel[place]: 9.46 Tricuspid Valve TR Pk [place]: 2.23 TR Pk Grad: 20.00 RA Press: 3.00 RVSP: 23.00 Great Vessels Aorta Sinus of Valsalva: 3.20 2.0-3.5 cm Ao Asc: 2.30 2.1-3.4 cm Pulmonary Valve PV Pk Manuel[place]: 1.06 Peak PV Grad: 4.00 Updated in Other Vendor System with Status of Final Cheng Urrutia MD electronically signed on 06/16/2024 1:36:55 PM with status of Final
[2024-06-16] MEDS: Metoprolol Tartrate 25 MG TABLET PO ×2 (09:01→21:21)
[2024-06-16] MEDS: Multivitamin TABLET 1 TAB PO (09:02)
[2024-06-16] MEDS: levETIRAcetam 1,000 MG TABLET 1000 MG PO ×2 (09:02→21:20)
[2024-06-16] MEDS: 0.9 % Sodium Chloride Flush 3 ML SYRINGE IVFLUSH ×2 (09:02→21:22)
[2024-06-16] MEDS: Enoxaparin Sodium 40 MG/0.4 ML SYRINGE SUBCUT (09:02)
--- NOTE | 2024-06-16 09:55 | PM.PNCARD ---
Subjective Subjective Date of Service: 06/16/24 Interval history: Seen examined at bedside. No acute complaints. Telemetry reviewed showing sinus tachycardia. Physical Exam Vital Signs: Last Vital Signs Temp 98.4 F 06/16/24 07:37 Pulse 88 06/16/24 09:01 Resp 18 06/16/24 07:37 BP 115/74 06/16/24 09:01 Pulse Ox 92 06/16/24 07:37 O2 Del Method Room Air 06/16/24 07:37 BMI result Body Mass Index 25.1 GENERAL APPEARANCE: in no acute distress, pleasant. NECK: no carotid bruit, no jugular venous distention. SKIN: no suspicious lesions, warm and dry. HEART: no murmurs, regular rate and rhythm. Tachycardic. LUNGS: clear to auscultation bilaterally. ABDOMEN: soft, nontender. EXTREMITIES: no edema. PERIPHERAL PULSES: equal. NEUROLOGIC: No gross deficits, AAO X 3 Objective Labs and Meds 06/14/24 11:16 06/14/24 11:16 Progress Note: A&P Assessment and plan (1) Tachycardia: Status: Acute (2) Psychotic disorder: Status: Acute Assessment and Plan: 39-year-old gentleman with background history of seizures, anxiety, schizophrenia and previous glioma status post surgery. He is here for fall and dizziness. Has been noticed to be tachycardic on telemetry. Telemetry appears to be showing sinus tachycardia currently. Gentle hydration. He has anxiety disorder and that is probably playing a big role in this. If he is symptomatic and has significant tachycardia then can try low-dose beta-jones. Overall clinically stable. We will review echocardiography. Thank you for allowing me to participate in the care of your patient. Please feel free to contact me if you have any questions. Time Spent With Patient Time: Total time managing care of this patient today ____ minutes. Progress Note: Quality Stroke Does the patient have a stroke diagnosis?: No Procedures Date of Service Date of Service: 06/16/24
--- NOTE | 2024-06-16 10:41 | P.DS_ITS ---
DS: Providers Provider Date of admission: 06/15/24 15:30 Primary care physician: Mable Conley MD Consults: 06/12/24 08:18 Consult to Neurology Routine Consulting Provider: [facility] Reason for consultation: dizzy; glioma s/p surgery 06/14/24 10:39 Consult to Psychiatry Routine Consulting Provider: [facility] [place] Psych Covering Reason for consultation: serotonin syndrome?, ?TD 06/14/24 16:33 Consult to Cardiology Routine Consulting Provider: [facility] [place] Reason for consultation: sudden onset sinus tachycardia DS: Diagnosis Discharge Diagnosis (1) Tachycardia: Status: Acute (2) Psychotic disorder: Status: Acute DS: Summary Hospital Course Hospital Course: admission hpi Chief Complaint: Fall 39-year-old male with a past medical history of [employer] glioma status post surgery, schizophrenia, seizures, anxiety, renal calculi, dysphagia; presented to the hospital today with a chief complaint of fall. Patient reported that he intermittently has episodes of dizziness. But today after he woke up went to the shower and he felt dizzy, followed by had a fall; after he got out of the shower he felt dizzy twice and had 2 falls again. Denies any head strike or loss of consciousness. Mentioned that he takes 2 medications at nighttime for sleep. Also takes medications for his schizophrenia and seizure disorder. Denies any noncompliance. Denies any seizure-like episodes. Patient denies any chest pain or palpitations. Denies any headaches or blurry visions Denies any numbness tingling or focal weakness. Spoke to the patient's mother at bedside. Review of all other systems is negative except mentioned above ER course: Per ER team, patient's exam was nonfocal; EKG nonischemic; troponins negative; orthostatic vitals negative. Hospital course: 39-year-old male with a past medical history of [employer] glioma status post surgery, schizophrenia, seizures, anxiety, renal calculi, dysphagia; presented to the hospital today with a chief complaint of dizziness/fall Dizzines(resolved. States has had this frequently in past)/moderate lingual dyskinesia/slow fluency of speech Per neurology, concern for tardive dyskinesia Psych recommends continue haldol at half dose of 10 mg at bedtime Cogentin 0. 5 mg twice daily added per Psych Seroquel dose has been reduced from 400 mg to 25 mg at bedtime He is doing well Psychiatry to determine if Cogentin should be initiated MRI brain unremarkable EEG results pending Neurology and psychiatry input appreciated Sudden onset sinus tachycardia, HR toping 170 with exertion, Echo shows normal EF. TSH, electrolytes, normal. ? serotonin syndrome but ruled out. Tachycardia maybe causing dizziness. Seen by cardiology with recommendation to add metoprolol, HR presently 90s to 100s with ambulation, will discharge Marked with heart rate 130s-170s Also noted hyperreflexia ? Question serotonin syndrome. Discussed with Psychiatry, seems less likely. Will hold sertraline x1 day EKG ordered Electrolytes normal, TSH normal Cardiology consult Monitor on telemetry the tachycardia maybe causing dizziness, hydrate and if persists cardiology consult, saw patient and did echo and recommends metoprolol, started on 25 mg twice daily HR improved. HX seizure none since arrival continue outpatient therapies EEG pending Time Attestation Discharge Coordination Time (in mins): 45 Quality: Safe Use of Opioids Does Pt have an Active Cancer Diagnosis on the Problem List?: No Quality: Stroke Does the patient have a stroke diagnosis?: No Physical Exam Vital Signs: Vital Signs: Last Vital Signs Temp 98.4 F 06/16/24 07:37 Pulse 88 06/16/24 09:01 Resp 18 06/16/24 07:37 BP 115/74 06/16/24 09:01 Pulse Ox 92 06/16/24 07:37 O2 Del Method Room Air 06/16/24 07:37 BMI result Body Mass Index 25.1 DS: Data Data Completed and Pending Completed studies during hospitalization [Text1]: Procedures Removal of Intraluminal Device from Ureter, Via Natural or Artificial Opening Endoscopic (01/30/21) Discharge Plan Discharge Anticipated Discharge Date/Time: 06/16/24 14:15 Patient Disposition: Home, Self-Care Discharge Diagnosis: Tardive dyskenesia, tachycardia, dizziness Referrals: Po,Mable Park MD [Primary Care Provider] - 1 Week Discharge Medications: New benztropine 0.5 mg tablet 0.5 mg PO BID Qty: 60 0RF haloperidol 10 mg tablet 10 mg PO BEDTIME Qty: 90 0RF Continued (DME) Portable wheelchair See Rx Instructions .Route .MEDSUPPLY Qty: 1 0RF Rx Instructions: As directed (DME) Shower chair See Rx Instructions .Route .MEDSUPPLY Qty: 1 0RF Rx Instructions: As directed (DME) Transport wheelchair See Rx Instructions .Route .MEDSUPPLY Qty: 1 0RF Rx Instructions: As directed (DME) Back support See Rx Instructions .Route .MEDSUPPLY Qty: 1 0RF Rx Instructions: As directed (DME) Tub seat with arm rest See Rx Instructions .Route .MEDSUPPLY Qty: 1 0RF Rx Instructions: As directed (DME) walker with seat, wheels and brakes See Rx Instructions .Route .MEDSUPPLY Qty: 1 0RF Rx Instructions: As directed sertraline 100 mg tablet 200 mg PO DAILY Qty: 180 1RF quetiapine 400 mg tablet 400 mg PO BEDTIME Qty: 90 1RF ketoconazole 2 % shampoo 1 appl topical DAILY melatonin 1 mg Tablet 2 mg PO BEDTIME Centrum Men 8 mg iron- 200 mcg-600 mcg Tablet 1 tab PO DAILY levetiracetam 1,000 mg tablet 1,000 mg PO BID Qty: 180 1RF riboflavin (vitamin B2) [Vitamin B-2] 100 mg tablet 100 mg PO DAILY 90 Days Qty: 90 3RF sumatriptan succinate 50 mg tablet 50 mg PO Q2-4H PRN (Reason: Headache) Qty: 10 11RF pantoprazole 40 mg tablet,delayed release (DR/EC) 40 mg PO DAILY 90 Days Qty: 90 2RF Discontinued haloperidol 20 mg tablet 20 mg PO BEDTIME Qty: 30 3RF Diet: Advance to usual diet Activity on Discharge: As tolerated Stand Alone Forms: Patient Portal Discharge page Print Language: Kiswahili
--- NOTE | 2024-06-16 16:16 | MHC.CM.PN ---
CM called pt.'s mother, Emilie, to ask if pt. has a psychiatrist in the community, he does, he sees Dr. Georgia Rascon at [facility].
[2024-06-16] MEDS: HaloperidoL 5 MG TABLET 10 MG PO (21:20)
[2024-06-16] MEDS: Melatonin 3 MG TABLET PO (21:22)
[2024-06-16] MEDS: QUEtiapine Fumarate 25 MG TABLET PO (21:22)
[2024-06-16] MEDS: Zolpidem Tartrate 5 MG TABLET PO (21:22)
[2024-06-17 03:18] VITALS: BP 112/67; PULSE 76; RESP 18; TEMP 36.2; O2SAT 96
[2024-06-17] MEDS: Omeprazole 20 MG CAPSULE.DR PO (05:22)
[2024-06-17 07:08] VITALS: BP 105/60; PULSE 72; RESP 18; TEMP 36.4; O2SAT 94
[2024-06-17] MEDS: Metoprolol Tartrate 25 MG TABLET PO (08:12)
[2024-06-17] MEDS: Multivitamin TABLET 1 TAB PO (08:12)
[2024-06-17] MEDS: Enoxaparin Sodium 40 MG/0.4 ML SYRINGE SUBCUT (08:12)
[2024-06-17] MEDS: levETIRAcetam 1,000 MG TABLET 1000 MG PO (08:12)
[2024-06-17 11:10] VITALS: BP 100/63; PULSE 90; RESP 17; TEMP 36.7; O2SAT 96
--- NOTE | 2024-06-17 13:08 | MHC.CM.PN ---
Pt has been medically cleared for DC, he will go home via family transport, plan is self care.
--- NOTE | 2024-06-17 13:16 | P.DS_ITS ---
DS: Providers Provider Date of Service: 06/17/24 Date of admission: 06/15/24 15:30 Date of discharge: 06/17/24 Primary care physician: Mable Conley MD Admitting clinician: Yudelka Christensen Attending physician on admission: Yudelka Christensen Consults: 06/12/24 08:18 Consult to Neurology Routine Consulting Provider: [facility] Reason for consultation: dizzy; glioma s/p surgery 06/14/24 10:39 Consult to Psychiatry [place]ine [place]ing [place] [facility] Reason for consultation: serotonin syndrome?, ?TD 06/14/24 16:33 Consult to Cardiology Routine Consulting Provider[place] [facility] Reason for consultation: sudden onset sinus tachycardia DS: Diagnosis Discharge Diagnosis (1) Tachycardia: Status: Acute (2) Psychotic disorder: Status: Acute DS: Summary Hospital Course Hospital Course: admission hpi Chief Complaint: Fall 39-year-old male with a past medical history of [employer] glioma status post surgery, schizophrenia, seizures, anxiety, renal calculi, dysphagia; presented to the hospital today with a chief complaint of fall. Patient reported that he intermittently has episodes of dizziness. But today after he woke up went to the shower and he felt dizzy, followed by had a fall; after he got out of the shower he felt dizzy twice and had 2 falls again. Denies any head strike or loss of consciousness. Mentioned that he takes 2 medications at nighttime for sleep. Also takes medications for his schizophrenia and seizure disorder. Denies any noncompliance. Denies any seizure-like episodes. Patient denies any chest pain or palpitations. Denies any headaches or blurry visions Denies any numbness tingling or focal weakness. Spoke to the patient's mother at bedside. Review of all other systems is negative except mentioned above ER course: Per ER team, patient's exam was nonfocal; EKG nonischemic; troponins negative; orthostatic vitals negative. Hospital course: 39-year-old male with a past medical history of [employer] glioma status post surgery, schizophrenia, seizures, anxiety, renal calculi, dysphagia; presented to the hospital today with a chief complaint of dizziness/fall Dizzines(resolved) States has had this frequently in past)/moderate lingual dyskinesia/slow fluency of speech-Per neurology, concern for tardive dyskinesia. MRI brain unremarkable EEG results -no significant abnormality. Neurology saw the patient thought to be above symptoms related to psych medication- Psych recommends continue haldol at half dose of 10 mg at bedtime and Seroquel dose has been reduced from 400 mg to 25 mg at bedtime.He is aymptomatic currently. Discussed with psych Dr Jones -currently recommended continue Haldol and Seroquel current doses(which is 10 Haldol bedtime ,Seroquel 25mg daily), need outpatient psych follow-up. Patient had tachycardia: Echo shows normal EF. TSH, electrolytes, normal. ? serotonin syndrome but ruled out(as per psych less likely). Seen by cardiology with recommendation to add metoprolol,hr seems improved hydration and beta-jones, patient currently asymptomatic. HX seizure none since arrival continue outpatient therapies EEG-no significant abnormality. Continue home Keppra. plan: haldol has been reduced to 10 mg at bedtime and Seroquel has been reduced from 400 mg to 25 mg at bedtime,off sertraline. metoprolol 25 mg po bid. Follow up with your Doctor in a week, You need to follow up with Psychiatrist in the near future. Above management discussed with the patient mother and patient himself at bedside, they both understand and in agreement above plan. Time spent 40 minute. Time Attestation Total time managing care of this patient today: 40 mintues. Discharge Coordination Time (in mins): 40 min Quality: Safe Use of Opioids Does Pt have an Active Cancer Diagnosis on the Problem List?: No Quality: Stroke Does the patient have a stroke diagnosis?: No Physical Exam Vital Signs: Vital Signs: Last Vital Signs Temp 98.0 F 06/17/24 11:10 Pulse 90 06/17/24 11:10 Resp 17 06/17/24 11:10 BP 100/63 06/17/24 11:10 Pulse Ox 96 06/17/24 11:10 O2 Del Method Room Air 06/17/24 11:10 BMI result Body Mass Index 25.1 Constitutional - Awake and Alert, No apparent distress . Cvs - S1S2, RRR, No edema Pulm:- Normal lung expansion, Normal respiratory effort, No respiratory distress, CTA bilaterally GI - NT / ND; +BS; No rebound or guarding Extremities - no edema or cyanosis. neuro: aox3, moves all ext( as per his mother at bedside -he is at his baseline). DS: Data Data Completed and Pending Completed studies during hospitalization [Text1]: Procedures Removal of Intraluminal Device from Ureter, Via Natural or Artificial Opening Endoscopic (01/30/21) Imaging Chest x-ray: Radiologist's impression: ITS Impressions Brain MRI 06/12/24 12:54 IMPRESSION: Acute on chronic paranasal sinus disease with the focal restricted diffusion in the left maxillary sinus suggesting fungal infection among other etiologies. No acute brain abnormality. Status post tumor resection with the residual moderate to large volume of blood products, gliosis and volume loss/encephalomalacia/ex vacuo dilatation Electronically signed by: Dung Flores MD 06/12/2024 01:42 PM EDT RP Discharge Plan Discharge Anticipated Discharge Date/Time: 06/16/24 14:15 Patient Disposition: Home, Self-Care Discharge Diagnosis: Tardive dyskenesia, tachycardia, dizziness Referrals: Po,Mable Park MD [Primary Care Provider] - 1 Week Discharge Medications: New haloperidol 10 mg tablet 10 mg PO BEDTIME Qty: 90 0RF quetiapine 25 mg Tablet 25 mg PO BEDTIME Qty: 90 0RF metoprolol tartrate 25 mg Tablet 25 mg PO BID Qty: 180 0RF Protocol: Hold for SBP/HR < HOLD for SBP < : 90 HOLD for HR < : 60 Continued (DME) Portable wheelchair See Rx Instructions .Route .MEDSUPPLY Qty: 1 0RF Rx Instructions: As directed (DME) Shower chair See Rx Instructions .Route .MEDSUPPLY Qty: 1 0RF Rx Instructions: As directed (DME) Transport wheelchair See Rx Instructions .Route .MEDSUPPLY Qty: 1 0RF Rx Instructions: As directed (DME) Back support See Rx Instructions .Route .MEDSUPPLY Qty: 1 0RF Rx Instructions: As directed (DME) Tub seat with arm rest See Rx Instructions .Route .MEDSUPPLY Qty: 1 0RF Rx Instructions: As directed (DME) walker with seat, wheels and brakes See Rx Instructions .Route .MEDSUPPLY Qty: 1 0RF Rx Instructions: As directed ketoconazole 2 % shampoo 1 appl topical DAILY melatonin 1 mg Tablet 2 mg PO BEDTIME Centrum Men 8 mg iron- 200 mcg-600 mcg Tablet 1 tab PO DAILY levetiracetam 1,000 mg tablet 1,000 mg PO BID Qty: 180 1RF riboflavin (vitamin B2) [Vitamin B-2] 100 mg tablet 100 mg PO DAILY 90 Days Qty: 90 3RF sumatriptan succinate 50 mg tablet 50 mg PO Q2-4H PRN (Reason: Headache) Qty: 10 11RF pantoprazole 40 mg tablet,delayed release (DR/EC) 40 mg PO DAILY 90 Days Qty: 90 2RF Discontinued sertraline 100 mg tablet 200 mg PO DAILY Qty: 180 1RF quetiapine 400 mg tablet 400 mg PO BEDTIME Qty: 90 1RF haloperidol 20 mg tablet 20 mg PO BEDTIME Qty: 30 3RF Discharge Orders: Discharge Order (Routine); Ordered 06/17/24 Ordered By: Yudelka Christensen Diet: Advance to usual diet Activity on Discharge: As tolerated Stand Alone Forms: Patient Portal Discharge page Print Language: Romanian Care Plan Goals: recovery from dizziness, tachycardia and concern of tardive dyskenesia Health Concerns: dizziness, tachcyardia, concern for tardive dyskenesia Plan of Treatment: continue your medication as prescribed haldol has been reduced to 10 mg at bedtime and Seroquel has been reduced from 400 mg to 25 mg at bedtime,off sertraline. Follow up with your Doctor in a week, You need to follow up with Psychiatrist in the near future. Assessment: see above
== END 2024-06-17 15:00 | disposition home or self-care (01) | DRG 93 ==
LOC: HO.ED 06-12 01:02 → HO.EDOVER 06-12 02:30 → HO.IMC 06-12 13:52
PROVIDERS: Physician Assistant; Psychiatry & Neurology Psychiatry; Admitting Provider Hospitalist; Emergency Provider Emergency Medicine; PCP Internal Medicine; Visit Provider Internal Medicine
DX: G24.01 Drug induced subacute dyskinesia (principal); R29.6 Repeated falls; R13.10 Dysphagia, unspecified; F19.10 Other psychoactive substance abuse, uncomplicated; F20.9 Schizophrenia, unspecified; T43.4X5A Adverse effect of butyrophenone and thiothixene neuroleptics, initial encounter; G40.909 Epilepsy, unspecified, not intractable, without status epilepticus; R00.0 Tachycardia, unspecified; G93.89 Other specified disorders of brain; Z87.891 Personal history of nicotine dependence; Z79.899 Other long term (current) drug therapy
CPT/HCPCS: 0241U; 36415; 70450; 70551; 71045; 80053; 81001; 82550; 83615; 83735; 84443; 84484; 85025; 87651; 92526; 92610; 93005; 93306; 95816; 97161; 99285; J1650; J3360; J7120; Q9957

== ENCOUNTER → 2024-06-11 21:18 | Outpatient (BNV) | payer OTHER, SELFPAY | PROVIDERS: PCP Internal Medicine; Visit Provider Student in an Organized Health Care Education/Training Program | DX: R05.9 Cough, unspecified (principal) | CPT/HCPCS: 71045 ==

== ENCOUNTER → 2024-06-11 21:39 | Outpatient (BNV) | payer OTHER, SELFPAY | PROVIDERS: Admitting Provider Hospitalist; Emergency Provider Emergency Medicine; PCP Internal Medicine; Visit Provider Internal Medicine | DX: I45.10 Unspecified right bundle-branch block (principal) | CPT/HCPCS: 93010 ==

== ENCOUNTER → 2024-06-12 00:50 | Outpatient (BNV) | payer OTHER, SELFPAY | PROVIDERS: Emergency Provider Emergency Medicine; PCP Internal Medicine; Visit Provider Radiology Diagnostic Radiology | DX: J32.9 Chronic sinusitis, unspecified (principal); R55 Syncope and collapse | CPT/HCPCS: 70450; 70551 ==

== ENCOUNTER 2024-06-12 02:23 | Outpatient (BNV) | payer MEDICARE, SELFPAY | END 2024-06-14 16:15 | PROVIDERS: Admitting Provider Hospitalist; Emergency Provider Emergency Medicine; PCP Internal Medicine; Visit Provider Internal Medicine | DX: R00.0 Tachycardia, unspecified (principal) | CPT/HCPCS: 93010 ==

== ENCOUNTER → 2024-06-12 02:23 | Outpatient (BNV) | payer OTHER, SELFPAY | PROVIDERS: Admitting Provider Hospitalist; Emergency Provider Emergency Medicine; PCP Internal Medicine; Visit Provider Family Medicine | DX: R42 Dizziness and giddiness (principal); R55 Syncope and collapse | CPT/HCPCS: 99223; 99231; 99232; 99499 ==

== ENCOUNTER → 2024-06-12 02:23 | Outpatient (BNV) | payer MEDICARE, SELFPAY | PROVIDERS: Admitting Provider Hospitalist; Emergency Provider Emergency Medicine; PCP Internal Medicine; Visit Provider Psychiatry & Neurology Psychiatry | DX: F29 Unspecified psychosis not due to a substance or known physiological condition (principal) | CPT/HCPCS: 99232 ==

== ENCOUNTER → 2024-06-12 02:23 | Outpatient (BNV) | payer OTHER, SELFPAY | PROVIDERS: Admitting Provider Hospitalist; Emergency Provider Emergency Medicine; PCP Internal Medicine; Visit Provider Psychiatry & Neurology Neurology | DX: R55 Syncope and collapse (principal) | CPT/HCPCS: 99222 ==

== ENCOUNTER → 2024-06-12 02:23 | Outpatient (BNV) | payer MEDICARE, SELFPAY | PROVIDERS: Admitting Provider Hospitalist; Emergency Provider Emergency Medicine; PCP Internal Medicine; Visit Provider Internal Medicine | DX: R00.0 Tachycardia, unspecified (principal); F29 Unspecified psychosis not due to a substance or known physiological condition | CPT/HCPCS: 99223; 99232 ==

== ENCOUNTER 2024-06-15 15:30 | Outpatient (BNV) | payer MEDICARE, SELFPAY | END 2024-06-16 07:00 | PROVIDERS: Admitting Provider Hospitalist; Emergency Provider Emergency Medicine; PCP Internal Medicine; Visit Provider Internal Medicine Cardiovascular Disease | DX: R00.0 Tachycardia, unspecified (principal) | CPT/HCPCS: 93306 ==

== ENCOUNTER 2024-06-19 15:25 | Outpatient (REF) | payer MEDICARE, SELFPAY ==
--- NOTE | ~2024-06-19 | US_ITS ---
EXAMINATION: US KIDNEY BILATERAL HISTORY: N20.0 - Calculus of kidney TECHNIQUE: Real-time grayscale ultrasound imaging of the kidneys was performed and images were reviewed. COMPARISON: Comparison is made with the prior examination dated 10/20/2022. FINDINGS: Right kidney: The right kidney measures 9.1 x 3.7 x 4.2 cm. Renal parenchymal echotexture and thickness are normal. There are no masses. There is no hydronephrosis or renal calculi. Left Kidney: The left kidney measures 10.9 x 5.2 x 4.7 cm. Renal parenchymal echotexture and thickness are normal. There is a tiny 4 mm lower pole cyst. There is no hydronephrosis or renal calculi. US/US renal BI IMPRESSION: 4 mm left lower pole renal cyst. Otherwise unremarkable renal ultrasound. Electronically signed by: Dakota Pfeiffer MD 06/20/2024 07:35 AM EDT
--- OUTSIDE RECORDS SUMMARY | 2024-06-19 17:12 | XMS_ITS ---
Author Organization [facility] [employer] [facility] Address [address] [place] [address] Care Team Providers Care Mathematical Scientist Name Role Phone Romy Petersen MD Primary Care Provider REASON FOR VISIT fasting labs Encounters Encounter Location Date Provider Diagnosis [address] [id number] 03/12/2024 Romy Petersen Plan Of Treatment No Information Progress Notes * IAIN ODT ADOB: [birth year] (39 yo M)Acc No.[id number]:03/12/2024 Progress Notes Patient:?DOT TIMMONS Provider:?Romy Petersen MD :1985???Age:38 Y???Sex:Male Cesar e:03/12/2024 Address:[address] [place] [address] [address], [id number] Subjective: * Chief Complaints: * ???1. Fasting labs. * Medical History:? Objective: * Vitals:? Assessment: Plan: * Treatment: * * Electronic signature of Gali Petersen MD, MD on 06/19/2024 at 05:12 PM EDT Sign off status: Pending * Provider:?Romy Petersen MD Date:? Generated for Bere barragan/Linnea/eTransmitting on:?06/19/2024 05:12 PM EDT
--- OUTSIDE RECORDS SUMMARY | 2024-06-19 17:12 | XMS_ITS | Clinical Summary ---
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 Automatic Name Role Phone Unavailable Primary Care Provider Unavailabl e Social History Tobacco Use Types Packs/Day Years Used Date Smoking Tobacco: Never Assessed Sex and Gender Information Value Date Recorded Sex Assigned at Male 12/19/2021 10:17 AM EDT Legal Sex Male 10:17 AM EDT Gender Identity Male 06/19/2024 1:09 PM EDT Sexual Orientation Straight 06/19/2024 1: 09 PM EDT Plan of Treatment Upcoming Encounters Date Type Department Care Team (Late st Contact Info) Description 08/06/2024 1:30 PM EDT Office Visit [facility] [address] [place] [address] Evan York DDS [address] [place] [address] Health Maintenance Due Date Last Done Comments Depression Screening 1985 HIV Screening 1986 Lipid Panel 1986 SDOH Screening 1986 Alcohol/Substance Use Screening 1998 Tobacco Screening 1998 Family Planning (PISQ) 2001 Hepatitis C Screening 2004 Hepatitis B Vaccines (1 of 3 - 19+ 3-dose series) 2005 DTaP/Tdap/Td Vaccines (1 - Tdap) 05/03/2017 05/02/2017 COVID-19 Vaccine (2 - season) 2023 10/05/2020 Zoster Vaccines (1 of 2) 2036 RSV Patients and Patients Aged 60 years or older (1 - 1-dose 75+ series) 2061 Influenza Vaccine Completed 03/10/2024, , 01/06/2022, Additional history exists HIB Vaccines Aged Out No longer eligi ble based on patient's age to complete this topic HPV Vaccines Aged Out No longer eligi ble based on patient's age to complete this topic Hepatitis A Vaccines Aged Out No long er eligible based on patient's age to complete this topic IPV Vaccines Aged Out No longer eligi ble based on patient's age to complete this topic Meningococcal Vaccine Aged Out No cayetano qasim eligible based on patient's age to complete this topic Pneumococcal Vaccine: Pediatrics (0 to 5 Years) and At-Risk Patients (6 to 49) Years) Aged Out No longer eligible based on patient's age to complete this topic RSV under 20 months Aged Out No longe r eligible based on patient's age to complete this topic Rotavirus Vaccines Aged Out No longer eligible based on patient's age to complete this topic Insurance [employer] MEDICARE DENTAL - [employer]
--- OUTSIDE RECORDS SUMMARY | 2024-06-19 17:13 | XMS_ITS | Patient Health Record ---
Author Organization [facility] Address [address] [place] [address] Care Team Providers Care Research Associate Molecular Biology Name Role Phone Nancy Kelly MD Primary Care Provider Allergies No Known Allergies Results Component Value Reference Range Notes IH PVR Study Baseline (PAD S creening) Reviewed date:11/13/2023 02:59:59 PM Interpretation: Performing Lab: Notes/Report: Left Foot 0.91 Left Foot Result Status Mild Right Foot 1.03 Right Foot Result Status Normal Urinalysis, Auto, without mi croscopy (Dip Stick) Reviewed date:09/19/2023 02:21:49 PM Interpretation: Performing Lab: Notes/Report: Urine-Color Cloudy Glucose Neg Bilirubin Neg Ketones Neg Specific [place] 1.030 Blood Neg pH 6.0 Protein +- Urobilinogen - Nitrite - Leukocytes - COMPREHENSIVE METABOLIC PANE L Reviewed date:08/03/2023 10:24:51 AM Interpretation: Performing Lab:, [id number] Bean, [id number] Mohan Sy MD Notes/Report: 0 0 0 0 0 0 0 0 GLUCOSE 81 65-99 mg/dL Fasting reference interval UREA NITROGEN (BUN) 14 7-25 mg/dL CREATININE 0.99 0.60-1.26 mg/dL EGFR 101 > OR = 60 mL/min/1.73m2 BUN/CREATININE RATIO SEE NOTE: 6-22 (calc) Not Reported: BUN and Creatinine are within reference range. SODIUM 142 135-146 mmol/L POTASSIUM 4.5 3.5-5.3 mmol/L CHLORIDE 105 98-110 mmol/L CARBON DIOXIDE 29 20-32 mmol/L CALCIUM 9.7 8.6-10.3 mg/dL PROTEIN, TOTAL 8.2 6.1-8.1 g/dL ALBUMIN 4.9 3.6-5.1 g/dL GLOBULIN 3.3 1.9-3.7 g/dL (calc) ALBUMIN/GLOBULIN RATIO 1.5 1.0-2.5 (calc) BILIRUBIN, TOTAL 0.5 0.2-1.2 mg/dL ALKALINE PHOSPHATASE 58 36-130 U/L AST 15 10-40 U/L ALT 13 9-46 U/L TSH Reviewed date:08/03/2023 10:24:51 AM Interpretation: Performing Lab:[facility], [facility]-Ymaxt7831 Nelson Bean [id number] Mohan Sy MD Notes/Report: 0 0 0 0 0 0 0 0 TSH 1.74 0.40-4.50 mIU/L CBC (INCLUDES DIFF/PLT) Reviewed date:08/03/2023 10:24:51 AM Interpretation: Performing Lab:[facility]Hzorl3331 Nelson Bean [id number] Mohan Sy MD Notes/Report: 0 0 0 0 0 0 0 0 WHITE BLOOD CELL COUNT 6.2 3.8-10.8 Thousand/ uL RED BLOOD CELL COUNT 5.02 4.20-5.80 Million/uL HEMOGLOBIN 15.5 13.2-17.1 g/dL HEMATOCRIT 46.3 38.5-50.0 % MCV 92.2 80.0-100.0 fL MCH 30.9 27.0-33.0 pg MCHC 33.5 32.0-36.0 g/dL RDW 12.9 11.0-15.0 % PLATELET COUNT 267 140-400 Thousand/uL MPV 9.5 7.5-12.5 fL ABSOLUTE NEUTROPHILS 3410 3173-7440 cells/uL ABSOLUTE LYMPHOCYTES 2058 850-3900 cells/uL ABSOLUTE MONOCYTES 409 200-950 cells/uL ABSOLUTE EOSINOPHILS 260 15-500 cells/uL ABSOLUTE BASOPHILS 62 0-200 cells/uL NEUTROPHILS 55 LYMPHOCYTES 33.2 MONOCYTES 6.6 EOSINOPHILS 4.2 BASOPHILS 1.0 LIPID PANEL Reviewed date:08/03/2023 10:24:51 AM Interpretation: Performing Lab:[facility] SkyBitzAntonioJrzuq6685 Nelson Bean [id number] Mohan Sy MD Notes/Report: 0 0 0 0 0 0 0 0 CHOLESTEROL, TOTAL 205 <200 mg/dL HDL CHOLESTEROL 64 > OR = 40 mg/dL TRIGLYCERIDES 133 <150 mg/dL LDL-CHOLESTEROL 116 (http://education.[employer]/faq/FAQ 164) Reference range: <100 estimation of LDL-C. better accuracy than the Friedewald equation in the with > or = 2 CHD risk factors. Arthur SS et al. ABDIRIZAK. 2013;310(19): 9651-0436 Desirable range <100 mg/dL for primary prevention; LDL-C is now calculated using the [facility] <70 mg/dL for patients with CHD or diabetic patients calculation, which is a validated novel method providing CHOL/HDLC RATIO 3.2 <5.0 (calc) NON HDL CHOLESTEROL 141 <130 mg/dL (calc) (LDL-C of <70 mg/dL) is considered a therapeutic factor, treating to a non-HDL-C goal of <100 mg/dL option. For patients with diabetes plus 1 major ASCVD risk VITAMIN D,25-OH,TOTAL,IA Reviewed date:08/03/2023 10:24:51 AM Interpretation: Performing Lab:[facility] [employer] [facility]Fmrpc2208 Nelson Bean, [id number] Mohan Sy MD Notes/Report: 0 0 0 0 0 0 0 0 VITAMIN D,25-OH,TOTAL,IA 21 30-100 ng/mL Vitamin D Status 25-OH Vitamin D: See Note 1 Insufficiency: 20 - 29 ng/mL 25-OH VIT D, (D2,D3), LC/MS/MS is recommended: order Optimal: > or = 30 ng/mL of D2 and D3 fractions is required, the QuestXi3ureD(TM) http://education.[employer]/faq/FAQ1 99 For 25-OH Vitamin D testing [place] code [address] (patients >2yrs). For additional information, please refer to Note 1 Deficiency: <20 ng/mL educational purposes only.) D2-supplementation and patients for whom quantitation (This link is being provided for informational/ URINALYSIS, COMPLETE Reviewed date:08/03/2023 10:24:51 AM Interpretation: Performing Lab:[facility]-Rrzds5348 Nelson Bean, [id number] Mohan Sy MD Notes/Report: 0 0 0 0 0 0 0 0 COLOR DARK YELLOW YELLOW APPEARANCE CLEAR CLEAR SPECIFIC GRAVITY 1.029 1.001-1.035 PH 5.5 5.0-8.0 GLUCOSE NEGATIVE NEGATIVE BILIRUBIN NEGATIVE NEGATIVE KETONES NEGATIVE NEGATIVE OCCULT BLOOD TRACE NEGATIVE PROTEIN NEGATIVE NEGATIVE NITRITE NEGATIVE NEGATIVE LEUKOCYTE ESTERASE NEGATIVE NEGATIVE WBC NONE SEEN < OR = 5 /HPF RBC 3-10 < OR = 2 /HPF SQUAMOUS EPITHELIAL CELLS NONE SEEN < OR = 5 /HPF BACTERIA NONE SEEN NONE SEEN /HPF HYALINE CAST NONE SEEN NONE SEEN /LPF IRON, TIBC AND FERRITIN PANE L Reviewed date:08/03/2023 10:24:51 AM Interpretation: Performing Lab:[facility] SkyBitzAntonioKvhph7597 Nelson Bean [id number] Mohan Sy MD Notes/Report: 0 0 0 0 0 0 0 0 IRON, TOTAL 139 50-180 mcg/dL IRON BINDING CAPACITY 333 250-425 mcg/dL (sy c) % SATURATION 42 20-48 % (calc) FERRITIN 54 38-380 ng/mL VITAMIN B12/FOLATE, SERUM PA ELDON Reviewed date:08/03/2023 10:24:51 AM Interpretation: Performing Lab:[facility] SkyBitzAntonioHjepv5060 Nelson Bean [id number] Mohan Sy MD Notes/Report: 0 0 0 0 0 0 0 0 VITAMIN B12 187 324-0499 pg/mL FOLATE, SERUM 15.2 Low: <3.4 Reference Range Normal: >5.4 Borderline: 3.4-5.4 Reason For Referral Reason Next to be [facility] w [facility] psychiat[facility], patient also has bipolar disorder, personal of brain tumor removed Diagnosis 1 Schizophrenia (F20.9 ) Referral Organization [facility] Referring Provider First Name Nancy Referring Provider Last Name Nicola Referring Provider Speciality Family [facility] Referred Provider ROHIT THOMPSON Referred Provider Specialty Psychiatry Procedure 1 Office Visit, New Pt ., Level 4 (45 min) (87927) Procedure 2 EST. PT. 25 MIN. MOD ERATE (11939) General Notes Rojas Alonzo 0 08/03/2023 10:55:03 AM >This request was received via the referral queue, from PCP who is referring the patient to Psychiatry .This referral was created and processed for in house telemynd. Sent TE to FO to assist with scheduling patient., Rojas Alonzo 08/06/2023 03:39:13 PM >Blount WhiteLaly 08/06/2023 11:19:29 AM EDT > appt was schedule for 08/16/2023, Rojas Alonzo 08/29/2023 05:17:20 PM >per te pt wanted to see someone face to face, referral updated, Rojas Alonzo 08/29/2023 05:17:34 PM >Received referral via Brittany Connor , Referral was created and processed to the office. Once approved the referral will be faxed back to the specialist. Consult notes requested to be sent back to pcp., tasha, james 08/29/2023 17:19:01 PM>, Authorization is based on information provided; it is not a guarantee of payment. Billed services are subject to medical necessity, appropriate setting, billing/coding, plan limits, eligibility at time of service. Verify benefits online or call Customer Service., Rojas Alonzo 08/30/2023 02:20:00 PM >completed and faxed, Claudette Alonzo 08/30/2023 04:28:08 PM >A VOICEMAIL WAS LEFT AND A SMS TXT WAS SENT Clinical Notes Rojas Alonzo 0 08/29/2023 05:17:39 PM >Please fax all consult notes back to pcp at [facility] . If pt no shows or cancels please let us know. Referral Priority Routine Reason needs to be establis hed Diagnosis 1 Personal history of brain tumor, malignant (Z85.841) Referral Organization [facility] Referring Provider First Name Nancy Referring Provider Last Name Nicola Referring Provider Speciality [facility] Referred Provider VAZQUEZ MARISCAL Referred Provider Specialty Neurology Procedure 1 Office Visit, New Pt ., Level 4 (45 min) (42981) Procedure 2 EST. PT. 25 MIN. MOD ERATE (06618) General Notes Rojas Alonzo 0 08/03/2023 10:27:53 AM >Received referral via Brittany Connor , Referral was created and processed to the office. Once approved the referral will be faxed back to the specialist. Consult notes requested to be sent back to pcp., Rojas Alonzo 08/03/2023 10:28:47 AM >NEW PT NO IMAGING/LABS AVAILABLE, tasha, support 08/03/2023 10:55:40 AM>, Authorization is based on information provided; it is not a guarantee of payment. Billed services are subject to medical necessity, appropriate setting, billing/coding, plan limits, eligibility at time of service. Verify benefits online or call Customer Service., Rojas Alonzo 08/03/2023 01:53:24 PM >completed and faxed, Maggie Kruger 08/03/2023 02:51:13 PM >mailed to the pts address on file. Clinical Notes ClintonRojas 0 08/03/2023 10:27:45 AM >Please fax all consult notes back to pcp at [facility] . If pt no shows or cancels please let us know. Referral Priority Routine Reason patient's caregiver changed her mind and would like better home physical therapy twice a week for 4 weeks RN EVAL AND TREAT Diagnosis 1 Muscle weakness (M62 .81) Referral Organization [facility] Referring Provider First Name Nancy Referring Provider Last Name Nicola Referring Provider Speciality Family [facility] Referred Provider [facility], . Referred Provider Specialty Home Health General Notes Clinton Rojas 0 08/03/2023 10:26:28 AM >Received referral via Brittany Connor , Referral was created and processed to the office. Once approved the referral will be faxed back to the specialist. Consult notes requested to be sent back to pcp., REFERRAL COMPLETED AND FAXED TO JOHN AT , Maggie Kruger 08/03/2023 02:50:52 PM >mailed to the pts address on file.Garcia Makayla 08/22/2023 08:55:12 AM >PER PCP UPDATE REFERRAL TO BE FOR HOME HEALTH, I HAVE EMAILED THE ONE HOME REFERRAL FORM TO ASHLEY AT [facility] FOR THE PROVIDER TO SIGN. MRPGarcia Makayla 08/24/2023 03:17:03 PM >REFERRAL, OFFICE NOTES AND REFERRAL FORM HAVE BEEN UPLOADED INTO THE [facility] HOME PORTAL AND FAXED VIA DropcamW TO [facility] AT . MRP.Gregoria Franz 08/27/2023 11:19:16 AM >PER ONE HOME PORTAL PATIENT IS ASSIGNED TO [facility]. - P:[phone] Clinical Notes Rojas Alonzo 0 08/03/2023 10:26:32 AM >Please fax all consult notes back to pcp at [facility] . If pt no shows or cancels please let us know. Referral Priority Routine Reason acute bowel and urin e incontinence Diagnosis 1 Muscle weakness (M62 .81) Diagnosis 2 Urine incontinence ( R32) Diagnosis 3 Bowel incontinence ( R15.9) Referral Organization [facility] Referring Provider First Name Nancy Referring Provider Last Name Nicola Referring Provider Speciality [facility] Referred Provider VAZQUEZ MARISCAL Referred Provider Specialty Neurology Procedure 1 Office Visit, New Pt ., Level 4 (45 min) (92775) Procedure 2 EST. PT. 25 MIN. MOD ERATE (64254) General Notes Hilda Courtney 2023 11:37:06 AM >This URGENT request was received via Brittany Pabon, from Pcp who is referring the patient . This referral was created and processed,, Passado, support 09/12/2023 11:54:20 AM>, Authorization is based on information provided; it is not a guarantee of payment. Billed services are subject to medical necessity, appropriate setting, billing/coding, plan limits, eligibility at time of service. Verify benefits online or call Customer Service., Hilda Courtney 09/12/2023 11:55:48 AM >Referral has been authorized and faxed to specialist office. , Claudette Alonzo 09/12/2023 12:02:54 PM >PT WAS NOTIFIED AND A SMS TXT WAS SENT Clinical Notes Hilda Courtney 2023 11:36:59 AM >Please fax office notes. If patient cancels/misses appointment please notify our office. Thank you. Referral Priority Urgent Referral Appointment Date 09/20/2023 Reason diapers Diagnosis 1 Bowel incontinence ( R15.9) Diagnosis 2 Urine incontinence ( R32) Referral Organization [facility] Referring Provider First Name Nancy Referring Provider Last Name Jenae Referring Provider [facility] ctice Referred Provider Specialty [facility] General Notes Destiny Zelaya 08/20 03:46:41 PM >REFERRAL PLACED BY NANCY NICOLA IN THE [facility], HOWEVER THESE ARE ONLY COVERED IF THE PATIENT HAS A MEDICAID PLAN. I CALLED PATIENT TO SEE IF HE HAS MEDICAID WELL BUT HE DIDN'T ANSWER SO I LEFT HIM A VOICEMAIL EXPLAINING PROCESS. MRP, Destiny Zelaya 09/12/2023 03:50:53 PM >CALLED AGAIN SINCE REFERRAL IS URGENT, WAS ABLE TO SPEAK TO PATIENT AND INFORM HIM OF COVERAGE. HE DOES NOT HAVE A SECONDARY PLAN SO HE WILL GET ITEMS OTC HIS SELF. MRP. Referral Priority Urgent Reason Mri brain stem wo & wdye Ordered by: Dr. 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 REFERRAL HAS BEEN CREATED., [employer], support 10/02/2023 09:33:02 AM>, This case requires further review. You will be contacted if additional information is needed., Helen Lopez 10/02/2023 09:44:22 AM >REFERRAL HAS BEEN CREATED. HOWEVER, REFERRAL IS PENDING WITH PATIENTS INSURANCE. PLEASE ALLOW 0-14 BUSINESS DAYS FOR HP TO MAKE A FINAL DECISION. RECORDS HAVE BEEN FAXED TO [phone]. THANKS, Helen Lopez 10/09/2023 02:03:33 PM >Rcvd a message from Corin that [facility] MRI is OON. Rfeerral has been redirected to [facility]., Helen Lopez Danae 10/09/2023 04:08:13 PM >AUTHORIZATION HAS BEEN OBTAINED. A COPY OF THIS AUTH HAS BEEN FAXED TO SPECIALIST OFFICE . THANKS Clinical Notes Helen Lopez Malcom gamaliel 10/02/2023 09:31:24 AM >PLEASE FAX ALL NOTES TO [facility] AT [phone]. THANKS Referral Priority Routine Reason previous doctor is t o far away [facility] [employer] Address: [address] [place] [address], [address], [place] [address] Diagnosis 1 Schizophrenia (F20.9 ) Diagnosis 2 Bipolar disorder (F3 1.9) Referral Organization [facility] Referring Provider First Name Nancy Referring Provider Last Name Nicola Referring Provider [facility] Referred Provider Specialty Psychiatry Procedure 1 Office Visit, New Pt ., Level 4 (45 min) (28435) Procedure 2 EST. PT. 25 MIN. MOD ERATE (20578) General Notes Hilda Courtney 2023 03:21:59 PM >This URGENT request was received via Brittany Pabon, from Pcp who is referring the patient . This referral was created and processed,, Hilda Courtney 10/25/2023 03:24:05 PM >Referral has been authorized and faxed to specialist office. , Claudette Alonzo 10/25/2023 03:28:18 PM >PT WAS NOTIFIED A SMS TXT WAS SENT, Christel Gordon 10/26/2023 11:06:13 AM >PER PT HE WILL KEEP THE REFERRAL IS.THANKS, Christel Gordon 10/26/2023 11:06:49 AM >REFAXED.THANKS Clinical Notes Hilda Courtney 2023 03:21:53 PM >Please fax office notes. If patient cancels/misses appointment please notify our office. Thank you. 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 Referring Provider First Name Nancy Referring Provider Last Name Jenae Referring Provider [facility] Referred Provider VAZQUEZ MARISCAL Referred Provider Specialty Neurology Procedure 1 Eeg awake and drowsy (81830) General Notes Lui Lopezjim alston 11/15/2023 08:15:50 AM >RCVD A REFERRAL REQUEST IN THE INCOMING FAX QUE FOR PATIENT TO SEE SPECIALIST OFFICE. REFERRAL HAS BEEN CREATED., Passado, support 11/15/2023 08:17:40 AM>, Authorization is based on information provided; it is not a guarantee of payment. Billed services are subject to medical necessity, appropriate setting, billing/coding, plan limits, eligibility at time of service. Verify benefits online or call Customer Service., Helen Lopez Danae 11/15/2023 08:49:25 AM >AUTHORIZATION HAS BEEN OBTAINED. A COPY OF THIS AUTH HAS BEEN FAXED TO SPECIALIST OFFICE . THANKS Clinical Notes John Helen alston 11/15/2023 08:15:56 AM >PLEASE FAX ALL NOTES TO [facility] AT [phone]. 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 PT. 25 MIN. MOD ERATE (46867) Procedure 4 Office Visit, Est. P t., Level 5 (30804) General Notes John, Helen alston 01/16/2024 09:05:14 AM >RCVD A REFERRAL REQUEST IN THE INCOMING FAX QUE FOR PATIENT TO SEE SPECIALIST OFFICE. REFERRAL HAS BEEN CREATED., Passado, support 01/16/2024 09:07:00 AM>, Specialist Record not found., Lui Lopezjim Fink 01/16/2024 10:02:47 AM >AUTHORIZATION HAS BEEN OBTAINED. A COPY OF THIS AUTH HAS BEEN FAXED TO SPECIALIST OFFICE . THANKS Clinical Notes JohnHelenria 01/16/2024 09:05:19 AM >PLEASE FAX ALL NOTES TO [facility] AT [phone]. THANKS Referral Priority Routine Reason home rn PT eval and treat RN EVAL AND TREAT Diagnosis 1 Fall, initial encoun ter (W19.XXXA) Referral Organization [facility] Referring Provider First Name Nancy Referring Provider Last Name Nicola [facility]erred Provider [facility], . Referred Provider Specialty Home Health General Notes Destiny Zelaya 01/19 03:45:08 PM >HOME HEALTH REFERRAL PLACED BY NANCY KELLY IN THE [place], I HAVE EMAILED THE [facility] REFERRAL FORM TO WENDY AT [facility] FOR PCP TO SIGN. Tyrese AMIN Joe 02/07/2024 09:59:47 AM >REFERRAL, REFERRAL REQUEST, AND PROGRESS NOTE FAXED TO [facility]. JG Referral Priority Routine Reason OFFICE VISIT Diagnosis 1 Malignant neoplasm o f brain, unspecified (C71.9) Referral Organization [facility] Referring Provider First Name Nancy Referring Provider Last Name Jenae Referring Provider [facility] ctice Referred Provider VAZQUEZ MARISCAL Referred Provider Specialty Neurology Procedure 1 EST. PT. 25 MIN. MOD ERATE (80535) General Notes Lisa Webb 04/07/2024 02:11:59 PM >RECV'D A FAX REQUEST FROM [facility] FOR AN OV. CREATED A REFERRAL AND SENT FOR APPROVAL, Passado, support 04/07/2024 14:13:40 PM>, Authorization is based on information provided; it is not a guarantee of payment. Billed services are subject to medical necessity, appropriate setting, billing/coding, plan limits, eligibility at time of service. Verify benefits online or call Customer Service., Alton Webb 04/07/2024 03:06:16 PM >APPROVED AND FAXED TO [phone] Clinical Notes Lisa Webb 04/07/2024 02:12:15 PM >PLEASE FAX NOTES TO [facility], THANK YOU! Referral Priority Routine Medications Medication SIG (Take, Route, Frequency, Duration) Notes Start Date End Date Status QUEtiapine Fumarate 400 MG 1 tablet Oral ly at bedtime for 30 days Active Pantoprazole Sodium 40 MG 1 tablet Orall y Once a day for 90 days Active Vitamin D (Ergocalciferol) 1.25 MG (89605 UT) 1 capsule Orally weekly for 60 days 09/19/2023 Active Rosuvastatin Calcium 5 MG 1 tablet Orall y Once a day for 90 days Active Sertraline HCl 100 MG take 2 tablets Ora lly Once a day for 90 days Active Ketoconazole 2 % as directed External ly 3 times a week for 90 days 12/19/2024 Active SUMAtriptan Succinate 50 MG take 1 table t Orally 2-4 hours as needed for 90 days Active levETIRAcetam 1000 MG 1 tablet Orally tw ice a day for 30 days Active Vitamin B-2 100 MG 1 tablet Orally Once a day for 30 days Active Haloperidol 20 MG 1 tablet Orally at bedtime Active Immunizations Vaccine Route Administration Date Status Comme nts COVID-19 Vaccine Ziggy Unknown 10/05/2020 Administere d Influenza (Flucelvax Multi Dose), trivalent (ccIIV3), derived from cell cultures, subunit, antibiotic free, 0.5-mL dosage, for intramuscular use IM Intramuscular 10/30/2023 Administered Social History Tobacco Use: Social History Observation Description Date Details (start date - stop date) Former Smoker 07/20/2002 - 07/20/2012 Sexual History Question Answer Notes Had sex in the past 12 months (vaginal, oral, or anal)? No Have you ever had a Sexually transmitted disease ? No AUDIT-C (Standard) Question Answer Notes Did you have a drink containing alcohol in the p ast year? No Points 0 Interpretation Negative Tobacco Control (Standard) Question Answer Notes Tobacco use: Former smoker When did you start smoking? 07/20/2002 When did you stop smoking? 07/20/2012 How long has it been since y ou last smoked? Greater than 10 years Additional Findings: Tobacco user Light cigarett e smoker (1-9 cigs/day) Additional Findings: Tobacco non-user Current no nsmoker Problems Problem Type SNOMED Code ICD Code Onset Dates Problem Status W/U Status Risk Notes Problem Hyperlipidemia (38247049) Hyperlipidemia (E78.5) Active confirmed Problem Bipolar disorder (07340944) Bipolar disorder (F31.9) Active confirmed Problem Urinary incontinence (875896731) Urinary incontinence (R32) Active confirmed Problem Schizophrenia (52223909) Schizophrenia (F20.9) Active confirmed Problem Bowel incontinence (65892893) Bowel incontinence (R15.9) Active confirmed Problem Nephrolithiasis (18398444) Nephrolithiasis (N20.0) Active confirmed Problem Mild neurocognitive disorder (469452663) Mild neurocognitive disorder (G31.84) Active confirmed Problem Atherosclerosis of artery of left lower limb (disorder) (5998219277) Atherosclerosis of left leg (I70.202) Active confirmed Problem History of benign neoplasm of brain (028066186) History of benign brain tumor (Z86.011) Active confirmed Problem History of malignant neoplasm of brain (845611269) Personal history of brain tumor, malignant (Z85.841) Active confirmed Vital Signs Heart Rate 85 /min 11/13/2023 Jaime Wu 11/13/2023 02:47:12 PM EDT > Temperature 98.0 degrees Fahrenheit 11/13/2023 Hector Lugo 11/13/2023 02:47:12 PM EDT > Respiratory Rate 19 /min 11/13/2023 Jing Wu 11/13/2023 02:47:12 PM EDT > Oximetry 99 % 11/13/2023 Jaime Wu 11/13/2023 02:47:12 PM EDT > Blood pressure diastolic 71 mm Hg 11/13/2023 Hector Nieves 11/13/2023 02:47:12 PM EDT > Height 71 inches 11/13/2023 Jaime Wu 11/13/2023 02:47:12 PM EDT > Blood pressure systolic 105 mm Hg 11/13/2023 Hector Lugo 11/13/2023 02:47:12 PM EDT > Weight 178.0 lbs 11/13/2023 Jaime Wu 11/13/2023 02:47:12 PM EDT > BMI 24.82 kg/m2 11/13/2023 Jaime Wu 11/13/2023 02:47:12 PM EDT > Encounters Encounter Location Date Provider Diagnosis [address] [address] 11/13/2023 Nancy Kelly Encounter for screen ing for cardiovascular disorders Z13.6 ; Atherosclerosis of left leg I70.202 ; Advance directive discussed with patient Z71.89 ; Alcohol screening Z13.39 ; Depression screening Z13.31 ; Diabetes mellitus screening Z13.1 ; Encounter for risk and functional assessment Z13.9 ; Mild neurocognitive disorder G31.84 ; Screening for diabetes mellitus Z13.1 ; Unspecified convulsions R56.9 ; Special screening for intellectual disabilities Z13.39 ; History of benign brain tumor Z86.011 ; Vitamin D deficiency M85.80 ; Encounter for vitamin deficiency screening Z13.21 ; Screening for cholesterol level Z13.220 ; Screening for endocrine disorder Z13.29 and Hyperlipidemia E78.[address] [address] 09/19/2023 Nancy Kelly Hyperlipidemia E78.5 ; Vitamin D deficiency M85.80 ; Microscopic hematuria R31.29 ; Bowel incontinence R15.9 ; Urinary incontinence R32 ; Weight loss R63.4 ; Schizophrenia F20.9 ; Bipolar disorder F31.9 and Cognitive impairment R41.[address] [address] 08/02/2023 Nancy Kelly Schizophrenia F20.9 ; Bipolar disorder F31.9 ; Cognitive impairment R41.89 ; Anhedonia R45.84 ; Personal history of brain tumor, malignant Z85.841 ; Nephrolithiasis N20.0 ; BMI 24.0-24.9, adult Z68.24 and Muscle weakness M62.[address] [address] 10/30/2023 Nancy Kelly Encounter for immunization Z23 [facility] [address] [place] [address] 08/03/2023 Nancy Kelly [address] [address] 08/06/2023 Nancy Kelly [facility] [address] [place] [address] 08/21/2023 Nancy Nicola [facility] [address] [place] [phone] 08/22/2023 Nancy Kelly [facility] [address] [place] [phone] 09/12/2023 Nancy Kelly [facility] [address] [place] [phone] 10/15/2023 Nancy Kelly [facility] [address] [place] [phone] 02/11/2024 Nancy Kelly [facility] [address] [place] [phone] 02/14/2024 Nancy Kelly [facility] [address] [place] [phone] 02/14/2024 Nancy Kelly [facility] [address] [place] [phone] 02/15/2024 Nancy Kelly [facility] [address] [place] [phone] 10/25/2023 Nancy Kelly [facility] [address] [place] [phone] 12/25/2023 Nancy Kelly Hyperlipidemia E78.5 [facility] [address] [place] [phone] 01/01/2024 Nancy Kelly Vitamin D deficiency M85.80 [facility] [address] [place] [phone] 01/24/2024 Nancy Kelly Vitamin D deficiency M85.80 [facility] [address] [place] [phone] 02/04/2024 Nancy Kelly [facility] [address] [place] [phone] 02/04/2024 Nancy Nicola Assessments Encounter Date Diagnosis (ICD Code) Assessment Notes Treatment Notes Treatment Clinical Notes 08/02/2023 Schizophrenia (ICD-10 - F20.9) refill medications for 1 month Referral to psychiatrist August 02, 2023. 08/02/2023 Bipolar disorder (ICD-10 - F31.9) refill medications for 1 month Referral to psychiatrist August 02, 2023. 09/19/2023 Hyperlipidemia (ICD-10 - E78.5) LDL 116 August 02, 2023 Start rosuvastatin 5 mg daily September 19, 2023. 09/19/2023 Vitamin D deficiency (ICD-10 - M85.80) vitamin D level 21 August 02, 2023 Start ergocalciferol 50,000 units weekly for 8 weeks , after finishing start vitamin D 2000 units daily 10/30/2023 Encounter for immunization (ICD-10 - Z23) 11/13/2023 Encounter for screening for cardiovascular disorders (ICD-10 - Z13.6) Quanta reggie mild left foot normal right foot November 13, 2023. 11/13/2023 Atherosclerosis of left leg (ICD-10 - I70.202) Quanta reggie left foot mild, right foot normal November 13, 2023. Continue rosuvastatin 12/25/2023 Hyperlipidemia (ICD-10 - E78.5) 01/01/2024 Vitamin D deficiency (ICD-10 - M85.80) 01/24/2024 Vitamin D deficiency (ICD-10 - M85.80) 11/13/2023 Advance directive discussed with patient (ICD-10 - Z71.89) Advance directives discussed with patient November 13, 2023.FULL CODE- Dr Kelly.Package given November 13, 2023. 09/19/2023 Microscopic hematuria (ICD-10 - R31.29) microscopic hematuria on blood work August 02, 2023 Continue observation urinalysis in the office today September 19, 2023.normal 08/02/2023 Cognitive impairment (ICD-10 - R41.89) continue observation 08/02/2023 Anhedonia (ICD-10 - R45.84) referral to psychiatrist August 02, 2023. 09/19/2023 Bowel incontinence (ICD-10 - R15.9) patient is using diapers Neurologist appointment tomorrow September 20, 2023 11/13/2023 Alcohol screening (ICD-10 - Z13.39) Patient does not drink alcohol Screening for alcoholism: Audit C negative November 13, 2023.CAGE question negative November 13, 2023. 11/13/2023 Depression screening (ICD-10 - Z13.31) Depression test done 0 November 13, 2023.Patient denies suicidal or homicidal ideationPsychotherapy offered in cases needed. 09/19/2023 Urinary incontinence (ICD-10 - R32) patient is using diapers Neurologist appointment tomorrow September 20, 2023 08/02/2023 Personal history of brain tumor, malignant (ICD-10 - Z85.841) referral to neurologist August 02, 2023. Order brain MRI 08/02/2023 Nephrolithiasis (ICD-10 - N20.0) blood work today August 02, 2023. Eventually referral to urologist 09/19/2023 Weight loss (ICD-10 - R63.4) patient lost 7 pounds since last visit Increase protein intake Encourage his aunt to elementary instructional coach patient to eat 11/13/2023 Diabetes mellitus screening (ICD-10 - Z13.1) 11/13/2023 Encounter for risk and functional assessment (ICD-10 - Z13.9) TUG test 10 seconds , November 13, 2023.Falls prevention discussed Device Assistance was offered. Fall prevention Discussed including but not limited to: *Avoid lifting heavy objects; always ask for assistance *Avoid reaching overhead to remove heavy objects from shelves *AVOID wet floors *Always ensure adequate lighting *Always ensure rugs are lying flat on floors without upturned edges.* Always watch for obstacles in the path when walking outdoors. *Install GRAB bars in Bathrooms. 09/19/2023 Schizophrenia (ICD-10 - F20.9) patient needs to get refill medications from psychiatrist Patient missed appointment from yesterday September 18, 2023 aunt recommended to her patient to reschedule appointment 08/02/2023 BMI 24.0-24.9, adult (ICD-10 - Z68.24) BMI 24, August 02, 2023. Diet and exercise recommendations 08/02/2023 Muscle weakness (ICD-10 - M62.81) referral for physical therapy August 02, 2023. 11/13/2023 Mild neurocognitive disorder (ICD-10 - G31.84) secondary to brain tumor surgery 2 times on 201211/13/2023 Screening for diabetes mellitus (ICD-10 - Z13.1) lab orders 09/19/2023 Bipolar disorder (ICD-10 - F31.9) patient needs to get refill medications from psychiatrist Patient missed appointment from yesterday September 18, 2023 aunt recommended to her patient to reschedule appointment 09/19/2023 Cognitive impairment (ICD-10 - R41.89) patient needs to get refill medications from psychiatrist Patient missed appointment from yesterday September 18, 2023 aunt recommended to her patient to reschedule appointment 11/13/2023 Unspecified convulsions (ICD-10 - R56.9) patient had brain MRI October 31, 2023: Postsurgical changes in the left frontal lobe adjacent T2 flair hyperintensity may be treatment related, although there is mild patchy encasement within the left frontal lobe which could represent residual or recurrent disease. Recommend short-term follow-up imaging to evaluate progression. neurology's note September 20, 2023 Dr. Baldwin: Patient with increased confusion and slow movements behavior changes for 3-4 months patient had a craniotomy in 2012 and 2013 when a brain tumor was removed according to patient's aunt he did have similar symptoms then the patient had 1 grand mal seizure in 2013 and was put on Keppra 1000 mg twice a day no seizures since. Order MRI EEG continue medications follow-up in 3 months or before if symptoms worsens follow-up December 2023 11/13/2023 Special screening for intellectual disabilities (ICD-10 - Z13.39) Mini- Cog 5 November 13, 2023.Memory Exercises, reading, painting, intellectual activities recommended. Increase walking and other forms of exercise . Healthy diet, preferably Mediterranean; prefer foods with low glycemic index; No gluten and processed foods from diet, increase intake of vegetables, fruits and non-farmed fish. Can eat organic chicken and grass-fed beef. Maintain mental activity, play games, read, crosswords . Decrease mental stress with relaxation and meditation; Listen to music, especially light or classical. Socialization is important. 11/13/2023 History of benign brain tumor (ICD-10 - Z86.011) craniotomy 2012 and 2017 First 2 surgeries were done in [place] neurologist ordered 2 different MRIs and EEG Patient is to follow-up after these results with neurologist Dr. Baldwin 11/13/2023 Vitamin D deficiency (ICD-10 - M85.80) vitamin D level August 02, 2023 refill ergocalciferol 50,000 units weekly for 8 weeks , after finishing start vitamin D 2000 units daily November 13, 2023. Repeat vitamin D level February 2024 11/13/2023 Encounter for vitamin deficiency screening (ICD-10 - Z13.21) 11/13/2023 Screening for cholesterol level (ICD-10 - Z13.220) 11/13/2023 Screening for endocrine disorder (ICD-10 - Z13.29) 11/13/2023 Hyperlipidemia (ICD-10 - E78.5) LDL 116 August 02, 2023 Start rosuvastatin 5 mg daily September 19, 2023. repeat lipid panel February 2024 08/02/2023 Other 40 minutes wer e spent with the patient reviewing his history, performingthe exam, and establishing a treatment plan. 09/19/2023 Other 25 minutes wer e spent with the patient reviewing his history, performingthe exam, and establishing a treatment plan. 11/13/2023 Other 40 minutes wer e spent with the patient reviewing his history, performingthe exam, and establishing a treatment plan. Plan Of Treatment Future Test Test Name Order Date LIPID PANEL 03/14/2024 COMPREHENSIVE METABOLIC PANEL 03/14/2024 CBC (INCLUDES DIFF/PLT) 03/14/2024 HEMOGLOBIN A1c 03/14/2024 VITAMIN B12/FOLATE, SERUM PANEL 03/14/19 25 TSH 03/14/2024 VITAMIN D,25-OH,TOTAL,IA 03/14/2024 Insurance Providers Payer Name Payer Address Payer Phone Subscriber Number Group Number Insured Name Patient Relationship to Insured Coverage Start Date Coverage End Date [employer] RISK CAP MCR ADV HMO [address] [address] [place] [phone] [id number] DOT TIMMONS Self - patient is the insured 4 Medical (General) History Surgical History Surgery Date(Month/Year) brain tumor removed 2013 brain tumor removed 2017
--- OUTSIDE RECORDS SUMMARY | 2024-06-19 17:13 | XMS_ITS ---
Author Organization [facility] [employer] [facility] Address [address] [place] [address] Care Team Providers Care Residential Appraiser Name Role Phone Romy Petersen MD Primary Care Provider REASON FOR VISIT TCM FOLLOW UP Encounters Encounter Location Date Provider Diagnosis [facility] [id number] [place] [phone] 02/15/2024 Romy Petersen Plan Of Treatment No Information Progress Notes * DOT TIMMONS ADOB: [birth year] (38 yo M)Acc No.[id number]:02/15/2024 Patient:?DOT TIMMONS :1985???Age:38 Y???Sex:Male Address:[address], [place] [address] * true * Date:? Generated for Bere barragan/Linnea/eTransmitting on:?06/19/2024 05:12 PM EDT
--- OUTSIDE RECORDS SUMMARY | 2024-06-19 17:13 | XMS_ITS ---
Author Organization [facility] [employer] [facility] Address [address] [place] [address] Care Team Providers Care Professor Of Industrial Technology Name Role Phone Romy Petersen MD Primary Care Provider [phone] REASON FOR VISIT *Evaluation and Management of Chronic Medical Conditions Encounters Encounter Location Date Provider Diagnosis [address] [address] 03/19/2024 Romy Petersen Plan Of Treatment No Information Progress Notes * DOT TIMMONS ADOB: [birth year] (39 yo M)Acc No.[id number]:03/19/2024 Patient:?DOT TIMMONS Provider:?Romy Petersen MD :1985???Age:38 Y???Sex:Male Cesar e:03/19/2024 Address:[address] [place] [address] [address], [phone] Subjective: * Chief Complaints: * ???1. *Evaluation and Manage ment of Chronic Medical Conditions. * HPI: ???COA-Care of Older Adults:?Skin Assessment?Do you have any active skin bruising, bleeding, lesions or open wounds or sores??. ?Do you take Corticosteroids, any blood thinner or excessive sun exposure??. ?Pain Assessment/Controlled Substance Prescribing?Are you currently experiencing pain of any kind?Are you currently under pain management?COPD:?COPD Questionnaire?During the past 4 weeks, how much of the time did you feel short of breath?Do you ever cough up any stuff, such as mucus or phlegm?Please select the answer that best describes you in the past 12 months, I do less than I used to because of my breathing problems.?Do you currently smoke or have smoked in the past?On an average how many cigarettes did you smoke per day?Have you smoked at least 100 cigarettes in your ENTIRE LIFE?How old are you?Total Score? * Medical History:? Objective: * Vitals:? Assessment: Plan: * Treatment: * Preventive Medicine:? ??EDAPS:?PAD Screening:?Last Done:?. ?Next Due:?. ?Echo:?Last Done:?. ?Next Due:?. ?PTH:?Last Done:?. ?Next Due:?. ??HEDIS:?Diabetic Eye Care?Last Done:?. ?Next Due:?. ?Micro Albumin/Creatinine Ratio?Result:?. ?Last Done:?. ?Next Due:?. ?Hemoglobin A1c?Result:?. ?Last Done:?. ?Next Due:?. * * Electronic signature of Gali Petersen MD, MD on 06/19/2024 at 05:12 PM EDT Sign off status: Pending * Provider:?Romy Petersen MD Date:? 5 Generated for Bere barragan/Linnea/eTransmitting on:?06/19/2024 05:12 PM EDT History and Physical Notes * HPI (History of Present Illness) Category Sub-Category Detail Notes COPD COPD Questionnaire During the pa st 4 weeks, how much of the [...]
--- OUTSIDE RECORDS SUMMARY | 2024-06-19 17:13 | XMS_ITS | Encounter Summary ---
Author Organization [email or web address] Address [address] [place] [address] Care Team Providers Care Cnc Operator Programmer Name Role Phone Unavailable Primary Care Provider Unavailabl e Encounter Details Date Type Department Care Team (Latest Contact Info) Description 09/24/2018 Abstract [facility] CONVERSIONS Dental, Provider, DDS Social History Tobacco Use Types Packs/Day Years Used Date Smoking Tobacco: Never Assessed Sex and Gender Information Value Date Recorded Sex Assigned at Male 12/19/2021 10:17 AM EDT Legal Sex Male 10:17 AM EDT Gender Identity Male 06/19/2024 1:09 PM EDT Sexual Orientation Straight 06/19/2024 1: 09 PM EDT documented as of this encounter Plan of Treatment Upcoming Encounters Date Type Department Care Team (Late st Contact Info) Description 08/06/2024 1:30 PM EDT Office Visit [facility] [address] [place] [address] Evan York DDS [address] [place] [address] documented as of this encounter Visit Diagnoses Not on filedocumented in this encounter
== END 2024-06-19 15:26 | disposition home or self-care (01) ==
LOC: HO.US 15:25
PROVIDERS: PCP Internal Medicine; Visit Provider Urology
DX: N20.0 Calculus of kidney (principal)
CPT/HCPCS: 76775

== ENCOUNTER → 2024-06-19 15:27 | Outpatient (BNV) | payer MEDICARE, SELFPAY | PROVIDERS: PCP Internal Medicine; Visit Provider Radiology Diagnostic Radiology | DX: N28.1 Cyst of kidney, acquired (principal) | CPT/HCPCS: 76775 ==

== ENCOUNTER 2024-06-27 14:05 | Outpatient (AMB) | payer MEDICARE, SELFPAY ==
--- OUTSIDE RECORDS SUMMARY | 2024-06-27 14:07 | XMS_ITS ---
Author Organization [facility] [employer] [facility] Address [address] [place] [address] Care Team Providers Care Farm Hand Name Role Phone Romy Petersen MD Primary Care Provider REASON FOR VISIT *Evaluation and Management of Chronic Medical Conditions Encounters Encounter Location Date Provider Diagnosis [address] [address] 03/19/2024 Romy Petersen Plan Of Treatment No Information Progress Notes * DOT TIMMONS ADOB: [birth year] (39 yo M)Acc No.[id number]:03/19/2024 Patient:?DOT TIMMONS Provider:?Romy Petersen MD :1985???Age:38 Y???Sex:Male Cesar e:03/19/2024 Address:[address] [place] [address] [address], [facility] Subjective: * Chief Complaints: * ???1. *Evaluation [...] signature of Gali Petersen MD, MD on 06/27/2024 at 02:07 PM EDT Sign off status: Pending * Provider:?Romy Petersen MD Date:? 5 Generated for Bere barragan/Linnea/eTransmitting on:?06/27/2024 02:07 PM EDT History and Physical Notes * [...]
--- OUTSIDE RECORDS SUMMARY | 2024-06-27 14:07 | XMS_ITS ---
Author Organization [facility] [employer] [facility] Address [address] [place] [address] Care Team Providers Care Party Plan Sales Host/Hostess Name Role Phone Romy Petersen MD Primary Care Provider [phone] REASON FOR VISIT TCM FOLLOW UP Encounters Encounter Location Date Provider Diagnosis [facility] [address] [place] [phone] 02/15/2024 Romy Petersen Plan Of Treatment No Information Progress Notes * DOT TIMMONS ADOB: [birth year] (38 yo M)Acc No.[id number]:02/15/2024 Patient:?DOT TIMMONS :1985???Age:38 Y???Sex:Male Address:[address], [place] [address] * true * Date:? Generated for Bere barragan/Linnea/eTransmitting on:?06/27/2024 02:07 PM EDT
--- OUTSIDE RECORDS SUMMARY | 2024-06-27 14:07 | XMS_ITS ---
Author Organization [facility] [employer] [facility] Address [address] [place] [address] Care Team Providers Care Lead Fire Protection Engineer Name Role Phone Romy Petersen MD Primary Care Provider REASON FOR VISIT fasting labs Encounters Encounter Location Date Provider Diagnosis [address] [address] 03/12/2024 Romy Petersen Plan Of Treatment No Information Progress Notes * IAINDOT ADOB: [birth year] (39 yo M)Acc No.[id number]:03/12/2024 Progress Notes Patient:?DOT TIMMONS Provider:?Romy Petersen MD :1985???Age:38 Y???Sex:Male Cesar e:03/12/2024 Address:[address] [place] [address] [address], [phone] Subjective: * Chief Complaints: * ???1. Fasting labs. * Medical History:? Objective: * Vitals:? Assessment: Plan: * Treatment: * * Electronic signature of Gali Petersen MD, MD on 06/27/2024 at 02:07 PM EDT Sign off status: Pending * Provider:?Romy Petersen MD Date:? Generated for Bere barragan/Linnea/eTransmitting on:?06/27/2024 02:07 PM EDT
--- OUTSIDE RECORDS SUMMARY | 2024-06-27 14:07 | XMS_ITS | Clinical Summary ---
Author Organization [employer] Address [address] [facility] [address] [place] [address] Care Team Providers Care X [employer] Electronics Wiring Technician Name Role Phone Unavailable Primary Care Provider [...] Description 08/06/2024 1:30 PM EDT Office Visit [facility] [address] [place] [address] Evan York DDS [address] [place] [address] Health Maintenance Due Date Last Done Comments [...] to complete this topic Insurance [employer]NA MEDICARE [place] [id number] DENTAL - [employer] DENTAL
--- OUTSIDE RECORDS SUMMARY | 2024-06-27 14:08 | XMS_ITS | Patient Health Record ---
Author Organization [employer] [facility] [address] [facility] Address 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 Name Role Phone Nancy Kelly MD Primary Care Provider [phone] Allergies No Known Allergies Results Component Value [...] Glucose Neg Bilirubin Neg Ketones Neg Specific [place] 1.030 Blood Neg pH 6.0 Protein +- Urobilinogen - Nitrite - Leukocytes - COMPREHENSIVE METABOLIC PANE L Reviewed date:08/03/2023 10:24:51 AM Interpretation: Performing Lab:, [facility]-[id number] E Nayeli Bean, [id number] Mohan Sy MD Notes/Report: 0 0 0 [...] Reviewed date:08/03/2023 10:24:51 AM Interpretation: Performing Lab:[facility], [facility]-[id number] Nelson Bean [id number] Mohan Sy MD Notes/Report: 0 0 0 0 0 0 0 0 TSH 1.74 0.40-4.50 mIU/L CBC (INCLUDES DIFF/PLT) Reviewed date:08/03/2023 10:24:51 AM Interpretation: Performing Lab:[facility]-[id number] Nelson Bean [id number] Mohan Sy MD Notes/Report: 0 0 0 0 0 0 0 0 WHITE BLOOD CELL COUNT 6.2 3.8-10.8 Thousand/ uL RED BLOOD CELL COUNT 5.02 4.20-5.80 Million/uL HEMOGLOBIN 15.5 13.2-17.1 g/dL HEMATOCRIT 46.3 38.5-50.0 % MCV 92.2 80.0-100.0 fL MCH 30.9 27.0-33.0 pg MCHC 33.5 32.0-36.0 g/dL RDW 12.9 11.0-15.0 % PLATELET COUNT 267 140-400 Thousand/uL MPV 9.5 7.5-12.5 fL ABSOLUTE NEUTROPHILS 3410 8371-5663 cells/uL ABSOLUTE LYMPHOCYTES 2058 850-3900 cells/uL ABSOLUTE MONOCYTES 409 200-950 cells/uL ABSOLUTE EOSINOPHILS 260 15-500 cells/uL ABSOLUTE BASOPHILS 62 0-200 cells/uL NEUTROPHILS 55 LYMPHOCYTES 33.2 MONOCYTES 6.6 EOSINOPHILS 4.2 BASOPHILS 1.0 LIPID PANEL Reviewed date:08/03/2023 10:24:51 AM Interpretation: Performing Lab:[facility] Ri[id number] Nelson Bean [id number] Mohan Sy MD Notes/Report: 0 0 0 0 0 0 0 0 CHOLESTEROL, TOTAL 205 <200 mg/dL HDL CHOLESTEROL 64 > OR = 40 mg/dL TRIGLYCERIDES 133 <150 mg/dL LDL-CHOLESTEROL 116 (http://education.dentalDoctors/faq/FAQ 164) Reference range: <100 estimation of LDL-C. better accuracy than the Friedewald equation in the with > or = 2 CHD risk factors. Arthur SS et al. ABDIRIZAK. 2013;310(19): 9590-9809 Desirable range <100 mg/dL for primary prevention; LDL-C is now calculated using the [facility] <70 mg/dL for patients with CHD [...] Reviewed date:08/03/2023 10:24:51 AM Interpretation: Performing Lab:[facility]-[id number] Nelson Bean, [id number] Mohan Sy MD Notes/Report: 0 0 0 0 0 0 0 0 VITAMIN D,25-OH,TOTAL,IA 21 30-100 ng/mL Vitamin D Status 25-OH Vitamin D: See Note 1 Insufficiency: 20 - 29 ng/mL 25-OH VIT D, (D2,D3), LC/MS/MS is recommended: order Optimal: > or = 30 ng/mL of D2 and D3 fractions is required, the QuestZa[employer] PharmaceuticalsureD(TM) http://education.SnapSense/faq/FAQ1 99 For 25-OH Vitamin D [place] [address] (patients >2yrs). For additional information, please refer to Note 1 Deficiency: <20 ng/mL educational purposes only.) D2-supplementation and patients for whom quantitation (This link is being provided for informational/ URINALYSIS, COMPLETE Reviewed date:08/03/2023 10:24:51 AM Interpretation: Performing Lab:[facility]-[id number] Nelson Bean, [id number] Mohan Sy MD Notes/Report: 0 0 0 [...] Reviewed date:08/03/2023 10:24:51 AM Interpretation: Performing Lab:[facility] RightAnswersAntonioJatms8108 Nelson Bean [id number] Mohan Sy MD Notes/Report: 0 0 0 0 0 0 0 0 IRON, TOTAL 139 50-180 mcg/dL IRON BINDING CAPACITY 333 250-425 mcg/dL (sy c) % SATURATION 42 20-48 % (calc) FERRITIN 54 38-380 ng/mL VITAMIN B12/FOLATE, SERUM PA ELDON Reviewed date:08/03/2023 10:24:51 AM Interpretation: Performing Lab:[facility] RightAnswersAntonioLpwdc3692 Nelson Bean [id number] Mohan Sy MD Notes/Report: 0 0 0 0 0 0 0 0 VITAMIN B12 581 191-0114 pg/mL FOLATE, SERUM 15.2 Low: <3.4 Reference Range Normal: >5.4 Borderline: 3.4-5.4 Reason For Referral Reason Next to be started w [facility], patient also has bipolar disorder, personal of brain tumor removed Diagnosis 1 Schizophrenia (F20.9 ) Referral Organization [facility] GOVIND SONIA Referring Provider First Name Nancy Referring Provider Last Name Nicola Referring Provider Speciality Family [facility] Referred Provider ROHIT THOMPSON Referred Provider Specialty Psychiatry Procedure 1 Office Visit, New Pt ., Level 4 (45 min) (08531) Procedure 2 EST. PT. 25 MIN. MOD ERATE (23154) General Notes Rojas Alonzo 0 08/03/2023 10:55:03 [...] all consult notes back to pcp at Pending [facility] . If pt no shows or cancels please let us know. Referral Priority Routine Reason needs to be establis hed Diagnosis 1 Personal history of brain tumor, malignant (Z85.841) Referral Organization [facility] Referring Provider First Name Nancy Referring Provider Last Name Nicola Referring Provider [facility] Referred Provider VAZQUEZ MARISCAL Referred Provider Specialty Neurology Procedure 1 Office Visit, New Pt ., Level 4 (45 min) (95834) Procedure 2 EST. PT. 25 MIN. MOD ERATE (62014) General Notes Rojas Alonzo 0 08/03/2023 10:27:53 [...] all consult notes back to pcp at Pending [facility] . If pt no shows or cancels please let us know. Referral Priority Routine Reason patient's caregiver changed her mind and would like better home physical therapy twice a week for 4 weeks RN EVAL AND TREAT Diagnosis 1 Muscle weakness (M62 .81) Referral Organization [facility] Referring Provider First Name Nancy Referring Provider Last Name Nicola Referring Provider Speciality Family [facility] Referred Provider [facility], . Referred Provider Specialty Home Health General [...] ONE HOME REFERRAL FORM TO ASHLEY AT [facility] FOR THE PROVIDER TO SIGN. MRPGarcia Makayla 08/24/2023 03:17:03 PM >REFERRAL, OFFICE NOTES AND REFERRAL FORM HAVE BEEN UPLOADED INTO THE [facility] HOME PORTAL AND FAXED VIA [employer] TO [facility] AT . MRP.Gregoria Franz 08/27/2023 11:19:16 AM >PER ONE HOME PORTAL PATIENT IS ASSIGNED TO [facility]. - P:[phone] Clinical Notes Rojas Alonzo 0 08/03/2023 10:26:32 AM >Please fax all consult notes back to pcp at Pending [facility] . If pt no shows or cancels please let us know. Referral Priority Routine Reason acute bowel and urin e incontinence Diagnosis 1 Muscle weakness (M62 .81) Diagnosis 2 Urine incontinence ( R32) Diagnosis 3 Bowel incontinence ( R15.9) Referral Organization [facility] Referring Provider First Name Nancy Referring Provider Last Name Nicola Referring Provider Speciality [facility] Referred Provider VAZQUEZ MARISCAL Referred Provider Specialty Neurology Procedure 1 Office Visit, New Pt ., Level 4 (45 min) (27492) Procedure 2 EST. PT. 25 MIN. MOD ERATE (35684) General Notes Hilda Courtney 2023 11:37:06 AM >This URGENT request was received via [facility]any [facility], from Pcp who is referring the patient . This referral was created and processed,, [employer], support 09/12/2023 11:54:20 AM>, Authorization is based [...] 2 Urine incontinence ( R32) Referral Organization [facility] Referring Provider First Name Nancy Referring Provider Last Name Jenae Referring Provider [facility] ctice Referred Provider Specialty [facility] General Notes Destiny Zelaya 08/20 03:46:41 PM >REFERRAL PLACED BY NANCY NICOLA IN THE [facility], HOWEVER THESE ARE [...] wo & wdye Ordered by: Dr. 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 REFERRAL HAS BEEN CREATED., [employer], support 10/02/2023 09:33:02 AM>, This case requires further review. You will be contacted if additional information is needed., Helen Lopez 10/02/2023 09:44:22 AM >REFERRAL HAS BEEN CREATED. HOWEVER, REFERRAL IS PENDING WITH PATIENTS INSURANCE. PLEASE ALLOW 0-14 BUSINESS DAYS FOR HP TO MAKE A FINAL DECISION. RECORDS HAVE BEEN FAXED TO [phone]. THANKS, Helen Lopez 10/09/2023 02:03:33 PM >Rcvd a message from Corin that [facility] MRI is OON. Rfeerral has been redirected to [facility]., Helen Lopez Danae 10/09/2023 04:08:13 PM >AUTHORIZATION HAS BEEN OBTAINED. A COPY OF THIS AUTH HAS BEEN FAXED TO SPECIALIST OFFICE . THANKS Clinical Notes Helen Lopez Malcom gamaliel 10/02/2023 09:31:24 AM >PLEASE FAX ALL NOTES TO [facility] AT [phone]. THANKS Referral Priority Routine Reason previous doctor is t o far away [facility] [employer] Address: [address] [place] [address], [address], [place] [address] Diagnosis 1 Schizophrenia (F20.9 ) Diagnosis 2 Bipolar disorder (F3 1.9) Referral Organization [facility] Referring Provider First Name Nancy Referring Provider Last Name Nicola Referring Provider [facility] Referred Provider Specialty Psychiatry Procedure 1 Office Visit, New Pt ., Level 4 (45 min) (94913) Procedure 2 EST. PT. 25 MIN. 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 Referred Provider VAZQUEZ MARISCAL Referred Provider Specialty Neurology Procedure 1 Eeg awake and drowsy (53969) General Notes Lui Lopezjim alston 11/15/2023 08:15:50 AM >RCVD A REFERRAL REQUEST IN THE INCOMING FAX QUE FOR PATIENT TO SEE SPECIALIST OFFICE. REFERRAL HAS BEEN CREATED., [employer], support 11/15/2023 08:17:40 AM>, Authorization is based [...] 08:15:56 AM >PLEASE FAX ALL NOTES TO [facility] AT [phone]. 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 Referred Provider GALINA COSBY Referred Provider Specialty Neurological Surgery Procedure 1 Office Visit, New Pt ., Level 4 (45 min) (90559) Procedure 2 Office Visit, New Pt ., Level 5 (04813) Procedure 3 EST. PT. 25 MIN. MOD ERATE (84009) Procedure 4 Office Visit, Est. P t., Level 5 (31378) General Notes John, Helen alston 01/16/2024 09:05:14 AM >RCVD A REFERRAL REQUEST IN THE INCOMING FAX QUE FOR PATIENT TO SEE SPECIALIST OFFICE. REFERRAL HAS BEEN CREATED., [employer], support 01/16/2024 09:07:00 AM>, Specialist Record not found., Lui Lopezjim Fink 01/16/2024 10:02:47 AM >AUTHORIZATION HAS BEEN OBTAINED. A COPY OF THIS AUTH HAS BEEN FAXED TO SPECIALIST OFFICE . THANKS Clinical Notes JohnHelenria 01/16/2024 09:05:19 AM >PLEASE FAX ALL NOTES TO [facility] AT [phone]. THANKS Referral Priority Routine Reason home rn PT eval and treat RN EVAL AND TREAT Diagnosis 1 Fall, initial encoun ter (W19.XXXA) Referral Organization [facility] Referring Provider First Name Nancy Referring Provider Last Name Nicola [facility], . Referred Provider Specialty Home Health General Notes Destiny Zelaya 01/19 03:45:08 PM >HOME HEALTH REFERRAL PLACED BY NANCY KELLY IN THE [facility], I HAVE EMAILED THE [facility] REFERRAL FORM TO WENDY AT [facility] FOR PCP TO SIGN. Tyrese AMIN Joe 02/07/2024 09:59:47 AM >REFERRAL, REFERRAL REQUEST, AND PROGRESS NOTE FAXED TO [facility]. JG Referral Priority Routine Reason OFFICE VISIT Diagnosis 1 Malignant neoplasm o f brain, unspecified (C71.9) Referral Organization [facility] Referring Provider First Name Nancy Referring Provider Last Name Jenae Referring Provider [facility] ctice Referred Provider VAZQUEZ MARISCAL Referred Provider Specialty Neurology Procedure 1 EST. PT. 25 MIN. MOD ERATE (80004) General Notes Lisa Webb 04/07/2024 02:11:59 PM >RECV'D A FAX REQUEST FROM [facility] FOR AN OV. CREATED A REFERRAL AND SENT FOR APPROVAL, [employer], support 04/07/2024 14:13:40 PM>, Authorization is based on information provided; it is not a guarantee of payment. Billed services are subject to medical necessity, appropriate setting, billing/coding, plan limits, eligibility at time of service. Verify benefits online or call Customer Service., Alton Webb 04/07/2024 03:06:16 PM >APPROVED AND FAXED TO [phone] Clinical Notes Lisa Webb 04/07/2024 02:12:15 PM >PLEASE FAX NOTES TO [facility], THANK YOU! Referral Priority Routine Medications Medication SIG (Take, Route, Frequency, Duration) Notes Start Date End Date Status QUEtiapine Fumarate 400 MG 1 tablet Oral ly at bedtime for 30 days Active Pantoprazole Sodium 40 MG 1 tablet Orall y Once a day for 90 days Active Vitamin D (Ergocalciferol) 1.25 MG (32092 UT) 1 capsule Orally weekly for 60 [...] Status W/U Status Risk Notes Problem Hyperlipidemia (99801008) Hyperlipidemia (E78.5) Active confirmed Problem Bipolar disorder (58878203) Bipolar disorder (F31.9) Active confirmed Problem Urinary incontinence (304605017) Urinary incontinence (R32) Active confirmed Problem Schizophrenia (76470179) Schizophrenia (F20.9) Active confirmed Problem Bowel incontinence (32686154) Bowel incontinence (R15.9) Active confirmed Problem Nephrolithiasis (25341678) Nephrolithiasis (N20.0) Active confirmed Problem Mild neurocognitive disorder (971911729) Mild neurocognitive disorder (G31.84) Active confirmed Problem Atherosclerosis of artery of left lower limb (disorder) (6752896797) Atherosclerosis of left leg (I70.202) Active confirmed Problem History of benign neoplasm of brain (002715743) History of benign brain tumor (Z86.011) Active confirmed Problem History of malignant neoplasm of brain (033518743) Personal history of brain tumor, malignant (Z85.841) [...] EDT > Height 71 inches 11/13/2023 Jaime uW 11/13/2023 02:47:12 PM EDT > Blood pressure systolic 105 mm Hg 11/13/2023 Hector Lugo 11/13/2023 02:47:12 PM EDT > Weight 178.0 lbs 11/13/2023 Jaime Wu 11/13/2023 02:47:12 PM EDT > BMI 24.82 kg/m2 11/13/2023 Jaime Wu 11/13/2023 02:47:12 PM EDT > Encounters Encounter Location Date Provider Diagnosis [address] [address] 08/02/2023 Nancy Kelly Schizophrenia F20.9 ; Bipolar disorder F31.9 ; Cognitive impairment R41.89 ; Anhedonia R45.84 ; Personal history of brain tumor, malignant Z85.841 ; Nephrolithiasis N20.0 ; BMI 24.0-24.9, adult Z68.24 and Muscle weakness M62.[address] [address] 09/19/2023 Nancy Kelly Hyperlipidemia E78.5 ; Vitamin D deficiency M85.80 ; Microscopic hematuria R31.29 ; Bowel incontinence R15.9 ; Urinary incontinence R32 ; Weight loss R63.4 ; Schizophrenia F20.9 ; Bipolar disorder F31.9 and Cognitive impairment R41.[address] [address] 11/13/2023 Nancy Kelly Encounter for screen ing [...] for endocrine disorder Z13.29 and Hyperlipidemia E78.[address] [address] 10/30/2023 Nancy Kelly Encounter for immunization Z23 [facility] [address] [place] [address] 08/03/2023 Nancy Kelly [address] [address] 08/06/2023 Nancy Kelly [facility] [phone] [place] [address] 08/21/2023 Nancy Kelly [facility] [address] [place] [phone] 08/22/2023 Nancy Kelly [facility] [address] [place] [phone] 09/12/2023 Nancy Kelly [facility] [address] [place] [phone] 10/15/2023 Nancy Kelly [facility] [address] [place] [phone] 10/25/2023 Nancy Kelly [facility] [address] [place] [phone] 12/25/2023 Nancy Kelly Hyperlipidemia E78.5 [facility] [address] [place] [phone] 01/01/2024 Nancy Kelly Vitamin D deficiency M85.80 [facility] [address] [place] [phone] 01/24/2024 Nancy Kelly Vitamin D deficiency M85.80 [facility] [address] [place] [phone] 02/04/2024 Nancy Kelly [facility] [address] [place] [phone] 02/04/2024 Nancy Kelly [facility] [address] [place] [phone] 02/11/2024 Nancy Kelly [facility] [address] [place] [phone] 02/14/2024 Nancy Kelly [facility] [address] [place] [phone] 02/14/2024 Nancy Kelly [facility] [address] [place] [phone] 02/15/2024 Nancy Kelly Assessments Encounter Date Diagnosis (ICD Code) Assessment [...] of left leg (ICD-10 - I70.202) Quanta erggie left foot mild, right foot normal November [...] Increase protein intake Encourage his aunt to financial wellness coach patient to eat 11/13/2023 Diabetes mellitus [...] 2017 First 2 surgeries were done in [place] neurologist ordered 2 different MRIs and EEG [...] RISK CAP MCR ADV HMO [address] [address] [place] [address] [id number] DOT [employer] Self - patient is the insured 4 Medical (General) History Surgical History Surgery Date(Month/Year) brain tumor removed 2013 brain tumor removed 2017
--- OUTSIDE RECORDS SUMMARY | 2024-06-27 14:08 | XMS_ITS | Encounter Summary ---
Author Organization [employer] Address [address] [place] [address] Care Team Providers Care Construction Administrative Assistant Name Role Phone Unavailable Primary Care Provider Unavailabl e Encounter Details Date Type Department Care Team (Latest Contact Info) Description 09/24/2018 Abstract [facility] CONVERSIONS Dental, Provider, DDS Social History Tobacco [...] Description 08/06/2024 1:30 PM EDT Office Visit [facility]ULT [facility] [address] [place] [address] Evan York DDS [address] [place] [address] documented as of this encounter Visit Diagnoses Not on filedocumented in this encounter
--- NOTE | 2024-06-27 14:12 | A.OFFPC_ITS ---
Vital Signs 06/27/24 14:13 Height 5 ft 10 in Weight 174 lb 6 oz BMI 25.0 BP 110/70 Blood Pressure Location Lt brachial Position Sitting Pulse 96 Pulse Source Pulse Oximeter Temp 97.1 F Temp Source Temporal Artery Scan Pulse Oximetry (%) 97 Oxygen Delivery Method Room Air Int[place] [facility] [place] Intake Note: Patient is here for hospital discharge follow up. Patient was [place] [facility] [place]. Machine I Cutter Required: No Information Services Tech: Not Required per policy Accompanied by: Self / Same As Patient Allergies No Known Allergies [No Known Allergies*] Allergy (Verified 06/27/24 14:13) Tobacco use date assessed: 06/27/24 Dental Screening Dental Screen Date: 03/10/24 HPI HPI Comments History of Present Illness Details 9 y/o Male patient who presents to the [facility] today for HDF. Past m edical history of [employer] glioma status post surgery, schizophrenia, seizures, anxiety, renal calculi, and dysphagia. He was [place] [facility] [place]17 for Dizziness and tachycardia. Work-up in the hospital negative. His psych medication doses reduced; Haldol 25 mg and Seroquel 25 mg at Bedtime. Metoprolol 25 mg BID was added to help manage Tachycardia. He goes to [facility] management. 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 Patient asking for Imitrex for Migraine headaches, but Patient has 11 refills on file. [facility] Medical History (Updated 06/27/24 @ 15:01 by Bonnie Chapman NP) Tachycardia Impacted cerumen of right ear Gait instability Nose pain Annual physical exam Renal infection Hospital discharge follow-up Speech abnormality Blood transfusion declined because patient is [place] Sepsis Urinary retention with incomplete bladder emptying Neck pain on left side Gait instability Polysubstance abuse Migraine Hypercholesterolemia Thyroid nodule Seizures Psychotic disorder Insomnia Vitamin D deficiency GERD (gastroesophageal reflux disease) Surgical History Glioma History of surgery of head Family History (Updated 06/27/24 @ 14:12 by PRATIK Chiang) Father Bipolar 1 disorder Mother Bipolar 1 disorder Myocardial infarction Paternal Grandmother No problems noted. Paternal Grandfather Myocardial infarction Brother Substance abuse Social History Household Members: Family Housing: Apartment Do you presently have visiting nurse or other home services: No Alcohol intake: never Patient Tobacco Use Status: Former Tobacco user Tobacco use type: Cigarette Years Smoked: stopped 19 years old e-Cigarette/Vaping Use: Never Used Second Hand Smoke Exposure: Yes Advance Directives Date on File: 01/31/21 service: No Current occupational status: disabled Cognitive needs: Yes Hearing needs: No Vision needs: No Questionnaire Thrive Questionnaire Date Thrive assessed: 03/10/24 I am a: Patient What is your living situation today?: I have a steady place to live Within the past 12 months, did the food you bought not last and you didn't have the money to get more?: Never true Within the past 12 months, did you worry whether your food would run out before you got money to buy more?: Never true Do you have trouble paying for medicines?: No Do you have trouble getting transportation to medical appointments?: No Do you have trouble paying your heating and electricity bill?: No Do you have trouble taking care of your child, family member or friend?: No Do you have trouble with day-to-day activities such as bathing, preparing meals, shopping, managing finances, etc.?: No Are you currently unemployed and looking for a job?: No Are you interested in more education?: No Please select the resources that you would like help with: None Currently or been in a relationship where the following occur: No concerns reported THRIVE Score: 0 DAYRON-7 AMB Questionnaire DAYRON-7 Date DAYRON - 7 assessed: 03/10/24 Source: Developed by Drs. Dakota Edouard, Silvana Murray, Timur Calles and colleagues, with an educational marita from [employer]. Review of Systems Const All systems reviewed & are unremarkable except as noted in HPI and below Physical exam (Primary Care) Vital Signs: Last Vital Signs Temp 97.1 F 06/27/24 14:13 Pulse 96 06/27/24 14:13 BP 110/70 06/27/24 14:13 Pulse Ox 97 06/27/24 14:13 Oxygen Delivery Method Room Air 06/27/24 14:13 BMI result Body Mass Index 25.0 Tobacco/Smoking Status: Tobacco use Status Tobacco use date assessed 06/27/24 06/27/24 14:17 Patient Tobacco Use Status Former Tobacco user 06/27/24 14:17 Tobacco use type Cigarette 06/27/24 14:17 e-Cigarette/Vaping Use Never Used 06/27/24 14:17 Thrive Assessment: Date of Thrive Assessment Date Thrive assessed 03/10/24 06/27/24 14:17 Currently or been in a relationship where the following occur: No concerns reported Const General: no acute distress Orientation/consciousness: patient oriented x3 Resp Effort & Inspection: normal respiratory effort Cardio Heart sounds: S1 normal heart sound present and S2 normal heart sound present Neuro Other: Moderate lingual dyskinesia/slow fluency of speech. General: patient oriented x3, gait normal and moves all extremities Psych Affect: normal affect Attitude: cooperative Coding Level of Care Code Est Pt Level 4 (55588) Diagnoses Tachycardia R00.0 Time Spent (min) 20 Assessment & Plan Assessment & Plan (1) Tachycardia: Code(s): R00.0 - Tachycardia, unspecified Category: Medical Plan: Resolved. Currently on Metoprolol 25 mg BID.
[2024-06-27 14:13] VITALS: BP 110/70; PULSE 96; TEMP 36.2; O2SAT 97; BMI 25.0
== END 2024-06-27 14:49 | disposition home or self-care (01) ==
LOC: HO.HMCH 14:05
PROVIDERS: PCP Internal Medicine; Visit Provider Nurse Practitioner Family
DX: R00.0 Tachycardia, unspecified (principal)

== ENCOUNTER → 2024-06-27 14:05 | Outpatient (BNVA) | payer MEDICARE, SELFPAY | PROVIDERS: PCP Internal Medicine; Visit Provider Nurse Practitioner Family | DX: K21.9 Gastro-esophageal reflux disease without esophagitis (principal); R00.0 Tachycardia, unspecified; F20.9 Schizophrenia, unspecified; R56.9 Unspecified convulsions; F41.9 Anxiety disorder, unspecified; G43.909 Migraine, unspecified, not intractable, without status migrainosus; Z87.442 Personal history of urinary calculi | CPT/HCPCS: 99212 ==

== ENCOUNTER 2024-07-08 12:49 | Outpatient (AMB) | payer OTHER, SELFPAY ==
--- NOTE | 2024-07-08 12:53 | MHC.OFFVIS ---
Intake Visit Reasons: US follow up Intake Note: Pt presents to the office today for an US follow up. Allergies No Known Allergies [No Known Allergies*] Allergy (Verified 07/08/24 12:53) HPI Comments Details: Zack is a pleasant male. He is a patient of Dr. Conley. He is seen for the following urologic conditions - nephrolithiasis Yearly follow-up No stones seen on imaging Encourage fluid intake Continue yearly surveillance till late Nephrolithiasis Underwent stone procedure January 2021 Currently is maintaining good fluid intake Prior brain surgery for glioma Lives with his father Imaging - 10/10 US NAD - 06/13 renal ultrasound normal Encourage fluid intake and surveillance imaging PFSH Medical History Tachycardia Impacted cerumen of right ear Gait instability Nose pain Annual physical exam Renal infection Hospital discharge follow-up Speech abnormality Blood transfusion declined because patient is [place] Sepsis Urinary retention with incomplete bladder emptying Neck pain on left side Gait instability Polysubstance abuse Migraine Hypercholesterolemia Thyroid nodule Seizures Psychotic disorder Insomnia Vitamin D deficiency GERD (gastroesophageal reflux disease) Surgical History Glioma History of surgery of head Family History Father Bipolar 1 disorder Mother Bipolar 1 disorder Myocardial infarction Paternal Grandmother No problems noted. Paternal Grandfather Myocardial infarction Brother Substance abuse Social History Household Members: Family Housing: Apartment Do you presently have visiting nurse or other home services: No Alcohol intake: never Patient Tobacco Use Status: Former Tobacco user Tobacco use type: Cigarette Years Smoked: stopped 19 years old e-Cigarette/Vaping Use: Never Used Second Hand Smoke Exposure: Yes Advance Directives Date on File: 01/31/21 service: No Current occupational status: disabled Cognitive needs: Yes Hearing needs: No Vision needs: No Review of Systems Const Denies chills and Denies fever(s) Card Reports no additional complaints and Denies syncope Resp Denies cough GI Denies abdominal pain and Denies heartburn Reports as per HPI and Denies change in libido Neuro Denies syncope Psych Denies change in libido Endo Denies change in libido Physical Exam Const General: cooperative, healthy appearing, comfortable and no acute distress Orientation/consciousness: patient oriented x3 HEENT Face and sinus: Yes normal facial exam Mouth: moist mucous membranes Neck Neck: Yes normal visual inspection, Yes full ROM and Yes trachea midline Chest Chest palpation & inspection: normal inspection of the chest Resp Effort & Inspection: normal respiratory effort, able to speak in complete sentences and no respiratory distress GI Inspection: Yes normal to inspection Back/Spine/Pelvis Cervical Spine: normal cervical lordosis Thoracic/Lumbar Spine: thoracic and lumbar spine normal to inspection Skin General skin exam: no rashes or lesions noted Neuro General: patient oriented x3, gait normal, tone normal and moves all extremities Extrem General: Yes normal to inspection and Yes capillary refill normal Assessment & Plan Assessment & Plan (1) Renal calculus, right: Comment: Laser lithotripsy Dr. Benavides December 2020 stent placement and removal 01/2021 Code(s): N20.0 - Calculus of kidney Category: Medical Plan Twelve month follow-up renal ultrasound Orders: Orders US renal BI 12 Months N20.0 - Calculus of kidney Patient Instructions: This note is constructed using voice recognition software. 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 Imaging studies, laboratory and physical exam results were discussed and reviewed in detail. No major barriers to patient understanding were identified. An opportunity to ask questions regarding the treatment plan was provided. All questions were answered. The patient expressed understanding and agreement with the above treatment plan. The patient is aware they should contact our office by phone for worsening of their current condition or the appearance of new urologic symptoms. Compliance is encouraged with any medications and followup testing that is ordered. It is a privilege to participate in the urologic care of your patient. If you have any questions or concerns regarding treatment for the above conditions, or other urologic issues, please do not hesitate to contact me. The office telephone contact is [phone]. Sincerely, Dr Travis Benavides MD, [facility] - Urology Compassionate Specialist Care for the Genitourinary System Coding Level of Care Code Est Pt Level 4 (08869) Complex EM visit Add On G2211 Diagnoses Renal calculus, right N20.0
--- OUTSIDE RECORDS SUMMARY | 2024-07-08 13:53 | XMS_ITS | Clinical Summary ---
Author Organization [employer] Address [address] [place] [address] Care Team Providers Care Desk Maker Name Role Phone Unavailable Primary Care Provider [...] Description 08/06/2024 1:30 PM EDT Office Visit [facility] [address] [place] [address] Evan York DDS [address] [place] [address] Health Maintenance Due Date Last Done Comments Depression Screening 1986 HIV Screening 1986 Lipid Panel 1986 SDOH Screening 1986 Disability Screening 1986 Alcohol/Substance Use Screening 1998 Tobacco [...] patient's age to complete this topic Meningococcal B Vaccine Aged Out No l onger eligible based on patient's age to complete [...]
--- OUTSIDE RECORDS SUMMARY | 2024-07-08 13:53 | XMS_ITS | Patient Health Record ---
Author Organization [facility] [employer]. [facility] Address [address] [place] [address] Care Team Providers Care Marine Operations Coordinator Name Role Phone Nancy Kelly MD Primary Care Provider [phone] Allergies No Known Allergies Results Component Value Reference Range Notes VITAMIN D,25-OH,TOTAL,IA Reviewed date:08/03/2023 10:24:51 AM Interpretation: Performing Lab:[facility][id number] Addy [id number] Mohan Sy MD Notes/Report: 0 0 0 0 0 0 0 0 VITAMIN D,25-OH,TOTAL,IA 21 30-100 ng/mL Vitamin D Status 25-OH Vitamin D: Deficiency: <20 ng/mL Insufficiency: 20 - 29 ng/mL Optimal: > or = 30 ng/mL For 25-OH Vitamin D testing on patients on D2-supplementation and patients for whom quantitation of D2 and D3 fractions is required, the QuestAssureD(TM) 25-OH VIT D, (D2,D3), LC/MS/MS is recommended: order code 20611 (patients >2yrs). See Note 1 Note 1 For additional information, please refer to http://education.[employer].Material Mix/faq/FAQ1 99 (This link is being provided for informational/ educational purposes only.) VITAMIN B12/FOLATE, SERUM PA ELDON Reviewed date:08/03/2023 10:24:51 AM Interpretation: Performing Lab:[facility][id number] [id number] Mohan Sy MD Notes/Report: 0 0 0 0 0 0 0 0 VITAMIN B12 251 589-5038 pg/mL FOLATE, SERUM 15.2 Reference Range Low: <3.4 Borderline: 3.4-5.4 Normal: >5.4 TSH Reviewed date:08/03/2023 10:24:51 AM Interpretation: Performing Lab:TP, [facility][id number], [id number] Mohan Sy MD Notes/Report: 0 0 0 0 0 0 0 0 TSH 1.74 0.40-4.50 mIU/L IRON, TIBC AND FERRITIN PANE L Reviewed date:08/03/2023 10:24:51 AM Interpretation: Performing Lab:TP, [facility][id number] [address] [id number] Mohan Sy MD Notes/Report: 0 0 0 0 0 0 0 0 IRON, TOTAL 139 50-180 mcg/dL IRON BINDING CAPACITY 333 250-425 mcg/dL (sy c) % SATURATION 42 20-48 % (calc) FERRITIN 54 38-380 ng/mL LIPID PANEL Reviewed date:08/03/2023 10:24:51 AM Interpretation: Performing Lab:[facility], [facility]Fasip15[address], [id number] Mohan Sy MD Notes/Report: 0 0 0 0 0 0 0 0 CHOLESTEROL, TOTAL 205 <200 mg/dL HDL CHOLESTEROL 64 > OR = 40 mg/dL TRIGLYCERIDES 133 <150 mg/dL LDL-CHOLESTEROL 116 Reference range: <100 Desirable range <100 mg/dL for primary prevention; <70 mg/dL for patients with CHD or diabetic patients with > or = 2 CHD risk factors. LDL-C is now calculated using the Arthur-Le calculation, which is a validated novel method providing better accuracy than the Friedewald equation in the estimation of LDL-C. Arthur BALBUENA et al. ABDIRIZAK. 2013;310(19): 7651-3751 (http://education.ReadWorks.Material Mix/faq/FAQ 164) CHOL/HDLC RATIO 3.2 <5.0 (calc) NON HDL CHOLESTEROL 141 <130 mg/dL (calc) For patients with diabetes plus 1 major ASCVD risk factor, treating to a non-HDL-C goal of <100 mg/dL (LDL-C of <70 mg/dL) is considered a therapeutic option. COMPREHENSIVE METABOLIC PANE L Reviewed date:08/03/2023 10:24:51 AM Interpretation: Performing Lab:[facility], [facility]-[id number], [id number] Mohan Sy MD Notes/Report: 0 0 0 [...] 15 10-40 U/L ALT 13 9-46 U/L CBC (INCLUDES DIFF/PLT) Reviewed date:08/03/2023 10:24:51 AM Interpretation: Performing Lab:[facility]-[id number] [address] [id number] Mohan Sy MD Notes/Report: 0 0 0 0 0 0 0 0 WHITE BLOOD CELL COUNT 6.2 3.8-10.8 Thousand/ uL RED BLOOD CELL COUNT 5.02 4.20-5.80 Million/uL HEMOGLOBIN 15.5 13.2-17.1 g/dL HEMATOCRIT 46.3 38.5-50.0 % MCV 92.2 80.0-100.0 fL MCH 30.9 27.0-33.0 pg MCHC 33.5 32.0-36.0 g/dL RDW 12.9 11.0-15.0 % PLATELET COUNT 267 140-400 Thousand/uL MPV 9.5 7.5-12.5 fL ABSOLUTE NEUTROPHILS 3410 9467-7164 cells/uL ABSOLUTE LYMPHOCYTES 2058 850-3900 cells/uL ABSOLUTE MONOCYTES 409 200-950 cells/uL ABSOLUTE EOSINOPHILS 260 15-500 cells/uL ABSOLUTE BASOPHILS 62 0-200 cells/uL NEUTROPHILS 55 LYMPHOCYTES 33.2 MONOCYTES 6.6 EOSINOPHILS 4.2 BASOPHILS 1.0 IH PVR Study Baseline (PAD S creening) Reviewed date:11/13/2023 02:59:59 PM Interpretation: Performing Lab: Notes/Report: Left Foot 0.91 Left Foot Result Status Mild Right Foot 1.03 Right Foot Result Status Normal URINALYSIS, COMPLETE Reviewed date:08/03/2023 10:24:51 AM Interpretation: Performing Lab:[facility]-[id number], [id number] Mohan Sy MD Notes/Report: 0 0 0 [...] HYALINE CAST NONE SEEN NONE SEEN /LPF NOTE This urine was analyzed for the presence of WBC, RBC, bacteria, casts, and other formed elements. Only those elements seen were reported. Urinalysis, Auto, without mi croscopy (Dip Stick) Reviewed date:09/19/2023 02:21:49 PM Interpretation: Performing Lab: Notes/Report: Urine-Color Cloudy Glucose Neg Bilirubin Neg Ketones Neg Specific [place] 1.030 Blood Neg pH 6.0 Protein +- Urobilinogen - Nitrite - Leukocytes - Reason For Referral Reason Next to be started w [facility] psychiatry, patient also has bipolar disorder, personal of brain tumor removed Diagnosis 1 Schizophrenia (F20.9 ) Referral Organization [facility] Referring Provider First Name Nancy Referring Provider Last Name Jenae Referring Provider Speciality Family [facility] ctice Referred Provider ROHIT THOMPSON Referred Provider Specialty Psychiatry Procedure 1 Office Visit, New Pt ., Level 4 (45 min) (05167) Procedure 2 EST. PT. 25 MIN. MOD ERATE (69927) General Notes Rojas Alonzo 0 08/03/2023 10:55:03 AM >This request was received via the referral queue, from PCP who is referring the patient to Psychiatry .This referral was created and processed for in house telemynd. Sent TE to FO to assist with scheduling patient., Rojas Alonzo 08/06/2023 03:39:13 PM >Laly Dc 08/06/2023 11:19:29 AM EDT > appt was [...] to be sent back to pcp., tasha, support 08/29/2023 17:19:01 PM>, Authorization is based on [...] all consult notes back to pcp at [facility] . If pt no shows or cancels please let us know. Referral Priority Routine Reason needs to be establis hed Diagnosis 1 Personal history of brain tumor, malignant (Z85.841) Referral Organization [facility] Referring Provider First Name Nancy Referring Provider Last Name Nicola Referring Provider Speciality Family [facility] ctice Referred Provider VAZQUEZ MARISCAL Referred Provider Specialty Neurology Procedure 1 Office Visit, New Pt ., Level 4 (45 min) (17735) Procedure 2 EST. PT. 25 MIN. MOD ERATE (35946) General Notes Rojas Alonzo 0 08/03/2023 10:27:53 AM >Received referral via Brittany Connor , Referral was created and processed to the office. Once approved the referral will be faxed back to the specialist. Consult notes requested to be sent back to pcp., Rojas Alonzo 08/03/2023 10:28:47 AM >NEW PT NO IMAGING/LABS AVAILABLE, [employer], support 08/03/2023 10:55:40 AM>, Authorization is based on information provided; it is not a guarantee of payment. Billed services are subject to medical necessity, appropriate setting, billing/coding, plan limits, eligibility at time of service. Verify benefits online or call Customer Service., Rojas Alonzo 08/03/2023 01:53:24 PM >completed and faxed, Maggie Kruger 08/03/2023 02:51:13 PM >mailed to the pts address on file. Clinical Notes Rojas Alonzo 0 08/03/2023 10:27:45 AM >Please fax all consult notes back to pcp at [facility] . If pt no shows or cancels please let us know. Referral Priority Routine Reason patient's caregiver changed her mind and would like better home physical therapy twice a week for 4 weeks RN EVAL AND TREAT Diagnosis 1 Muscle weakness (M62 .81) Referral Organization [facility] Referring Provider First Name Nancy Referring Provider Last Name Nicola [facility] Provider [facility], . Referred Provider Specialty Home Health General Notes Rojas Alonzo 0 08/03/2023 10:26:28 AM >Received referral via Brittany Connor , Referral was created and processed to the office. Once approved the referral will be faxed back to the specialist. Consult notes requested to be sent back to pcp., REFERRAL COMPLETED AND FAXED TO JOHN AT , Maggie Kruger 08/03/2023 02:50:52 PM >mailed to the pts address on file., Destiny Zelaya 08/22/2023 08:55:12 AM >PER PCP UPDATE REFERRAL TO BE FOR HOME HEALTH, I HAVE EMAILED THE ONE HOME REFERRAL FORM TO ASHLEY AT [facility] FOR THE PROVIDER TO SIGN. ELOISA Bobo Zelayaayla 08/24/2023 03:17:03 PM >REFERRAL, OFFICE NOTES AND REFERRAL FORM HAVE BEEN UPLOADED INTO THE [facility] HOME PORTAL AND FAXED VIA ECW TO [facility] AT . MRP.Gregoria Franz 08/27/2023 11:19:16 AM >PER ONE HOME PORTAL PATIENT IS ASSIGNED TO [facility]. - P:[phone] Clinical Notes Rojas Alonzo 0 08/03/2023 10:26:32 AM >Please fax all consult notes back to pcp at [facility] . If pt no shows or cancels please let us know. Referral Priority Routine Reason acute bowel and urin e incontinence Diagnosis 1 Muscle weakness (M62 .81) Diagnosis 2 Urine incontinence ( R32) Diagnosis 3 Bowel incontinence ( R15.9) Referral Organization [facility] Referring Provider First Name Nancy Referring Provider Last Name Nicola Referring Provider Speciality Family [facility] Referred Provider VAZQUEZ MARISCAL Referred Provider Specialty Neurology Procedure 1 Office Visit, New Pt ., Level 4 (45 min) (70451) Procedure 2 EST. PT. 25 MIN. MOD ERATE (90781) General Notes Hilda Courtney 2023 11:37:06 AM >This URGENT request was received via Brittany Cooper, from Pcp who is referring the patient . This referral was created and processed,, [employer], support 09/12/2023 11:54:20 AM>, Authorization is based [...] 2 Urine incontinence ( R32) Referral Organization [facility] Referring Provider First Name Nancy Referring Provider Last Name Jenae Referring Provider [facility] jabari Referred Provider Specialty [facility] General Notes Destiny Zelaya 08/20 03:46:41 PM >REFERRAL PLAC[facility] BY [facility], HOWEVER THESE ARE ONLY [...] wo & wdye Ordered by: Dr. 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 Referred Provider Specialty Hospital Procedure 1 Mri brain stem wo & wdye (78452) General Notes Helen Lopze 10/02/2023 09:31:18 AM >RCVD A REFERRAL REQUEST IN THE INCOMING FAX QUE FOR PATIENT TO SEE SPECIALIST OFFICE. REFERRAL HAS BEEN CREATED., [employer], support 10/02/2023 09:33:02 AM>, This case requires further review. You will be contacted if additional information is needed., Helen Lopez 10/02/2023 09:44:22 AM >REFERRAL HAS BEEN CREATED. HOWEVER, REFERRAL IS PENDING WITH PATIENTS INSURANCE. PLEASE ALLOW 0-14 BUSINESS DAYS FOR HP TO MAKE A FINAL DECISION. RECORDS HAVE BEEN FAXED TO [phone]. THANKS, Helen Lopez 10/09/2023 02:03:33 PM >Rcvd a message from Corin that [facility] MRI is OON. Rfeerral has been redirected to [facility]., Helen Lopezria 10/09/2023 04:08:13 PM >AUTHORIZATION HAS BEEN OBTAINED. A COPY OF THIS AUTH HAS BEEN FAXED TO SPECIALIST OFFICE . THANKS Clinical Notes Helen Lopez Malcom gamaliel 10/02/2023 09:31:24 AM >PLEASE FAX ALL NOTES TO [facility] AT [phone]. THANKS Referral Priority Routine Reason previous doctor is t o [facility] Address: [address] [place] [address], [address], [place] [address] Diagnosis 1 Schizophrenia (F20.9 ) Diagnosis 2 Bipolar disorder (F3 1.9) Referral Organization [facility] Referring Provider First Name Nancy Referring Provider Last Name Jenae Referring Provider [facility]erred Provider Specialty Psychiatry Procedure 1 Office Visit, New Pt ., Level 4 (45 min) (19910) Procedure 2 EST. PT. 25 MIN. 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 REFERRAL HAS BEEN CREATED., [employer], support 11/15/2023 08:17:40 AM>, Authorization is based on information provided; it is not a guarantee of payment. Billed services are subject to medical necessity, appropriate setting, billing/coding, plan limits, eligibility at time of service. Verify benefits online or call Customer Service., Helen Lopez 11/15/2023 08:49:25 AM >AUTHORIZATION HAS BEEN OBTAINED. A COPY OF THIS AUTH HAS BEEN FAXED TO SPECIALIST OFFICE . THANKS Clinical Notes Helen Lopez 11/15/2023 08:15:56 AM >PLEASE FAX ALL NOTES TO [facility] AT [phone]. 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 PT. 25 MIN. MOD ERATE (31935) Procedure 4 Office Visit, Est. P t., Level 5 (16513) General Notes Helen Lopez 01/16/2024 09:05:14 AM >RCVD A REFERRAL REQUEST IN THE INCOMING FAX QUE FOR PATIENT TO SEE SPECIALIST OFFICE. REFERRAL HAS BEEN CREATED., [employer], support 01/16/2024 09:07:00 AM>, Specialist Record not found., Helen Lopezria 01/16/2024 10:02:47 AM >AUTHORIZATION HAS BEEN OBTAINED. A COPY OF THIS AUTH HAS BEEN FAXED TO SPECIALIST OFFICE . THANKS Clinical Notes Helen Lopez 01/16/2024 09:05:19 AM >PLEASE FAX ALL NOTES TO [facility] AT [phone]. THANKS Referral Priority Routine Reason home rn PT eval and treat RN EVAL AND TREAT Diagnosis 1 Fall, initial encoun ter (W19.XXXA) Referral Organization [facility] Referring Provider First Name Nancy Referring Provider Last Name Jenae Referring Provider [facility] ctice Referred Provider [facility], . Referred Provider Specialty Home Health General Notes Destiny Zelaya 01/19 03:45:08 PM >HOME HEALTH REFERRAL PLAC[facility], I HAVE EMAILED THE [place] REFERRAL FORM TO WENDY AT [facility] FOR PCP TO SIGN. Tyrese AMIN Joe 02/07/2024 09:59:47 AM >REFERRAL, REFERRAL REQUEST, AND PROGRESS NOTE FAXED TO [facility]. JG Referral Priority Routine Reason OFFICE VISIT Diagnosis 1 Malignant neoplasm o f brain, unspecified (C71.9) Referral Organization [facility] Referring Provider First Name Nancy Referring Provider Last Name sa Referring Provider [facility] ctice Referred Provider VAZQUEZ MARISCAL Referred Provider Specialty Neurology Procedure 1 EST. PT. 25 MIN. MOD ERATE (40935) General Notes Lisa Webb 04/07/2024 02:11:59 PM >RECV'D A FAX REQUEST FROM [facility] FOR AN OV. CREATED A REFERRAL AND SENT FOR APPROVAL, [employer], support 04/07/2024 14:13:40 PM>, Authorization is based on information provided; it is not a guarantee of payment. Billed services are subject to medical necessity, appropriate setting, billing/coding, plan limits, eligibility at time of service. Verify benefits online or call Customer Service., Alton Webb 04/07/2024 03:06:16 PM >APPROVED AND FAXED TO [phone] Clinical Notes Lisa Webb 04/07/2024 02:12:15 PM >PLEASE FAX NOTES TO [facility], THANK YOU! Referral Priority Routine Medications Medication SIG (Take, Route, Frequency, Duration) Notes Start Date End Date Status QUEtiapine Fumarate 400 MG 1 tablet Oral ly at bedtime for 30 days Active Pantoprazole Sodium 40 MG 1 tablet Orall y Once a day for 90 days Active Vitamin D (Ergocalciferol) 1.25 MG (08212 UT) 1 capsule Orally weekly for 60 [...] Status W/U Status Risk Notes Problem Hyperlipidemia (79142852) Hyperlipidemia (E78.5) Active confirmed Problem Bipolar disorder (27296712) Bipolar disorder (F31.9) Active confirmed Problem Urinary incontinence (240799903) Urinary incontinence (R32) Active confirmed Problem Schizophrenia (05504491) Schizophrenia (F20.9) Active confirmed Problem Bowel incontinence (94241539) Bowel incontinence (R15.9) Active confirmed Problem Nephrolithiasis (93579972) Nephrolithiasis (N20.0) Active confirmed Problem Mild neurocognitive disorder (130743848) Mild neurocognitive disorder (G31.84) Active confirmed Problem Atherosclerosis of artery of left lower limb (disorder) (6711770881) Atherosclerosis of left leg (I70.202) Active confirmed Problem History of benign neoplasm of brain (523554756) History of benign brain tumor (Z86.011) Active confirmed Problem History of malignant neoplasm of brain (933250624) Personal history of brain tumor, malignant (Z85.841) Active confirmed Vital Signs Heart Rate 85 /min 11/13/2023 Jaime Wu 11/13/2023 02:47:12 PM EDT > Temperature 98.0 degrees Fahrenheit 11/13/2023 Hector Lugo 11/13/2023 02:47:12 PM EDT > Respiratory Rate 19 /min 11/13/2023 Jing Wu 11/13/2023 02:47:12 PM EDT > Blood pressure diastolic 71 mm Hg 11/13/2023 Hector Nieves 11/13/2023 02:47:12 PM EDT > Oximetry 99 % 11/13/2023 Jaime Wu 11/13/2023 02:47:12 PM EDT > Height 71 inches 11/13/2023 Jaime Wu 11/13/2023 02:47:12 PM EDT > Blood pressure systolic 105 mm Hg 11/13/2023 Hector Lugo 11/13/2023 02:47:12 PM EDT > Weight 178.0 lbs 11/13/2023 Jaime Wu 11/13/2023 02:47:12 PM EDT > BMI 24.82 kg/m2 11/13/2023 Jaime Wu 11/13/2023 02:47:12 PM EDT > Encounters Encounter Location Date Provider Diagnosis [address] [address] 08/02/2023 Nancy Kelly Schizophrenia F20.9 ; Bipolar disorder F31.9 ; Cognitive impairment R41.89 ; Anhedonia R45.84 ; Personal history of brain tumor, malignant Z85.841 ; Nephrolithiasis N20.0 ; BMI 24.0-24.9, adult Z68.24 and Muscle weakness M62.[address] [phone] 09/19/2023 Nancy Kelly Vitamin D deficiency M85.80 ; Hyperlipidemia E78.5 ; Microscopic hematuria R31.29 ; Bowel incontinence R15.9 ; Urinary incontinence R32 ; Weight loss R63.4 ; Schizophrenia F20.9 ; Bipolar disorder F31.9 and Cognitive impairment R41.[address] [address] 11/13/2023 Nancy Kelly Encounter for screen ing [...] for endocrine disorder Z13.29 and Hyperlipidemia E78.[address] [address] 10/30/2023 Nancy Kelly Encounter for immunization Z23 [facility] [address] [place] [address] 08/03/2023 Nancy Kelly [address] [address] 08/06/2023 Nancy Kelly [facility] [address] [place] [address] 08/21/2023 Nancy Yssa [facility] [address] [place] [phone] 08/22/2023 Nancy Yssa [facility] [address] [place] [phone] 09/12/2023 Nancy Yssa [facility] [address] [place] [phone] 10/15/2023 Nancy Emanuelsa [facility] [address] [place] [phone] 10/25/2023 Nancy Yssa [facility] [address] [place] [phone] 12/25/2023 Nancy Emanuelsa Hyperlipidemia E78.5 [facility] [address] [place] [phone] 01/01/2024 Nancy Emanuelsa Vitamin D deficiency M85.80 [facility] [address] [place] [phone] 01/24/2024 Nancy Emanuelsa Vitamin D deficiency M85.80 [facility] [address] [place] [phone] 02/04/2024 Nancy Emanuelsa [facility] [address] [place] [phone] 02/04/2024 Nancy Emanuelsa [facility] [address] [place] [phone] 02/11/2024 Nancy Emanuelsa [facility] [address] [place] [phone] 02/14/2024 Nancy Emanuelsa [facility] [address] [place] [phone] 02/14/2024 Nancy Emanuelsa [facility] [address] [place] [phone] 02/15/2024 Nancy Kelly Assessments Encounter Date Diagnosis (ICD Code) Assessment Notes Treatment Notes Treatment Clinical Notes Section Notes 08/02/2023 Schizophrenia (ICD-10 - F20.9) refill medications for 1 month Referral to psychiatrist August 02, 2023. 08/02/2023 Bipolar disorder (ICD-10 - F31.9) refill medications for 1 month Referral to psychiatrist August 02, 2023. 09/19/2023 Hyperlipidemia (ICD-10 - E78.5) LDL 116 August 02, 2023 Start rosuvastatin 5 mg daily September 19, 2023. All diagnosis stable 09/19/2023 Vitamin D deficiency (ICD-10 - M85.80) vitamin D level 21 August 02, 2023 Start ergocalciferol 50,000 units weekly for 8 weeks , after finishing start vitamin D 2000 units daily All diagnosis stable 10/30/2023 Encounter for immunization (ICD-10 - Z23) 11/13/2023 Encounter for screening for cardiovascular disorders (ICD-10 - Z13.6) Quanta reggie mild left foot normal right foot November 13, 2023. All diagnosis stable 11/13/2023 Atherosclerosis of left leg (ICD-10 - I70.202) Quanta reggie left foot mild, right foot normal November 13, 2023. Continue rosuvastatin All diagnosis stable 12/25/2023 Hyperlipidemia (ICD-10 - E78.5) 01/01/2024 Vitamin D deficiency (ICD-10 - M85.80) 01/24/2024 Vitamin D deficiency (ICD-10 - M85.80) 11/13/2023 Advance directive discussed with patient (ICD-10 - Z71.89) Advance directives discussed with patient November 13, 2023.FULL CODE- Dr Kelly.Package given November 13, 2023. All diagnosis stable 09/19/2023 Microscopic hematuria (ICD-10 - R31.29) microscopic hematuria on blood work August 02, 2023 Continue observation urinalysis in the office today September 19, 2023.normal All diagnosis stable 08/02/2023 Cognitive impairment (ICD-10 - R41.89) continue observation 08/02/2023 Anhedonia (ICD-10 - R45.84) referral to psychiatrist August 02, 2023. 09/19/2023 Bowel incontinence (ICD-10 - R15.9) patient is using diapers Neurologist appointment tomorrow September 20, 2023 All diagnosis stable 11/13/2023 Alcohol screening (ICD-10 - Z13.39) Patient does not drink alcohol Screening for alcoholism: Audit C negative November 13, 2023.CAGE question negative November 13, 2023. All diagnosis stable 11/13/2023 Depression screening (ICD-10 - Z13.31) Depression test done 0 November 13, 2023.Patient denies suicidal or homicidal ideationPsychotherapy offered in cases needed. All diagnosis stable 09/19/2023 Urinary incontinence (ICD-10 - R32) patient is using diapers Neurologist appointment tomorrow September 20, 2023 All diagnosis stable 08/02/2023 Personal history of brain tumor, malignant (ICD-10 - Z85.841) referral to neurologist August 02, 2023. Order brain MRI 08/02/2023 Nephrolithiasis (ICD-10 - N20.0) blood work today August 02, 2023. Eventually referral to urologist 09/19/2023 Weight loss (ICD-10 - R63.4) patient lost 7 pounds since last visit Increase protein intake Encourage his aunt to diving coach patient to eat All diagnosis stable 11/13/2023 Diabetes mellitus screening (ICD-10 - Z13.1) All diagnosis stable 11/13/2023 Encounter for risk and functional assessment [...] walking outdoors. *Install GRAB bars in Bathrooms. All diagnosis stable 09/19/2023 Schizophrenia (ICD-10 - F20.9) patient needs to get refill medications from psychiatrist Patient missed appointment from yesterday September 18, 2023 aunt recommended to her patient to reschedule appointment All diagnosis stable 08/02/2023 BMI 24.0-24.9, adult (ICD-10 - Z68.24) BMI 24, August 02, 2023. Diet and exercise recommendations 08/02/2023 Muscle weakness (ICD-10 - M62.81) referral for physical therapy August 02, 2023. 11/13/2023 Mild neurocognitive disorder (ICD-10 - G31.84) secondary to brain tumor surgery 2 times on 2012 2017 All diagnosis stable 11/13/2023 Screening for diabetes mellitus (ICD-10 - Z13.1) lab orders All diagnosis stable 09/19/2023 Bipolar disorder (ICD-10 - F31.9) patient needs to get refill medications from psychiatrist Patient missed appointment from yesterday September 18, 2023 aunt recommended to her patient to reschedule appointment All diagnosis stable 09/19/2023 Cognitive impairment (ICD-10 - R41.89) patient needs to get refill medications from psychiatrist Patient missed appointment from yesterday September 18, 2023 aunt recommended to her patient to reschedule appointment All diagnosis stable 11/13/2023 Unspecified convulsions (ICD-10 - R56.9) patient [...] before if symptoms worsens follow-up December 2023 All diagnosis stable 11/13/2023 Special screening for intellectual disabilities (ICD-10 [...] especially light or classical. Socialization is important. All diagnosis stable 11/13/2023 History of benign brain tumor (ICD-10 - Z86.011) craniotomy 2012 and 2017 First 2 surgeries were done in [place] neurologist ordered 2 different MRIs and EEG Patient is to follow-up after these results with neurologist Dr. Baldwin All diagnosis stable 11/13/2023 Vitamin D deficiency (ICD-10 - M85.80) vitamin D level August 02, 2023 refill ergocalciferol 50,000 units weekly for 8 weeks , after finishing start vitamin D 2000 units daily November 13, 2023. Repeat vitamin D level February 2024 All diagnosis stable 11/13/2023 Encounter for vitamin deficiency screening (ICD-10 - Z13.21) All diagnosis stable 11/13/2023 Screening for cholesterol level (ICD-10 - Z13.220) All diagnosis stable 11/13/2023 Screening for endocrine disorder (ICD-10 - Z13.29) All diagnosis stable 11/13/2023 Hyperlipidemia (ICD-10 - E78.5) LDL 116 August 02, 2023 Start rosuvastatin 5 mg daily September 19, 2023. repeat lipid panel February 2024 All diagnosis stable 11/13/2023 Other 40 minutes were spent with the patient reviewing his history, performingthe exam, and establishing a treatment plan. All diagnosis stable 08/02/2023 Other 40 minutes were spent with the patient reviewing his history, performingthe exam, and establishing a treatment plan. 09/19/2023 Other 25 minutes were spent with the patient reviewing his history, performingthe exam, and establishing a treatment plan. All diagnosis stable Plan Of Treatment Future Test Test Name [...] RISK CAP MCR ADV HMO [address] [address] [place] [address] [phone] [id number] DOT TIMMONS Self - patient is the insured Medical (General) History Surgical History Surgery Date(Month/Year) brain tumor removed 2013 brain tumor removed 2017
--- OUTSIDE RECORDS SUMMARY | 2024-07-08 13:53 | XMS_ITS ---
Author Organization [facility] Address [address] [place] [address] Care Team Providers Care School Patrol Name Role Phone Romy Petersen MD Primary Care Provider [phone] REASON FOR VISIT *Evaluation and Management of Chronic Medical Conditions Encounters Encounter Location Date Provider Diagnosis [address] [address] 03/19/2024 Romy Petersen Plan Of Treatment No Information Progress Notes * DOT TIMMONS ADOB: [birth year] (39 yo M)Acc No.[id number]:03/19/2024 Patient:?DOT TIMMONS Provider:?Romy Petersen MD :1985???Age:38 Y???Sex:Male Cesar e:03/19/2024 Address:[address] [place] [address] [address], [id number] Subjective: * Chief Complaints: * ???1. [...] signature of Gali Petersen MD, MD on 07/08/2024 at 01:52 PM EDT Sign off status: Pending * Provider:?Romy Petersen MD Date:? 5 Generated for Bere barragan/Linnea/eTransmitting on:?07/08/2024 01:52 PM EDT History and Physical Notes * HPI (History of Present Illness) Category Sub-Category Detail Notes Category Not es COPD COPD Questionnaire During the pa st [...]
--- OUTSIDE RECORDS SUMMARY | 2024-07-08 13:53 | XMS_ITS ---
Author Organization [facility] [employer] [facility] Address [address] [place] [address] Care Team Providers Care Bartender Helper Name Role Phone Romy Petersen MD Primary Care Provider REASON FOR VISIT fasting labs Encounters Encounter Location Date Provider Diagnosis [address] [address] 03/12/2024 Romy Petersen Plan Of Treatment No Information Progress Notes * IAINDOT ADOB: [birth year] (39 yo M)Acc No.[id number]:03/12/2024 Progress Notes Patient:?DOT TIMMONS Provider:?Romy Petersen MD :1985???Age:38 Y???Sex:Male Cesar e:03/12/2024 Address:[address] [place] [address] [address], [id number] Subjective: * Chief Complaints: * ???1. Fasting labs. * Medical History:? Objective: * Vitals:? Assessment: Plan: * Treatment: * * Electronic signature of Gali Petersen MD, MD on 07/08/2024 at 01:52 PM EDT Sign off status: Pending * Provider:?Romy Petersen MD Date:? Generated for Bere barragan/Linnea/eTransmitting on:?07/08/2024 01:52 PM EDT
--- OUTSIDE RECORDS SUMMARY | 2024-07-08 13:53 | XMS_ITS | Encounter Summary ---
Author Organization [employer] Address [address] [place] [address] Care Team Providers Care Marine Service [employer] Attendant Name Role Phone Unavailable Primary Care Provider Unavailabl e Encounter Details Date Type Department Care Team (Latest Contact Info) Description 09/24/2018 Abstract [facility] CONVERSIONS Dental, Provider, DDS Social History Tobacco [...] Description 08/06/2024 1:30 PM EDT Office Visit [facility] ADULT DENTAL [address] [place] [address] Evan York DDS [address] [place] [address] documented as of this encounter Visit Diagnoses Not on filedocumented in this encounter
== END 2024-07-08 13:13 | disposition home or self-care (01) ==
LOC: HO.HUSH 12:50
PROVIDERS: PCP Internal Medicine; Visit Provider Urology
DX: N20.0 Calculus of kidney (principal)
CPT/HCPCS: 99214; G2211

== ENCOUNTER 2024-09-29 15:04 | Outpatient (AMB) | payer OTHER, SELFPAY ==
--- OUTSIDE RECORDS SUMMARY | 2024-03-12 06:00 | XMS_ITS ---
Author Organization [facility] [employer] [facility] Address 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 Fasting labs. * Medical History: Objective: * Vitals: Assessment: Plan: * Treatment: * * Electronic signature of Gali Petersen MD, MD on 09/29/2024 at 03:24 PM EDT Sign off status: Pending * Provider: Dori Petersen MD Date: 03/12/2024 Generated for Bere barragan/Linnea/eTransmitting on: 0 09/29/2024 03:24 PM EDT
--- NOTE | 2024-09-29 15:11 | A.OFFPC_ITS ---
Vital Signs 09/29/24 15:12 Height 5 ft 10 in Weight 172 lb 8 oz BMI 24.7 BP 112/68 Blood Pressure Location Lt brachial Position Sitting Pulse 83 Pulse Source Pulse Oximeter Temp 97.3 F Temp Source Temporal Artery Scan Pulse Oximetry (%) 97 Oxygen Delivery Method Room Air Intake Visit Reasons: gerd/seizure/ anxiety/hypercholesterolema Intake Note: Patient is here to follow up on GERD, Seizure, Anxiety, Hypercholesterolema. Neurological Surgeon Required: No Comparator Operator: Not Required per policy Accompanied by: Self / Same As Patient Allergies No Known Allergies (No Known Allergies*) Allergy (Verified 09/29/24 15:12) Tobacco use date assessed: 09/29/24 Dental Screening Dental Screen Date: 03/10/24 [facility] Medical History Tachycardia Impacted cerumen of right ear Gait instability Nose pain Annual physical exam Renal infection Hospital discharge follow-up Speech abnormality Blood transfusion declined because patient is [employer] Sepsis Urinary retention with incomplete bladder emptying Neck pain on left side Gait instability Polysubstance abuse Migraine Hypercholesterolemia Thyroid nodule Seizures Psychotic disorder Insomnia Vitamin D deficiency GERD (gastroesophageal reflux disease) Surgical History Glioma History of surgery of head Family History Father Bipolar 1 disorder Mother Bipolar 1 disorder Myocardial infarction Paternal Grandmother No problems noted. Paternal Grandfather Myocardial infarction Brother Substance abuse Social History Household Members: Family Housing: Apartment Do you presently have visiting nurse or other home services: No Alcohol intake: never Patient Tobacco Use Status: Former Tobacco user Tobacco use type: Cigarette Years Smoked: stopped 19 years old e-Cigarette/Vaping Use: Never Used Second Hand Smoke Exposure: Yes Advance Directives Date on File: 01/31/21 service: No Current occupational status: disabled Cognitive needs: Yes Hearing needs: No Vision needs: No Questionnaire Thrive Questionnaire Date Thrive assessed: 03/10/24 I am a: Patient What is your living situation today?: I have a steady place to live Within the past 12 months, did the food you bought not last and you didn't have the money to get more?: Never true Within the past 12 months, did you worry whether your food would run out before you got money to buy more?: Never true Do you have trouble paying for medicines?: No Do you have trouble getting transportation to medical appointments?: No Do you have trouble paying your heating and electricity bill?: No Do you have trouble taking care of your child, family member or friend?: No Do you have trouble with day-to-day activities such as bathing, preparing meals, shopping, managing finances, etc.?: No Are you currently unemployed and looking for a job?: No Are you interested in more education?: No Please select the resources that you would like help with: None Currently or been in a relationship where the following occur: No concerns reported THRIVE Score: 0 DAYRON-7 AMB Questionnaire DAYRON-7 Date DAYRON - 7 assessed: 03/10/24 Source: Developed by Drs. Dakota Edouard, Silvana Murray, Timur Calles and colleagues, with an educational marita from [employer]. Physical exam (Primary Care) Vital Signs: Last Vital Signs Temp 97.3 F 09/29/24 15:12 Pulse 83 09/29/24 15:12 BP 112/68 09/29/24 15:12 Pulse Ox 97 09/29/24 15:12 Oxygen Delivery Method Room Air 09/29/24 15:12 BMI result Body Mass Index 24.7 Tobacco/Smoking Status: Tobacco use Status Tobacco use date assessed 09/29/24 09/29/24 15:17 Patient Tobacco Use Status Former Tobacco user 09/29/24 15:17 Tobacco use type Cigarette 09/29/24 15:17 e-Cigarette/Vaping Use Never Used 09/29/24 15:17 Thrive Assessment: Date of Thrive Assessment Date Thrive assessed 03/10/24 09/29/24 15:17 Currently or been in a relationship where the following occur: No concerns reported Const General: alert; No acute distress Eyes Conjunctivae: conjunctivae normal Resp Auscultation: clear to auscultation bilaterally Cardio Rate: regular rate Rhythm: regular rhythm GI Inspection: Yes normal to inspection Extrem General: Yes normal to inspection and No edema Coding Level of Care Code Est Pt Level 4 (33888) Complex EM visit Add On G2211 Diagnoses Glioma C71.9 Seizures R56.9 Renal calculus, right N20.0 Gastroesophageal reflux disease without esophagitis K21.9 Esophagitis presence: without esophagitis Hypercholesterolemia E78.00 Generalized anxiety disorder F41.1 Assessment & Plan Assessment & Plan (1) 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 Carey 07/2020 Code(s): C71.9 - Malignant neoplasm of brain, unspecified Category: Surgical Plan: Continue to follow-up with Neurology. (2) Seizures: Code(s): R56.9 - Unspecified convulsions Category: Medical Plan: Continue with Keppra a 1000 mg twice a day, continue follow-up with Neurology, continue with haloperidol (3) Renal calculus, right: Comment: Laser lithotripsy Dr. Benavides December 2020 stent placement and removal 01/2021 Code(s): N20.0 - Calculus of kidney Category: Medical Plan: Last ultrasound was negative, patient follows up with urology. Keep well hydrated (4) GERD (gastroesophageal reflux disease): Code(s): K21.9 - Gastro-esophageal reflux disease without esophagitis Category: Medical Qualifiers: Esophagitis presence: without esophagitis Qualified Code(s): K21.9 - Gastro-esophageal reflux disease without esophagitis Plan: Avoid the foods that causes that usually spicy foods, tomato products, juices, coffee, soda and foods that your sensitive to. After eating do not lie down, allow 3-4 hours before in lie down. And keep the head of bed above 30 degrees to avoid the acid from going up. (5) Hypercholesterolemia: Code(s): E78.00 - Pure hypercholesterolemia, unspecified Category: Medical Plan: Avoid fried foods, chicken skin, eggs, butter margarine, pastries and meat. Be it pork or beef they have a lot of cholesterol LDL goal of less than 130 and triglyceride of less than 150 (6) Generalized anxiety disorder: Comment: seeing Therapist [facility] Code(s): F41.1 - Generalized anxiety disorder Category: Medical Plan: Continue with present medication Plan History of Present Illness The patient is a 39-year-old male presenting for a follow-up visit. The patient has a history of glioma diagnosed in 2019, followed by a craniotomy in July 2020. He also has a history of seizures, managed with Keppra 1000 mg twice daily, and follows up with neurology for this condition. In addition, the patient has gastroesophageal reflux disease (GERD), hypercholesterolemia, and anxiety disorder. He underwent right renal calculus removal in January 2021 and continues to follow up with urology. The patient experienced dizziness and tachycardia, leading to hospitalization from June 15 to , with subsequent medication adjustments. He also reports migraines and was diagnosed with mild obstructive sleep apnea in March 2023, with an EHI of 6.8. Recent blood work in May showed normal blood count, electrolytes, renal function, blood sugar, liver function, and thyroid levels. His last cholesterol test in May 2022 was mildly elevated at 133 mg/dL. Health Maintenance - Follow-up with neurology for seizure management - Follow-up with urology for renal health - Maintain hydration to prevent renal calculi - Dietary and exercise recommendations for overall health Social History - Exercise: Patient does not engage in regular physical activity. - Hydration: Patient is advised to drink 6 to 8 glasses of water daily. Review of Systems - Neurological: Reports dizziness and migraines. Denies recent seizures. - Cardiovascular: Reports tachycardia. Denies chest pain. - Respiratory: Denies dyspnea or cough. Physical Exam Results - Labs: Normal blood count, electrolytes, renal function, blood sugar, liver function, and thyroid levels in May. - Imaging: Last kidney ultrasound in June 2024 showed a 4 mm left lower renal cyst, no calculi. - Sleep Study: March 2023 sleep test showed mild obstructive sleep apnea with an EHI of 6.8. Plan The patient will continue with Keppra 1000 mg twice daily for seizure management and follow up with neurology for ongoing care. For renal health, the patient is advised to maintain adequate hydration and follow up with urology as needed. Dietary modifications and regular exercise are recommended to manage hypercholesterolemia and overall health. A referral to neurology will be made to ensure continued management of the patient's neurological conditions. Patient was informed and verbally consented to the use of an ambient scribe for clinic note documentation during this visit. Discussion Notes During the visit, I discussed with the patient the importance of continuing Keppra for seizure management and the need for regular follow-ups with neurology. We also talked about maintaining hydration to prevent renal calculi and the importance of dietary and exercise modifications for managing hypercholesterolemia. I will arrange a referral to neurology to ensure comprehensive management of his neurological conditions. Patient Instructions - Continue taking Keppra 1000 mg twice daily. - Follow up with neurology for seizure management. - Maintain hydration by drinking 6 to 8 glasses of water daily. - Engage in regular physical activity and follow dietary recommendations. - Follow up with urology as needed. Orders: Orders Complete Blood Count Auto Diff 4 Months R56.9 - Unspecified convulsions Comprehensive Met. Panel 4 Months R56.9 - Unspecified convulsions Thyroid Stimulating Hormone 4 Months R56.9 - Unspecified convulsions Vitamin B12 and Folate 4 Months R56.9 - Unspecified convulsions Free T4 (Free Thyroxine) 4 Months R56.9 - Unspecified convulsions Lipid Panel 4 Months E78.00 - Pure hypercholesterolemia, unspecified, R56.9 - Unspecified convulsions Referrals Neurology Referral R56.9 - Unspecified convulsions
[2024-09-29 15:12] VITALS: BP 112/68; PULSE 83; TEMP 36.3; O2SAT 97; BMI 24.7
== END 2024-09-29 15:34 | disposition home or self-care (01) ==
LOC: HO.HMCH 15:05
PROVIDERS: PCP Internal Medicine; Visit Provider Internal Medicine
DX: C71.9 Malignant neoplasm of brain, unspecified (principal); R56.9 Unspecified convulsions; N20.0 Calculus of kidney; K21.9 Gastro-esophageal reflux disease without esophagitis; E78.00 Pure hypercholesterolemia, unspecified; F41.1 Generalized anxiety disorder

== ENCOUNTER 2024-12-16 12:15 | Outpatient (AMB) | payer OTHER, SELFPAY ==
--- OUTSIDE RECORDS SUMMARY | 2023-09-18 09:00 | XMS_ITS ---
Author Organization [facility] Address [address] [place] [address] Care Team Providers Care Saw Sharpener Name Role Phone Romy Petersen MD Primary Care Provider REASON FOR VISIT 1m f/u *Evaluation and Management of Chronic Medical Conditions, Labs done 08/02/2023 to be reviewed. Encounters Encounter Location Date Provider Diagnosis [address] [address] 09/18/2023 Romy Petersen Plan Of Treatment No Information Progress Notes * IAIN DOT ADOB: [birth year] (39 yo M)Acc No.[id number]:09/18/2023 Patient: DOT ROQUE Provider: Dori Petersen MD :1985 A ge:38 Y S ex:Male Date:09/18/2023 Address:[address] [place] [address] [address], [place], [id number] Subjective: * Chief Complaints: * 1 . 1m f/u *Evaluation and Management of Chronic Medical Conditions. 2. Labs done 08/02/2023 to be reviewed.. * HPI: C OA-Care of Older Adults: Skin Assessment D o you have any active skin bruising, bleeding, lesions or open wounds or sores? . D o you take Corticosteroids, any blood thinner or excessive sun exposure? . C OPD: COPD Questionnaire D uring the past 4 weeks, how much of the time did you feel short of breath? _ ____ D o you ever cough up any stuff, such as mucus or phlegm? _ ____ P lease select the answer that best describes you in the past 12 months, I do less than I used to because of my breathing problems. _ ____ D o you currently smoke or have smoked in the past? _ ____ O n an average how many cigarettes did you smoke per day? _ ____ H ave you smoked at least 100 cigarettes in your ENTIRE LIFE? _ ____ H ow old are you? _ ____ T otal Score _ ____ * Medical History: Objective: * Vitals: * P ast Orders: L ab:CBC (INCLUDES DIFF/PLT) (Order Date - 08/02/2023) (Collection Date & Time - 08/02/2023 03:31 PM) Value Reference Range WHITE BLOOD CELL COUNT 6.2 3.8-10.8 - [place] nd/uL RED BLOOD CELL COUNT 5.02 4.20-5.80 - Million /uL HEMOGLOBIN 15.5 13.2-17.1 - g/dL HEMATOCRIT 46.3 38.5-50.0 - % MCV 92.2 80.0-100.0 - fL MCH 30.9 27.0-33.0 - pg MCHC 33.5 32.0-36.0 - g/dL RDW 12.9 11.0-15.0 - % PLATELET COUNT 267 140-400 - Thousand/u L NEUTROPHILS 55 - % ABSOLUTE NEUTROPHILS 3410 [id number] - cells/u L LYMPHOCYTES 33.2 - % ABSOLUTE LYMPHOCYTES 2058 850-3900 - cells/uL MONOCYTES 6.6 - % ABSOLUTE MONOCYTES 409 200-950 - cells/uL EOSINOPHILS 4.2 - % ABSOLUTE EOSINOPHILS 260 15-500 - cells/uL BASOPHILS 1.0 - % ABSOLUTE BASOPHILS 62 0-200 - cells/uL MPV 9.5 7.5-12.5 - fL L ab:COMPREHENSIVE METABOLIC PANEL (Order Date - 08/02/2023) (Collection Date & Time - 08/02/2023 03:31 PM) Value Reference Range GLUCOSE 81 65-99 - mg/dL UREA NITROGEN (BUN) 14 7-25 - mg/dL CREATININE 0.99 0.60-1.26 - mg/dL BUN/CREATININE RATIO SEE NOTE: 6-22 - (calc) SODIUM 142 135-146 - mmol/L POTASSIUM 4.5 3.5-5.3 - mmol/L CHLORIDE 105 98-110 - mmol/L CARBON DIOXIDE 29 20-32 - mmol/L CALCIUM 9.7 8.6-10.3 - mg/dL PROTEIN, TOTAL 8.2 H 6.1-8.1 - g/dL ALBUMIN 4.9 3.6-5.1 - g/dL GLOBULIN 3.3 1.9-3.7 - g/dL (calc ) ALBUMIN/GLOBULIN RATIO 1.5 1.0-2.5 - (calc) BILIRUBIN, TOTAL 0.5 0.2-1.2 - mg/dL ALKALINE PHOSPHATASE 58 36-130 - U/L AST 15 10-40 - U/L ALT 13 9-46 - U/L EGFR 101 > OR = 60 - mL/min/1 .73m2 L ab:LIPID PANEL (Order Date 08/02/2023) (Collection Date & Time - 08/02/2023 03:31 PM) Value Reference Range TRIGLYCERIDES 133 <150 - mg/dL CHOLESTEROL, TOTAL 205 H <200 - mg/dL HDL CHOLESTEROL 64 > OR = 40 - mg/dL LDL-CHOLESTEROL 116 H - mg/dL (calc) CHOL/HDLC RATIO 3.2 <5.0 - (calc) NON HDL CHOLESTEROL 141 H <130 - mg/dL (calc) L ab:IRON, TIBC AND FERRITIN PANEL (Order Date 08/02/2023) (Collection Date & Time - 08/02/2023 03:31 PM) Value Reference Range IRON, TOTAL 139 50-180 - mcg/dL IRON BINDING CAPACITY 333 250-425 - mcg/dL ( calc) % SATURATION 42 20-48 - % (calc) FERRITIN 54 38-380 - ng/mL L ab:TSH (Order Date - 08/02/2023) (Collection Date & Time - 08/02/2023 03:31 PM) Value Reference Range TSH 1.74 0.40-4.50 - mIU/L L ab:VITAMIN B12/FOLATE, SERUM PANEL (Order Date 08/02/2023) (Collection Date & Time - 08/02/2023 03:31 PM) Value Reference Range FOLATE, SERUM 15.2 - ng/mL VITAMIN B12 300 466-8496 - pg/mL L ab:VITAMIN D,25-OH,TOTAL,IA (Order Date - 08/02/2023) (Collection Date & Time - 08/02/2023 03:31 PM) Value Reference Range VITAMIN D,25-OH,TOTAL,IA 21 L 30-100 - ng/mL L ab:URINALYSIS, COMPLETE (Order Date - 08/02/2023) (Collection Date & Time - 08/02/2023 03:31 PM) Value Reference Range COLOR DARK YELLOW YELLOW - APPEARANCE CLEAR CLEAR - BILIRUBIN NEGATIVE NEGATIVE - KETONES NEGATIVE NEGATIVE - SPECIFIC GRAVITY 1.029 1.001-1.035 - OCCULT BLOOD TRACE A NEGATIVE - PH 5.5 5.0-8.0 - PROTEIN NEGATIVE NEGATIVE - NITRITE NEGATIVE NEGATIVE - LEUKOCYTE ESTERASE NEGATIVE NEGATIVE - WBC NONE SEEN < OR = 5 - /HPF RBC 3-10 A < OR = 2 - /HPF SQUAMOUS EPITHELIAL CELLS NONE SEEN < OR = 5 - /HP F BACTERIA NONE SEEN NONE SEEN - /HPF HYALINE CAST NONE SEEN NONE SEEN - /LPF GLUCOSE NEGATIVE NEGATIVE - Assessment: Plan: * Treatment: * Preventive Medicine: EDAPS: P AD Screening: Last Done: . Next Due: . E cho: Last Done: . Next Due: . P TH: Last Done: N o CKD dx Next Due: . HEDIS: D iabetic Eye Care Last Done: N o diabetes dx Next Due: . U rine Albumin/Creatinine Ratio Result: . Last Done: N o report in [facility] Next Due: . H emoglobin A1c Result: . Last Done: N o report in [facility] Next Due: . * * Electronic signature of Gali Petersen MD, MD on 12/16/2024 at 03:32 PM EDT Sign off status: Pending * Provider: Dori Petersen MD Date: 0 09/18/2023 Generated for Bere barragan/Linnea/eTlilismitting on: 1 03:32 PM EDT History and Physical Notes * HPI (History of Present Illness) Category Sub-Category Detail Notes Category Not es COPD COPD Questionnaire During the st 4 weeks, how much of the time did you feel short of breath?: Do you ever cough up any stuff, such a s mucus or phlegm?: Please select the answer oleg t best describes you in the past 12 months, I do less than I used to because of my breathing problems.: Do you currently smoke or have smoked in the past?: On an average how many cigarettes did yo u smoke per day?: Have you smoked at least 100 cigarettes in your ENTIRE LIFE?: How old are you?: Total Score: [facility]-Care of Older Adults Skin Assessment Do you have any active skin bruising, bleeding, lesions or open wounds or sores?: . Do you take Corticosteroids, any blood t hinner or excessive sun exposure?: .
--- OUTSIDE RECORDS SUMMARY | 2024-03-12 06:00 | XMS_ITS ---
Author Organization [facility] [employer] [facility] Address 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 Fasting labs. * Medical History: Objective: * Vitals: Assessment: Plan: * Treatment: * * Electronic signature of Gali Petersen MD, MD on 12/16/2024 at 03:32 PM EDT Sign off status: Pending * Provider: Dori Petersen MD Date: 0 03/12/2024 Generated for Bere barragan/Linnea/eTransmitting on: 03:32 PM EDT
--- OUTSIDE RECORDS SUMMARY | 2024-03-19 09:00 | XMS_ITS ---
[facility] [employer] Address 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 *Evaluation and Management of Chronic Medical Conditions. * HPI: C OA-Care of Older Adults: Skin Assessment D o you have any active skin bruising, bleeding, lesions or open wounds or sores? . D o you take Corticosteroids, any blood thinner or excessive sun exposure? . Pain Assessment/Controlled Substance Prescribing A re you currently experiencing pain of any kind? _ ____ A re you currently under pain management? _ ____ C OPD: COPD Questionnaire D uring the [...] ____ * Medical History: Objective: * Vitals: Assessment: Plan: * Treatment: * Preventive Medicine: EDAPS: P AD Screening: Last Done: . Next Due: . E cho: Last Done: . Next Due: . P TH: Last Done: . Next Due: . HEDIS: D iabetic Eye Care Last Done: . Next Due: . U rine Albumin/Creatinine Ratio Result: . Last Done: . Next Due: . H emoglobin A1c Result: . Last Done: . Next Due: . * * Electronic signature of Gali Petersen MD, on 12/16/2024 at 03:32 PM EDT Sign off status: Pending * Provider: Dori Petersen MD Date: 0 03/19/2024 Generated for Bere barragan/Linnea/Deisy on: 03:32 PM EDT History and Physical Notes [...] LIFE?: How old are you?: Total Score: COA-Care of Older Adults Pain Assessment/Controlled Substance Prescribing Are you currently experiencing pain of any kind?: Are you currently under pain management? : Skin Assessment Do you have any acti ve skin bruising, bleeding, lesions or open wounds or sores?: . Do you take Corticosteroids, any blood t hinner or excessive sun exposure?: .
--- NOTE | 2024-12-16 12:29 | A.OFFVIS_ITS ---
Intake Visit Reasons: unspecified convulsions Allergies No Known Allergies (No Known Allergies*) Allergy (Verified 09/29/24 15:12) HPI Comments Details: 39 years old man with left frontal cerebral surgery apparently for glioma in 2013 and 2017 resulting in large cystic area of abnormality in left frontal area with adjascent gliosis. He said that he only had 1 seizure and that was before surgery was done. Since surgery, no further seizure-like episode. He was admitted at [facility] in 2020 and then again in 2024 but it was not clear if he had a convulsion or seizure. Symptoms were generalized weakness psychiatric symptoms and dizziness. An EEG in May of 2024 did not reveal any significant abnormality or epileptic discharges. He was here for follow-up and was doing okay. His mood was also okay. [facility] Medical History Tachycardia Impacted cerumen of right ear Gait instability Nose pain Annual physical exam Renal infection Hospital discharge follow-up Speech abnormality Blood transfusion declined because patient is [employer] Sepsis Urinary retention with incomplete bladder emptying Neck pain on left side Gait instability Polysubstance abuse Migraine Hypercholesterolemia Thyroid nodule Seizures Psychotic disorder Insomnia Vitamin D deficiency GERD (gastroesophageal reflux disease) Surgical History Glioma History of surgery of head Family History Father Bipolar 1 disorder Mother Bipolar 1 disorder Myocardial infarction Paternal Grandmother No problems noted. Paternal Grandfather Myocardial infarction Brother Substance abuse Social History Household Members: Family Housing: Apartment Do you presently have visiting nurse or other home services: No Alcohol intake: never Patient Tobacco Use Status: Former Tobacco user Tobacco use type: Cigarette Years Smoked: stopped 19 years old e-Cigarette/Vaping Use: Never Used Second Hand Smoke Exposure: Yes Advance Directives Date on File: 01/31/21 service: No Current occupational status: disabled Cognitive needs: Yes Hearing needs: No Vision needs: No Review of Systems Narrative No seizure-like episode or significant change in behavior. Physical Exam Neuro Other: Mental Status: Alert and oriented to person, place, and time. Normal attention. Normal spontaneous speech, fluency, and comprehension. Affect is flat. Cranial Nerves: CN II: Visual esparza full to confrontation, visual acuity intact. CN III, IV, : Pupils equal, round, reactive to light and accommodation. Extraocular movements are normal. CN V: Facial sensation is normal. CN VII: Facial movements symmetrical. CN VIII: Hearing intact to bedside conversation is normal. CN IX, X: Palate elevates symmetrically. CN XI: Shoulder shrug and head turn symmetrical. CN XII: Tongue midline without atrophy or fasciculations. Motor: Bulk and tone normal in all extremities. No significant muscle weakness in arms and legs. No drift. Coordination: [id number]-[id number] and qmif-[id number]-bmwy testing normal. No dysmetria. Gait and Station: No obvious gait abnormality. No ataxia or instability. Extrapyramidal: Full facial expressions and blinking. No rigidity. Movements are appropriate with no tremor or abnormality. Speech: Normal; no dysarthria or tremor. Assessment & Plan Assessment & Plan (1) Seizure disorder: Comment: CT brain WO at [facility] in May 2024: Large area of left frontal cystic lesion, s/p surgery, and encephalomalacia MRI brain WO at [facility] in May 2024: Large area of left frontal encephalomalacia and cystic cavity s/p surgery Code(s): G40.909 - Epilepsy, unspecified, not intractable, without status epilepticus Category: Medical (2) 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 He had a seizure before the surgery and according to him not afterwards. He had couple of admissions at [facility] with nonspecific and behavioral symptoms. He has been taking levetiracetam 1000 mg twice a day and presently was not having any symptoms or seizures. His imaging has revealed a large area of cystic encephalomalacia and left frontal lobe with adjacent area of gliosis. His risk of seizures is relatively high and my recommendation is to continue preventive medicine. Coding Level of Care Code Est Pt Level 4 (61106) Diagnoses Seizure disorder G40.909 Glioma C71.9 S/P craniotomy Z98.890 Encephalomalacia G93.89
--- OUTSIDE RECORDS SUMMARY | 2024-12-16 15:32 | XMS_ITS | Patient Health Record ---
Author Organization [facility] [employer] [facility] Address 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 PT. 25 MIN. MOD ERATE (28424) Procedure 4 Office Visit, Est. P t., Level 5 (94929) General Notes Helen Lopez 01/16/2024 09:05:14 AM >VD A REFERRAL REQUEST IN THE INCOMING FAX QUE FOR PATIENT TO SEE SPECIALIST OFFICE. REFERRAL HAS BEEN CREATED., [employer], support 01/16/2024 09:07:00 AM>, Specialist Record not found., Helen Lopez 01/16/2024 10:02:47 AM >AUTHORIZATION HAS BEEN OBTAINED. A COPY OF THIS AUTH HAS BEEN FAXED TO SPECIALIST OFFICE . THANKS Clinical Notes Helen Lopez 01/16/2024 09:05:19 AM >PLEASE FAX ALL NOTES TO [facility] AT [phone]. THANKS Referral Priority Routine Reason home rn PT eval and treat RN EVAL AND TREAT Diagnosis 1 Fall, initial encoun ter (W19.XXXA) Referral Organization [facility] Referring Provider First Name Nancy Referring Provider Last Name Jenae Referring Provider [facility] ctice Referred Provider [facility], . Referred Provider Specialty Home Health General Notes Destiny Zelaya 01/19 03:45:08 PM >HOME HEALTH REFERRAL PLACED BY NANCY KELLY IN THE [facility], I HAVE EMAILED THE [facility] HOME REFERRAL FORM TO WENDY AT [facility] FOR PCP TO SIGN. Tyrese AMIN Joe 02/07/2024 09:59:47 AM >REFERRAL, REFERRAL REQUEST, AND PROGRESS NOTE FAXED TO [facility]. JG Referral Priority Routine Reason OFFICE VISIT Diagnosis 1 Malignant neoplasm o f brain, unspecified (C71.9) Referral Organization [facility] Referring Provider First Name Nancy Referring Provider Last Name Jenae Referring Provider [facility] Keerthi barboza Referred Provider VAZQUEZ PRIETO Referred Provider Specialty Neurology Procedure 1 EST. PT. 25 MIN. MOD ERATE (67927) General Notes Lisa Webb 04/07/2024 02:11:59 PM >RECV'D A FAX REQUEST FROM [facility] FOR AN OV. CREATED A REFERRAL AND SENT FOR APPROVAL, [employer], support 04/07/2024 14:13:40 PM>, Authorization is based on information provided; it is not a guarantee of payment. Billed services are subject to medical necessity, appropriate setting, billing/coding, plan limits, eligibility at time of service. Verify benefits online or call Customer Service.Tracey Earlyssia 04/07/2024 03:06:16 PM >APPROVED AND FAXED TO [phone] Clinical Notes Lisa Webb 04/07/2024 02:12:15 PM >PLEASE FAX NOTES TO [facility], THANK YOU! Referral Priority Routine Medications Medication SIG (Take, Route, Frequency, Duration) Notes Start Date End Date Status QUEtiapine Fumarate 400 MG 1 tablet Oral ly at bedtime; Duration: 30 days Active Pantoprazole Sodium 40 MG 1 tablet Orall y Once a day; Duration: 90 days Active Vitamin D (Ergocalciferol) 1.25 MG (77515 UT) 1 capsule Orally weekly; Duration: 60 days 09/19/2023 Active Rosuvastatin Calcium 5 MG 1 tablet Orall y Once a day; Duration: 90 days Active Sertraline HCl 100 MG take 2 tablets Ora lly Once a day; Duration: 90 days Active Ketoconazole 2 % as directed External ly 3 times a week; Duration: 90 days 12/19/2024 Active SUMAtriptan Succinate 50 MG take 1 table t Orally 2-4 hours as needed; Duration: 90 days Active levETIRAcetam 1000 MG 1 tablet Orally tw ice a day; Duration: 30 days Active Vitamin B-2 100 MG 1 tablet Orally Once a day; Duration: 30 days Active Haloperidol 20 MG 1 [...] Status W/U Status Risk Notes Problem Hyperlipidemia (90358264) Hyperlipidemia (E78.5) Active confirmed Problem Bipolar disorder (63213723) Bipolar disorder (F31.9) Active confirmed Problem Urinary incontinence (349860527) Urinary incontinence (R32) Active confirmed Problem Schizophrenia (95600100) Schizophrenia (F20.9) Active confirmed Problem Bowel incontinence (42547268) Bowel incontinence (R15.9) Active confirmed Problem Nephrolithiasis (35182989) Nephrolithiasis (N20.0) Active confirmed Problem Mild neurocognitive disorder (222486550) Mild neurocognitive disorder (G31.84) Active confirmed Problem Atherosclerosis of artery of left lower limb (disorder) (7741572943) Atherosclerosis of left leg (I70.202) Active confirmed Problem History of benign neoplasm of brain (176642504) History of benign brain tumor (Z86.011) Active confirmed Problem History of malignant neoplasm of brain (343828308) Personal history of brain tumor, malignant (Z85.841) Active confirmed Encounters Encounter Location Date Provider Diagnosis [address] [phone] 12/25/2023 Nancy Kelly Hyperlipidemia E78.[address] [phone] 01/01/2024 Nancy Kelly [facility] D [facility] M85.80 [facility] [address] [place] [phone] 01/24/2024 Nancy Kelly Vitamin D deficiency M85.80 [facility] [address] [place] [phone] 02/04/2024 [facility] [address] [place] [phone] 02/04/2024 Nancy Emanuelsa [facility] [address] [place] [phone] 02/11/2024 [facility] [address] [place] [phone] 02/14/2024 [facility] [address] [place] [phone] 02/14/2024 [facility] [address] [place] [phone] 02/15/2024 Nancy Kelly Assessments Encounter Date Diagnosis (ICD Code) Assessment Notes Treatment Notes Treatment Clinical Notes Section Notes 12/25/2023 Hyperlipidemia (ICD-10 - E78.5) 01/01/2024 Vitamin D deficiency (ICD-10 - M85.80) 01/24/2024 Vitamin D deficiency (ICD-10 - M85.80) Plan Of Treatment Future Test Test Name [...] RISK CAP MCR ADV HMO [address] [address] [place] [address] [id number] [employer] [place] Self - patient is the insured 4 Medical (General) History Surgical History Surgery Date(Month/Year) brain tumor removed 2013 brain tumor removed 2017
== END 2024-12-16 12:43 | disposition home or self-care (01) ==
LOC: HO.HSM 12:16
PROVIDERS: PCP Internal Medicine; Visit Provider Psychiatry & Neurology Neurology
DX: G40.909 Epilepsy, unspecified, not intractable, without status epilepticus (principal); C71.9 Malignant neoplasm of brain, unspecified; Z98.890 Other specified postprocedural states; G93.89 Other specified disorders of brain
CPT/HCPCS: 99214